=== PATIENT | male | born 1955 | race African-American/Black ===

== ENCOUNTER 2017-10-29 19:06 | Observation (INO) | payer BC ==
[2017-10-29 19:45] LABS: #Eosinphils 0.4 thou/uL (0.0-0.7); #Lymphocytes 2.8 thou/uL (1.20-3.40); #Monocytes 0.9 thou/uL (0.11-0.59); #Neutrophils 5.3 thou/uL (1.40-6.50); %Basophils 0.5 % (0.0-1.0); %Eosinophils 4.3 % (0.0-10.0); %Lymphocytes 29.6 % (21.0-51.0); %Neutrophils 56.5 % (42.0-75.0); Mean Corpuscular HGB CONC 35.4 g/dL (32.0-36.0); Mean Corpuscular Hemoglobin 32.4 pg (27.0-31.0); Mean Corpuscular Volume 91.7 fL (78.0-98.0); Mean Platelet Volume 6.9 fL (7.4-10.4); Platelet Count 261 thou/uL (130-400); RBC Distribution Width 13.1 % (11.5-14.5); Red Blood Cell (RBC) Count 3.09 mill/uL (4.70-6.10); White Blood Cell (WBC) Count 9.4 thou/uL (4.8-10.8)
--- NOTE | 2017-10-29 19:57 | RAD ---
CHEST ONE VIEW: HISTORY: FINDINGS: Chest pain. Dyspnea. COMPARISON: 10/30/2016 FINDINGS: The cardiac silhouette is magnified by projection. Shallow inspiration accentuates pulmonary marking s. Mediastinum is midline. No lobar consolidation or evidence of pneumothorax. IMPRESSION: No active cardiopulmonary abnormalities demonstrated. POS: [facility]
[2017-10-29] MEDS ORDERED: Nitroglycerin 0.4 MG TAB (25 Tab Bottle) ONE (20:00)
[2017-10-29 20:07] LABS: ALT (SGPT) 25 U/L (8-55); AST (SGOT) 23 U/L (5-34); Albumin 3.8 g/dL (3.4-4.8); Alkaline Phosphatase 55 U/L (40-150); Anion Gap 18 mmol/L (10-20); BUN (Urea Nitrogen) 58 mg/dL (8.4-25.7); Bilirubin, Total 0.2 mg/dL (0.2-1.2); CK (CPK) 437 U/L (30-200); Calc. Creatinine Clearance 0 mL/min (70-130); Calcium 9.4 mg/dL (7.8-10.44); Carbon Dioxide 21 mmol/L (23-31); Chloride 102 mmol/L (98-107); Estimated GFR-MDRD 28; Globulin 4.2 g/dL (2.4-3.5); Glucose 246 mg/dL (80-115); Lipase 53 U/L (8-78); Potassium 4.4 mmol/L (3.5-5.1); Sodium 137 mmol/L (136-145)
[2017-10-29 20:11] LABS: CKMB 2.5 ng/mL (0-6.6); Troponin I 0.013 ng/mL (< 0.028)
--- NOTE | 2017-10-29 23:10 | NM ---
RADIONUCLIDE VENTILATION AND PERFUSION LUNG SCAN: HISTORY: Chest pain. Dyspnea. FINDINGS: Ventilation images show good wash-in of radiotracer. Patchy areas of radiotracer remain throughout e ach lung on the wash-out images. Poor perfusion gradient on the perfusion images. No segmental or subsegmental perfusion mismatches. IMPRESSION: 1. Negative ventilation and perfusion lung scan for clinically significant pulmonary embolus. 2. Patchy areas of air trapping on the ventilation images. POS: [facility]
[2017-10-29 23:43] LABS: INR-International Normal Ratio 1.1; PTT 31.5 SEC (22.9-36.1); Prothrombin Time 14.7 SEC (12.0-14.7)
[2017-10-30 01:16] LABS: Troponin I 0.044 ng/mL (< 0.028)
[2017-10-30] MEDS ORDERED: Mag-Al 1200 mg/1200 mg/30 ML UDCUP PO PRN (01:21)
[2017-10-30] MEDS ORDERED: Loperamide HCl 2 MG CAP PO PRN (01:21)
[2017-10-30] MEDS ORDERED: Zolpidem Tartrate 5 MG TAB PO PRN (01:21)
[2017-10-30] MEDS ORDERED: Acetaminophen 325 MG TAB PO PRN (01:21)
[2017-10-30] MEDS ORDERED: Senokot 8.6 MG TAB PO PRN (01:21)
[2017-10-30] MEDS ORDERED: Milk Of Magnesia 30 ML UDCUP PO PRN (01:21)
[2017-10-30] MEDS ORDERED: Metoclopramide HCl 10 MG/2 ML VIAL IVP PRN (01:21)
[2017-10-30] MEDS ORDERED: Dextrose 50% Abboject 50 ML SYRINGE SLOW IVP PRN (01:21)
[2017-10-30] MEDS ORDERED: Dextrose 5% in Water 1,000 ML IV PRN (01:21)
[2017-10-30] MEDS ORDERED: HumaLOG 300 UNITS/3 ML VIAL SC PRN (01:21)
[2017-10-30] MEDS ORDERED: Metolazone 5 MG TAB PO PRN (02:29)
[2017-10-30] MEDS ORDERED: hydrOXYzine 25 MG TAB PO PRN ×2 (02:29→02:45)
[2017-10-30 02:39] VITALS: BMI 47.3
[2017-10-30] MEDS: ALPRAZolam 0.5 MG TAB PO PRN ×2 (02:43→23:03)
--- NOTE | 2017-10-30 02:56 | HP ---
PRIMARY CARE PHYSICIAN: Dr. Schmidt at [facility]. REASON FOR ADMISSION: Chest discomfort and dyspnea. HISTORY OF PRESENT ILLNESS: A 62-year-old -[place] male who has multiple medical issues including paroxysmal atrial fibrillation on chronic anticoagulation therapy, chronic diastolic heart failure, morbid obesity with sleep apnea, hypertension, diabetes, and dyslipidemia, who presented to emergency room with complaint of chest discomfort and shortness of breath. Patient reports that he was feeling weird in his chest. He was feeling heaviness, pressure-like sensation. He was feeling both upper extremities very heavy and weak. He was having only chest discomfort about 2/10 in intensity, associated with shortness of breath. He denies any associated nausea, vomiting , diaphoresis. He denies any dizziness, palpitations or syncope. He was having these type of symptoms and feeling for the last 2-3 days and that is why he decided to come to the emergency room for evaluation. He denies any fever or chills. He denies any cough. He denies any hemoptysis. He denies any pleurisy. He denies any local chest wall pain. He denies any UTI symptoms. He denies any constipation, diarrhea, melena or hematochezia. Patient reports that he does not have any recent cardiac testing done at in any the hospital. REVIEW OF SYSTEMS: The following complete review of systems was negative, unless otherwise mentioned in the HPI or below: Constitutional: Weight loss or gain, ability to conduct usual activities. Skin: Rash, itching. Eyes: Double vision, pain. ENT/Mouth: Nose bleeding, neck stiffness, pain, tenderness. Cardiovascular: Palpitations, dyspnea on exertion, orthopnea. Respiratory: Shortness of breath, wheezing, cough, hemoptysis, fever or night sweats. Gastrointestinal: Poor appetite, abdominal pain, heartburn, nausea, vomiting, constipation, or diarrhea. Genitourinary: Urgency, frequency, dysuria, nocturia. Musculoskeletal: Pain, swelling. Neurologic/Psychiatric: Anxiety, depression. Allergy/Immunologic: Skin rash, bleeding tendency. Please see my HPI for pertinent positive and negative. All other review of systems reviewed and negative except as mentioned in the HPI. PAST MEDICAL HISTORY: Morbid obesity, obstructive sleep apnea on CPAP, chronic respiratory failure with hypoxia, chronic atrial fibrillation, chronic anticoagulation with Eliquis, chronic diastolic heart failure, macrocytic anemia , diabetes type 2, insulin requiring, hypertension, dyslipidemia, chronic kidney disease stage 4, gout, gastroesophageal reflux disease. PAST SURGICAL HISTORY: Right nephrectomy for nephrolithiasis. Gastric sleeve surgery, tonsillectomy. PAST PSYCHIATRIC HISTORY: Anxiety and depression. SOCIAL HISTORY: The patient drinks beer occasionally. He is a former smoker. He quit smoking few years ago. He denies any other illicit drug abuse. He reports that he is eating healthy and he is keeping himself with fluid restriction as well as taking medication regularly. FAMILY HISTORY: Positive for diabetes, hypertension among several family members. ALLERGIES: No known drug allergy. CURRENT HOME MEDICATIONS: Xanax 1 mg p.o. at bedtime, insulin regular 70 units 3 times daily, Eliquis 5 mg p.o. b.i.d., sotalol 80 mg p.o. twice daily, Protonix 40 mg p.o. daily, promethazine 25 mg p.o. q.6 hourly p.r.n., metoprolol tartrate 50 mg twice daily, Atarax 25 mg p.o. daily, allopurinol 300 mg p.o. daily, metolazone 5 mg p.o. daily as directed, Cardizem-CD 60 mg p.o. daily, Lasix 80 mg p.o. 3 times daily, folic acid 0.8 mg p.o. daily, Crestor 20 mg p.o. daily, losartan 50 mg p.o. at bedtime. EMERGENCY ROOM COURSE: Patient is given IV fluid and nitroglycerin 0.4 mg sublingual. PHYSICAL EXAMINATION: VITAL SIGNS: On arrival, blood pressure 170/76, pulse 83, respiratory rate 30, temperature 98.5, saturation 94% on room air, weight 151.5 kilograms. GENERAL: The patient is currently alert, awake, no obvious acute distress. HEENT: Head normocephalic, atraumatic. Eyes: Pupils round, reactive to light. Extraocular muscle intact. ENT: Oropharynx within normal limits. Moist mucous membranes, no oral lesion, no pharyngeal erythema, no exudate. NECK: Supple, no JVD, short neck. Difficult to assess JVD. LUNGS: Clear to auscultation without any rhonchi or rales. CARDIAC: S1, S2 appears regular. No gross murmur noted, no gallop, no rub. ABDOMEN: Morbid obesity present. Bowel sounds present, nontender, nondistended. No organomegaly, no mass, no suprapubic tenderness. Morbid obesity limiting examination. BACK: Unremarkable, no CVA tenderness. EXTREMITIES: Upper extremity passive movement of all joints are normal. Lower extremities: Bilateral lower extremity trace edema noted. No calf tenderness. SKIN: No skin rash. HEMATOLOGICAL: No lymphadenopathy. PSYCHIATRIC: Normal affect. NEUROLOGIC: Nonfocal examination. Speech normal. SIGNIFICANT LABORATORY DATA: EKG showing first degree AV block, nonspecific ST- T changes. Chest x-ray based on my review, no acute cardiopulmonary process, cardiomegaly. Pulmonary perfusion imaging study showed no evidence of pulmonary embolism. CBC: WBC 9.4, hemoglobin 10.0, platelet 261. INR 1.1. BMP: Sodium 137, potassium 4.4, chloride 102, carbon dioxide 21, anion gap 18, BUN 58, creatinine 2.78, glucose 246, calcium 9.4. LFT: AST 23, ALT 25, alkaline phosphatase 55, albumin 3.8. CK 437, CK-MB 2.5, troponin I 0.013. BNP 94.6, troponin 0.044, lipase 53. ASSESSMENT AND PLAN: 1. Chest discomfort. Patient's description of chest discomfort is atypical. He has several risk factors for coronary artery disease. Based on his risk profile, his probability of coronary artery disease is very high. Patient will be observed on telemetry floor. We will do serial cardiac enzymes to rule out acute coronary syndrome. If cardiac enzymes continue to be negative, then we will perform pharmacological stress test tomorrow morning. This patient already had a VQ scan, so probably we will not be able to finish the stress test today, but a partial stress test will be done today and the other part will be done tomorrow. We will check lipid profile for risk stratification. Depending upon stress test result, we will decide whether cardiology needs to be involved in his care or not. We will try to optimize all risk factors with medicine. 2. Chronic kidney disease stage 4. We will monitor renal function and avoid nephrotoxin agent. This patient's renal insufficiency is related with diabetic nephropathy as well as unilateral kidney. His one kidney was removed from nephrolithiasis. I spoke with the patient that if he has to go for cardiac catheterization, then he is at risk for getting renal insufficiency and possible dialysis. 3. Elevated troponin. We will do serial cardiac enzymes x3 to rule out acute coronary syndrome. 4. Anemia, likely renal disease. The patient will continue ferrous sulfate upon discharge as well as Nephro-Ashleigh one tablet daily. 5. Hypertension. We will continue patient's blood pressure medication including metoprolol XL 50 mg p.o. b.i.d. 6. Gout. We will continue allopurinol 300 mg p.o. daily. 7. Anxiety and depression. We will continue Xanax 1 mg p.o. at bedtime p.r.n. 8. Chronic anticoagulation. We will continue Eliquis 5 mg p.o. b.i.d. 9. Paroxysmal atrial fibrillation. Continue Cardizem 60 mg p.o. b.i.d., metoprolol 50 mg p.o. b.i.d., and sotalol 80 mg p.o. b.i.d. 10. Dyslipidemia. Continue Crestor 20 mg p.o. at bedtime. 11. Gastroesophageal reflux disease. Continue Protonix 40 mg p.o. daily. 12. Chronic diastolic heart failure. Continue metolazone 5 mg p.o. daily p.r.n. for edema along with Lasix 80 mg p.o. t.i.d. 13. Diabetes type 2. Continue Humalog insulin as per sliding scale per protocol. Diabetic diet will be given. We will keep him n.p.o. for now for stress test and then we will resume diabetic diet. 14, SHANTE, continue his home cpap machine DISPOSITION: Plan based on clinical course. Patient will stay in hospital until stress test is done. JANUSZD
[2017-10-30 03:57] LABS: Cardiac Risk 4.3 (Less than 4.5)
[2017-10-30 04:01] LABS: Troponin I 0.092 ng/mL (< 0.028)
[2017-10-30] MEDS: Furosemide 80 MG TAB PO SCH ×3 (06:19→17:32)
[2017-10-30] MEDS ORDERED: INSULIN REGULAR HUMAN 70 UNIT SC SCH (07:30)
[2017-10-30 08:00] LABS: Troponin I 0.104 ng/mL (< 0.028)
[2017-10-30] MEDS ORDERED: Aspirin 325 MG TAB PO SCH (09:00)
[2017-10-30] MEDS ORDERED: Rosuvastatin 20 MG TAB PO SCH ×2 (09:00→21:00)
[2017-10-30] MEDS: Allopurinol 100 MG TAB PO SCH (09:56)
[2017-10-30] MEDS: Apixaban 5 MG TAB PO SCH ×2 (09:57→21:26)
[2017-10-30] MEDS: Diltiazem HCl SR 60 mg Capsule PO SCH ×2 (09:58→21:26)
[2017-10-30] MEDS: Sotalol HCl 80 MG TAB PO SCH ×2 (09:58→21:26)
[2017-10-30] MEDS: HYDROcodone/Acetaminophen 5/325 mg Tablet PO PRN ×3 (10:00→21:30)
[2017-10-30 10:54] LABS: Troponin I 0.092 ng/mL (< 0.028)
[2017-10-30] MEDS: HumaLOG 300 UNITS/3 ML VIAL SC PRN ×2 (11:38→17:33)
[2017-10-30] MEDS ORDERED: Benzocaine (Dental) 20% 10 gm Tube TOP PRN (12:00)
--- NOTE | 2017-10-30 16:25 | CON ---
DATE OF CONSULTATION: 10/30/2017 HISTORY: The patient is a 62-year-old gentleman with a history of cor pulmonale, atrial fibrillation , hypertension, and diabetes mellitus who presented with dyspnea and chest discomfort. The patient s tates that he had previously undergone an evaluation at [facility] several years ago. He had a cardiac catheterization which apparently revealed normal coronary arteries. The patient als o has a history of paroxysmal atrial fibrillation. The patient has been diagnosed with diastolic hea rt failure. The patient was in his usual state of health when he started developing left-sided chest discomfort. He reports that when he exerted himself, he would notice having discomfort in his left chest. This lasted for up to an hour. He stated this occurred several times in the past week. He c mary to the hospital for further evaluation. The patient denies having any present chest discomfort. PAST MEDICAL HISTORY: 1. Paroxysmal atrial fibrillation. 2. Congestive heart failure. 3. Diabetes mellitus. 4. Hypertension. 5. Chronic renal injury. 6. GE reflux. PAST SURGICAL HISTORY: He has had a nephrectomy, gastric sleeve and tonsillectomy. SOCIAL HISTORY: He is a nonsmoker. ALLERGIES: No known drug allergies. FAMILY HISTORY: Positive family history of coronary artery disease. MEDICATIONS ON ADMISSION: See nursing list. REVIEW OF SYSTEMS: Ten-point system is otherwise unremarkable. PHYSICAL EXAMINATION: GENERAL: This is an obese gentleman in no acute distress. VITAL SIGNS: Blood pressure 121/61. NECK: Full. LUNGS: Clear to auscultation. HEART: Regular rate and rhythm, normal S1, S2, no murmurs. ABDOMEN: Distended. EXTREMITIES: Showed trace edema. SKIN: Warm and dry. NEUROLOGIC: Nonfocal. VASCULAR: Radial pulses are 2+. LABORATORY DATA AND IMAGING DATA: Sodium 137, potassium 4.4, chloride 102, bicarbonate 21, BUN 58, c reatinine 2.78 and glucose 246. Troponin was 0.044. BNP is 94. White blood cell count 9.4, hemoglo bin 10.0, hematocrit 28.4, his platelets are 261. His EKG revealed him to have normal sinus rhythm w ith a nonspecific T-wave abnormality. Chest x-ray showed no evidence of pulmonary edema and EKG reve aled him to have normal sinus rhythm with a nonspecific T-wave abnormality. IMPRESSION: 1. Chest pain. 2. History of paroxysmal atrial fibrillation. 3. Hypertension. 4. History of diastolic heart failure. 5. Diabetes mellitus. 6. Dyslipidemia. 7. Chronic renal insufficiency. 8. History of sleep apnea. 9. Morbid obesity. This gentleman presents with chest pain with some features suggestive of angina. The patient underwe nt a V/Q scan which revealed no evidence of pulmonary embolus. The patient is scheduled to undergo C ardiolite stress testing. The patient is on appropriate cardiac medications. We will follow this pa tient with you through his hospitalization.
[2017-10-30] MEDS ORDERED: Losartan 25 MG TAB PO SCH (21:00)
[2017-10-31] MEDS: Furosemide 80 MG TAB PO SCH ×2 (05:01→11:56)
[2017-10-31] MEDS: HYDROcodone/Acetaminophen 5/325 mg Tablet PO PRN ×2 (06:20→11:55)
[2017-10-31 08:19] VITALS: TEMP 97.4
[2017-10-31] MEDS ORDERED: Aspirin 81 mg Enteric Coated Tablet PO SCH (09:00)
[2017-10-31] MEDS: Allopurinol 100 MG TAB PO SCH (10:22)
[2017-10-31] MEDS: Apixaban 5 MG TAB PO SCH (10:22)
[2017-10-31] MEDS: Diltiazem HCl SR 60 mg Capsule PO SCH (10:24)
[2017-10-31] MEDS: Sotalol HCl 80 MG TAB PO SCH (10:25)
[2017-10-31] MEDS: HumaLOG 300 UNITS/3 ML VIAL SC PRN (11:56)
--- NOTE | 2017-10-31 12:43 | NM ---
MYOCARDIAL PERFUSION SCAN WITH STRESS IMAGING ONLY: HISTORY: Chest pain. TECHNIQUE: A stress examination is performed using 29 millicuries of technetium 99m sestamibi. FINDINGS: This shows a normal distribution of the radiopharmaceutical. No signs of ischemia or scar. WALL MOTION: There is symmetric contractility to the ventricle. LEFT VENTRICULAR EJECTION FRACTION: The calculated left ventricular ejection fraction is 51%. IMPRESSION: 1. No evidence of ischemia or scar. 2. Left ventricular ejection fraction was calculated at 51%. Correlate with echocardiogram. POS: [facility]
[2017-10-31 13:09] VITALS: BP 157/74
[2017-10-31] MEDS ORDERED: Regadenoson 0.4 MG/5 ML SYRINGE ONE (13:16)
--- NOTE | 2017-10-31 13:46 | EKG ---
Test Reason : Blood Pressure : / mmHG Vent. Rate : 086 BPM Atrial Rate : 086 BPM P-R Int : 220 ms QRS Dur : 070 ms QT Int : 412 ms P-R-T Axes : 077 021 -75 degrees QTc Int : 493 ms Sinus rhythm with 1st degree A-V block Nonspecific T wave abnormality Abnormal ECG Confirmed by LUCINDA PIERRE, FOX ([id number]), editor managing director BERNARD DELUNA ([id number]) on 10/31/2017 1:45:41 PM Referred By: Confirmed By:FOX JANE MD
--- NOTE | 2017-11-01 00:43 | DIS ---
DATE OF ADMISSION: 10/30/2017 DATE OF DISCHARGE: 10/31/2017 DISCHARGE DIAGNOSES: 1. Chest pain. 2. Diabetes. 3. Hypertension. 4. Chronic kidney disease. HOSPITAL COURSE: The patient is a 62-year-old male who initially presented to the hospital for chest pain and some shortness of breath. The patient then underwent a stress test. The patient did have some intermediate elevated troponins. The stress test indicated an EF of 51% and the stress test did not indicate any ischemia or scar. The patient, at this time, was discharged home. He will follow up with PCP and his record filing clerk at [facility]. The patient had a stress test which was normal. He will be discharged home. I did have an extensive talk with him in regard to his medication and his blood sugars. I also went over extensively about his diet and his low salt diet, which he states that he eats out once a week due to not able to cook since his son works every other week. The eveline ent states that he does eat out quite a bit, which I did explain to him that has a lot of salt which henceforth he has to take diuretic 3 times a day. Also, his blood sugars have been very high. The p atient states that his last hemoglobin A1c was 8.1. His baseline hemoglobin A1c is normally 7. I re commended the patient to diet, exercise and also weight loss. Follow up with PCP and Dr. Trotter, Cardio logy, as outpatient. HOME MEDICATIONS: He will continue the insulin 70 before meals, rosuvastatin 20 mg daily, losartan 2 0 mg at bedtime, metolazone 5 mg daily p.r.n., Cardizem 60 b.i.d., Lasix 80 mg t.i.d., allopurinol 30 0 mg daily, Protonix 40 mg daily, Eliquis 5 mg b.i.d., Atarax 25 mg daily p.r.n., sotalol 80 mg b.i.d ., metoprolol 50 mg b.i.d., Xanax 1 mg p.o. at bedtime p.r.n. PHYSICAL EXAMINATION: VITAL SIGNS: Temperature 97.4, pulse 68, respirations are 20, saturation 93% room air, blood pressur e 157/74. GENERAL: He is awake, alert, oriented x3, does not appear in distress. CARDIOVASCULAR: S1, S2 present. No murmurs, rubs or gallops. ABDOMEN: Soft, nontender. Bowel sounds are present x2. LUNGS: Clear to auscultation. No rhonchi or wheezes noted. EXTREMITIES: No edema. Pedal pulses present x2.
== END 2017-10-31 16:52 | disposition home or self-care (01) ==
LOC: ERS 19:06 → 2SW 10-30 01:12
PROVIDERS: ADMIT Internal Medicine; ATTEND Internal Medicine
DX: R07.89 Other chest pain (principal); I48.0 Paroxysmal atrial fibrillation; I13.0 Hypertensive heart and chronic kidney disease with heart failure and stage 1 through stage 4 chronic kidney disease, or unspecified chronic kidney disease; E11.22 Type 2 diabetes mellitus with diabetic chronic kidney disease; N18.4 Chronic kidney disease, stage 4 (severe); I50.32 Chronic diastolic (congestive) heart failure; D63.1 Anemia in chronic kidney disease; G47.30 Sleep apnea, unspecified; E78.5 Hyperlipidemia, unspecified; J96.11 Chronic respiratory failure with hypoxia; K21.9 Gastro-esophageal reflux disease without esophagitis; M10.9 Gout, unspecified; F41.8 Other specified anxiety disorders; E66.01 Morbid (severe) obesity due to excess calories; Z68.42 Body mass index [BMI] 45.0-49.9, adult; Z87.891 Personal history of nicotine dependence; Z79.01 Long term (current) use of anticoagulants; Z79.4 Long term (current) use of insulin; Z79.899 Other long term (current) drug therapy; Z98.84 Bariatric surgery status; Z90.5 Acquired absence of kidney; Z99.89 Dependence on other enabling machines and devices
CPT/HCPCS: 36415; 36416; 71045; 78452; 78582; 80053; 80061; 82550; 82553; 83690; 83880; 84484; 85025; 85610; 85730; 93005; 93017; 94760; 96360; 96361; A9500; A9540; A9558; G0378; J2785

== ENCOUNTER 2018-11-20 22:16 | Inpatient (IN) | payer BC, SELFPAY ==
--- NOTE | 2018-11-20 23:28 | RAD ---
EXAM: Single view of the chest HISTORY: Shortness of breath COMPARISON: 10/29/2017 FINDINGS: Single view of the chest shows a normal sized cardiomediastinal silhouette. There is no abena dence of consolidation, mass, or pleural effusion. The bones are unremarkable. IMPRESSION: No evidence of acute cardiopulmonary disease
[2018-11-20 23:40] LABS: #Basophils 0.2 thou/uL (0.0-0.2); #Eosinphils 0.4 thou/uL (0.0-0.7); #Monocytes 0.9 thou/uL (0.11-0.59); #Neutrophils 7.3 thou/uL (1.40-6.50); %Basophils 1.4 % (0.0-1.0); %Eosinophils 3.7 % (0.0-10.0); %Lymphocytes 18.9 % (21.0-51.0); %Monocytes 8.3 % (0.0-10.0); %Neutrophils 67.8 % (42.0-75.0); Hemoglobin 10.8 g/dL (14.0-18.0); Mean Corpuscular HGB CONC 34.4 g/dL (32.0-36.0); Mean Corpuscular Hemoglobin 32.9 pg (27.0-31.0); Mean Corpuscular Volume 95.7 fL (78.0-98.0); Mean Platelet Volume 7.5 fL (7.4-10.4); Platelet Count 230 thou/uL (130-400); RBC Distribution Width 12.9 % (11.5-14.5); Red Blood Cell (RBC) Count 3.27 mill/uL (4.70-6.10); White Blood Cell (WBC) Count 10.8 thou/uL (4.8-10.8)
[2018-11-21 00:07] LABS: Albumin 3.8 g/dL (3.4-4.8)
[2018-11-21 00:08] LABS: Chloride 100 mmol/L (98-107); Potassium 4.8 mmol/L (3.5-5.1); Sodium 136 mmol/L (136-145)
[2018-11-21 00:09] LABS: Calcium 9.9 mg/dL (7.8-10.44); Glucose 202 mg/dL (80-115)
[2018-11-21 00:10] LABS: Globulin 3.4 g/dL (2.4-3.5); Protein, Total 7.2 g/dL (5.8-8.1)
[2018-11-21 00:11] LABS: Bilirubin, Total 0.2 mg/dL (0.2-1.2); Carbon Dioxide 24 mmol/L (23-31)
[2018-11-21 00:12] LABS: Alkaline Phosphatase 58 U/L (40-150)
[2018-11-21 00:13] LABS: Calc. Creatinine Clearance 0 mL/min (70-130); Estimated GFR-MDRD 27
[2018-11-21 00:14] LABS: BUN (Urea Nitrogen) 63 mg/dL (8.4-25.7)
[2018-11-21 00:15] LABS: ALT (SGPT) 26 U/L (8-55); AST (SGOT) 20 U/L (5-34)
[2018-11-21] MEDS ORDERED: Aspirin Chewable 81 MG TAB ONE (00:23)
[2018-11-21 00:35] LABS: CKMB 4.4 ng/mL (0-6.6)
[2018-11-21 00:45] LABS: Anion Gap 17 mmol/L (10-20)
[2018-11-21] MEDS ORDERED: Ondansetron ODT 4 MG TAB SL PRN (02:10)
[2018-11-21] MEDS ORDERED: Acetaminophen 325 MG TAB PO PRN (02:10)
[2018-11-21] MEDS ORDERED: Ondansetron PF 4 MG/2 ML Vial IVP PRN (02:10)
[2018-11-21 02:57] VITALS: BMI 46.0
[2018-11-21] MEDS ORDERED: Metolazone 5 MG TAB PO PRN (05:59)
[2018-11-21] MEDS ORDERED: hydrOXYzine 25 MG TAB PO PRN (05:59)
[2018-11-21] MEDS ORDERED: Furosemide 40 MG/4 ML VIAL SLOW IVP SCH ×2 (06:00→09:00)
[2018-11-21] MEDS ORDERED: Dextrose 50% Abboject 50 ML SYRINGE SLOW IVP PRN (06:00)
[2018-11-21] MEDS ORDERED: Dextrose 5% in Water 1,000 ML IV PRN (06:00)
[2018-11-21] MEDS ORDERED: ALPRAZolam 1 MG TAB PO PRN (06:01)
--- NOTE | 2018-11-21 07:35 | HP ---
TIME OF EVALUATION: 5 p.m. PRIMARY CARE DOCTOR: The patient goes to [facility]. CODE STATUS: Full code. CHIEF COMPLAINT: Shortness of breath. HISTORY OF PRESENT ILLNESS: This is a 63-year-old male patient with past medical history of diabetes, obesity, and hypertension, who came to the hospital after having shortness of breath for the past few days, started insidiously and has been gradually getting worse, associated with bilateral lower extremity edema, mostly on the right. No clear triggers, no alleviating factors. The patient denies any chest pain. The symptoms got worse on exertion and better with rest. REVIEW OF SYSTEMS: All systems were reviewed and negative except for the findings mentioned in the HPI. PAST MEDICAL HISTORY: Positive for AFib, gout, GERD, sleep apnea, type 2 diabetes, hyperlipidemia, high cholesterol, hypertension, and chronic kidney disease. SURGICAL HISTORY: Nephrectomy, bariatric surgery, tonsillectomy. PSYCHIATRIC HISTORY: Anxiety. FAMILY HISTORY: Reviewed and non contributory for current presentation. SOCIAL HISTORY: The patient drinks on a daily basis, less than 5 drinks per day ; quit smoking more than 10 years ago. KNOWN ALLERGIES: No known drug allergies. REPORTED MEDICATIONS: 1. Allopurinol. 2. Lasix. 3. Tizanidine. 4. Amitriptyline. 5. Terbinafine. 6. Humulin R. 7. Hydroxyzine. 8. Alprazolam. 9. Diltiazem. 10. Sotalol. 11. Eliquis. 12. Ferrous sulfate. 13. Mupirocin. 14. Trulicity. 15. Carvedilol. 16. Folic acid. 17. Crestor. PHYSICAL EXAMINATION: VITAL SIGNS: On presentation, blood pressure 161/91, with heart rate 94, respiratory rate was 30, temperature 97.8, oxygen saturation 92% on room air. GENERAL APPEARANCE: The patient is alert, oriented, in no acute distress. HEENT: Eyes; normal conjunctivae. Moist oral mucosa. Anicteric. No JVD. RESPIRATORY: Bilateral air entry. No rales. No wheezes. Symmetric expansion. CARDIOVASCULAR: Normal rate. Regular rhythm. No murmurs. No gallop. Patient has leg edema, mostly on the right side. ABDOMEN: Soft. Normal bowel sounds. MUSCULOSKELETAL: Baseline range of motion and strength. SKIN: Warm and intact. No pallor. No rash. No redness. Capillary refill seems to intact. NEURO: No evidence of any new focal weakness. Cranial nerves seems to be intact. PSYCH: The patient is alert and oriented, not in acute distress. Good mood. DIAGNOSTIC STUDIES: EKG was reviewed. The patient has normal sinus rhythm with a rate of 94, no specific ST abnormalities. Chest x-ray was done and the patient has no evidence of acute cardiopulmonary disease. Labs were reviewed. The patient has white count 10.8, hemoglobin 10.8, MCV 95.7, platelet count 230. Chemistry; sodium 136, potassium 4.8, chloride 100, carbon dioxide 24, anion gap 17, BUN 63, creatinine 2.86, the previous creatinine was 2.78. The initial troponin was 0.471, next one has been scheduled. Glucose 202. LFTs were negative. ASSESSMENT AND PLAN: The patient will be placed in the hospital with the following medical problems: 1. Acute coronary syndrome, possible [id number] myocardial infarction. The patient has a troponin 0.4, presented with shortness of breath that could be a presentation of chest pain in a diabetic patient, the patient has no specific EKG changes. Treatment; the patient has been started on aspirin, reconcile home medications. The patient to be on statins, ANNALISE inhibitors, beta blockers, and anticoagulation if the troponin keeps rising. Cardiology consulted for recommendations. There is no evidence of congestive heart failure in the echo done 2 years ago. We will repeat the echo to rule out congestive heart failure. 2. Morbid obesity. The patient reportedly has a gastric sleeve and had been losing weight, however, has gained some weight in the past few days, could be due to fluid retention. 3. Normocytic anemia. The patient has a hemoglobin of 10 and this is stable when compared with previous admissions. This can be followed as outpatient. 4. Stage 4 chronic kidney disease. Kidney function seems to be stable. We will monitor. We will treat accordingly. Fluid retention may be related to chronic kidney disease. 5. History of atrial fibrillation, rate is controlled. Reconcile home medications, adjust treatment as needed. 6. History of gout, the right ankle swelling could be related to a gout crisis. We will reconcile home medications. 7. Hyperlipidemia. Low-cholesterol diet is advised. Reconcile home medications. 8. Uncontrolled hypertension. The patient has had a systolic blood pressure of 161. Reconcile home medications. Will need IV p.r.n. medications for optimal control. 9. Deep vein thrombosis prophylaxis. Job ID: [id number] [facility]
--- NOTE | 2018-11-21 07:36 | ULT ---
PRELIMINARY REPORT/[facility]/EMERGENCY AFTER HOURS PROCEDURE PROCEDURE INFORMATION: Exam: US Duplex Right Lower Extremity Veins, Limited Exam date and time: 11/21/2018 12:45 AM Clinical history: 63 years old, male; Edema, localized; Lower extremity, right; Leg, lower; Patient HX: Rle pain/edema x 1 wk TECHNIQUE: Imaging protocol: Real-time Duplex ultrasound of the Right Lower Extremity with 2-D ibarra scale, color Doppler flow and spectral waveform analysis with image documentation. Limited exam was focused on the right lower extremity veins. COMPARISON: No relevant prior studies available. FINDINGS: No visible clot in the included veins. The included veins appear normally compressible. Duplex Doppler evaluation demonstrates flow in the evaluated veins. IMPRESSION: No evidence of acute right lower extremity DVT. Thank you for allowing us to participate in the care of your patient. Dictated and Authenticated by: Conor Dexter MD 11/21/2018 1:19 AM Central Time ([place] & [place]) FINAL REPORT US Venous Doppler Rt Unilat History: Lower extremity edema and pain Comparison: None. Findings: Real-time grayscale, color, and spectral analysis of the right lower extremity venous syste m was performed. The common femoral, femoral, proximal portions of greater saphenous and deep femoral veins as well as the popliteal and posterior tibial veins were interrogated. Normal flow, augmentation, and compression. Impression: No deep venous thrombosis. Findings and impression are concordant with the preliminary report by Donnie. Transcribed Date/Time: 11/21/2018 8:08 AM
[2018-11-21 08:21] LABS: Platelet Count 226 thou/uL (130-400)
[2018-11-21] MEDS ORDERED: Apixaban 5 MG TAB PO SCH (09:00)
[2018-11-21] MEDS ORDERED: Carvedilol 3.125 MG TAB PO SCH (09:00)
[2018-11-21] MEDS ORDERED: Aspirin 81 mg Enteric Coated Tablet PO SCH ×2 (09:00→10:45)
[2018-11-21] MEDS: Ferrous Sulfate 325 MG TAB PO SCH ×2 (09:29→19:42)
[2018-11-21] MEDS: Lisinopril 5 MG TAB PO SCH (09:29)
[2018-11-21] MEDS: Sotalol HCl 80 MG TAB PO SCH ×2 (09:30→19:41)
[2018-11-21] MEDS: tiZANidine HCl 4 MG TAB PO SCH ×2 (09:30→19:42)
[2018-11-21] MEDS: Diltiazem HCl SR 60 mg Capsule PO SCH ×2 (09:30→19:41)
[2018-11-21] MEDS: Allopurinol 300 MG TAB PO SCH (09:30)
[2018-11-21] MEDS: Rosuvastatin 20 MG TAB PO SCH (09:30)
[2018-11-21] MEDS: Heparin 10,000 UNITS/ 10 ML VIAL SLOW IVP SCH ×2 (09:34→16:40)
[2018-11-21] MEDS: Heparin 25,000 units/D5W 500 ML IVPB SCH (09:38)
[2018-11-21 09:58] LABS: Troponin I 1.453 ng/mL (< 0.028)
[2018-11-21] MEDS: HumaLOG 300 UNITS/3 ML VIAL SC PRN ×2 (11:10→16:49)
--- NOTE | 2018-11-21 12:43 | CON ---
DATE OF CONSULTATION: 11/21/2018 REASON FOR CONSULTATION: Shortness of breath. HISTORY OF PRESENT ILLNESS: Mr. Schmidt is a pleasant 63-year-old gentleman, who comes to the hospital for increased shortness of breath. He states that he has been getting more short winded for the last 2 or 3 days, slowly getting worse to the point where he decided to come in for evaluation. He also noticed increased lower extremity edema, worse in the right leg. He denies any chest pain, tightness, or pressure, only the shortness of breath. He follows up with [facility], Dr. Xiao is his primary rolling attendant. He last saw him apparently three months ago and was told everything was fine. PAST MEDICAL HISTORY: 1. Paroxysmal atrial fibrillation. 2. Gout. 3. GERD. 4. Sleep apnea. 5. Type 2 diabetes. 6. Hyperlipidemia. 7. Hypertension. 8. Chronic kidney disease. SURGICAL HISTORY: 1. Nephrectomy for multiple infections and renal stones. 2. History of gastric sleeve. 3. Tonsillectomy. SOCIAL HISTORY: Drinks about five drinks a day. Quit smoking about 5 or 6 years ago. ALLERGIES: NO KNOWN DRUG ALLERGIES. OUTPATIENT MEDICATIONS: Include, 1. Humulin regular. 2. Trulicity. 3. Ferrous sulfate. 4. Amitriptyline. 5. Tizanidine. 6. Carvedilol 3.125 b.i.d. 7. Sotalol 80 mg b.i.d. 8. Rosuvastatin 20 mg a day. 9. Metolazone 5 mg a day p.r.n. 10. Eliquis 5 mg b.i.d. 11. Diltiazem 60 mg b.i.d. 12. Furosemide 80 mg t.i.d. 13. Allopurinol 300 mg a day. 14. Alprazolam. 15. Hydroxyzine. ALLERGIES: NO KNOWN DRUG ALLERGIES. REVIEW OF SYSTEMS: A 12-point review of systems was done and was all negative unless stated in the history of present illness. PHYSICAL EXAMINATION: VITAL SIGNS: Temperature 97.4, pulse 79, respiratory rate 16, saturating 99% on room air, and blood pressure 131/77. GENERAL: Awake, alert, and oriented x3. No distress. HEENT: Normocephalic and atraumatic. NECK: Supple. LUNGS: Clear. CARDIOVASCULAR: S1 and S2. No S3 or S4. There is a grade 3/6 systolic murmur at the right upper sternal border. ABDOMEN: Soft. EXTREMITIES: 1+ edema, worse in the right leg, probably trace in the left leg. SKIN: Warm and dry. LABORATORY DATA: Laboratory work was reviewed. CBC with white count of 10, hemoglobin of 10.8, hematocrit of 31, and platelet count of 230. Coags were reviewed. Chemistries with a sodium of 136, potassium 4.6, chloride of 100, carbon dioxide 24, anion gap of 17, BUN of 63 and creatinine 2.86, GFR of 27. Total bilirubin, AST, and ALT are normal. Alkaline phosphatase is normal. Troponin was 0.47, then 1.3, and now 1.4 with a CK-MB of 4.4. BNP was 46. Albumin of 3.8. EKG was reviewed. Chest x-ray showed no acute cardiopulmonary issues. No CHF. Vascular ultrasound showed no evidence of DVTs. ASSESSMENT: 1. Acute on chronic diastolic heart failure. 2. Uut-EM-[id number] myocardial infarction. Unclear whether this is demand ischemia versus a true intracoronary event. 3. Chronic kidney disease stage IV, this is the highest. PLAN: 1. Certainly, there is a possibility that this is a non-ST elevation NV that he is having at this time. I spoke with Mr. Schmidt about possibly doing a heart catheterization. This is not the best time given his elevated creatinine and he would be at high risk for needing dialysis after the contrast load that he would need for heart catheterization. He is not interested in this. Currently, he is not having any chest pain. He is only short of breath and it is actually already getting better after a dose of IV Lasix yesterday. We will plan on treating him conservatively per his wishes. We will start him on a heparin drip. We will hold the Eliquis for the next few days while he is on a heparin drip and then we will restart it after that and we will send him home on Plavix as well. Continue aspirin. 2. We will give one dose of IV Lasix at 40 mg as he seems a little bit euvolemic at this time. 3. We will repeat an echocardiogram, make sure his LV function is not significantly impaired, it was normal. Last time he was here was in October of last year and his LV function was normal at that time. 4. Thank you for letting us to participate in the care of your patient. We will follow. Job ID: [id number]
[2018-11-21] MEDS ORDERED: HUMULIN U SC SCH (14:00)
[2018-11-21] MEDS ORDERED: Insulin Regular 300 UNITS/3 ML VIAL SC SCH (17:00)
[2018-11-21] MEDS: HUMULIN U SC SCH (17:34)
[2018-11-21] MEDS: Amitriptyline HCl 25 MG TAB PO SCH (19:41)
[2018-11-22 04:35] LABS: #Basophils 0.1 thou/uL (0.0-0.2); #Eosinphils 0.5 thou/uL (0.0-0.7); #Lymphocytes 3.3 thou/uL (1.20-3.40); #Monocytes 0.9 thou/uL (0.11-0.59); #Neutrophils 5.5 thou/uL (1.40-6.50); %Basophils 0.6 % (0.0-1.0); %Eosinophils 4.9 % (0.0-10.0); %Lymphocytes 32.2 % (21.0-51.0); %Monocytes 8.8 % (0.0-10.0); %Neutrophils 53.5 % (42.0-75.0); Hemoglobin 9.8 g/dL (14.0-18.0); Mean Corpuscular HGB CONC 34.3 g/dL (32.0-36.0); Mean Corpuscular Hemoglobin 32.8 pg (27.0-31.0); Mean Corpuscular Volume 95.6 fL (78.0-98.0); Mean Platelet Volume 7.2 fL (7.4-10.4); Platelet Count 213 thou/uL (130-400); Red Blood Cell (RBC) Count 2.99 mill/uL (4.70-6.10); White Blood Cell (WBC) Count 10.2 thou/uL (4.8-10.8)
[2018-11-22 04:47] LABS: Anion Gap 12 mmol/L (10-20); BUN (Urea Nitrogen) 72 mg/dL (8.4-25.7); Calc. Creatinine Clearance 52 mL/min (70-130); Calcium 9.6 mg/dL (7.8-10.44); Carbon Dioxide 29 mmol/L (23-31); Chloride 95 mmol/L (98-107); Estimated GFR-MDRD 24; Glucose 228 mg/dL (80-115); Potassium 4.6 mmol/L (3.5-5.1); Sodium 131 mmol/L (136-145)
[2018-11-22] MEDS: Heparin 25,000 units/D5W 500 ML IVPB SCH (06:45)
[2018-11-22] MEDS: HUMULIN U SC SCH ×3 (07:30→18:56)
[2018-11-22] MEDS: Allopurinol 300 MG TAB PO SCH (09:28)
[2018-11-22] MEDS: tiZANidine HCl 4 MG TAB PO SCH ×2 (09:28→20:47)
[2018-11-22] MEDS: Lisinopril 5 MG TAB PO SCH (09:28)
[2018-11-22] MEDS: Sotalol HCl 80 MG TAB PO SCH ×2 (09:28→20:47)
[2018-11-22] MEDS: Diltiazem HCl SR 60 mg Capsule PO SCH ×2 (09:28→20:47)
[2018-11-22] MEDS: Ferrous Sulfate 325 MG TAB PO SCH ×2 (09:29→20:47)
[2018-11-22] MEDS: Rosuvastatin 20 MG TAB PO SCH (09:30)
--- NOTE | 2018-11-22 10:27 | ULT ---
US Renal Bilateral STANDARD: 11/22/2018 9:21 AM CLINICAL HISTORY: Renal failure. History of prior right nephrectomy in 2007. STUDY: Renal ultrasound COMPARISON: None. FINDINGS: Right kidney: Status post right nephrectomy Left kidney: Echogenicity: Normal. Masses/cysts: None. Hydronephrosis: None. Calcifications: None. Length: 16.1 cm Limited visualization of the urinary bladder is unremarkable. IMPRESSION: Unremarkable left renal ultrasound
--- NOTE | 2018-11-22 12:15 | PDOC.CPN ---
- Subjective Date: 11/22/18 Time: 12:12 Interval history: No change in his breathing but has noted his swelling is gone. - Review of Systems General: denies: fever/chills, weight/appetite/sleep changes, night sweats, fatigue Respiratory: reports: shortness of breath. denies: cough, congestion, exercise intolerance Cardiovascular: denies: chest pain, palpitation, edema, paroxysmal nocturnal dyspnea, orthopnea Gastrointestinal: denies: nausea, vomiting, diarrhea, constipation, abd pain, GI bleeding Musculoskeletal: denies: pain, tenderness, stiffness, swelling, arthritis/ arthralgias Neurological: denies: numbness, syncope, seizure, weakness - Objective Allergies/Adverse Reactions: Allergies Allergy/AdvReac Type Severity Reaction Status Date / Time No Known Drug Allergies Allergy Verified 10/30/17 01:45 Visit Medications: Current Medications Allopurinol (Zyloprim) 300 mg PO DAILY [facility] Last Admin: 11/22/18 09:28 Dose: 300 mg Alprazolam (Xanax) 1 mg PO HS PRN PRN Reason: Anxiety Amitriptyline HCl (Elavil) 50 mg PO HS [facility] Last Admin: 11/21/18 19:41 Dose: 50 mg Dextrose/Water (Dextrose 50%) 25 gm SLOW IVP PRN PRN PRN Reason: Hypoglycemia Diltiazem HCl (Cardizem Sr) 60 mg PO BID [facility] Last Admin: 11/22/18 09:28 Dose: 60 mg Ferrous Sulfate (Feosol) 325 mg PO BID [facility] Last Admin: 11/22/18 09:29 Dose: 325 mg Glucagon (Glucagon) 1 mg IM PRN PRN PRN Reason: Hypoglycemia Heparin Sodium (Porcine) (Heparin 1,000 Units/Ml (10 Ml)) 4,000 units SLOW IVP ASDIR [facility]; Protocol Last Admin: 11/21/18 16:40 Dose: 4 ml Hydroxyzine HCl (Atarax) 25 mg PO DAILY PRN PRN Reason: Itching Dextrose/Water (D5w) 1,000 mls @ 0 mls/hr IV .Q0M PRN PRN Reason: Hypoglycemia Heparin Sodium/Dextrose (Heparin 25,000 Units/D5w 500 Ml) 500 mls @ 0 mls/hr IVPB INF [facility]; Protocol Last Admin: 11/22/18 06:45 Dose: 500 mls Insulin Human Lispro (Humalog) 0 units SC .MILD SLIDING SCALE PRN PRN Reason: Mild Correctional Scale Last Admin: 11/21/18 16:49 Dose: 5 unit Humulin U-500 Patient's Home Medication 80 each SC AC [facility] Last Admin: 11/22/18 07:30 Dose: 80 each Rosuvastatin Calcium (Crestor) 20 mg PO DAILY [facility] Last Admin: 11/22/18 09:30 Dose: 20 mg Sotalol HCl (Betapace) 80 mg PO BID [facility] Last Admin: 11/22/18 09:28 Dose: 80 mg Tizanidine HCl (Zanaflex) 4 mg PO BID [facility] Last Admin: 11/22/18 09:28 Dose: 4 mg Vital Signs & Weight: Vital Signs Temp Pulse Resp BP BP BP Pulse Ox 11/22/18 09:28 81 135/82 11/22/18 08:00 97.7 F 81 16 125/82 98 11/22/18 03:53 97.6 F 73 18 126/71 94 L Weight 326 lb 8.073 oz - Physical Exam General: alert & oriented x3, no apparent distress HEENT: mucus membranes moist, normocephaly Neck: supple neck, midline trachea Cardiac: regular rate and rhythm, no murmur Lungs: clear to auscultation, normal breath sounds Neuro: grossly intact Abdomen: active bowel sounds, soft, non-tender Skin: clear Musculoskeletal: normal range of motion, no pain - Labs Result Diagrams: 11/22/18 04:17 11/22/18 04:17 Troponin/CKMB CK-MB (CK-2) 4.4 ng/mL (0-6.6) 11/20/18 23:25 Troponin I 1.453 ng/mL (< 0.028) H* 11/21/18 08:54 - Telemetry Sinus rhythms and dysrhythmias: sinus rhythm - Assessment/Plan Assessment/Plan: 1. NSTEMI, unclear as to whether this was a true MS or demand ischemia. . 2. Diastolic CHF. 3. CKD stage 5 PLAN: - Hold of any more diuresis. Will give small IV NS bolus 2250 ml. - Cannot do LHC due to elevated creatinine. - Complete 48 hrs of heparin drip and then switch back to Eliquis full dose.
[2018-11-22] MEDS: HumaLOG 300 UNITS/3 ML VIAL SC PRN (12:18)
[2018-11-22] MEDS ORDERED: Sodium Chloride 0.9% 250 ML IV SCH (12:30)
--- NOTE | 2018-11-22 12:52 | CON ---
DATE OF CONSULTATION: 11/22/2018 CONSULTING PHYSICIAN: Warren Pickard MD REASON FOR CONSULTATION: Chronic kidney disease stage 4. REASON FOR ADMISSION: Shortness of breath. HISTORY OF PRESENT ILLNESS: This is a 63-year-old male with history of AFib, gout, GERD, hypertension, type 2 diabetes, solitary kidney, came to the hospital with shortness of breath and has been evaluated with Nephrology consult for chronic kidney disease. He is following with Dr. Perez at [facility]. He is feeling better and sitting up in the chair. PAST MEDICAL HISTORY: Positive for AFib, gout, GERD, sleep apnea, type 2 diabetes, hyperlipidemia, hypertension, chronic kidney disease stage 4, and solitary kidney. PAST SURGICAL HISTORY: Nephrectomy, bariatric surgery, tonsillectomy. HOME MEDICATIONS: 1. Allopurinol. 2. Lasix. 3. Tizanidine. 4. Amitriptyline. 5. Terbinafine. 6. Humulin-R. 7. Hydroxyzine. 8. Alprazolam. 9. Diltiazem. 10. Sotalol. 11. Eliquis. 12. Ferrous sulfate. 13. Omeprazole. 14. Trulicity. 15. Carvedilol. 16. Folic acid. 17. Crestor. ALLERGIES: NO KNOWN DRUG ALLERGIES. SOCIAL HISTORY: Quit smoking 10 years back and drinks on daily basis. FAMILY HISTORY: No history of kidney disease. REVIEW OF SYSTEMS: CONSTITUTIONAL: Negative for weight loss or gain, ability to conduct usual activities. SKIN: Negative for rash, itching. EYES: Negative for double vision, pain. ENT/MOUTH: Negative for nose bleeding, neck stiffness, pain, tenderness. CARDIOVASCULAR: Negative for palpitations, dyspnea on exertion, orthopnea. RESPIRATORY: Negative for shortness of breath, wheezing, cough, hemoptysis, fever or night sweats. GASTROINTESTINAL: Negative for poor appetite, abdominal pain, heartburn, nausea, vomiting, constipation, or diarrhea. GENITOURINARY: Negative for urgency, frequency, dysuria, nocturia. MUSCULOSKELETAL: Negative for pain, swelling. NEUROLOGIC/PSYCHIATRIC: Negative for anxiety, depression. ALLERGY/IMMUNOLOGIC: Negative for skin rash, bleeding tendency. PHYSICAL EXAMINATION: GENERAL: This is an obese male, in no apparent distress. VITAL SIGNS: Temperature 97.7, pulse 81, respiratory rate 16, blood pressure 124/82. HEENT: Atraumatic, normocephalic. Oral mucosa is moist. NECK: Supple. CV: S1 and S2. Rate and rhythm regular. RESPIRATORY: Clear to auscultation. GASTROINTESTINAL: Abdomen is soft. MUSCULOSKELETAL: 1+ edema. DERMATOLOGIC: No skin rash. NEUROLOGIC: Alert and awake and oriented x3. PSYCHIATRIC: Mood and affect normal. LABORATORY DATA: Hemoglobin is 9.8. Potassium is 4.6, BUN is 72, and creatinine is 3.1. ASSESSMENT/PLAN: 1. Acute kidney injury on chronic kidney disease, stage 4, stable. Slight bump in renal function. Given the Lasix dose yesterday. We will monitor today. 2. Edema, controlled. 3. . 4. Hypertension. 5. Anemia. 6. Morbid obesity. 7. Solitary kidney. Renal ultrasound unremarkable. We will monitor renal function. Avoid nephrotoxins. Job ID: [id number]
[2018-11-22] MEDS ORDERED: guaiFENesin ER 600 MG TAB PO SCH (13:30)
--- NOTE | 2018-11-22 13:54 | PRG ---
DATE OF SERVICE: 11/22/2018 SUBJECTIVE: The patient is seen and examined at the bedside. OBJECTIVE: VITAL SIGNS: Blood pressure is 110/79, pulse is 77, respirations 20, O2 saturation is 98% on room air, and temperature is 98 degrees Fahrenheit. GENERAL: He was sitting in the chair during my visit. HEENT: His sclerae are nonicteric. Oral mucosa is moist. NECK: Supple and obese. LUNGS: Breath sounds diminished at both bases with minimal crackles at both bases. No wheezing. HEART: S1 and S2, distant. No S3. No S4. ABDOMEN: Obese and nontender. EXTREMITIES: No clubbing, cyanosis, or edema. NEUROLOGIC: He is alert and oriented x4. There are no any motor or sensory deficits. LABORATORY DATA: Showed white count of 10.2, hemoglobin 9.8, hematocrit 28.6, platelet count is 213. Sodium of 131, potassium 4.6, chloride 95, BUN is 72, creatinine 3.15. Glycemia is ranging from 254 to 305. Calcium 9.6. IMPRESSION: 1. Acute coronary syndrome, [id number] myocardial infarction, which is type 2 myocardial infarction. 2. Stage 4 chronic kidney disease with worsening creatinine, status post diuretic use. 3. History of atrial fibrillation. 4. Acute on chronic diastolic congestive heart failure. 5. History of gout. 6. Hyperlipidemia. 7. Uncontrolled hypertension. PLAN: To continue his heparin drip. He will be switched to oral Eliquis tomorrow. His renal ultrasound came back negative for any obstruction and there is a solitary kidney on the left. I will start him on Mucinex, also we will continue his 80 units of short-acting insulin before each meal. Apparently, he had some issues with the needles and most likely he was not really getting enough of insulin that way and his son is supposed to bring his needles from home and we will see how this helps. Otherwise, his glycemia is ranging on the higher side and he prefers to use his own pen for that. We will continue his Betapace, and we will discuss the case with Dr. Hay whether we need to restart his carvedilol, which is one of his home medications, and he should be able to go home in the next 24 to 48 hours. Job ID: [id number]
[2018-11-22 18:56] LABS: Bacteria/HPF None Seen HPF (None Seen); Bilirubin Negative (Negative); Blood, Urine Negative (Negative); Clarity Clear (Clear); Glucose, Urine (Dipstick) Normal (Negative); Leukocyte Negative Leu/uL (Negative); Nitrite Negative (Negative); Protein, Urine (Dipstick) Negative (Neg-Trace); RBC/HPF 0-3 HPF (0-3); Squamous Epithelial 0-3 HPF (0-3); Urobilinogen Normal mg/dL (Less than 2); WBC/HPF 0-3 HPF (0-3)
[2018-11-22] MEDS: Amitriptyline HCl 25 MG TAB PO SCH (20:48)
[2018-11-22] MEDS: guaiFENesin ER 600 MG TAB PO SCH (20:48)
[2018-11-23] MEDS: Heparin 25,000 units/D5W 500 ML IVPB SCH (02:28)
[2018-11-23] MEDS: Heparin 10,000 UNITS/ 10 ML VIAL SLOW IVP SCH (07:20)
[2018-11-23 07:35] LABS: Platelet Count 245 thou/uL (130-400)
[2018-11-23] MEDS: Sotalol HCl 80 MG TAB PO SCH ×2 (09:54→22:22)
[2018-11-23] MEDS: guaiFENesin ER 600 MG TAB PO SCH ×2 (09:55→22:22)
[2018-11-23] MEDS: tiZANidine HCl 4 MG TAB PO SCH ×2 (09:55→22:23)
[2018-11-23] MEDS: Ferrous Sulfate 325 MG TAB PO SCH ×2 (09:55→22:22)
[2018-11-23] MEDS: Diltiazem HCl SR 60 mg Capsule PO SCH ×2 (09:55→22:22)
[2018-11-23] MEDS: Allopurinol 300 MG TAB PO SCH (09:55)
[2018-11-23] MEDS: Rosuvastatin 20 MG TAB PO SCH (09:55)
[2018-11-23] MEDS: HUMULIN U SC SCH ×3 (09:57→17:16)
--- NOTE | 2018-11-23 12:32 | EKG ---
Test Reason : SOB Blood Pressure : / mmHG Vent. Rate : 094 BPM Atrial Rate : 094 BPM P-R Int : 206 ms QRS Dur : 078 ms QT Int : 378 ms P-R-T Axes : 013 007 -03 degrees QTc Int : 472 ms Normal sinus rhythm Nonspecific ST and T wave abnormality Abnormal ECG Confirmed by KERRY GRIGGS DO ([id number]), magazine editor FERNANDEZ JENKINS ([id number] on 11/23/2018 12:31:59 PM Referred By: Confirmed By:KERRY GRIGGS DO
--- NOTE | 2018-11-23 12:32 | EKG ---
Test Reason : Blood Pressure : / mmHG Vent. Rate : 090 BPM Atrial Rate : 090 BPM P-R Int : 214 ms QRS Dur : 080 ms QT Int : 394 ms P-R-T Axes : 041 007 -43 degrees QTc Int : 481 ms Sinus rhythm with 1st degree A-V block Minimal voltage criteria for LVH, may be normal variant Nonspecific T wave abnormality Prolonged QT Abnormal ECG #2 Confirmed by KERRY GRIGGS DO ([id number]), index editor FERNANDEZ JENKINS ([id number]) on 11/23/2018 12:32:04 PM Referred By: Confirmed By:KERRY GRIGGS DO
[2018-11-23] MEDS ORDERED: Heparin 25,000 units/D5W 500 ML IVPB SCH (12:41)
--- NOTE | 2018-11-23 12:42 | PDOC.CPN ---
- Subjective Date: 11/23/18 Time: 12:42 Interval history: The pt seen and examined. No overnight events. No cardiac complaints. - Objective Allergies/Adverse Reactions: Allergies Allergy/AdvReac Type Severity Reaction Status Date / Time No Known Drug Allergies Allergy Verified 10/30/17 01:45 Visit Medications: Current Medications Allopurinol (Zyloprim) 300 mg PO DAILY [facility] Last Admin: 11/23/18 09:55 Dose: 300 mg Alprazolam (Xanax) 1 mg PO HS PRN PRN Reason: Anxiety Amitriptyline HCl (Elavil) 50 mg PO HS [facility] Last Admin: 11/22/18 20:48 Dose: 50 mg Apixaban (Eliquis) 5 mg PO BID [facility] Dextrose/Water (Dextrose 50%) 25 gm SLOW IVP PRN PRN PRN Reason: Hypoglycemia Diltiazem HCl (Cardizem Sr) 60 mg PO BID [facility] Last Admin: 11/23/18 09:55 Dose: 60 mg Ferrous Sulfate (Feosol) 325 mg PO BID [facility] Last Admin: 11/23/18 09:55 Dose: 325 mg Glucagon (Glucagon) 1 mg IM PRN PRN PRN Reason: Hypoglycemia Guaifenesin (Mucinex) 1,200 mg PO Q12HR [facility] Last Admin: 11/23/18 09:55 Dose: 1,200 mg Heparin Sodium (Porcine) (Heparin 1,000 Units/Ml (10 Ml)) 4,000 units SLOW IVP ASDIR [facility]; Protocol Last Admin: 11/23/18 07:20 Dose: 4 ml Hydroxyzine HCl (Atarax) 25 mg PO DAILY PRN PRN Reason: Itching Dextrose/Water (D5w) 1,000 mls @ 0 mls/hr IV .Q0M PRN PRN Reason: Hypoglycemia Heparin Sodium/Dextrose (Heparin 25,000 Units/D5w 500 Ml) 500 mls @ 0 mls/hr IVPB INF [facility]; Protocol Insulin Human Lispro (Humalog) 0 units SC .MILD SLIDING SCALE PRN PRN Reason: Mild Correctional Scale Last Admin: 11/22/18 12:18 Dose: 4 unit Humulin U-500 Patient's Home Medication 80 each SC AC [facility] Last Admin: 11/23/18 11:37 Dose: 80 each Rosuvastatin Calcium (Crestor) 20 mg PO DAILY [facility] Last Admin: 11/23/18 09:55 Dose: 20 mg Sotalol HCl (Betapace) 80 mg PO BID [facility] Last Admin: 11/23/18 09:54 Dose: 80 mg Tizanidine HCl (Zanaflex) 4 mg PO BID [facility] Last Admin: 11/23/18 09:55 Dose: 4 mg Vital Signs & Weight: Vital Signs Temp Pulse Resp BP Pulse Ox 11/23/18 11:38 98.1 F 72 20 117/68 93 L 11/23/18 09:54 68 11/23/18 07:44 98.4 F 68 18 126/73 98 11/23/18 04:00 98.7 F 65 16 127/68 93 L Weight 332 lb 0.258 oz - Physical Exam General: alert & oriented x3 Neck: supple neck Cardiac: regular rate and rhythm, S1/S2 Lungs: decreased breath sounds Neuro: cranial nerve 2-12 intact Skin: other (discoloration to BLE) Musculoskeletal: decreased range of motion - Labs Result Diagrams: 11/23/18 07:24 11/22/18 04:17 Troponin/CKMB CK-MB (CK-2) 4.4 ng/mL (0-6.6) 11/20/18 23:25 Troponin I 1.453 ng/mL (< 0.028) H* 11/21/18 08:54 - Telemetry Sinus rhythms and dysrhythmias: sinus rhythm - Assessment/Plan Assessment/Plan: 1. NSTEMI with unclear etiology (true IN vs demand ischemia?) - The pt is asymptomatic; unable to undergo LHC due to elevated Cr elevel. Will stop Heparin when he receive 1 st Eliquis tonight. Plavix will be started at discharge 2. Acute on Chronic Diastolic CHF - stable with 2.5LNC; not on ANNALISE/ARB and Diuretic due to worsening of renal function 3. Prox Afib - remains in SR with Sotalol; on Eliquis 4. HTN - stable with current med 5. CKD stage 5 - slightly worsen today. pt. has only 1 kidney. 6. Anemia - 7. ETOH abuse MAR reviewed * Echo on 11/22/2018 with EF 50-55%, mod-severe dilated LA, mod ERA, trace MR and TR Pt. seen and eval. by me. I agree with the A/P by the TECHNICIAN HELPER INSTRUMENT. Pt. is without complaints. Chest clear. RRR. minimal left ankle edema. gjm
--- NOTE | 2018-11-23 15:32 | PRG ---
DATE OF SERVICE: 11/23/2018 SUBJECTIVE: Patient was seen and examined at bedside and overnight events noted. Patient denies any shortness of breath or chest pain or palpitation. No history of nausea or vomiting or diarrhea or fever or chills or cramps. OBJECTIVE: GENERAL: This is an obese, in no apparent distress. VITAL SIGNS: Temperature 98.1. Heart rate 72. Respiratory rate 22. Blood pressure 117/68. HEENT: Atraumatic, normocephalic. Oral mucosa is moist NECK: Supple. CARDIOVASCULAR: S1, S2 heard. Rate and rhythm regular. RESPIRATORY: Clear to auscultation. GASTROINTESTINAL: Abdomen is soft. MUSCULOSKELETAL: No tenderness. No edema. DERMATOLOGIC: No skin rash. NEUROLOGIC: Alert and awake and oriented X3. No focal neurologic deficits. Moving all the extremities. PSYCHIATRIC: Mood and affect normal. LABORATORY DATA: Not done today. ASSESSMENT AND PLAN: 1. Acute kidney injury, stable. 2. Cardiorenal syndrome. Follow with Cardiology. 3. Hypertension. 4. Anemia. 5. Morbid obesity. 6. Solitary kidney. 7. We will follow labs. Follow with Cardiology for further recommendations. Job ID: [id number]
--- NOTE | 2018-11-23 16:28 | PRG ---
DATE OF SERVICE: 11/23/2018 SUBJECTIVE: The patient is seen and examined at the bedside. He is sitting in the recliner. He does not have much complaints to offer. He would like to go home. OBJECTIVE: VITAL SIGNS: Blood pressure is 124/58, pulse is 78, respiratory rate is 18, temperature is 98.0, and O2 saturation is 92% on room air. HEENT: His head is atraumatic and normocephalic. Eyes are PERRLA. Sclerae are nonicteric. Oral mucosa is moist. NECK: Supple, obese. LUNGS: Breath sounds diminished at both bases with some bilateral crackles at both bases. HEART: S1 and S2, normal. No S3. No S4. ABDOMEN: Soft, obese, nontender. EXTREMITIES: 1+ peripheral edema similar bilaterally. NEUROLOGIC: He is alert and oriented x4. There is no any motor or sensory deficits. LABORATORY DATA: Labs showed white count of 10.0, hemoglobin of 30.3. Glycemia is ranging from 79 to 359. Echocardiogram was done and it showed LVEF estimated at 50% to 55% with left atrium, moderately to severely dilated and moderately enlarged right atrium. IMPRESSION: 1. Acute coronary syndrome, non-ST elevation myocardial infarction, which is type 2 myocardial infarction. 2. Stage 4 chronic kidney disease. 3. History of atrial fibrillation. 4. Acute on chronic diastolic congestive heart failure. 5. History of gout. 6. Hyperlipidemia. 7. Uncontrolled hypertension. 8. Uncontrolled diabetes mellitus. DISCUSSION: The patient is going to be switched from Lovenox to Eliquis. His glycemia is improving since he got his new needles. I discussed with him an option to go to boarding house cook and have this under better control because he is getting huge amount of insulin, which is anabolic hormone and regardless what he is doing, he is going to gain more weight. He will continue his Betapace and he should be able to go home tomorrow. Job ID: [id number]
[2018-11-23] MEDS: Amitriptyline HCl 25 MG TAB PO SCH (22:22)
[2018-11-23] MEDS: Apixaban 5 MG TAB PO SCH (22:22)
[2018-11-24] MEDS ORDERED: Acetaminophen/Codeine 30-300mg Tablet PO PRN (00:37)
[2018-11-24] MEDS: Acetaminophen/Codeine 30-300mg Tablet PO PRN ×2 (01:33→06:58)
[2018-11-24 04:12] LABS: Anion Gap 15 mmol/L (10-20); BUN (Urea Nitrogen) 77 mg/dL (8.4-25.7); Calc. Creatinine Clearance 51 mL/min (70-130); Calcium 9.3 mg/dL (7.8-10.44); Carbon Dioxide 25 mmol/L (23-31); Chloride 101 mmol/L (98-107); Estimated GFR-MDRD 25; Glucose 113 mg/dL (80-115); Potassium 4.4 mmol/L (3.5-5.1); Sodium 137 mmol/L (136-145)
[2018-11-24 05:30] LABS: Hemoglobin 9.7 g/dL (14.0-18.0); Platelet Count 223 thou/uL (130-400)
[2018-11-24] MEDS: tiZANidine HCl 4 MG TAB PO SCH (09:09)
[2018-11-24] MEDS: Allopurinol 300 MG TAB PO SCH (09:09)
[2018-11-24] MEDS: Apixaban 5 MG TAB PO SCH (09:09)
[2018-11-24] MEDS: HUMULIN U SC SCH ×3 (09:09→12:20)
[2018-11-24] MEDS: Sotalol HCl 80 MG TAB PO SCH (09:10)
[2018-11-24] MEDS: guaiFENesin ER 600 MG TAB PO SCH (09:10)
[2018-11-24] MEDS: Diltiazem HCl SR 60 mg Capsule PO SCH (09:10)
[2018-11-24] MEDS: Ferrous Sulfate 325 MG TAB PO SCH (09:10)
[2018-11-24] MEDS: Rosuvastatin 20 MG TAB PO SCH (09:10)
--- NOTE | 2018-11-24 11:45 | PDOC.CPN ---
- Subjective Date: 11/24/18 Time: 11:42 Interval history: The pt seen and examined. No overnight events. No cardiac complaints. - Objective Allergies/Adverse Reactions: Allergies Allergy/AdvReac Type Severity Reaction Status Date / Time No Known Drug Allergies Allergy Verified 10/30/17 01:45 Visit Medications: Current Medications Acetaminophen/Codeine Phosphate (Tylenol #3) 1 tab PO Q4H PRN PRN Reason: Mild-Moderate Pain (1-5) Acetaminophen/Codeine Phosphate (Tylenol #3) 2 tab PO Q4H PRN PRN Reason: Moderate to Severe Pain (6-10) Last Admin: 11/24/18 06:58 Dose: 2 tab Allopurinol (Zyloprim) 300 mg PO DAILY [facility] Last Admin: 11/24/18 09:09 Dose: 300 mg Alprazolam (Xanax) 1 mg PO HS PRN PRN Reason: Anxiety Last Admin: 11/23/18 23:21 Dose: 1 mg Amitriptyline HCl (Elavil) 50 mg PO HS [facility] Last Admin: 11/23/18 22:22 Dose: Not Given Apixaban (Eliquis) 5 mg PO BID [facility] Last Admin: 11/24/18 09:09 Dose: 5 mg Dextrose/Water (Dextrose 50%) 25 gm SLOW IVP PRN PRN PRN Reason: Hypoglycemia Diltiazem HCl (Cardizem Sr) 60 mg PO BID [facility] Last Admin: 11/24/18 09:10 Dose: 60 mg Ferrous Sulfate (Feosol) 325 mg PO BID [facility] Last Admin: 11/24/18 09:10 Dose: 325 mg Glucagon (Glucagon) 1 mg IM PRN PRN PRN Reason: Hypoglycemia Guaifenesin (Mucinex) 1,200 mg PO Q12HR [facility] Last Admin: 11/24/18 09:10 Dose: 1,200 mg Heparin Sodium (Porcine) (Heparin 1,000 Units/Ml (10 Ml)) 4,000 units SLOW IVP ASDIR [facility]; Protocol Last Admin: 11/23/18 07:20 Dose: 4 ml Hydroxyzine HCl (Atarax) 25 mg PO DAILY PRN PRN Reason: Itching Dextrose/Water (D5w) 1,000 mls @ 0 mls/hr IV .Q0M PRN PRN Reason: Hypoglycemia Insulin Human Lispro (Humalog) 0 units SC .MILD SLIDING SCALE PRN PRN Reason: Mild Correctional Scale Last Admin: 11/22/18 12:18 Dose: 4 unit Humulin U-500 Patient's Home Medication 80 each SC AC [facility] Last Admin: 11/24/18 09:09 Dose: Not Given Rosuvastatin Calcium (Crestor) 20 mg PO DAILY [facility] Last Admin: 11/24/18 09:10 Dose: 20 mg Sotalol HCl (Betapace) 80 mg PO BID [facility] Last Admin: 11/24/18 09:10 Dose: 80 mg Tizanidine HCl (Zanaflex) 4 mg PO BID [facility] Last Admin: 11/24/18 09:09 Dose: 4 mg Vital Signs & Weight: Vital Signs Temp Pulse Resp BP Pulse Ox 11/24/18 08:53 97.6 F 72 16 128/73 94 L 11/24/18 03:15 97.6 F 73 20 120/62 94 L Weight 324 lb 11.854 oz - Physical Exam General: alert & oriented x3 HEENT: mucus membranes moist Neck: supple neck Cardiac: regular rate and rhythm, S1/S2 Lungs: decreased breath sounds Skin: clear Musculoskeletal: decreased range of motion - Labs Result Diagrams: 11/24/18 05:22 11/24/18 05:22 Troponin/CKMB CK-MB (CK-2) 4.4 ng/mL (0-6.6) 11/20/18 23:25 Troponin I 1.453 ng/mL (< 0.028) H* 11/21/18 08:54 - Telemetry Sinus rhythms and dysrhythmias: sinus rhythm - Assessment/Plan Assessment/Plan: 1. NSTEMI with unclear etiology (true [place] vs demand ischemia?) - The pt is asymptomatic; unable to undergo LHC due to elevated Cr level. On Eliquis since last night and no hematuria or hematochezia. Plavix will be started at discharge 2. Acute on Chronic Diastolic CHF - stable with RA; not on ANNALISE/ARB and Diuretic due to worsening of renal function 3. Prox Afib - remains in SR with Sotalol; on Eliquis 4. HTN - stable with current med 5. CKD stage 5 - no changed; has only 1 kidney. 6. Anemia - unchanged 7. ETOH abuse MAR reviewed * Echo on 11/22/2018 with EF 50-55%, mod-severe dilated LA, mod ERA, trace MR and TR * From Cardiac standpoint, the pt is stable to d/c home. The pt will f/u with Dr Xiao at [facility] within 1-2 wks for further cardiac eval/exam.
[2018-11-24 11:59] VITALS: BP 131/70; TEMP 97.8
--- NOTE | 2018-11-24 14:25 | PRG ---
DATE OF SERVICE: 11/24/2018 SUBJECTIVE: Patient was seen and examined at bedside and overnight events noted. Patient denies any shortness of breath or chest pain or palpitation. No history of nausea or vomiting or diarrhea or fever or chills or cramps. OBJECTIVE: GENERAL: This is a well-built male, in no apparent distress. VITAL SIGNS: Temperature 97.9. Heart rate 74. Respiratory rate 18. Blood pressure 131/70. HEENT: Atraumatic, normocephalic. Oral mucosa is moist NECK: Supple. CARDIOVASCULAR: S1, S2 heard. Rate and rhythm regular. RESPIRATORY: Clear to auscultation. GASTROINTESTINAL: Abdomen is soft. MUSCULOSKELETAL: No tenderness. No edema. DERMATOLOGIC: No skin rash. NEUROLOGIC: Alert and awake and oriented X3. No focal neurologic deficits. Moving all the extremities. PSYCHIATRIC: Mood and affect normal. LABORATORY DATA: Potassium 4.4, BUN is 77, and creatinine is 3.1. ASSESSMENT/PLAN: 1. Acute kidney injury on chronic kidney disease stage 4 stable. 2. Cardiorenal syndrome. 3. Hypertension. 4. Anemia. 5. Solitary kidney. 6. Labs are stable. Advised the patient to follow up with his racquet maker at [facility], Dr. Perez. Job ID: [id number]
[2018-11-25] MEDS ORDERED: Clopidogrel Bisulfate 75 MG TAB PO SCH (09:00)
--- NOTE | 2018-11-25 12:09 | DIS ---
DATE OF ADMISSION: 11/21/2018 DATE OF DISCHARGE: 11/24/2018 DISCHARGE DIAGNOSES: 1. Non-ST elevation myocardial infarction. 2. Acute on chronic diastolic congestive heart failure. 3. Paroxysmal atrial fibrillation. 4. Hypertension. 5. Chronic kidney disease, acute on chronic. 6. Anemia. 7. History of gout. 8. Uncontrolled diabetes mellitus. CONSULTANTS: 1. Dr. Willis Hay, Cardiology Service. 2. Dr. Flori Sánchez, Nephrology Service. 3. Dr. Gayle, Cardiology Service. HOSPITAL COURSE: The patient is a 63-year-old male, who was admitted to hospital because of shortness of breath. He is a [facility] patient with few day history of increased shortness of breath associated with bilateral lower extremity edema. He was evaluated in the emergency room and was found to have white count of 10.8, hemoglobin of 10.8, and platelet count 230. Sodium 136, potassium 4.8, chloride 100, CO2 of 24, BUN of 63, creatinine 2.86 with previous creatinine at 2.78. Initial troponin was 0.471, glucose was 202. LFTs were negative. The patient has EKG done, which showed normal sinus rhythm with rate of 94, nonspecific ST abnormalities. Also, the chest x-ray was done, which showed no evidence of acute cardiopulmonary disease. The patient got admitted to the hospital, was seen by Dr. Hay for Cardiology Services, who recommended heparin drip. He was not able to perform cardiac catheterization because of his worsening kidney function. His creatinine the next day went up above 3. Nephrology Service was consulted. Dr. Sánchez saw the patient and his kidney function was closely monitored. Ultrasound of the kidneys was done, which did not really show any abnormalities of the left kidney. Apparently, the right kidney is status post right nephrectomy. The patient completed treatment with heparin drip and cleaning machine operator recommends to continue him on his Eliquis along with clopidogrel and follow up with the patient's cleaning machine operator at [facility]. The patient tolerated heparin drip without any problems. He is feeling good. DISCHARGE INSTRUCTIONS: 1. He is discharged home on a renal diabetic diet. 2. Activities, he is going to take it easy for the next week or so since he had NSTEMI. 3. Medications at the time of discharge;. a. Clopidogrel 75 mg once a day. b. Allopurinol 100 mg once a day. c. Alprazolam 0.5 mg at bedtime. d. Amitriptyline 50 mg at bedtime. e. Diltiazem 60 mg twice a day. f. Ferrous sulfate 325 mg twice a day. g. Hydroxyzine 25 mg daily p.r.n. as needed. h. Rosuvastatin 20 mg daily. i. Sotalol 80 mg twice a day. j. Tizanidine 4 mg twice a day. k. Eliquis 5 mg twice a day. l. Trulicity 0.75 mg subcutaneously every 7 days. m. Furosemide 80 mg daily. n. 80 units of short-acting insulin Humulin R U-500 before each meal. 4. He will follow up with his primary care physician in 1 week, with u.s. revenue officer in a week, and cleaning machine operator in 2 weeks. TIME SPENT: The discharge time is more than 30 minutes. Job ID: [id number]
--- NOTE | 2018-11-26 14:42 | PQF ---
CORBIN BROOKS ZBIGNIEW A MD [id number] [facility]297 [id number] CLINICAL DOCUMENTATION IMPROVEMENT CLARIFICATION FORM: ICD-10 Updated PLEASE DO AN ADDENDUM TO THE PROGRESS NOTE WITH ANY DOCUMENTATION UPDATES OR ADDITIONS AND CARRY THROUGH TO DC SUMMARY. THANK YOU. DATE: 11/26/18 ATTN:DR. Keron GUERRERO Please exercise your independent, professional judgment in responding to the clarification form. Clinical indicators are provided on the bottom of this form for your review. Please check appropriate box(s): [ x ] Acute On Chronic Respiratory Failure: [ ] with Hypoxia [ ] with Hypercapnia [ ] Chronic Respiratory Failure only [ ] with Hypoxia [ ] with Hypercapnia [ ] Other diagnosis [ ] Unable to determine In addition, please specify: Present on Admission (POA): [ x] Yes [ ] No [ ] Unable to determine For continuity of documentation, please document condition throughout progress notes and discharge summary. Thank You. CLINICAL INDICATORS - SIGNS / SYMPTOMS / LABS 11/21 ED : PT PRESENTS FOR SOB: BECAME SOB AND FELL FROM CHAIR WHILE WORKING ON HOME OXYGEN SYSTEM. 92% RA> 100% 3L/NC, RESPIRATIONS 16-30 11/21 H&P (PILI) THIS IS A 63 YEAR OLD MALE PATIENT WHO CAME TO THE HOSPITAL AFTER SHORTNESS OF BREATH FOR THE PAST FEW DAYS, STARTED INSIDIOUSLY AND HAS BEEN GRADUALLY GETTING WORSE, ASSOCIATED WITH BILATERAL LOWER EXT EDEMA. 11/24 DISCHARGE SUMMARY ( YOLANDA) THE PATIENT WAS ADMITTED TO THE HOSPITAL BECAUSE OF SHORTNESS OF BREATH. RISK: HOME O2 USE, FORMER SMOKER , ACUTE ON CHRONIC DIASTOLIC CONGESTIVE HEART FAILURE (ELKIN/CONSULT) 11/21 TREATMENTS: LASIX X 1 DOSE (CONSULT/ELKIN) 11/21 SUPPLEMENTAL OXYGEN (11/21-11/24/DISCHARGE) THANK YOU! AMIE (This form is maintained as a part of the permanent medical record) 2014 [employer]. All Rights Reserved KENNEDY [email or web address] [phone] MTDD
== END 2018-11-24 17:30 | disposition home or self-care (01) | DRG 280 ==
LOC: ERS 22:16 → 2NO 11-21 00:26
PROVIDERS: ADMIT Hospitalist; ATTEND Hospitalist
DX: I21.A1 Myocardial infarction type 2 (principal); I50.33 Acute on chronic diastolic (congestive) heart failure; J96.20 Acute and chronic respiratory failure, unspecified whether with hypoxia or hypercapnia; I13.0 Hypertensive heart and chronic kidney disease with heart failure and stage 1 through stage 4 chronic kidney disease, or unspecified chronic kidney disease; N17.9 Acute kidney failure, unspecified; N18.4 Chronic kidney disease, stage 4 (severe); Z68.42 Body mass index [BMI] 45.0-49.9, adult; M10.9 Gout, unspecified; K21.9 Gastro-esophageal reflux disease without esophagitis; G47.30 Sleep apnea, unspecified; E11.22 Type 2 diabetes mellitus with diabetic chronic kidney disease; E78.5 Hyperlipidemia, unspecified; E78.00 Pure hypercholesterolemia, unspecified; F41.9 Anxiety disorder, unspecified; E66.01 Morbid (severe) obesity due to excess calories; D63.1 Anemia in chronic kidney disease; I48.0 Paroxysmal atrial fibrillation; E11.65 Type 2 diabetes mellitus with hyperglycemia; Z79.01 Long term (current) use of anticoagulants; Z90.5 Acquired absence of kidney; Z79.899 Other long term (current) drug therapy; Z79.4 Long term (current) use of insulin; Z98.84 Bariatric surgery status; Z87.891 Personal history of nicotine dependence
CPT/HCPCS: 36415; 36416; 71045; 76770; 80048; 80053; 81001; 82553; 83880; 84484; 85014; 85018; 85025; 85049; 85730; 93005; 93306; J1644; J1940

== ENCOUNTER 2019-04-11 02:41 | Inpatient (IN) | payer BC ==
[2019-04-11 02:58] LABS: #Eosinphils 0.1 thou/uL (0.0-0.7); #Lymphocytes 2.1 thou/uL (1.20-3.40); #Monocytes 0.4 thou/uL (0.11-0.59); #Neutrophils 12.2 thou/uL (1.40-6.50); %Eosinophils 0.8 % (0.0-10.0); %Lymphocytes 14.2 % (21.0-51.0); %Monocytes 2.5 % (0.0-10.0); %Neutrophils 82.5 % (42.0-75.0); Hemoglobin 8.7 g/dL (14.0-18.0); Mean Corpuscular HGB CONC 31.9 g/dL (32.0-36.0); Mean Corpuscular Hemoglobin 31.4 pg (27.0-31.0); Mean Corpuscular Volume 98.3 fL (78.0-98.0); Mean Platelet Volume 7.3 fL (7.4-10.4); Platelet Count 230 thou/uL (130-400); RBC Distribution Width 13.9 % (11.5-14.5); Red Blood Cell (RBC) Count 2.76 mill/uL (4.70-6.10); White Blood Cell (WBC) Count 14.8 thou/uL (4.8-10.8)
[2019-04-11] MEDS ORDERED: fentaNYL Citrate/PF 2,000 MCG in Sodium Chloride 0.9% 60 ML IV SCH (03:03)
[2019-04-11 03:19] LABS: ALT (SGPT) 98 U/L (8-55); AST (SGOT) 91 U/L (5-34); Albumin 3.3 g/dL (3.4-4.8); Alkaline Phosphatase 97 U/L (40-110); Anion Gap 18 mmol/L (10-20); BUN (Urea Nitrogen) 68 mg/dL (8.4-25.7); Bilirubin, Total 0.3 mg/dL (0.2-1.2); Calc. Creatinine Clearance 0 mL/min (70-130); Calcium 8.5 mg/dL (7.8-10.44); Carbon Dioxide 22 mmol/L (23-31); Chloride 96 mmol/L (98-107); Estimated GFR-MDRD 18; Globulin 4.3 g/dL (2.4-3.5); Potassium 4.4 mmol/L (3.5-5.1); Protein, Total 7.6 g/dL (5.8-8.1); Sodium 132 mmol/L (136-145)
[2019-04-11 03:20] LABS: Actual Bicarbonate (HCO3a) 21.4 mEq/L (22-28); Analyzer IN Cardio ER; Base Excess (BEa) -6.7 mEq/L (-2.0 to +3.0); CO2 Tension 58.2 mmHg (35.0-45.0); Calcium, Ionized 1.07 mmol/L (1.12-1.30); Carboxyhemoglobin (COHb) 0.3 gm% (0.0-3.0); Hemoglobin (Hb) 8.5 g/dL (14.0-18.0); Potassium - ABG Lab 5.38 mmol/L (3.70-5.30)
[2019-04-11 03:22] LABS: Glucose 564 mg/dL (80-115)
[2019-04-11 03:25] LABS: pH, Arterial 7.18 (7.35-7.45)
[2019-04-11 03:53] LABS: Bilirubin Negative (Negative); Blood, Urine Trace (Negative); Clarity Clear (Clear); Glucose, Urine (Dipstick) >=1000 mg/dL (Negative); Leukocyte 500 Leu/uL (Negative); Nitrite Negative (Negative); Protein, Urine (Dipstick) 50 mg/dL (Neg-Trace); RBC/HPF 0-3 HPF (0-3); Squamous Epithelial None Seen HPF (0-3); Urobilinogen Normal mg/dL (Less than 2); WBC/HPF Greater than 50 HPF (0-3)
[2019-04-11 04:03] LABS: Bacteria/HPF 1+ HPF (None Seen)
[2019-04-11 04:07] LABS: Actual Bicarbonate (HCO3a) 20.9 mEq/L (22-28); Analyzer IN Cardio ER; Base Excess (BEa) -6.4 mEq/L (-2.0 to +3.0); CO2 Tension 51.7 mmHg (35.0-45.0); Calcium, Ionized 1.04 mmol/L (1.12-1.30); Carboxyhemoglobin (COHb) 0.3 gm% (0.0-3.0); Hemoglobin (Hb) 8.1 g/dL (14.0-18.0); O2 Tension (PaO2) 96.5 mmHg (> 80.0); Potassium - ABG Lab 6.45 mmol/L (3.70-5.30)
[2019-04-11 04:10] LABS: ALV-art Gradient 551.875 (0-20); Puncture Site LRA; pH, Arterial 7.23 (7.35-7.45)
[2019-04-11] MEDS ORDERED: Norepinephrine 8 MG/0.9% NS 250 ML ONE (04:29)
[2019-04-11 04:34] LABS: INR-International Normal Ratio 1.2; PTT 34.7 SEC (22.9-36.1)
[2019-04-11 04:38] LABS: Phosphorus 5.3 mg/dL (2.3-4.7)
[2019-04-11] MEDS ORDERED: Dextrose 50% Abboject 50 ML SYRINGE SLOW IVP PRN ×2 (04:58→10:59)
[2019-04-11] MEDS ORDERED: Dextrose 5% in Water 1,000 ML IV PRN ×2 (04:58→10:59)
[2019-04-11] MEDS ORDERED: HUMULIN R 100 UNITS in Sodium Chloride 0.9% 100 ML IVPB SCH (05:00)
[2019-04-11] MEDS ORDERED: Sodium Chloride 0.9% 1,000 ML IV SCH (05:00)
[2019-04-11 05:51] LABS: #Lymphocytes 0.7 thou/uL (1.20-3.40); #Monocytes 0.5 thou/uL (0.11-0.59); #Neutrophils 5.7 thou/uL (1.40-6.50); %Basophils 0.2 % (0.0-1.0); %Eosinophils 0.3 % (0.0-10.0); %Lymphocytes 9.8 % (21.0-51.0); %Monocytes 7.3 % (0.0-10.0); %Neutrophils 82.4 % (42.0-75.0); Hemoglobin 8.1 g/dL (14.0-18.0); Mean Corpuscular HGB CONC 30.8 g/dL (32.0-36.0); Mean Corpuscular Hemoglobin 29.9 pg (27.0-31.0); Mean Corpuscular Volume 97.1 fL (78.0-98.0); Mean Platelet Volume 7.7 fL (7.4-10.4); Platelet Count 214 thou/uL (130-400); RBC Distribution Width 13.9 % (11.5-14.5); Red Blood Cell (RBC) Count 2.71 mill/uL (4.70-6.10); White Blood Cell (WBC) Count 6.9 thou/uL (4.8-10.8)
[2019-04-11 06:09] LABS: Lactic Acid 3.6 mmol/L (0.5-2.2)
--- NOTE | 2019-04-11 06:10 | HP ---
CHIEF COMPLAINT: Cardiac arrest with return of spontaneous circulation. HISTORY OF PRESENT ILLNESS: Mr. Schmidt is a 63-year-old male with multiple medical problems including atrial fibrillation, diabetes, type 2, hyperlipidemia, hypertension, chronic kidney disease, stage 4, anemia, obesity, gout, sleep apnea, GERD, among others including coronary artery disease with coronary artery bypass graft surgery 2 months ago, was brought to the emergency room post cardiac arrest. As per EMS, the son found the patient in the bathroom, reports the patient was in upon arrival by EMS. The patient was intubated en route. EMS reports the patient had return of spontaneous circulation, but lost pulse shortly before arrival to the ED. EMS gave 2 rounds of epinephrine. EMS reports that the patient's blood sugar was around 400. When the patient arrived in the emergency room, the patient is intubated. Blood pressure went down to 85/40. At that time, the patient's central venous catheter is being inserted by the emergency room physician. The patient is being admitted to the intensive care unit for further management. PAST MEDICAL HISTORY: 1. Atrial fibrillation. 2. Diabetes mellitus, type 2. 3. Hypertension. 4. Hyperlipidemia. 5. Obesity. 6. Obstructive sleep apnea. 7. Anemia. 8. Chronic kidney disease, stage 4. PAST SURGICAL HISTORY: 1. Right nephrectomy. 2. Bariatric sleeve. 3. Tonsillectomy. 4. Coronary artery bypass graft surgery 2 months ago. PAST PSYCHIATRIC HISTORY: Includes anxiety. SOCIAL HISTORY: The patient lives at home with family. The patient drinks one drink per day. No history of drug abuse. He is a former tobacco user. Smokes cigars. The patient quit smoking less than 10 years ago. FAMILY HISTORY: Reviewed and noncontributory. ALLERGIES: NO KNOWN ALLERGIES. HOME MEDICATIONS: Please see home medication reconciliation form for updated medications. This is reported that the patient is on anticoagulant, Eliquis. Among other cardiac medications including diltiazem, sotalol, Lasix, carvedilol, medications need to be verified at the time of this dictation. REVIEW OF SYSTEMS: Unable to obtain. The patient is unresponsive, intubated. PHYSICAL EXAMINATION: GENERAL: The patient is intubated, unresponsive. VITAL SIGNS: Blood pressure 92/53, pulse is 52, respiratory rate is 22, and temperature is 95.9. HEAD AND NECK: Normocephalic. NECK: Supple. CHEST: Coarse bilateral breath sounds. HEART: Distant heart sounds. ABDOMEN: Obese. Bowel sounds hypoactive. NEURO: The patient is intubated, unresponsive. PSYCH: Unable to assess. EXTREMITIES: No clubbing. No cyanosis. MUSCULOSKELETAL: No current deformity. LABORATORY DATA: Arterial blood gas; pH is 7.3, pCO2 is 51, pO2 is 96% on 100% FiO2, SIMV mode. Magnesium is 2.0. BNP is 91. Lactic acid is 7.8. Sodium is 132, potassium 4.4, BUN is 68, creatinine is 4.19, glucose is elevated at 564, AST is 91, and ALT is 98. Troponin 0.021. WBC count is 14.8, hemoglobin 8.7, and platelets 230. ASSESSMENT: 1. Cardiac arrest with return of spontaneous circulation. 2. Acute respiratory failure. 3. Cardiac arrhythmia and ventricular fibrillation were reported by EMS. 4. Chronic kidney disease, stage 4. 5. Lactic acidosis. 6. Coronary artery disease with history of coronary artery bypass graft surgery. 7. Diabetes mellitus with hyperglycemia. 8. History of atrial fibrillation. PLAN: 1. Admit to ICU. 2. Continue full ventilator support. 3. Pulmonary/Switching Operator consulted for critical care management. 4. Central venous catheter is being inserted. The patient may require to be started on vasopressors to keep MAP equal or more than 65. 5. Serial troponins. 6. CTA of the chest cannot be done. The patient's creatinine is more than 4. Reassess in a.m. 7. GI prophylaxis. 8. DVT prophylaxis. The patient is on Eliquis, one of his home medications, to be verified. 9. The patient's condition is critical. Case discussed with ED physician, who will call Pulmonary/Switching Operator for further consultation and recommendations. 10. Hypothermia protocol as per ED physician/cushion sewer. Job ID: [id number]
[2019-04-11] MEDS ORDERED: Propofol 1,000 MG/100 ML VIAL IV PRN (06:15)
[2019-04-11] MEDS ORDERED: Propofol BOLUS 1,000 MG/100 ML VIAL IV PRN (06:15)
[2019-04-11] MEDS ORDERED: Morphine 2 MG/ML SYRINGE SLOW IVP PRN (06:15)
[2019-04-11] MEDS ORDERED: DISCONTINUE PREVIOUS NARCOTIC PAIN MEDICATIONS AND BENZODIAZEPINES FS SCH (06:15)
[2019-04-11] MEDS ORDERED: Fentanyl BOLUS 250 ML IVPB PRN (06:15)
[2019-04-11 06:18] LABS: ALT (SGPT) 117 U/L (8-55); AST (SGOT) 119 U/L (5-34); Alkaline Phosphatase 89 U/L (40-110); Anion Gap 15 mmol/L (10-20); BUN (Urea Nitrogen) 66 mg/dL (8.4-25.7); Bilirubin, Total 0.2 mg/dL (0.2-1.2); Calc. Creatinine Clearance 0 mL/min (70-130); Calcium 7.4 mg/dL (7.8-10.44); Carbon Dioxide 21 mmol/L (23-31); Chloride 101 mmol/L (98-107); Estimated GFR-MDRD 19; Globulin 3.3 g/dL (2.4-3.5); Glucose 526 mg/dL (80-115); Potassium 7.1 mmol/L (3.5-5.1); Protein, Total 6.3 g/dL (5.8-8.1); Sodium 130 mmol/L (136-145); Troponin I 0.228 ng/mL (< 0.028)
[2019-04-11] MEDS ORDERED: Insulin Regular 300 UNITS/3 ML VIAL IVP SCH (07:00)
[2019-04-11] MEDS ORDERED: Sodium Bicarb 50 MEQ/50 ML VIAL IVP SCH (07:00)
[2019-04-11] MEDS ORDERED: Calcium Gluc 4.6 MEQ/10 ML (100 MG/ML) SLOW IVP SCH (07:15)
[2019-04-11] MEDS ORDERED: Norepinephrine 8 MG/0.9% NS 250 ML IVPB SCH ×2 (07:40→11:00)
[2019-04-11 07:41] LABS: #Lymphocytes 0.9 thou/uL (1.20-3.40); #Monocytes 0.6 thou/uL (0.11-0.59); #Neutrophils 6.9 thou/uL (1.40-6.50); %Basophils 0.2 % (0.0-1.0); %Eosinophils 0.3 % (0.0-10.0); %Lymphocytes 10.3 % (21.0-51.0); %Monocytes 6.6 % (0.0-10.0); %Neutrophils 82.7 % (42.0-75.0); Hemoglobin 9.3 g/dL (14.0-18.0); Mean Corpuscular HGB CONC 31.1 g/dL (32.0-36.0); Mean Corpuscular Hemoglobin 30.7 pg (27.0-31.0); Mean Corpuscular Volume 98.8 fL (78.0-98.0); Mean Platelet Volume 7.5 fL (7.4-10.4); Platelet Count 228 thou/uL (130-400); Red Blood Cell (RBC) Count 3.01 mill/uL (4.70-6.10); White Blood Cell (WBC) Count 8.3 thou/uL (4.8-10.8)
[2019-04-11 07:52] LABS: INR-International Normal Ratio 1.2; PTT 34.1 SEC (22.9-36.1); Prothrombin Time 15.2 SEC (12.0-14.7)
[2019-04-11 08:07] LABS: Anion Gap 17 mmol/L (10-20); BUN (Urea Nitrogen) 65 mg/dL (8.4-25.7); Calc. Creatinine Clearance 38 mL/min (70-130); Calcium 7.7 mg/dL (7.8-10.44); Carbon Dioxide 21 mmol/L (23-31); Chloride 102 mmol/L (98-107); Estimated GFR-MDRD 19; Glucose 509 mg/dL (80-115); Magnesium 1.6 mg/dL (1.6-2.6); Phosphorus 3.9 mg/dL (2.3-4.7); Potassium 6.7 mmol/L (3.5-5.1); Sodium 133 mmol/L (136-145)
[2019-04-11 08:23] LABS: Actual Bicarbonate (HCO3a) 25.2 mEq/L (22-28); Base Excess (BEa) -2.7 mEq/L (-2.0 to +3.0); Calcium, Ionized 1.07 mmol/L (1.12-1.30); Carboxyhemoglobin (COHb) 0.7 gm% (0.0-3.0); Hemoglobin (Hb) 9.9 g/dL (14.0-18.0); Potassium - ABG Lab 5.81 mmol/L (3.70-5.30)
[2019-04-11 08:23] LABS: CKMB 9.4 ng/mL (0-6.6)
[2019-04-11 08:24] LABS: CO2 Tension 61.1 mmHg (35.0-45.0); pH, Arterial 7.23 (7.35-7.45)
[2019-04-11 08:25] LABS: ALV-art Gradient 434.825 (0-20); O2 Tension (PaO2) 59.2 mmHg (> 80.0); Puncture Site RRA
[2019-04-11] MEDS ORDERED: Furosemide 40 MG/4 ML VIAL SLOW IVP SCH (08:30)
--- NOTE | 2019-04-11 09:15 | RAD ---
KUB: DATE: 04/11/2019. PROVIDED CLINICAL HISTORY: Chest pain. FINDINGS: The abdominal bowel gas pattern is nonspecific. The caudal aspects of the abdomen were not included. An enteric catheter is demonstrated, the tip of which overlies the left upper quadrant. The supine nature of the examination is not sensitive for detection of pneumoperitoneum. IMPRESSION: As above. POS: OFF
[2019-04-11] MEDS: cefTRIAXone\\ROCEPHIN 1 GM in Sodium Chloride 0.9% 100 ML IVPB SCH (09:18)
[2019-04-11] MEDS: Famotidine/PF 20 mg/2ml Vial SLOW IVP SCH (09:19)
[2019-04-11] MEDS: methylPREDNISolone Sod Succ 40 MG VIAL IVP SCH ×2 (09:19→21:56)
[2019-04-11 09:23] LABS: Troponin I 0.372 ng/mL (< 0.028)
--- NOTE | 2019-04-11 09:44 | RAD ---
KUB: Date: 04/11/2019 PROVIDED CLINICAL HISTORY: Chest pain. FINDINGS: Comparison examination from earlier same date. Significant interval change with respect to the prior examination is not apparent. IMPRESSION: As above. POS: OFF
--- NOTE | 2019-04-11 09:46 | CON ---
DATE OF CONSULTATION: HISTORY OF PRESENT ILLNESS: He is a 63-year-old morbidly obese gentleman, who normally seeks care at [facility]. In fact he was there no more than about a month ago. At home, he collapsed in the bathroom. His son was there. He was found to be in VFib. EMS arrived. They shocked. He is intubated en route. Initial x-ray showed no acute infiltrates. Subsequent x-ray shows evidence of pulmonary edema. His blood sugar was 400. He is known diabetic. According to the son, he was doing well until the last 24-48 hours. He had a recent bypass surgery done in [place], which was complicated by renal failure requiring dialysis for a period of time. He was in the rehab for a period of time, then at home. Additional information from the son, reviewing some medical records, multiple medical problems including 1. COPD. 2. Sleep apnea. 3. Carotid disease. 4. Atrial fibrillation. 5. Diabetes. 6. Hyperlipidemia. 7. High cholesterol. 8. Hypertension. 9. Previous renal failure. 10. Chronic anemia. Scheduled to go endoscopy soon. PAST SURGICAL HISTORY: Right nephrectomy, weight loss surgery, tonsillectomy, CABG two months ago. SOCIAL HISTORY: Smoker quit apparently 10 years ago. Alcohol, still drinks. HOME MEDICATIONS: 1. Allopurinol 300 mg. 2. Lasix 80, 3 times a day. 3. Tizanidine 4 mg two a day. 4. Amitriptyline 50. 5. Insulin, Humulin R 80 units three times a day. 6. Hydroxyzine. 7. Xanax. 8. Cardizem 60. 9. Sotalol 80. 10. Eliquis 5. 11. Ferrous sulfate. 12. Coreg 3.125. 13. Folic acid. 14. Crestor. ALLERGIES: APPARENTLY, UNKNOWN. REVIEW OF SYSTEMS: Otherwise unobtainable. He is on a cooling blanket, but he has very appropriate speech and moves all 4 extremities. Therefore, his hypothermia protocol was discontinued. He is neurologically intact. PHYSICAL EXAMINATION: VITAL SIGNS: Pulse is 100, blood pressure 120/80, on Levophed, respiratory set at 22. His temperature was 97.5. CHEST: Diffuse wheezing. CARDIAC: Sinus tach. ABDOMEN: Soft, distended. EXTREMITIES: Trace edema. NEUROLOGIC: Opens eyes. LABORATORY DATA: Lab shows white count 8000, H and H 9 and 29, platelet count is normal. PO2 is 59, pCO2 61, pH 7.23, PEEP of 10, 5 of tidal volume. Creatinine is 3, BUN 65, potassium 6.7, glucose markedly elevated at 509. CK-MB is elevated. X-ray shows bilateral infiltrates. IMPRESSION: 1. Status post ventricular fibrillation, ventricular tachycardia, status post resuscitation. 2. Neurologically intact but he may still have some anoxic injury. 3. Renal failure. 4. Diabetes. 5. Morbid obesity. 6. Sleep apnea. Nephrology and Cardiology have been consulted. Pulmonary washburn not weanable at this stage. We will restart his insulin. Neb treatments and steroids. Wean when stable. This is a 45-minute critical time. Job ID: [id number]
--- NOTE | 2019-04-11 09:48 | RAD ---
PORTABLE CHEST: DATE: 04/11/2019. PROVIDED CLINICAL HISTORY: Chest pain. FINDINGS: Comparison 11/20/2018. The cardiac silhouette appears enlarged, which may be at least partially on th e basis of portable technique. Median sternotomy changes are seen. Endotracheal tube is noted, the tip of which is difficult to ascertain with certainty, but likely is above the natalie. An enteric ca theter is noted, the tip of which terminates overlying the mid chest. Subsegmental atelectatic baker es of the right lung base are seen. No evidence for pleural fluid or pneumothorax with limitations d ue to the supine nature of the study. IMPRESSION: Enteric catheter positioning as described. POS: OFF
[2019-04-11] MEDS: Insulin Glargine 20 UNITS in Pre-Filled Syringe 1 EACH SC SCH ×2 (09:59→21:49)
--- NOTE | 2019-04-11 10:07 | RAD ---
PORTABLE CHEST: DATE: 04/11/2019. PROVIDED CLINICAL HISTORY: Hypoxia. FINDINGS: Comparison is made with the examination performed earlier same date. Interval advancement of the ent katy catheter. External defibrillator pad overlies the right chest, limiting evaluation. No definit e focal consolidation, pleural fluid, or pneumothorax apparent. Lungs are hypoinflated, limiting ass essment. IMPRESSION: Interval advancement of enteric catheter. POS: OFF
--- NOTE | 2019-04-11 10:15 | RAD ---
CHEST 1 VIEW: Date: 04/11/2019 HISTORY: Central line placement. COMPARISON: 04/11/2019 exam at 0401 hours. FINDINGS: Left central line has been placed. NG tube and endotracheal tubes are stable. Bilateral primarily per ihilar interstitial and alveolar opacities noted, which appear much more dense and more confluent dede n on the most recent prior study. IMPRESSION: Worsening bilateral mostly alveolar perihilar opacities. Left central line placement without pneumoth orax. POS: TPC
[2019-04-11] MEDS ORDERED: Magnesium 2 GM/50 ML 2 GM in Premix Bag 1 BAG IVPB SCH (10:45)
[2019-04-11] MEDS ORDERED: Sodium Bicarbonate 75 MEQ in Sodium Chloride 0.45% 1,000 ML IV SCH (10:45)
[2019-04-11] MEDS ORDERED: Heparin 25,000 units/D5W 500 ML IVPB SCH (11:15)
[2019-04-11 11:16] LABS: Hemoglobin 9.5 g/dL (14.0-18.0); Platelet Count 261 thou/uL (130-400)
[2019-04-11 11:37] LABS: Anion Gap 16 mmol/L (10-20); BUN (Urea Nitrogen) 67 mg/dL (8.4-25.7); Calc. Creatinine Clearance 39 mL/min (70-130); Carbon Dioxide 22 mmol/L (23-31); Chloride 103 mmol/L (98-107); Estimated GFR-MDRD 19; Glucose 440 mg/dL (80-115); Sodium 135 mmol/L (136-145)
[2019-04-11] MEDS ORDERED: methylPREDNISolone Sod Succ 40 MG VIAL IVP SCH (12:00)
[2019-04-11] MEDS: Heparin 10,000 UNITS/ 10 ML VIAL SLOW IVP SCH (12:50)
[2019-04-11 13:15] LABS: HBSAg Index 0.26 S/CO (0-0.99); Hep B Surf Ag Non-Reactive S/CO (NonReactive)
[2019-04-11] MEDS ORDERED: Albumin 25% 25 GM/100 ML BOT IVPB PRN (15:08)
[2019-04-11] MEDS ORDERED: Albumin 25% 25 GM/100 ML BOT IVPB SCH (15:15)
--- NOTE | 2019-04-11 15:19 | CON ---
DATE OF CONSULTATION: 04/11/2019 SERVICE: Nephrology. HISTORY OF PRESENT ILLNESS: A 63-year-old male with known history of CKD stage 4; hypertension; morbid obesity; coronary artery disease, status post CABG; admitted after out of hospital cardiac arrest. Nephrology consult was requested for hyperkalemia and metabolic acidosis. The patient with coronary artery disease, recently had CABG. Following which, he developed acute on chronic renal failure , requiring hemodialysis. The patient's renal function improved and hemodialysis was subsequently discontinued since last year of January. The patient fairly has been doing well, but son reported that he has developed worsening shortness of breath as well as edema and generalized weakness. Yesterday, he was noted to be unresponsive while in the restroom and EMS was called. The patient was pulseless and was found to have ventricular fibrillation with arrest and was subsequently shocked and resuscitated with return of spontaneous circulation. Initial labs showed potassium of 4.4, but subsequent one showed potassium of 7.1. Nephrology consult was requested for management. The patient was intubated en route to the hospital and he is still sedated and intubated. He also was found to be hypotensive, currently requiring pressor support. OBJECTIVE: VITAL SIGNS: Temperature 98.8, pulse 80, respiratory rate 24, SpO2 of 92% on ventilator. GENERAL: Morbidly obese male, who is intubated. HEENT: Normocephalic, atraumatic. ET tube is in place. NECK: Short, thick neck with excess subcutaneous tissue noted. No JVD could be discerned due to body habitus. CARDIOVASCULAR: Regular rhythm and rate. Normal heart sounds one and two. Soft systolic murmur noted. RESPIRATORY: Fair air entry with ventilator transmitted breath sounds. Some crackles and coarse transmitted breath sounds are also noted. The patient is intubated and mechanically ventilated. GI: Morbidly obese, soft with normal bowel sounds. EXTREMITIES: [id number] bilateral leg edema noted. INTERSTATE BUS DISPATCHER: The patient is sedated and unresponsive. DIAGNOSTIC DATA: CBC showed WBC count of 14.8, hemoglobin of 8.7, and platelets of 230 on presentation. Most recent CBC showed hemoglobin of 9.3, WBC of 8.3, and platelets of 228. On presentation to the hospital, initial CMP showed sodium 132, potassium 4.4, chloride 96, CO2 of 22, BUN 68, creatinine 4.19, glucose 564. Lactic acid 7.8. Calcium 8.5, total bilirubin 0.3, AST 91, ALT 98, alkaline phosphatase 97, total protein 7.6, albumin 3.3, and globulin 4.3. Initial cardiac markers showed troponin of 0.021 and BNP of 91.7. CMP 3 hours later showed sodium 132, potassium 7.1, CO2 of 21, chloride 101, BUN 66, and creatinine 3.92. Total bilirubin 0.2, AST 119, ALT 117. Chest x-ray done on presentation showed a large cardiac silhouette as well as subsegmental atelectatic changes of the right lung, but no pleural effusion or pneumothorax was noted. ASSESSMENT: 1. Hyperkalemia: Due to metabolic acidosis with potassium shift. Potassium on presentation was 4.4 and is currently 7.1. 2. Metabolic acidosis: Due to lactic acidosis from cardiac arrest as well as chronic kidney disease. 3. Ventricular fibrillation, cardiac arrest: Most likely due to fluid overload with cardiac decompensation. 4. Chronic kidney disease stage 4 with anasarca. 5. Anasarca/fluid overload. 6. Acute on chronic heart failure. 7. Morbid obesity. 8. Acute respiratory failure, status post intubation. 9. Uncontrolled diabetes with hyperglycemia. 10. Anemia in CKD PLAN: 1. Given hyperkalemia and marked fluid overload, we will plan on dialyzing the patient emergently. General Surgery consult has been requested, and once temporary dialysis catheter is placed, we will go ahead and dialyze the patient for 3 hours. 2. While waiting for dialysis, we will start the patient on sodium bicarbonate, which would be discontinued once dialysis is commenced due to hyperkalemia. 3. Pressure support as needed to get adequate blood pressure. 4. Further treatment to follow depending on hospital course. 5. Care plan was discussed with the patient's son at the bedside and he verbalized understanding. Job ID: [id number] [facility]atti
[2019-04-11] MEDS: HumaLOG 300 UNITS/3 ML VIAL SC PRN ×2 (15:49→21:52)
--- NOTE | 2019-04-11 15:51 | CON ---
DATE OF CONSULTATION: 04/11/2019 REASON FOR CONSULTATION: Elevated troponin and mem-iz-pynndlxq arrest. HISTORY OF PRESENT ILLNESS: Mr. Schmidt is a 63-year-old gentleman with history of chronic kidney disease stage 5 in addition to recent CAD, status post bypass surgery at [facility] in [place], who was found down. CPR ensued. History is limited. He was found to have potassium of 7.1. He underwent emergent dialysis. His son did give me most of his history. No chest pain or pressure. He did collapse while at home. He did undergo 1 vessel bypass likely to the LAD. PAST MEDICAL HISTORY: 1. Obstructive sleep apnea. 2. CAD, status post bypass surgery. 3. Carotid artery disease. 4. Atrial fibrillation. 5. Hyperlipidemia. 6. Diabetes mellitus. 7. Hypertension. 8. Renal failure, undergoing dialysis. 9. Chronic anemia. PAST SURGICAL HISTORY: 1. Recent bypass surgery. 2. Nephrectomy. 3. Tonsillectomy. HOME MEDICATIONS: Include; 1. Lasix. 2. Tizanidine. 3. Amitriptyline. 4. Insulin. 5. Xanax. 6. Cardizem. 7. Sotalol. 8. Eliquis. 9. Iron sulfate. 10. Coreg. 11. Folic acid. 12. Crestor. ALLERGIES: NONE. REVIEW OF SYSTEMS: Unobtainable. PHYSICAL EXAMINATION: VITAL SIGNS: Blood pressure 90/61, pulse 108, respirations 20. The patient is currently on norepinephrine for blood pressure support. GENERAL: Patient is a pleasant male, who is in no acute distress. The patient appears their stated age. NEUROLOGIC: The patient is alert and oriented x3 with no focal neurologic deficits. HEENT: Sclerae without icterus. Mouth has moist mucous membranes with normal pallor. NECK: No JVD. Carotid upstroke brisk. No bruits bilaterally. LUNGS: Clear to auscultation with unlabored respirations. BACK: No scoliosis or kyphosis. CARDIAC: Regular rate and rhythm with normal S1 and S2. No S3 or S4 noted. No significant rubs, murmurs, thrills, or gallops noted throughout the precordium. PMI is not displaced. There is no parasternal heave. ABDOMEN: Soft, nontender, nondistended. No peritoneal signs present. No hepatosplenomegaly. No abnormal striae. EXTREMITIES: 2+ femoral and 2+ dorsalis pedis pulses. No cyanosis, clubbing, or edema. SKIN: No gross abnormalities. DIAGNOSTIC STUDIES: EKG, normal sinus rhythm with nonspecific ST-T wave changes. PERTINENT LABS: Current potassium 6.0, sodium 135, CO2 of 22, creatinine 3.83, CK-MB of 9.4, troponin 0.3. IMPRESSION: 1. Jcz-fl-kgpoozpi arrest. 2. Coronary artery disease. 3. Status post bypass surgery. 4. Likely atrial fibrillation. RECOMMENDATIONS: Mr. Schmidt's recent episode of VT, which likely precipitated the event, was multifactorial. He had a potassium of 7.0. The patient is also on sotalol. Tracing is not available for review. I am unsure if this is true monomorphic ventricular tachycardia or polymorphic VT consistent with torsades. At this point, we will continue current support. Troponin likely elevated from recent CPR and demand ischemia. We will continue to monitor closely. Recommend echo with Doppler. Job ID: [id number]
[2019-04-11] MEDS ORDERED: Sotalol HCl 80 MG TAB PO SCH (21:00)
--- NOTE | 2019-04-11 23:26 | OP ---
DATE OF PROCEDURE: 04/11/2019 PREOPERATIVE DIAGNOSES: 1. Acute hyperkalemia. 2. Acute respiratory failure. POSTOPERATIVE DIAGNOSES: 1. Acute hyperkalemia. 2. Acute respiratory failure. PROCEDURE PERFORMED: Placement of right femoral vein Trialysis catheter for hemodialysis. INDICATIONS FOR PROCEDURE: This is a 63-year-old man admitted with multiple organ failure syndrome including acute respiratory and cardiac failure. The patient was also found with acute hyperkalemia with potassium of 7.1. I have been asked to place a temporary dialysis access to facilitate hemodialysis. DESCRIPTION OF PROCEDURE: Informed consent was obtained from the patient's son at bedside. The patient was placed in supine position. Right groin sterilely prepped and draped in usual fashion. Right femoral artery was palpated at the groin and medial to this the overlying skin was anesthetized with 1% lidocaine. The right femoral vein was then cannulated with an 18-gauge introducer needle returning dark venous blood. Guidewire was passed through the needle and advanced into the right femoral vein without resistance. Needle was withdrawn over the guidewire. Stab incision was made adjacent to the guidewire using 11 scalpel. A dilator was passed over the guidewire dilating the subcutaneous tissues. Dilator was removed and a triple-lumen Trialysis catheter was advanced over the guidewire and placed in the right femoral vein without resistance and advanced to the hub. Guidewire was removed. Dark venous blood was aspirated from all 3 ports, which were individually flushed with saline followed by heparin. Catheter was secured to right groin using 3-0 nylon suture at 2 points. Sterile dressings were applied. The patient tolerated the procedure without any apparent complication and remains in critical, but stable condition following completion of procedure. Job ID: [id number]
[2019-04-12] MEDS: Heparin 10,000 UNITS/ 10 ML VIAL SLOW IVP SCH (02:00)
[2019-04-12] MEDS: HumaLOG 300 UNITS/3 ML VIAL SC PRN ×4 (04:36→21:18)
[2019-04-12 04:40] LABS: #Lymphocytes 0.8 thou/uL (1.20-3.40); #Monocytes 0.9 thou/uL (0.11-0.59); #Neutrophils 8.8 thou/uL (1.40-6.50); %Eosinophils 0.1 % (0.0-10.0); %Lymphocytes 7.2 % (21.0-51.0); %Monocytes 8.2 % (0.0-10.0); %Neutrophils 84.6 % (42.0-75.0); Mean Corpuscular HGB CONC 34.9 g/dL (32.0-36.0); Mean Corpuscular Hemoglobin 33.1 pg (27.0-31.0); Mean Corpuscular Volume 94.7 fL (78.0-98.0); Mean Platelet Volume 6.8 fL (7.4-10.4); Platelet Count 149 thou/uL (130-400); RBC Distribution Width 14.1 % (11.5-14.5); Red Blood Cell (RBC) Count 2.12 mill/uL (4.70-6.10); White Blood Cell (WBC) Count 10.5 thou/uL (4.8-10.8)
[2019-04-12 05:00] LABS: Anion Gap 15 mmol/L (10-20); BUN (Urea Nitrogen) 46 mg/dL (8.4-25.7); Calc. Creatinine Clearance 47 mL/min (70-130); Calcium 7.9 mg/dL (7.8-10.44); Carbon Dioxide 26 mmol/L (23-31); Chloride 100 mmol/L (98-107); Estimated GFR-MDRD 23; Glucose 311 mg/dL (80-115); Sodium 136 mmol/L (136-145)
[2019-04-12 07:47] LABS: Actual Bicarbonate (HCO3a) 24.8 mEq/L (22-28); Base Excess (BEa) 0.8 mEq/L (-2.0 to +3.0); CO2 Tension 36.3 mmHg (35.0-45.0); Calcium, Ionized 1.03 mmol/L (1.12-1.30); Carboxyhemoglobin (COHb) 0.8 gm% (0.0-3.0); Hemoglobin (Hb) 7.4 g/dL (14.0-18.0); O2 Tension (PaO2) 78.9 mmHg (> 80.0); Potassium - ABG Lab 4.88 mmol/L (3.70-5.30); pH, Arterial 7.45 (7.35-7.45)
[2019-04-12 07:48] LABS: ALV-art Gradient 303.525 (0-20); Puncture Site RBA
[2019-04-12] MEDS: cefTRIAXone\\ROCEPHIN 1 GM in Sodium Chloride 0.9% 100 ML IVPB SCH (08:24)
[2019-04-12] MEDS: Lorazepam 2 MG/ML VIAL SLOW IVP PRN (08:24)
[2019-04-12] MEDS: Allopurinol 100 MG TAB PO SCH (08:26)
[2019-04-12] MEDS: methylPREDNISolone Sod Succ 40 MG VIAL IVP SCH (08:26)
[2019-04-12] MEDS: Famotidine/PF 20 mg/2ml Vial SLOW IVP SCH (08:26)
[2019-04-12] MEDS: Insulin Glargine 20 UNITS in Pre-Filled Syringe 1 EACH SC SCH ×2 (09:13→21:16)
--- NOTE | 2019-04-12 09:59 | PRG ---
DATE OF SERVICE: 04/12/2019 SUBJECTIVE: This morning, to my surprise, awake, alert, responsive, and very appropriate. OBJECTIVE: VITAL SIGNS: His pulse is 99, saturations are 100%, respirations 14, and blood pressure 120/65. GENERAL: He was dialyzed yesterday. CHEST: Bilateral rhonchi. CARDIAC: Normal S1 and S2. No gallops. ABDOMEN: Soft without masses. LABORATORY DATA: A pO2 is 78, pCO2 is 36.45 at the rate of 24, 60%. Creatinine 3.2 and BUN 46. His white count 10,000. X-ray still shows bilateral infiltrates. IMPRESSION: 1. Congestive heart failure, fluid overload. 2. Pneumonia. 3. Status post exx-uc-yxfvttcb cardiac arrest. 4. Coronary artery disease. 5. Atrial fibrillation. PLAN: We will try and wean and extubate today, since he is much more responsive. Continue antibiotics, neb treatments, and steroids. This is a one-half hour of critical care time. Job ID: [id number]
[2019-04-12] MEDS ORDERED: FLU VACC QS2019-20(6MOS UP)/PF 60 MCG/0.5 ML SYRINGE IM ONE (10:30)
--- NOTE | 2019-04-12 10:40 | PDOC.HOSPP ---
- Subjective Encounter Date: 04/12/19 Encounter Time: 10:38 Subjective: Mr. Schmidt was seen today in follow-up of Cardiac arrest, with VFIB. He is post extubation, and is awake and alert and appropriate, with no complaints. - Objective Vital Signs & Weight: Vital Signs (12 hours) Temp Pulse Resp BP Pulse Ox 04/12/19 08:00 24 H 04/12/19 07:35 96 04/12/19 07:20 100 04/12/19 07:00 98.1 F 04/12/19 06:00 24 H 04/12/19 04:00 99.7 F H 33 H 04/12/19 03:59 98 108/60 04/12/19 02:00 24 H 04/12/19 01:12 97 100 04/12/19 00:00 99.6 F 24 H 04/11/19 22:53 105 H 100/68 Weight Admit Weight 308 lb 10.354 oz Weight 308 lb 10.354 oz Most Recent Monitor Data Heart Rate from ECG 104 NIBP 102/66 NIBP BP-Mean 78 Respiration from ECG 21 SpO2 92 I&O: 04/11/19 04/12/19 04/13/19 06:59 06:59 06:59 Intake Total 1602.2 0 Output Total 550 1392 220 Balance -550 210.2 -220 Result Diagrams: 04/12/19 04:30 04/12/19 04:30 Additional Labs: Accuchecks 04/12/19 04/12/19 04/11/19 09:46 04:37 21:50 POC Glucose 269 H 331 H 327 H 04/11/19 15:49 POC Glucose 279 H Hospitalist ROS - Medication Medications: Active Medications Generic Name Dose Route Start Last Admin Trade Name Freq PRN Reason Stop Dose Admin Albuterol/Ipratropium 3 ml 04/11/19 13:00 04/12/19 07:35 Duoneb NEB 3 ml [id number] YOEL Administration Allopurinol 100 mg 04/12/19 09:00 04/12/19 08:26 Zyloprim PO 100 mg DAILY YOEL Administration Famotidine 20 mg 04/11/19 09:00 04/12/19 08:26 Pepcid SLOW IVP 20 mg DAILY YOEL Administration Heparin Sodium (Porcine) 0 units 04/11/19 11:15 04/12/19 02:00 Heparin 1,000 Units/Ml (10 Ml) SLOW IVP 4,000 unit ASDIR YOEL Administration Protocol Fentanyl Citrate 2,000 mcg/ 100 mls @ 0 mls/hr 04/11/19 03:03 04/11/19 17:47 Sodium Chloride IV 05/11/19 03:03 100 mls INF YOEL Administration Protocol Per Protocol Insulin Glargine 20 units/ 0.2 mls @ 0 mls/hr 04/11/19 09:00 04/12/19 09:13 Miscellaneous Medication SC 0.2 mls BID YOEL Administration Ceftriaxone Sodium 1 gm/ 100 mls @ 200 mls/hr 04/11/19 08:45 04/12/19 08:24 Sodium Chloride IVPB 100 mls Q24HR YOEL Administration Heparin Sodium/Dextrose 500 mls @ 0 mls/hr 04/11/19 11:15 04/11/19 12:51 Heparin 25,000 Units/D5w 500 Ml IVPB 500 mls INF YOEL Administration Protocol Per Protocol Insulin Human Lispro 0 units 04/11/19 10:59 04/12/19 09:46 Humalog SC 9 unit .AGGRESSIVE SLIDING PRN Administration Aggressive Correctional Scale Lorazepam 2 mg 04/11/19 06:15 04/12/19 08:24 Ativan SLOW IVP 05/11/19 06:15 2 mg Q1H PRN Administration Breakthrough agitation Methylprednisolone Sodium Succinate 40 mg 04/11/19 09:00 04/12/19 08:26 Solu-Medrol IVP 40 mg BID YOEL Administration Propofol 1,000 mg 04/11/19 06:15 04/11/19 23:40 Diprivan IV 05/11/19 06:15 1,000 mg INF PRN Administration TO ACHIEVE GOAL RASS Protocol - Exam Eye: PERRL Heart: no murmur, no rubs, normal peripheral pulses, irregular (PMI is enlarged , and laterally displaced), murmur present Respiratory: rales (+ rales in both lungs, and mild scattered wheeze) Gastrointestinal: soft, non-tender, non-distended, normal bowel sounds, no palpable masses, no hepatomegaly Extremities: no cyanosis, no clubbing, 1+ LE edema (lower extremity edema) Hosp A/P (1) Cardiac arrest Code(s): I46.9 - CARDIAC ARREST, CAUSE UNSPECIFIED Status: Acute (2) CAD (coronary artery disease) Code(s): I25.10 - ATHSCL HEART DISEASE OF [place] CORONARY ARTERY W/O ANG PCTRS Status: Acute (3) Chronic kidney disease, stage 4, severely decreased GFR Code(s): N18.4 - CHRONIC KIDNEY DISEASE, STAGE 4 (SEVERE) Status: Chronic (4) DM2 (diabetes mellitus, type 2) Status: Chronic Qualifiers: (5) Paroxysmal atrial fibrillation Code(s): I48.0 - PAROXYSMAL ATRIAL FIBRILLATION Status: Chronic (6) Sleep apnea Code(s): G47.30 - SLEEP APNEA, UNSPECIFIED Status: Chronic - Plan * Cardiac Arrest- patient is s/p VFib cardiac arrest. He is awake and alert, and appropriate. His blood pressure is stable, and he has been extubated * He tells me he had recent CABG in [place], but was told he still needs 2 cardiac STENT's * Will await further recommendations from Cardiology * DM-re-start long acting insulin, and continue SSI * Chronic kidney disease stage 4- discussed with Dr. Moore- there is no need for dialysis at this time
--- NOTE | 2019-04-12 10:53 | RAD ---
PORTABLE CHEST: HISTORY: Respiratory distress. COMPARISON: Prior day's study. FINDINGS: Heart size is upper limits with postop sternotomy changes. Parenchymal lung changes appear fairly si milar to the previous study. Endotracheal and NG tubes appear in satisfactory position. Left centra l line is unchanged. IMPRESSION: Essentially stable exam. POS: [facility]
--- NOTE | 2019-04-12 11:02 | PDOC.CPN ---
- Subjective Date: 04/12/19 Time: 11:00 Interval history: Pt extubated. Doing muchg better. Slightly confused - Objective Allergies/Adverse Reactions: Allergies Allergy/AdvReac Type Severity Reaction Status Date / Time No Known Drug Allergies Allergy Verified 04/11/19 10:19 Visit Medications: Current Medications Albumin Human (Albumin 25%) 25 gm IVPB Q6H PRN PRN Reason: Hypotension Stop: 04/12/19 15:16 Albuterol/Ipratropium (Duoneb) 3 ml NEB [id number] YOEL Last Admin: 04/12/19 07:35 Dose: 3 ml Allopurinol (Zyloprim) 100 mg PO DAILY YOEL Last Admin: 04/12/19 08:26 Dose: 100 mg Dextrose/Water (Dextrose 50%) 25 gm SLOW IVP PRN PRN PRN Reason: Hypoglycemia Famotidine (Pepcid) 20 mg SLOW IVP DAILY YOEL Last Admin: 04/12/19 08:26 Dose: 20 mg Glucagon (Glucagon) 1 mg IM PRN PRN PRN Reason: Hypoglycemia Heparin Sodium (Porcine) (Heparin 1,000 Units/Ml (10 Ml)) 0 units SLOW IVP ASDIR YOEL; Protocol Last Admin: 04/12/19 02:00 Dose: 4,000 unit Fentanyl Citrate 2,000 mcg/ (Sodium Chloride) 100 mls @ 0 mls/hr IV INF YOEL; Protocol Stop: 05/11/19 03:03 Last Admin: 04/11/19 17:47 Dose: 100 mls Fentanyl Citrate (Fentanyl Bolus) 250 mls @ 0 mls/hr IVPB PRN PRN PRN Reason: Breakthrough pain/agitation Stop: 05/11/19 06:15 Insulin Glargine 20 units/ (Miscellaneous Medication) 0.2 mls @ 0 mls/hr SC BID YOEL Last Admin: 04/12/19 09:13 Dose: 0.2 mls Ceftriaxone Sodium 1 gm/ (Sodium Chloride) 100 mls @ 200 mls/hr IVPB Q24HR YOEL Last Admin: 04/12/19 08:24 Dose: 100 mls Dextrose/Water (D5w) 1,000 mls @ 0 mls/hr IV .Q0M PRN PRN Reason: Hypoglycemia Norepinephrine Bitartrate (Levophed) 250 mls @ 0 mls/hr IVPB INF YOEL; Protocol Heparin Sodium/Dextrose (Heparin 25,000 Units/D5w 500 Ml) 500 mls @ 0 mls/hr IVPB INF YOEL; Protocol Last Admin: 04/11/19 12:51 Dose: 500 mls Insulin Human Lispro (Humalog) 0 units SC .AGGRESSIVE SLIDING PRN PRN Reason: Aggressive Correctional Scale Last Admin: 04/12/19 09:46 Dose: 9 unit Insulin Human Lispro (Humalog) 0 units SC .BEDTIME SLIDING SC PRN PRN Reason: Bedtime Correctional Scale Lorazepam (Ativan) 2 mg SLOW IVP Q1H PRN PRN Reason: Breakthrough agitation Stop: 05/11/19 06:15 Last Admin: 04/12/19 08:24 Dose: 2 mg Methylprednisolone Sodium Succinate (Solu-Medrol) 40 mg IVP BID YOEL Last Admin: 04/12/19 08:26 Dose: 40 mg Morphine Sulfate (Morphine) 2 mg SLOW IVP Q1H PRN PRN Reason: BREAKTHROUGH PAIN/Agitation Stop: 05/11/19 06:15 Propofol (Diprivan) 1,000 mg IV INF PRN; Protocol PRN Reason: TO ACHIEVE GOAL RASS Stop: 05/11/19 06:15 Last Admin: 04/11/19 23:40 Dose: 1,000 mg Propofol (Diprivan Bolus) 20 mg IV Q5MIN PRN PRN Reason: BREAKTHROUGH AGITATION Stop: 05/11/19 06:15 Vital Signs & Weight: Vital Signs Temp Pulse Resp BP Pulse Ox 04/12/19 08:00 24 H 04/12/19 07:35 96 04/12/19 07:20 100 04/12/19 07:00 98.1 F 04/12/19 06:00 24 H 04/12/19 04:00 99.7 F H 33 H 04/12/19 03:59 98 108/60 04/12/19 02:00 24 H 04/12/19 01:12 97 100 04/12/19 00:00 99.6 F 24 H Admit Weight 308 lb 10.354 oz Weight 308 lb 10.354 oz - Physical Exam General: no apparent distress Neck: no masses, no bruit Cardiac: no murmur, regular rate, regular rhythm Lungs: normal exam Abdomen: soft, non-tender - Labs Result Diagrams: 04/12/19 04:30 04/12/19 04:30 Troponin/CKMB CK-MB (CK-2) 9.4 ng/mL (0-6.6) H* 04/11/19 07:16 Troponin I 0.372 ng/mL (< 0.028) H* 04/11/19 07:16 - Assessment/Plan Assessment/Plan: OUt of hospital arrest CAD S/p CABG RF Hyperkalemia Recent arrest likley multifactorial Pt with elevated K level in addition to sotalol us which can cause torsdaes Recommend stopping sotalol (accumulation in RF) Keep K level <5 DC heparin Respiratory support
[2019-04-12] MEDS ORDERED: DC Sedation Protocol FS ONE (11:17)
[2019-04-12] MEDS ORDERED: Furosemide 100 MG/10 ML VIAL SLOW IVP SCH (11:30)
[2019-04-12] MEDS ORDERED: EPOETIN ALFA-EPBX (ESRD) 10,000 UNIT/ML VIAL SC SCH (12:00)
--- NOTE | 2019-04-12 12:05 | PRG ---
DATE OF SERVICE: 04/12/2019 SERVICE: Nephrology. SUBJECTIVE: A 63-year-old male with known history of morbid obesity, CKD stage 4-5, diabetes, and hypertension, who was admitted after out of hospital cardiac arrest. The patient had emergent dialysis yesterday for fluid overload and hyperkalemia , was extubated earlier today. Conversational and feels good. OBJECTIVE: VITAL SIGNS: Temperature 98.1, pulse 95, respiratory rate 21, SpO2 93% on oxygen supplementation, blood pressure is 145/78. GENERAL: Morbidly obese male, in no obvious distress. Afebrile. Anicteric. Acyanotic. HEENT: Normocephalic, atraumatic. Oral mucosa is moist. CARDIOVASCULAR: Regular rhythm and rate with soft systolic murmur. RESPIRATORY: Fair air entry bilaterally with some transmitted breath sounds as well as bibasilar crackles. GI: Morbidly obese, soft, nontender, nondistended with normal bowel sounds. UROGENITAL: Govea catheter is in place draining some urine. EXTREMITIES: Moderate bilateral leg edema noted. No erythema appreciated. 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 The patient is conversational. The patient moves all extremities. DIAGNOSTIC DATA: CBC showed WBC count of 10.5, hemoglobin of 7.0, platelet of 149. Of note, hemoglobin was 9.3 yesterday. BMP today showed sodium 136, potassium 5.0, chloride 100, CO2 of 26, BUN 46, creatinine 3.23, glucose 311, calcium 7.9. ASSESSMENT: 1. Hyperkalemia: Most likely due to fluid shift from metabolic acidosis and lactic acidosis. Resolved with hemodialysis. 2. Out of hospital cardiac arrest due to ventricular fibrillation. 3. Presume acute on chronic cardiac failure. 4. Acute respiratory failure related to cardiac arrest. 5. Diabetes mellitus with nephropathy. 6. Morbid obesity with obstructive sleep apnea. 7. Generalized edema/anasarca: Due to congestive heart failure and chronic kidney disease. 8. Coronary artery disease, status post coronary artery bypass graft. 9. Anemia in CKD. PLAN: 1. In view of the fact that hyperkalemia has resolved and volume status is improving, the patient was successfully extubated and looks comfortable, there is no emergent need for hemodialysis at this time. We will start the patient on IV Lasix for volume management. 2. We will monitor renal function closely. 3. We will also start the patient on Procrit due to anemia in chronic kidney disease. 4. Transfusion as needed as per primary attending. We will monitor hemodynamics closely as well as electrolytes and correct as indicated. Further treatment to follow depending on hospital course. Job ID: [id number] MTDD
[2019-04-12] MEDS ORDERED: Acetaminophen/Codeine 30-300mg Tablet PO SCH (22:45)
[2019-04-13] MEDS ORDERED: Amiodarone 150 MG, Admixture Fee 1 EACH in Dextrose 5% in Water 100 ML IVPB SCH (01:30)
[2019-04-13] MEDS: Amiodarone 450 MG, Admixture Fee 1 EACH in Dextrose 5% in Water 250 ML IVPB SCH ×2 (01:42→11:34)
--- NOTE | 2019-04-13 03:41 | PDOC.BPN ---
- Brief Progress Note Code sarkis called approximately 0325 Upon provider's arrival patient's pulse in 120s, O2 sat 83 Patient AxOx3 and speaking in complete sentences, pulses intact Per nursing report the patient started to become more confused and his sats were dropping, unsure if good waveform and this was reason for code sarkis Patient denies CP or shortness of breath at the moment, he had taken his home Bipap off repositioned patient in bed, started on non-rebreather, o2 sat to [address] Per review of [address] Myers rec'd K <5, will check ABG, BMP, EKG Spoke with Dr. Harper, will keep patient on bipap for the rest of the night, suspected he may have gotten hypercapneic when he took off his bipap
[2019-04-13 03:44] LABS: Actual Bicarbonate (HCO3a) 24.3 mEq/L (22-28); Base Excess (BEa) -0.7 mEq/L (-2.0 to +3.0); CO2 Tension 42.1 mmHg (35.0-45.0); Calcium, Ionized 1.06 mmol/L (1.12-1.30); Carboxyhemoglobin (COHb) 1.1 gm% (0.0-3.0); Hemoglobin (Hb) 7.6 g/dL (14.0-18.0); O2 Tension (PaO2) 70.3 mmHg (> 80.0); Potassium - ABG Lab 5.08 mmol/L (3.70-5.30); pH, Arterial 7.38 (7.35-7.45)
[2019-04-13] MEDS: Acetaminophen/Codeine 30-300mg Tablet PO PRN (03:50)
[2019-04-13 03:56] LABS: #Lymphocytes 1.4 thou/uL (1.20-3.40); #Monocytes 1.6 thou/uL (0.11-0.59); #Neutrophils 8.9 thou/uL (1.40-6.50); %Basophils 0.2 % (0.0-1.0); %Eosinophils 0.1 % (0.0-10.0); %Monocytes 13.4 % (0.0-10.0); %Neutrophils 74.2 % (42.0-75.0); Mean Corpuscular HGB CONC 33.1 g/dL (32.0-36.0); Mean Corpuscular Volume 96.6 fL (78.0-98.0); Mean Platelet Volume 8.1 fL (7.4-10.4); Platelet Count 161 thou/uL (130-400); RBC Distribution Width 14.3 % (11.5-14.5); Red Blood Cell (RBC) Count 2.19 mill/uL (4.70-6.10)
[2019-04-13 04:22] LABS: Albumin 3.6 g/dL (3.4-4.8); Anion Gap 18 mmol/L (10-20); BUN (Urea Nitrogen) 60 mg/dL (8.4-25.7); BUN/Creatinine Ratio 16.09; Calc. Creatinine Clearance 41 mL/min (70-130); Calcium 8.5 mg/dL (7.8-10.44); Carbon Dioxide 23 mmol/L (23-31); Chloride 98 mmol/L (98-107); Estimated GFR-MDRD 20; Glucose 355 mg/dL (80-115); Potassium 5.1 mmol/L (3.5-5.1); Sodium 134 mmol/L (136-145)
[2019-04-13 05:02] LABS: Puncture Site R BRACHIAL
[2019-04-13 05:03] LABS: ALV-art Gradient 233.575 (0-20)
[2019-04-13] MEDS: HumaLOG 300 UNITS/3 ML VIAL SC PRN ×4 (06:14→21:45)
--- NOTE | 2019-04-13 07:05 | PDOC.CPN ---
- Subjective Date: 04/13/19 Time: 13:58 Interval history: Pt with confusion last night and code blue called Pt also with epsiode of VT [address] and pts status improved IV amiodarone per protocol started - Objective Allergies/Adverse Reactions: Allergies Allergy/AdvReac Type Severity Reaction Status Date / Time No Known Drug Allergies Allergy Verified 04/11/19 10:19 Visit Medications: Current Medications Acetaminophen/Codeine Phosphate (Tylenol #3) 1 tab PO Q6H PRN PRN Reason: Pain Last Admin: 04/13/19 03:50 Dose: 1 tab Albuterol/Ipratropium (Duoneb) 3 ml NEB [id number] YOEL Last Admin: 04/12/19 23:43 Dose: 3 ml Allopurinol (Zyloprim) 100 mg PO DAILY [facility] Last Admin: 04/12/19 08:26 Dose: 100 mg Dextrose/Water (Dextrose 50%) 25 gm SLOW IVP PRN PRN PRN Reason: Hypoglycemia Enoxaparin Sodium (Lovenox) 40 mg SC 0900 YOEL Epoetin Tan-epbx (Retacrit) 10,000 unit SC Q7D YOEL Last Admin: 04/12/19 12:27 Dose: 10,000 unit Famotidine (Pepcid) 20 mg SLOW IVP DAILY [facility] Last Admin: 04/12/19 08:26 Dose: 20 mg Glucagon (Glucagon) 1 mg IM PRN PRN PRN Reason: Hypoglycemia Insulin Glargine 20 units/ (Miscellaneous Medication) 0.2 mls @ 0 mls/hr SC BID [facility] Last Admin: 04/12/19 21:16 Dose: 0.2 mls Ceftriaxone Sodium 1 gm/ (Sodium Chloride) 100 mls @ 200 mls/hr IVPB Q24HR YOEL Last Admin: 04/12/19 08:24 Dose: 100 mls Dextrose/Water (D5w) 1,000 mls @ 0 mls/hr IV .Q0M PRN PRN Reason: Hypoglycemia Norepinephrine Bitartrate (Levophed) 250 mls @ 0 mls/hr IVPB INF YOEL; Protocol Amiodarone HCl 450 mg/Miscellaneous Medication 1 each/ Dextrose/Water 259 mls @ 0 mls/hr IVPB INF YOEL; Protocol Last Admin: 04/13/19 01:42 Dose: 259 mls Insulin Human Lispro (Humalog) 0 units SC .AGGRESSIVE SLIDING PRN PRN Reason: Aggressive Correctional Scale Last Admin: 04/13/19 06:14 Dose: 13 unit Insulin Human Lispro (Humalog) 0 units SC .BEDTIME SLIDING SC PRN PRN Reason: Bedtime Correctional Scale Last Admin: 04/12/19 21:18 Dose: 4 unit Lorazepam (Ativan) 2 mg SLOW IVP Q1H PRN PRN Reason: Breakthrough agitation Stop: 05/11/19 06:15 Last Admin: 04/12/19 08:24 Dose: 2 mg Methylprednisolone Sodium Succinate (Solu-Medrol) 40 mg IVP DAILY YOEL Propofol (Diprivan) 1,000 mg IV INF PRN; Protocol PRN Reason: TO ACHIEVE GOAL RASS Stop: 05/11/19 06:15 Last Admin: 04/11/19 23:40 Dose: 1,000 mg Vital Signs & Weight: Vital Signs Temp Pulse Ox 04/13/19 04:00 98.4 F 04/13/19 00:00 98.6 F 04/12/19 23:43 100 04/12/19 20:00 98.8 F 98 04/12/19 19:38 100 04/12/19 19:35 100 Admit Weight 308 lb 10.354 oz Weight 308 lb 10.354 oz - Physical Exam Neck: no JVD/HJR, no masses Cardiac: regular rate, regular rhythm Lungs: normal exam, no wheezes Neuro: grossly intact Extremities: no edema - Labs Result Diagrams: 04/13/19 11:06 04/13/19 03:44 Troponin/CKMB CK-MB (CK-2) 9.4 ng/mL (0-6.6) H* 04/11/19 07:16 Troponin I 0.372 ng/mL (< 0.028) H* 04/11/19 07:16 - Assessment/Plan Assessment/Plan: Respiratory distress VT Out of hospital arrest RF Hyperkalemia Added amiodarone IV Pt with corrected K level. VT May be secondary to sotalol? 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
[2019-04-13] MEDS ORDERED: Furosemide 100 MG/10 ML VIAL SLOW IVP SCH (08:00)
[2019-04-13] MEDS ORDERED: Enoxaparin Sodium 40 MG/0.4 ML SYRINGE SC SCH (09:00)
[2019-04-13] MEDS: Famotidine/PF 20 mg/2ml Vial SLOW IVP SCH (09:00)
[2019-04-13] MEDS: Allopurinol 100 MG TAB PO SCH (09:00)
[2019-04-13] MEDS: methylPREDNISolone Sod Succ 40 MG VIAL IVP SCH (09:01)
[2019-04-13] MEDS: Insulin Glargine 20 UNITS in Pre-Filled Syringe 1 EACH SC SCH (09:10)
[2019-04-13] MEDS: cefTRIAXone\\ROCEPHIN 1 GM in Sodium Chloride 0.9% 100 ML IVPB SCH (09:10)
--- NOTE | 2019-04-13 09:22 | RAD ---
PORTABLE CHEST: HISTORY: Respiratory distress. COMPARISON: Prior day's exam. FINDINGS: Endotracheal and NG tubes have been removed. Left sided central line unchanged in position. There are improving interstitial alveolar lung changes as compared to the prior exam. IMPRESSION: Resolving interstitial alveolar lung change. Interval removal of endotracheal and nasogastric tubes. POS: [facility]
--- NOTE | 2019-04-13 09:59 | PDOC.HOSPP ---
- Subjective Encounter Date: 04/13/19 Encounter Time: 09:58 Subjective: Mr. Schmidt was seen today in follow-up of cardiac arrest. He had an episode of VT last night/early this morning. He then developed AFIB and remains in AFIB. He is also more confused today than yesterday. - Objective Vital Signs & Weight: Vital Signs (12 hours) Temp Pulse Resp Pulse Ox 04/13/19 08:14 119 H 04/13/19 08:13 116 H 24 H 90 L 04/13/19 07:13 97 04/13/19 04:00 98.4 F 04/13/19 00:00 98.6 F 04/12/19 23:43 100 Weight Admit Weight 308 lb 10.354 oz Weight 308 lb 10.354 oz Most Recent Monitor Data Heart Rate from ECG 115 NIBP 161/105 NIBP BP-Mean 123 Respiration from ECG 26 SpO2 94 I&O: 04/12/19 04/13/19 04/14/19 06:59 06:59 06:59 Intake Total 1602.2 971 50 Output Total 1392 1895 350 Balance 210.2 -924 -300 Result Diagrams: 04/13/19 03:44 04/13/19 03:44 Additional Labs: Accuchecks 04/12/19 04/12/19 21:19 15:50 POC Glucose 330 H 301 H Hospitalist ROS - Medication Medications: Active Medications Generic Name Dose Route Start Last Admin Trade Name Freq PRN Reason Stop Dose Admin Acetaminophen/Codeine Phosphate 1 tab 04/13/19 03:17 04/13/19 03:50 Tylenol #3 PO 1 tab Q6H PRN Administration Pain Albuterol/Ipratropium 3 ml 04/11/19 13:00 04/13/19 08:13 Duoneb NEB 3 ml [id number] YOEL Administration Allopurinol 100 mg 04/12/19 09:00 04/13/19 09:00 Zyloprim PO 100 mg DAILY YOEL Administration Enoxaparin Sodium 40 mg 04/13/19 09:00 04/13/19 09:00 Lovenox SC 40 mg 0900 YOEL Administration Epoetin Tan-epbx 10,000 unit 04/12/19 12:00 04/12/19 12:27 Retacrit SC 10,000 unit Q7D YOEL Administration Famotidine 20 mg 04/11/19 09:00 04/13/19 09:00 Pepcid SLOW IVP 20 mg DAILY YOEL Administration Furosemide 80 mg 04/13/19 08:00 04/13/19 09:03 Lasix SLOW IVP 04/13/19 10:00 80 mg NOW YOEL Administration Insulin Glargine 20 units/ 0.2 mls @ 0 mls/hr 04/11/19 09:00 04/13/19 09:10 Miscellaneous Medication SC 0.2 mls BID YOEL Administration Ceftriaxone Sodium 1 gm/ 100 mls @ 200 mls/hr 04/11/19 08:45 04/13/19 09:10 Sodium Chloride IVPB 100 mls Q24HR YOEL Administration Amiodarone HCl 450 mg/ 259 mls @ 0 mls/hr 04/13/19 01:30 04/13/19 01:42 Miscellaneous Medication 1 IVPB 259 mls each/ Dextrose/Water INF YOEL Administration Protocol As Directed Insulin Human Lispro 0 units 04/11/19 10:59 04/13/19 06:14 Humalog SC 13 unit .AGGRESSIVE SLIDING PRN Administration Aggressive Correctional Scale Insulin Human Lispro 0 units 04/11/19 10:59 04/12/19 21:18 Humalog SC 4 unit .BEDTIME SLIDING SC PRN Administration Bedtime Correctional Scale Lorazepam 2 mg 04/11/19 06:15 04/12/19 08:24 Ativan SLOW IVP 05/11/19 06:15 2 mg Q1H PRN Administration Breakthrough agitation Methylprednisolone Sodium Succinate 40 mg 04/13/19 09:00 04/13/19 09:01 Solu-Medrol IVP 40 mg DAILY YOEL Administration Propofol 1,000 mg 04/11/19 06:15 04/11/19 23:40 Diprivan IV 05/11/19 06:15 1,000 mg INF PRN Administration TO ACHIEVE GOAL RASS Protocol - Exam Eye: PERRL, anicteric sclera Heart: irregular Respiratory: CTAB, no wheezes, no rales, no ronchi, normal chest expansion Gastrointestinal: soft, non-tender, non-distended, normal bowel sounds, no palpable masses, no hepatomegaly Extremities: no cyanosis Hosp A/P (1) Cardiac arrest Code(s): I46.9 - CARDIAC ARREST, CAUSE UNSPECIFIED Status: Acute (2) CAD (coronary artery disease) Code(s): I25.10 - ATHSCL HEART DISEASE OF [place] CORONARY ARTERY W/O ANG PCTRS Status: Acute (3) Chronic kidney disease, stage 4, severely decreased GFR Code(s): N18.4 - CHRONIC KIDNEY DISEASE, STAGE 4 (SEVERE) Status: Chronic (4) DM2 (diabetes mellitus, type 2) Status: Chronic Qualifiers: (5) Paroxysmal atrial fibrillation Code(s): I48.0 - PAROXYSMAL ATRIAL FIBRILLATION Status: Chronic (6) Sleep apnea Code(s): G47.30 - SLEEP APNEA, UNSPECIFIED Status: Chronic (7) Hypertension Code(s): I10 - ESSENTIAL (PRIMARY) HYPERTENSION Status: Acute - Plan * Cardiac Arrest- patient had another episode of VFIB- and now in AFIB- he has been taken off Sotalol, due to concerns of pro-arrhythmia * Continue to monitor and correct electrolytes as needed. * Await further recommendations from Cardiology * DM-blood glucose remains elevated- will increase Lantus and expect his blood glucose to improve as the steroids are tappered. * Chronic kidney disease stage 4- stable * HTN- blood pressure is elevated- will defer management to Cardiology- given his proarrhythmic state and add Labetolol as needed
--- NOTE | 2019-04-13 10:20 | PRG ---
DATE OF SERVICE: 04/13/2019 SUBJECTIVE: Jeancarlos Schmidt is a 63-year-old morbidly obese gentleman, who last night became confused and agitated. Apparently, his BiPAP came off. He also had a bout of ventricular tachycardia. A pO2 was 70, pCO2 40, pH 7.38 when he was agitated. Apparently, his home BiPAP was not working, so hospital put him on a BiPAP 15/09. His urine is growing Enterococcus. OBJECTIVE: GENERAL: This morning, he is awake, alert, responsive, and nods appropriately. VITAL SIGNS: Pulse 125, saturations 100%, respirations 23, and afebrile. CHEST: Revealed decreased breath sounds. No wheezing. CARDIAC: Normal S1 and S2. No gallops. ABDOMEN: Massive. EXTREMITIES: He has trace edema. LABORATORY DATA: White count 12,000, H and H are 7 and 21, and platelet count 161. Creatinine is 3.7 and BUN 60. IMPRESSION: 1. Respiratory failure, morbid obesity, and sleep apnea. 2. Renal failure. 3. Recurrent supraventricular tachycardia. PLAN: We will continue present hospital BiPAP, nocturnal and as needed. Otherwise, he has IV amiodarone and supportive care. Dialysis per Nephrology. Pulmonary wash[place], otherwise, will continue antibiotics and steroids. One-half hour of critical care time. Job ID: [id number]
[2019-04-13 11:27] LABS: Platelet Count 164 thou/uL (130-400)
--- NOTE | 2019-04-13 12:48 | PRG ---
DATE OF SERVICE: 04/13/2019 SERVICE: Nephrology. SUBJECTIVE: A 63-year-old male patient with known history of CKD 4-5, hypertension, diabetes, and morbid obesity, admitted after out of hospital VFib cardiac arrest, who is seen in followup for management of chronic kidney disease and hyperkalemia. The patient had hemodialysis two days ago for hyperkalemia management, was subsequently extubated and was doing well. However, early this morning he had some chest discomfort and mental status change and was found to be in ventricular tachycardia, which spontaneously converted to atrial fibrillation. The patient is now on amiodarone. He still is grossly fluid overloaded, requiring BiPAP. OBJECTIVE: VITAL SIGNS: Temperature 98.4, pulse 116, respiratory rate 27, SpO2 100% on BiPAP, blood pressure is 151/95. GENERAL: Morbidly obese male, in some respiratory distress. Afebrile. Anicteric. Acyanotic. HEENT: Normocephalic, atraumatic. Oral mucosa is moist. BiPAP is in place. CARDIOVASCULAR: Irregular rhythm and rate with normal heart sounds. Tachycardic. RESPIRATORY: Fair air entry bilaterally with scattered crackles and some transmitted breath sounds. Work of breathing is increased. GI: Morbidly obese, soft, nontender, nondistended with normal bowel sounds. UROGENITAL: Govea catheter is in place draining urine. EXTREMITIES: Moderate bilateral leg edema noted. TUG BOAT ENGINEER: Conscious and alert. Oriented to person at least. Some confusion and memory lapses noted. DIAGNOSTIC DATA: CBC showed WBC count of 12.0, hemoglobin of 7.0, platelet of 161. Chemistry showed sodium 134, potassium 5.1, chloride 94, CO2 of 23, BUN 60, creatinine 3.73, glucose 355, calcium 8.5, phosphorus 4.0, magnesium 2.0, albumin 3.6. Chest x-ray showed resolving interstitial alveolar lung changes. ASSESSMENT: 1. Acute respiratory failure: Due to acute on chronic congestive heart failure with fluid overload. 2. Chronic kidney disease stage 4-5 with possible reversible component. 3. Anasarca: Due to congestive heart failure and chronic kidney disease. 4. Out of hospital ventricular fibrillation cardiac arrest. 5. Ventricular tachycardia with mental status change and cardiopulmonary decompensation. This happened inhouse. 6. Morbid obesity with obstructive sleep apnea, on BiPAP at home. 7. Type 2 diabetes mellitus. 8. Hypertension. 9. Hyperkalemia, resolved. PLAN: 1. We will escalate diuresis to help fluid overload. We will increase Lasix to 80 mg b.i.d. This will also take care of hyperkalemia. 2. We will monitor intake and output. 3. We will also monitor renal function. 4. There is no indication for hemodialysis at this time. 5. Evaluation and treatment of ventricular tachyarrhythmia as per Cardiology. 6. Further treatment to follow depending on hospital course. Job ID: [id number]
[2019-04-13] MEDS: Lorazepam 2 MG/ML VIAL SLOW IVP PRN (12:49)
[2019-04-13 13:35] LABS: Actual Bicarbonate (HCO3a) 24.5 mEq/L (22-28); Base Excess (BEa) -0.6 mEq/L (-2.0 to +3.0); CO2 Tension 42.2 mmHg (35.0-45.0); Calcium, Ionized 1.08 mmol/L (1.12-1.30); Carboxyhemoglobin (COHb) 1.5 gm% (0.0-3.0); Hemoglobin (Hb) 7.4 g/dL (14.0-18.0); O2 Tension (PaO2) 112.1 mmHg (> 80.0); Potassium - ABG Lab 5.15 mmol/L (3.70-5.30); pH, Arterial 7.38 (7.35-7.45)
[2019-04-13 13:38] LABS: Puncture Site RRA
[2019-04-13 14:31] LABS: CKMB 16.5 ng/mL (0-6.6); Troponin I 15.949 ng/mL (< 0.028)
[2019-04-13] MEDS: Furosemide 100 MG/10 ML VIAL SLOW IVP SCH (16:30)
[2019-04-13] MEDS ORDERED: Nitroglycerin 50 MG/250 ML BOT 250 ML IVPB SCH (16:30)
[2019-04-13] MEDS: Insulin Glargine 25 UNITS in Pre-Filled Syringe 1 EACH SC SCH (21:41)
[2019-04-13] MEDS: Heparin 10,000 UNITS/ 10 ML VIAL SLOW IVP SCH (22:13)
[2019-04-14] MEDS: Amiodarone 450 MG, Admixture Fee 1 EACH in Dextrose 5% in Water 250 ML IVPB SCH ×2 (02:21→18:17)
[2019-04-14 03:46] LABS: #Lymphocytes 1.8 thou/uL (1.20-3.40); #Monocytes 1.4 thou/uL (0.11-0.59); #Neutrophils 10.8 thou/uL (1.40-6.50); %Basophils 0.1 % (0.0-1.0); %Eosinophils 0.1 % (0.0-10.0); %Lymphocytes 12.9 % (21.0-51.0); %Monocytes 9.9 % (0.0-10.0); %Neutrophils 77.1 % (42.0-75.0); Mean Corpuscular HGB CONC 33.5 g/dL (32.0-36.0); Mean Corpuscular Hemoglobin 31.6 pg (27.0-31.0); Mean Corpuscular Volume 94.4 fL (78.0-98.0); Mean Platelet Volume 7.9 fL (7.4-10.4); Platelet Count 152 thou/uL (130-400); RBC Distribution Width 14.3 % (11.5-14.5); Red Blood Cell (RBC) Count 2.22 mill/uL (4.70-6.10)
[2019-04-14 04:09] LABS: Albumin 3.5 g/dL (3.4-4.8); Anion Gap 15 mmol/L (10-20); BUN (Urea Nitrogen) 72 mg/dL (8.4-25.7); BUN/Creatinine Ratio 18.75; Calc. Creatinine Clearance 39 mL/min (70-130); Calcium 8.5 mg/dL (7.8-10.44); Carbon Dioxide 28 mmol/L (23-31); Chloride 98 mmol/L (98-107); Estimated GFR-MDRD 19; Glucose 251 mg/dL (80-115); Phosphorus 3.8 mg/dL (2.3-4.7); Potassium 4.7 mmol/L (3.5-5.1); Sodium 136 mmol/L (136-145)
[2019-04-14] MEDS: HumaLOG 300 UNITS/3 ML VIAL SC PRN ×4 (05:08→21:33)
[2019-04-14] MEDS: Furosemide 100 MG/10 ML VIAL SLOW IVP SCH ×2 (05:08→17:01)
[2019-04-14] MEDS: Acetaminophen/Codeine 30-300mg Tablet PO PRN ×2 (06:30→17:45)
--- NOTE | 2019-04-14 07:35 | RAD ---
EXAM: Single view of the chest HISTORY: Respiratory distress COMPARISON: 04/13/2019 FINDINGS: Single view of the chest shows an enlarged but stable cardiomediastinal silhouette. The pa tient is status post sternotomy. The central venous catheter is unchanged in position. There is no evidence of consolidation, mass, or pleural effusion. The bones are unremarkable. IMPRESSION: Stable exam
--- NOTE | 2019-04-14 08:04 | PRG ---
DATE OF SERVICE: 04/13/2019 ADDENDUM: Mr. Schmidt continues to do poorly. He continues to be confused. He does have mild shortness of breath. He requires BiPAP. Currently, he has no symptoms of chest pain or pressure. The patient did have an episode of 30 beats of nonsustained VT last evening. He was placed on IV amiodarone. This morning, CK troponin was drawn and elevated. Troponin was 15. Creatinine continues to increase from 3.26 to 3.73. I discussed the case in detail with Mr. Schmidt and Mr. Schmidt's son. At this point, he has no acute ST-T wave changes. He does have ischemic changes that are new, but no ST elevation. His LVEF did suggest normal LVEF with [id number] LVH. At this point, I would recommend continued conservative therapy. If angiogram were to be performed, he would likely require long-term dialysis. According to the son, they are unsure whether he will need long-term dialysis, although with presentation of hyperkalemia, would think that would be in his best interest. We will also discontinue sotalol and add IV heparin in addition to Coreg. Job ID: [id number]
[2019-04-14] MEDS: Allopurinol 100 MG TAB PO SCH (08:45)
[2019-04-14] MEDS: Famotidine/PF 20 mg/2ml Vial SLOW IVP SCH (08:45)
[2019-04-14] MEDS: Carvedilol 6.25 MG TAB PO SCH ×2 (08:45→17:01)
[2019-04-14] MEDS: methylPREDNISolone Sod Succ 40 MG VIAL IVP SCH (08:46)
[2019-04-14] MEDS: Insulin Glargine 25 UNITS in Pre-Filled Syringe 1 EACH SC SCH (08:46)
[2019-04-14] MEDS: cefTRIAXone\\ROCEPHIN 1 GM in Sodium Chloride 0.9% 100 ML IVPB SCH (09:27)
[2019-04-14] MEDS: Famotidine 20 MG TAB PO SCH (10:28)
--- NOTE | 2019-04-14 10:34 | PDOC.HOSPP ---
- Subjective Encounter Date: 04/14/19 Encounter Time: 10:32 Subjective: Mr. Schmidt was seen today in follow-up of VFIB. He is doing better today. He does not have any complaints.He is more alert and oriented today. - Objective Vital Signs & Weight: Vital Signs (12 hours) Temp Pulse Resp BP Pulse Ox 04/14/19 08:45 156/80 H 04/14/19 08:04 93 29 H 100 04/14/19 08:00 97.8 F 100 04/14/19 04:00 98.4 F 04/14/19 01:44 94 L 04/14/19 01:43 92 04/14/19 01:42 94 L 04/13/19 23:00 98.8 F Weight Admit Weight 308 lb 10.354 oz Weight 308 lb 10.354 oz Most Recent Monitor Data Heart Rate from ECG 98 NIBP 139/80 NIBP BP-Mean 99 Respiration from ECG 24 SpO2 98 I&O: 04/13/19 04/14/19 04/15/19 06:59 06:59 06:59 Intake Total 971 980 240 Output Total 8945 3140 750 Balance -924 -2160 -510 Result Diagrams: 04/14/19 03:30 04/14/19 03:30 Additional Labs: Accuchecks 04/13/19 04/13/19 21:47 14:57 POC Glucose 289 H 366 H Hospitalist ROS - Medication Medications: Active Medications Generic Name Dose Route Start Last Admin Trade Name Freq PRN Reason Stop Dose Admin Acetaminophen/Codeine Phosphate 1 tab 04/13/19 03:17 04/14/19 06:30 Tylenol #3 PO 1 tab Q6H PRN Administration Pain Albuterol/Ipratropium 3 ml 04/11/19 13:00 04/14/19 08:04 Duoneb NEB 3 ml [id number] YOEL Administration Allopurinol 100 mg 04/12/19 09:00 04/14/19 08:45 Zyloprim PO 100 mg DAILY YOEL Administration Carvedilol 6.25 mg 04/14/19 08:00 04/14/19 08:45 Coreg PO 6.25 mg BID-WM YOEL Administration Epoetin Tan-epbx 10,000 unit 04/12/19 12:00 04/12/19 12:27 Retacrit SC 10,000 unit Q7D YOEL Administration Famotidine 20 mg 04/14/19 09:00 04/14/19 10:28 Pepcid PO Not Given DAILY [facility] Furosemide 80 mg 04/13/19 17:00 04/14/19 05:08 Lasix SLOW IVP 80 mg 0600,1700 YOEL Administration Heparin Sodium (Porcine) 0 units 04/13/19 15:00 04/13/19 22:13 Heparin 1,000 Units/Ml (10 Ml) SLOW IVP 4,000 unit WILLCALL YOEL Administration Ceftriaxone Sodium 1 gm/ 100 mls @ 200 mls/hr 04/11/19 08:45 04/14/19 09:27 Sodium Chloride IVPB 100 mls Q24HR YOEL Administration Amiodarone HCl 450 mg/ 259 mls @ 0 mls/hr 04/13/19 01:30 04/14/19 02:21 Miscellaneous Medication 1 IVPB 259 mls each/ Dextrose/Water INF YOEL Administration Protocol As Directed Insulin Glargine 25 units/ 0.25 mls @ 0 mls/hr 04/13/19 21:00 04/14/19 08:46 Miscellaneous Medication SC 0.25 mls BID YOEL Administration Nitroglycerin/Dextrose 250 mls @ 0 mls/hr 04/13/19 16:30 04/13/19 16:25 Nitroglycerin 50 Mg/250 Ml Bot IVPB 250 mls INF YOEL Administration Protocol As Directed Insulin Human Lispro 0 units 04/11/19 10:59 04/14/19 05:08 Humalog SC 9 unit .AGGRESSIVE SLIDING PRN Administration Aggressive Correctional Scale Insulin Human Lispro 0 units 04/11/19 10:59 04/13/19 21:45 Humalog SC 3 unit .BEDTIME SLIDING SC PRN Administration Bedtime Correctional Scale Lorazepam 2 mg 04/11/19 06:15 04/13/19 12:49 Ativan SLOW IVP 05/11/19 06:15 2 mg Q1H PRN Administration Breakthrough agitation Methylprednisolone Sodium Succinate 40 mg 04/13/19 09:00 04/14/19 08:46 Solu-Medrol IVP 40 mg DAILY YOEL Administration Propofol 1,000 mg 04/11/19 06:15 04/11/19 23:40 Diprivan IV 05/11/19 06:15 1,000 mg INF PRN Administration TO ACHIEVE GOAL RASS Protocol - Exam Eye: PERRL, anicteric sclera Heart: RRR, murmur present, II/IV (+ S3 and laterally displaced PMI) Respiratory: CTAB (+ rales and scattered rhonchi) Gastrointestinal: soft, non-tender, non-distended, normal bowel sounds, no palpable masses, no hepatomegaly Extremities: no cyanosis, no clubbing, 1+ LE edema Musculoskeletal: no muscle wasting, generalized weakness Hosp A/P (1) Cardiac arrest Code(s): I46.9 - CARDIAC ARREST, CAUSE UNSPECIFIED Status: Acute (2) CAD (coronary artery disease) Code(s): I25.10 - ATHSCL HEART DISEASE OF [place] CORONARY ARTERY W/O ANG PCTRS Status: Acute (3) Chronic kidney disease, stage 4, severely decreased GFR Code(s): N18.4 - CHRONIC KIDNEY DISEASE, STAGE 4 (SEVERE) Status: Chronic (4) DM2 (diabetes mellitus, type 2) Status: Chronic Qualifiers: (5) Paroxysmal atrial fibrillation Code(s): I48.0 - PAROXYSMAL ATRIAL FIBRILLATION Status: Chronic (6) Sleep apnea Code(s): G47.30 - SLEEP APNEA, UNSPECIFIED Status: Chronic (7) Hypertension Code(s): I10 - ESSENTIAL (PRIMARY) HYPERTENSION Status: Acute - Plan * Cardiac Arrest- VFIB- discussed with Dr. Lee- plan is to monitor off Sotalol, and maintain normal electrolyte levels. Cardiac Cath could be attempted to assess his coronary anatomy, but this would likely result in his renal function worsening towards the need for dialysis * DM-blood glucose remains elevated- will increase Lantus and expect his blood glucose to improve as the steroids are tappered. * Chronic kidney disease stage 4- stable * HTN- blood pressure is elevated- will defer management to Cardiology- given his proarrhythmic state and add Labetolol as needed
[2019-04-14] MEDS: Heparin 25,000 units/D5W 500 ML IV SCH (12:34)
--- NOTE | 2019-04-14 14:05 | PQF ---
DATE: 04-14-19 ATTN: DR. MARISOL HAILE Please exercise your independent, professional judgment in responding to the clarification form. Clinical indicators are provided on the bottom of this form for your review Please check appropriate box(s): [ XX ] Acute [ ] Subacute [ ] Chronic Etiology: [ X ] Metabolic [ ]X Toxic [ ] Hypoxic [ ] Septic [ ] Other (please specify) [ ] Transient Alteration of Awareness [ ] Other diagnosis [ ] Unable to determine In addition, please specify: Present on Admission (POA): [ X] Yes [ ] No [ ] Unable to determine For continuity of documentation, please document condition throughout progress notes and discharge summary. Thank You. CLINICAL INDICATORS - SIGNS / SYMPTOMS / LABS / RESULTS AND LOCATION IN EMR: H&P: 04-11-19: PATIENT IS INTUBATED, UNRESPONSIVE CONSULT NOTE DR. PICKENS 04-11-19: NEUROLOGICALLY INTACT BUT HE MAY STILL HAVE SOME ANOXIC INJURY. CONSULT NOTE DR. ROMAN 04-11-19: PT WITH CONFUSION LAST NIGHT AND CODE BLUE CALLED PN DR. HAILE 04-13-19: MORE CONFUSED TODAY THAN YESTERDAY H&P 04-11-19: CARDIAC ARREST WITH RETURN OF SPONTANEOUS CIRCULATION RISK FACTORS / RESULTS AND LOCATION IN EMR: H&P 04-11-19: CARDIAC ARREST WITH RETURN OF SPONTANEOUS CIRCULATION, ACUTE RESPIRATORY FAILURE, CARDIAC ARRHYTHMIA AND VENTRICULAR FIB, CKD 4, LACTIC ACIDOSIS, DM WITH HYPERGLYCEMIA CONSULT NOTE DR. PICKENS 04-13-19: RESPIRATORY FAILURE, MORBID OBESITY, AND SLEEP APNEA TREATMENTS / RESULTS AND LOCATION IN EMR: CONSULT NOTE DR. REYNA 04-11-19: GIVEN HYPERKALEMIA AND MARKED FLUID OVERLOAD, WE WILL PLAN ON DIALYZING THE PATIENT EMERGENTLY, PRESSURE SUPPORT PN DR. HAILE 04-13-19: CONTINUE TO MONITOR AND CORRECT ELECTROLYTES NEEDED. 04-11-19: ROCEPHIN IV (This form is maintained as a part of the permanent medical record) 2014 [employer]. All Rights Reserved KENNEDY [email or web address] Office: [phone] LYNN
--- NOTE | 2019-04-14 14:21 | PQF ---
DATE: 04-17-19 ATTN: DR. MARISOL HAILE Please exercise your independent, professional judgment in responding to the clarification form. Clinical indicators are provided on the bottom of this form for your review Please check appropriate box(s): ]X Hyponatremia [ ] Insignificant Lab Values [ X] Associated Diagnosis: Clinically insignificant [ ] Other diagnosis [ ] Unable to determine In addition, please specify: Present on Admission (POA): [ X ] Yes [ ] No [ ] Unable to determine For continuity of documentation, please document condition throughout progress notes and discharge summary. Thank You. CLINICAL INDICATORS - SIGNS / SYMPTOMS/ LABS are present in the medical record: SODIUM: 04-11-19: 132 04-11-19: 130 04-11-19: 133 04-11-19: 135 04-13-19: 134 RISK FACTORS: ER NOTES 04-11-19: LASIX PO, ALLOPURINOL, COREG PN DR. HAILE 04-11-19: CONTINUE TO MONITOR AND CORRECT ELECTROLYTES NEEDED TREATMENT: SERIES OF LABS SODIUM 04-11-19 TO 04-14-19 ER NOTES 04-11-19: NS IVF X 4 L (This form is maintained as a part of the permanent medical record) 2014 [employer]. All Rights Reserved KENNEDY [email or web address] Office: [phone] [email or web address]
--- NOTE | 2019-04-14 14:24 | PQF ---
DATE: 04-14-19 ATTN: DR. MARISOL HAILE Please exercise your independent, professional judgment in responding to the clarification form. Clinical indicators are provided on the bottom of this form for your review Please check appropriate box(s): [ X] Hyponatremia [ ] Insignificant Lab Values [ ] Associated Diagnosis: [ ] Other diagnosis [ ] Unable to determine In addition, please specify: Present on Admission (POA): [ ]X Yes [ ] No [ ] Unable to determine For continuity of documentation, please document condition throughout progress notes and discharge summary. Thank You. CLINICAL INDICATORS - SIGNS / SYMPTOMS/ LABS are present in the medical record: SODIUM: 04-11-19: 132 04-11-19: 130 04-11-19: 133 04-11-19: 135 04-13-19: 134 RISK FACTORS: ER NOTES 04-11-19: LASIX PO, ALLOPURINOL, COREG PN DR. HAILE 04-11-19: CONTINUE TO MONITOR AND CORRECT ELECTROLYTES NEEDED TREATMENT: SERIES OF LABS SODIUM 04-11-19 TO 04-14-19 ER NOTES 04-11-19: NS IVF X 4 L (This form is maintained as a part of the permanent medical record) 2014 [employer]. All Rights Reserved KENNEDY [email or web address] Office: [phone] LYNN
--- NOTE | 2019-04-14 14:39 | PRG ---
DATE OF SERVICE: 04/14/2019 SERVICE: Nephrology. SUBJECTIVE: A 63-year-old male with known history of CKD, stage 4; coronary artery disease, status post CABG; and chronic CHF; admitted after out of hospital cardiac arrest. Seen in followup for renal insufficiency, hyperkalemia, and anasarca. The patient reports feeling better. Mental status seems to be at baseline. Shortness of breath has improved and the patient is currently on nasal cannula. Denied nausea, vomiting, fever, or difficulty urinating. OBJECTIVE: VITAL SIGNS: Temperature 97.8, pulse 94, respiratory rate 23, SpO2 of 97 on nasal cannula oxygen, blood pressure is 168/93. GENERAL: Morbidly obese male, in mild respiratory distress. Afebrile, anicteric, acyanotic. HEENT: Normocephalic and atraumatic. Oral mucosa is moist. CARDIOVASCULAR: Regular rhythm and rate with normal heart sounds 1 and 2. RESPIRATORY: Fair air entry bilaterally with scattered transmitted breath sounds and few bibasilar crackles posteriorly. Work of breathing is increased and the patient is tachypneic. GI: Morbidly obese, soft, nontender, nondistended with normal bowel sounds. UROGENITAL: Govea catheter is in place, draining urine. EXTREMITIES: Mild bilateral leg edema noted. PROTECTION ENGINEER: Conscious, alert, and oriented x3 with appropriate mental status. Cranial nerves 2 through 12 are grossly intact. The patient moves all extremities. DIAGNOSTIC DATA: CBC showed WBC count of 14.0, hemoglobin of 7.0, platelets of 152. Renal function panel showed sodium 136, potassium 4.7, chloride 98, CO2 of 28, BUN 72, creatinine 3.84, glucose 251, calcium 8.5, phosphorus 3.8, albumin 3.5. Chest x-ray performed today, showed stable cardiomediastinal silhouette with enlarged heart. Central venous catheter is noted as well as some congestion. No evidence of consolidation, mass, or pleural effusion was noted. ASSESSMENT: 1. Chronic kidney disease, stage 4, with presumed reversible component due to VFib cardiac arrest. 2. Generalized edema: Improved with diuresis and hemodialysis. 3. Hyperkalemia: Resolved with hemodialysis. 4. VFib cardiac arrest: Out of hospital. 5. In-hospital ventricular tachycardia with hemodynamic instability. 6. Paroxysmal atrial fibrillation. 7. Hypertension. 8. Elevated troponin. 9. Coronary artery disease, status post coronary artery bypass grafting. 10. The patient was noted to have an occlusive disease during recent coronary artery bypass grafting, but was supposed to follow up for further intervention with possible stenting. 11. Morbid obesity with obstructive sleep apnea. PLAN: 1. We will continue diuretic therapy with Lasix 80 mg b.i.d. for now. There is no indication for hemodialysis at this point. 2. We will await cardiac care plan. The patient with CKD 4, is at increased risk of contrast-induced nephropathy. Given elevated troponin and history of ventricular fibrillation and ventricular tachycardia, the patient will likely need cardiac angio. We will adjust medications once decision is made as to when he will have those evaluations. 3. We will defer antihypertensive therapy to Cardiology as the patient is currently on nitroglycerin infusion. We will recheck renal function test in the morning. 4. We will continue to monitor intake and output as well as electrolytes and correct as indicated. Job ID: [id number]
--- NOTE | 2019-04-14 14:40 | PQF ---
DATE: 04-14-19 ATTN: DR. MARISOL HAILE Please exercise your independent, professional judgment in responding to the clarification form. Clinical indicators are provided on the bottom of this form for your review Please check appropriate box(s): HEART FAILURE: A. ACUITY [ ] Acute [X ] Acute on Chronic [ ] Chronic B. TYPE [ X ] Systolic / HFrEF [ ] Diastolic / HFpEF [ ] Combined Systolic / Diastolic [ ] Hypertensive Heart and Kidney disease [ ] Hypertensive Heart Disease [ ] Hypertensive Kidney Disease [ ] Other diagnosis [ ] Unable to determine In addition, please specify: Present on Admission (POA): [ X ] Yes [ ] No [ ] Unable to determine For continuity of documentation, please document condition throughout progress notes and discharge summary. Thank You. CLINICAL INDICATORS - SIGNS / SYMPTOMS / LABS / RESULTS AND LOCATION IN EMR: CONSULT NOTE DR. REYNA 04-11-19: ACUTE ON CHRONIC HEART FAILURE ECHO 04-11-19: LVEF ESTIMATED AT 50-55% MAR: 04-14-19: COREG PO, LASIX 80MG IVP ER DX 04-11-19: VTACH ARREST, HYPOTENSION RISKS FACTORS / RESULTS AND LOCATION IN EMR: ER NOTES 04-11-19: HX A FIB, HYPERLIPIDEMIA, HTN, ALESSANDRA STAGE 4 KIDNEY DISEASE, ANEMIA, FORMER SMOKER TREATMENTS / RESULTS AND LOCATION IN EMR: MAR: 04-14-19: COREG PO, 04-13-19: LASIX 80 IVP CARDIOLOGY CONSULT 04-11-19 DR. ROMAN (This form is maintained as a part of the permanent medical record) 2014 [employer]. All Rights Reserved KENNEDY [email or web address] Office: [phone] [facility]
--- NOTE | 2019-04-14 16:39 | PDOC.CPN ---
- Subjective Date: 04/14/19 Time: 16:35 Interval history: He is doing better today. No chest pain, tightness, pressure, SOB. - Review of Systems General: denies: fever/chills, weight/appetite/sleep changes, night sweats, fatigue Respiratory: reports: cough. denies: congestion, shortness of breath, exercise intolerance Cardiovascular: denies: chest pain, palpitation, edema, paroxysmal nocturnal dyspnea, orthopnea Gastrointestinal: denies: nausea, vomiting, diarrhea, constipation, abd pain, GI bleeding Musculoskeletal: denies: pain, tenderness, stiffness, swelling, arthritis/ arthralgias Neurological: denies: numbness, syncope, seizure, weakness - Objective Allergies/Adverse Reactions: Allergies Allergy/AdvReac Type Severity Reaction Status Date / Time No Known Drug Allergies Allergy Verified 04/11/19 10:19 Visit Medications: Current Medications Acetaminophen/Codeine Phosphate (Tylenol #3) 1 tab PO Q6H PRN PRN Reason: Pain Last Admin: 04/14/19 06:30 Dose: 1 tab Albuterol/Ipratropium (Duoneb) 3 ml NEB [id number] [facility] Last Admin: 04/14/19 14:11 Dose: 3 ml Allopurinol (Zyloprim) 100 mg PO DAILY [facility] Last Admin: 04/14/19 08:45 Dose: 100 mg Carvedilol (Coreg) 6.25 mg PO BID-WM [facility] Last Admin: 04/14/19 08:45 Dose: 6.25 mg Dextrose/Water (Dextrose 50%) 25 gm SLOW IVP PRN PRN PRN Reason: Hypoglycemia Epoetin Tan-epbx (Retacrit) 10,000 unit SC Q7D [facility] Last Admin: 04/12/19 12:27 Dose: 10,000 unit Famotidine (Pepcid) 20 mg PO DAILY [facility] Last Admin: 04/14/19 10:28 Dose: Not Given Furosemide (Lasix) 80 mg SLOW IVP 0600,1700 [facility] Last Admin: 04/14/19 05:08 Dose: 80 mg Glucagon (Glucagon) 1 mg IM PRN PRN PRN Reason: Hypoglycemia Guaifenesin/Dextromethorphan (Robitussin Dm) 15 ml PO Q4H PRN PRN Reason: Cough Heparin Sodium (Porcine) (Heparin 1,000 Units/Ml (10 Ml)) 0 units SLOW IVP WILLCALL YOEL Last Admin: 04/13/19 22:13 Dose: 4,000 unit Ceftriaxone Sodium 1 gm/ (Sodium Chloride) 100 mls @ 200 mls/hr IVPB Q24HR YOEL Last Admin: 04/14/19 09:27 Dose: 100 mls Dextrose/Water (D5w) 1,000 mls @ 0 mls/hr IV .Q0M PRN PRN Reason: Hypoglycemia Norepinephrine Bitartrate (Levophed) 250 mls @ 0 mls/hr IVPB INF YOEL; Protocol Amiodarone HCl 450 mg/Miscellaneous Medication 1 each/ Dextrose/Water 259 mls @ 0 mls/hr IVPB INF YOEL; Protocol Last Admin: 04/14/19 02:21 Dose: 259 mls Heparin Sodium/Dextrose (Heparin 25,000 Units/D5w 500 Ml) 500 mls @ 0 mls/hr IV INF YOEL; Protocol Last Admin: 04/14/19 12:34 Dose: 500 mls Nitroglycerin/Dextrose (Nitroglycerin 50 Mg/250 Ml Bot) 250 mls @ 0 mls/hr IVPB INF YOEL; Protocol Last Admin: 04/13/19 16:25 Dose: 250 mls Insulin Glargine 30 units/ (Miscellaneous Medication) 0.3 mls @ 0 mls/hr SC BID YOEL Insulin Human Lispro (Humalog) 0 units SC .AGGRESSIVE SLIDING PRN PRN Reason: Aggressive Correctional Scale Last Admin: 04/14/19 11:12 Dose: 9 unit Insulin Human Lispro (Humalog) 0 units SC .BEDTIME SLIDING SC PRN PRN Reason: Bedtime Correctional Scale Last Admin: 04/13/19 21:45 Dose: 3 unit Labetalol HCl (Normodyne) 10 mg SLOW IVP Q4H PRN PRN Reason: SBP Greater Than 170 Lorazepam (Ativan) 2 mg SLOW IVP Q1H PRN PRN Reason: Breakthrough agitation Stop: 05/11/19 06:15 Last Admin: 04/13/19 12:49 Dose: 2 mg Methylprednisolone Sodium Succinate (Solu-Medrol) 40 mg IVP DAILY [facility] Last Admin: 04/14/19 08:46 Dose: 40 mg Propofol (Diprivan) 1,000 mg IV INF PRN; Protocol PRN Reason: TO ACHIEVE GOAL RASS Stop: 03/08/20 06:15 Last Admin: 04/11/19 23:40 Dose: 1,000 mg Vital Signs & Weight: Vital Signs Temp Pulse Pulse Pulse Resp BP BP 04/14/19 16:01 91 04/14/19 16:00 98.2 F 04/14/19 14:11 85 20 04/14/19 12:13 95 94 156/108 H 04/14/19 12:00 97.8 F 04/14/19 08:45 156/80 H 04/14/19 08:04 93 29 H 04/14/19 08:00 97.8 F BP Pulse Ox Pulse Ox Pulse Ox 04/14/19 16:01 04/14/19 16:00 04/14/19 14:11 98 04/14/19 12:13 168/93 H 100 95 04/14/19 12:00 04/14/19 08:45 04/14/19 08:04 100 04/14/19 08:00 100 Admit Weight 308 lb 10.354 oz Weight 308 lb 10.354 oz - Physical Exam General: alert & oriented x3 HEENT: mucus membranes moist Neck: supple neck Cardiac: regular rate and rhythm Lungs: clear to auscultation Neuro: grossly intact Abdomen: active bowel sounds Extremities: 1+ LE edema Skin: clear Musculoskeletal: no pain - Labs Result Diagrams: 04/14/19 03:30 04/14/19 03:30 Troponin/CKMB CK-MB (CK-2) 16.5 ng/mL (0-6.6) H* 04/13/19 13:52 Troponin I 15.949 ng/mL (< 0.028) H* 04/13/19 13:52 - Telemetry Sinus rhythms and dysrhythmias: sinus rhythm - Assessment/Plan Assessment/Plan: 1. Respiratory distress 2. VT 3. Out of hospital arrest 4. Acute on chronic renal failure. 5. Hyperkalemia 6. NSTEMI 7. CAD s/p single vessel CABG and residual 2 vessel disease. PLAN: - We spoke about possible [facility] and currently he is not interested in damaging his kidneys any further. Will plan on doing echo and if his EF has changed from 3 days ago he may consider. - Continue amiodarone drip. - Will consult EP for recommendations. - K better and non sustained VT with normal K, high possibility of ischemic driven VT. - Critical Care Time Critical care time (mins): 45
[2019-04-14] MEDS: Guaifenesin DM 100-10/5 ML UDCUP PO PRN ×3 (17:02→23:19)
--- NOTE | 2019-04-14 20:34 | PRG ---
DATE OF SERVICE: 04/14/2019 SUBJECTIVE: Mr. Schmidt is a very pleasant gentleman with whom I had a fair amount of interaction with several years ago when he was in the hospital. He presented with sudden cardiac . He has been resuscitated. He actually is surprisingly alert, cooperative and appropriate. OBJECTIVE: VITAL SIGNS: Afebrile, heart rate is 83, respiratory rate in the 20s, oximetry is 99% on a cannula, blood pressure 162/89. He has his BiPAP device at the bedside. LUNGS: Clear. HEART: Regular rhythm. ABDOMEN: Soft, nontender. EXTREMITIES: Without edema. LABORATORY DATA: White count 14, hemoglobin 7, and platelets 152. Electrolytes are normal. BUN 72, creatinine 3.84. Creatinine was 4.19 on admission. IMPRESSION: 1. Status post sudden cardiac , clinically stable. 2. Sleep apnea, compliant with therapy. 3. Acute on chronic kidney disease. We will follow along with the other physicians caring for him. He appears stable at this time. Job ID: [id number]
[2019-04-14] MEDS: Insulin Glargine 30 UNITS in Pre-Filled Syringe 1 EACH SC SCH (21:32)
[2019-04-14] MEDS: Lorazepam 2 MG/ML VIAL SLOW IVP PRN (23:19)
[2019-04-15 06:07] LABS: Albumin 3.5 g/dL (3.4-4.8); Anion Gap 16 mmol/L (10-20); BUN (Urea Nitrogen) 78 mg/dL (8.4-25.7); BUN/Creatinine Ratio 21.97; Calc. Creatinine Clearance 43 mL/min (70-130); Calcium 8.8 mg/dL (7.8-10.44); Carbon Dioxide 26 mmol/L (23-31); Chloride 97 mmol/L (98-107); Estimated GFR-MDRD 21; Glucose 195 mg/dL (80-115); INR-International Normal Ratio 1.3; PTT 68.4 SEC (22.9-36.1); Phosphorus 4.3 mg/dL (2.3-4.7); Potassium 4.4 mmol/L (3.5-5.1); Prothrombin Time 15.9 SEC (12.0-14.7); Sodium 135 mmol/L (136-145)
[2019-04-15 06:40] LABS: Hemoglobin 6.8 g/dL (14.0-18.0); Mean Corpuscular HGB CONC 31.4 g/dL (32.0-36.0); Mean Corpuscular Hemoglobin 30.6 pg (27.0-31.0); Mean Corpuscular Volume 97.4 fL (78.0-98.0); Platelet Count 200 thou/uL (130-400); RBC Distribution Width 14.4 % (11.5-14.5); Red Blood Cell (RBC) Count 2.23 mill/uL (4.70-6.10); White Blood Cell (WBC) Count 18.3 thou/uL (4.8-10.8)
[2019-04-15 06:47] LABS: Hemoglobin 7.1 g/dL (14.0-18.0); Mean Corpuscular HGB CONC 32.9 g/dL (32.0-36.0); Mean Corpuscular Hemoglobin 31.8 pg (27.0-31.0); Mean Corpuscular Volume 96.6 fL (78.0-98.0); Mean Platelet Volume 8.3 fL (7.4-10.4); Platelet Count 218 thou/uL (130-400); RBC Distribution Width 14.4 % (11.5-14.5); Red Blood Cell (RBC) Count 2.22 mill/uL (4.70-6.10); White Blood Cell (WBC) Count 19.2 thou/uL (4.8-10.8)
[2019-04-15 06:57] LABS: Band 8 % (5-11); Lymphocytes 13 % (21-51); MDiff Complete? YES; Monocytes 6 % (0-10); Neutrophil 73 % (42-75); Platelet Morphology Comment Appears Adequate
[2019-04-15 06:58] LABS: Iron 57 ug/dL (65-175); Iron Binding Capacity, Total 186 mcg/dL (261-462)
[2019-04-15] MEDS: Furosemide 100 MG/10 ML VIAL SLOW IVP SCH ×2 (07:17→16:29)
[2019-04-15] MEDS: HumaLOG 300 UNITS/3 ML VIAL SC PRN ×4 (07:18→21:16)
--- NOTE | 2019-04-15 08:33 | RAD ---
CHEST 1 VIEW PORTABLE: Date: 04/15/2019 HISTORY: Respiratory insufficiency. COMPARISON: 04/14/2019. FINDINGS/IMPRESSION: Postop midline sternotomy. Left central line in place. Mild vascular congestion, but overall appearan ce has improved from prior exams. No new process. POS: TPC
[2019-04-15] MEDS: Carvedilol 6.25 MG TAB PO SCH ×2 (08:51→16:29)
[2019-04-15] MEDS: Allopurinol 100 MG TAB PO SCH (08:51)
[2019-04-15] MEDS: Famotidine 20 MG TAB PO SCH (08:52)
[2019-04-15] MEDS: Amiodarone 450 MG, Admixture Fee 1 EACH in Dextrose 5% in Water 250 ML IVPB SCH (08:53)
[2019-04-15] MEDS: methylPREDNISolone Sod Succ 40 MG VIAL IVP SCH (08:53)
[2019-04-15] MEDS: cefTRIAXone\\ROCEPHIN 1 GM in Sodium Chloride 0.9% 100 ML IVPB SCH (08:53)
[2019-04-15] MEDS: Insulin Glargine 30 UNITS in Pre-Filled Syringe 1 EACH SC SCH ×2 (08:54→21:13)
--- NOTE | 2019-04-15 08:55 | PRG ---
DATE OF SERVICE: 04/15/2019 SERVICE: Nephrology. SUBJECTIVE: A 63-year-old male with known history of coronary artery disease status post CABG, CKD stage 4/5, admitted after [id number] ventricular fibrillation cardiac arrest. The patient developed acute delirium and some confusion last night. He is still confused at this time. He is still requiring oxygen and breathing heavily. Overall, the patient is clinically improved. Not requiring BiPAP anymore. There is no history of nausea, vomiting, or chest pain. OBJECTIVE: VITAL SIGNS: Temperature 98.8, pulse 91, respiratory rate 19, SpO2 of 97 on 3 L nasal cannula, and blood pressure is 147/82. GENERAL: Obese male, in no obvious distress. Afebrile. Anicteric. Acyanotic. HEENT: Normocephalic and atraumatic. Oral mucosa is mildly dry. CARDIOVASCULAR: Regular rhythm and rate with normal heart sounds 1 and 2. RESPIRATORY: Fair air entry bilaterally with scattered crackles and a few rhonchi. Work of breathing is increased. GI: Obese, soft, nontender, and nondistended with normal bowel sounds. EXTREMITIES: Trace to mild bilateral leg edema noted. CHANCELLOR: Conscious and alert. Oriented to person only. The patient is confused, thinks he is at home. DIAGNOSTIC DATA: CBC showed WBC count of 19.2, hemoglobin of 7.1, MCV of 96.6, and platelets of 218. Coagulation panel showed INR 1.3, PT 15.9, and PTT 68.4. Renal function panel showed sodium 135, potassium 4.4, chloride 97, CO2 of 26, BUN 78, creatinine 3.55, glucose 195, calcium 8.8, phosphorus 4.3, and albumin 3.5. Iron chemistry showed serum iron of 57, TIBC of 186 with saturation of 31%. Ferritin is pending at this time. Chest x-ray reviewed by me showed improved pulmonary congestion. ASSESSMENT: 1. Ventricular fibrillation cardiac arrest. 2. Ventricular tachycardia: Paroxysmal. 3. Volume overload with pulmonary congestion: Improving with diuresis. 4. Hyperkalemia: Resolved with hemodialysis. 5. Chronic kidney disease, stage 4. 6. Metabolic acidosis: Resolved. 7. Anemia on chronic kidney disease. 8. Hypertension: Control is better. 9. Acute respiratory failure with hypoxia, requiring intubation. The patient is currently extubated. 10. Coronary artery disease status post recent coronary artery bypass graft. The patient, however, was told to have a coronary artery stenosis that is amenable to angioplasty and was told after the coronary artery bypass graft that he will need interval angioplasty, but that has not been done. 11. Morbid obesity with obstructive sleep apnea. PLAN: 1. We will continue diuretic therapy at this time. 2. We will monitor blood pressure and adjust medications to get adequate BP control. 3. We will continue to avoid nephrotoxic agents at this point. 4. Anticipate cardiac catheterization and/or defibrillator placement in this patient. I have discussed with the patient and son about increased risk of contrast-induced nephropathy. However, there is no alternative to go beyond this. The patient definitely needs coronary angiogram and possible intervention as well as a defibrillator given ventricular arrhythmias with decompensation. If these are deemed necessary by Cardiology, we will optimize the patient to reduce the risk of contrast-induced nephropathy. However, the patient was advised that this may entail transitioning to hemodialysis if renal function does not return to baseline, but this, however, happened to be the only viable option for this patient. Job ID: [id number]
[2019-04-15] MEDS ORDERED: EPOETIN ALFA-EPBX (ESRD) 10,000 UNIT/ML VIAL SC SCH (09:00)
[2019-04-15] MEDS ORDERED: Famotidine 20 MG TAB PO SCH (09:00)
--- NOTE | 2019-04-15 10:18 | PDOC.HOSPP ---
- Subjective Encounter Date: 04/15/19 Encounter Time: 10:15 Subjective: Mr. Schmidt was seen today in follow-up of VFIB. He is currently confused and trying to get out of bed. - Objective Vital Signs & Weight: Vital Signs (12 hours) Temp Pulse Resp BP Pulse Ox 04/15/19 08:51 172/103 H 04/15/19 07:20 91 19 97 04/15/19 04:00 98.8 F 04/15/19 00:45 98 04/15/19 00:10 83 04/15/19 00:00 98.4 F Weight Admit Weight 308 lb 10.354 oz Weight 308 lb 10.354 oz Most Recent Monitor Data Heart Rate from ECG 79 NIBP 147/84 NIBP BP-Mean 105 Respiration from ECG 27 SpO2 100 I&O: 04/14/19 04/15/19 04/16/19 06:59 06:59 06:59 Intake Total 980 2808 Output Total 3140 4750 Balance -2160 -1942 Result Diagrams: 04/15/19 06:21 04/15/19 03:30 Additional Labs: Accuchecks 04/15/19 04/14/19 04/14/19 06:23 21:26 15:23 POC Glucose 239 H 316 H 297 H 04/14/19 11:09 POC Glucose 286 H Hospitalist ROS - Medication Medications: Active Medications Generic Name Dose Route Start Last Admin Trade Name Freq PRN Reason Stop Dose Admin Acetaminophen/Codeine Phosphate 1 tab 04/13/19 03:17 04/14/19 17:45 Tylenol #3 PO 1 tab Q6H PRN Administration Pain Albuterol/Ipratropium 3 ml 04/11/19 13:00 04/15/19 07:20 Duoneb NEB 3 ml [id number] YOEL Administration Allopurinol 100 mg 04/12/19 09:00 04/15/19 08:51 Zyloprim PO 100 mg DAILY YOEL Administration Carvedilol 6.25 mg 04/14/19 08:00 04/15/19 08:51 Coreg PO 6.25 mg BID-WM YOEL Administration Famotidine 20 mg 04/14/19 09:00 04/15/19 08:52 Pepcid PO 20 mg DAILY YOEL Administration Furosemide 80 mg 04/13/19 17:00 04/15/19 07:17 Lasix SLOW IVP 80 mg 0600,1700 YOEL Administration Guaifenesin/Dextromethorphan 15 ml 04/14/19 15:29 04/14/19 23:19 Robitussin Dm PO 10 ml Q4H PRN Administration Cough Heparin Sodium (Porcine) 0 units 04/13/19 15:00 04/13/19 22:13 Heparin 1,000 Units/Ml (10 Ml) SLOW IVP 4,000 unit WILLCALL YOEL Administration Ceftriaxone Sodium 1 gm/ 100 mls @ 200 mls/hr 04/11/19 08:45 04/15/19 08:53 Sodium Chloride IVPB 100 mls Q24HR YOEL Administration Amiodarone HCl 450 mg/ 259 mls @ 0 mls/hr 04/13/19 01:30 04/15/19 08:53 Miscellaneous Medication 1 IVPB 259 mls each/ Dextrose/Water INF YOEL Administration Protocol As Directed Heparin Sodium/Dextrose 500 mls @ 0 mls/hr 04/13/19 15:00 04/14/19 12:34 Heparin 25,000 Units/D5w 500 Ml IV 500 mls INF YOEL Administration Protocol As Directed Nitroglycerin/Dextrose 250 mls @ 0 mls/hr 04/13/19 16:30 04/13/19 16:25 Nitroglycerin 50 Mg/250 Ml Bot IVPB 250 mls INF YOEL Administration Protocol As Directed Insulin Glargine 30 units/ 0.3 mls @ 0 mls/hr 04/14/19 21:00 04/15/19 08:54 Miscellaneous Medication SC 0.3 mls BID YOEL Administration Insulin Human Lispro 0 units 04/11/19 10:59 04/15/19 07:18 Humalog SC 6 unit .AGGRESSIVE SLIDING PRN Administration Aggressive Correctional Scale Insulin Human Lispro 0 units 04/11/19 10:59 04/14/19 21:33 Humalog SC 4 unit .BEDTIME SLIDING SC PRN Administration Bedtime Correctional Scale Lorazepam 2 mg 04/11/19 06:15 04/14/19 23:19 Ativan SLOW IVP 05/11/19 06:15 2 mg Q1H PRN Administration Breakthrough agitation Methylprednisolone Sodium Succinate 40 mg 04/13/19 09:00 04/15/19 08:53 Solu-Medrol IVP 40 mg DAILY YOEL Administration Propofol 1,000 mg 04/11/19 06:15 04/11/19 23:40 Diprivan IV 05/11/19 06:15 1,000 mg INF PRN Administration TO ACHIEVE GOAL RASS Protocol - Exam Eye: PERRL Heart: RRR, no murmur, no gallops, no rubs, normal peripheral pulses Respiratory: CTAB, no wheezes, no rales, no ronchi, normal chest expansion Gastrointestinal: soft, non-tender, non-distended, normal bowel sounds, no palpable masses, no hepatomegaly Extremities: no cyanosis, no edema Hosp A/P (1) Cardiac arrest Code(s): I46.9 - CARDIAC ARREST, CAUSE UNSPECIFIED Status: Acute (2) CAD (coronary artery disease) Code(s): I25.10 - ATHSCL HEART DISEASE OF [place] CORONARY ARTERY W/O ANG PCTRS Status: Acute (3) Chronic kidney disease, stage 4, severely decreased GFR Code(s): N18.4 - CHRONIC KIDNEY DISEASE, STAGE 4 (SEVERE) Status: Chronic (4) DM2 (diabetes mellitus, type 2) Status: Chronic Qualifiers: (5) Paroxysmal atrial fibrillation Code(s): I48.0 - PAROXYSMAL ATRIAL FIBRILLATION Status: Chronic (6) Sleep apnea Code(s): G47.30 - SLEEP APNEA, UNSPECIFIED Status: Chronic (7) Hypertension Code(s): I10 - ESSENTIAL (PRIMARY) HYPERTENSION Status: Acute - Plan * Cardiac Arrest- VFIB- Nephrology input appreciated. He may proceed with Left heart cath- and will deal with the renal consequences as they arise. Every effort will be made to preserve his remaining renal function * Delirium- this may be due to ICU Psychosis- will use anti-psychotic medications sparingly. Will re-orient as much as possible * DM-blood glucose remains elevated- will increase Lantus and expect his blood glucose to improve as the steroids are tappered. * Chronic kidney disease stage 4- stable * HTN- blood pressure is elevated-this is still labile but trending down * Anemia- due to chronic kidney disease- continue Epogen as per Nephrology, and transfuse as necessary- will add a littile iron supplementation
[2019-04-15] MEDS ORDERED: Lorazepam 2 MG/ML VIAL SLOW IVP PRN (10:22)
[2019-04-15] MEDS ORDERED: Sterile Water 10 ML VIAL FS PRN (10:33)
[2019-04-15 11:21] LABS: Hemoglobin 7.7 g/dL (14.0-18.0); Platelet Count 232 thou/uL (130-400)
[2019-04-15] MEDS: Ziprasidone 20 MG VIAL IM PRN ×3 (12:55→22:39)
[2019-04-15] MEDS: ALPRAZolam 0.25 MG TAB PO PRN ×2 (13:26→22:39)
--- NOTE | 2019-04-15 15:31 | PRG ---
DATE OF SERVICE: 04/15/2019 SUBJECTIVE: Jeancarlos Schmidt got confused last night. He received Ativan, which made him more confused. He takes Xanax at bedtime, so it is reasonable to start him back on alprazolam. OBJECTIVE: VITAL SIGNS: Heart rate is in 80s, respiratory rates in the 20s, blood pressure 162/74. LUNGS: Clear. HEART: Regular rhythm. ABDOMEN: Soft. EXTREMITIES: Without edema. IMAGING: Chest x-ray actually looks better than his last chest x-ray. LABORATORY DATA: White count 19.2, hemoglobin 7.1, platelets 218,000. Sodium 135, potassium 4.4, chloride 97, bicarb 26, BUN 78, creatinine 3.55. Intake and outputs negative 19 and 42. IMPRESSION: 1. Status post sudden cardiac . 2. Chronic kidney disease. 3. Sleep apnea. He refused CPAP last night. 4. Anemia, it is likely a mixture of blood loss and chronic disease. He probably needs to be gently transfused. We will continue to follow. Job ID: [id number]
[2019-04-15] MEDS: Labetalol HCl 100 MG/20 ML VIAL SLOW IVP PRN (16:28)
[2019-04-15] MEDS: Heparin 25,000 units/D5W 500 ML IV SCH (16:30)
[2019-04-16] MEDS: Amiodarone 450 MG, Admixture Fee 1 EACH in Dextrose 5% in Water 250 ML IVPB SCH ×2 (03:20→16:59)
[2019-04-16 04:25] LABS: Band 2 % (5-11); Hemoglobin 8.3 g/dL (14.0-18.0); Hypochromia SLIGHT = 6-15 cells (100X) (0-5/hpf); Lymphocytes 9 % (21-51); MDiff Complete? YES; Mean Corpuscular Hemoglobin 31.5 pg (27.0-31.0); Mean Corpuscular Volume 95.5 fL (78.0-98.0); Monocytes 11 % (0-10); Neutrophil 78 % (42-75); Platelet Count 276 thou/uL (130-400); Platelet Morphology Comment Appears Adequate; RBC Distribution Width 14.6 % (11.5-14.5); Red Blood Cell (RBC) Count 2.62 mill/uL (4.70-6.10); White Blood Cell (WBC) Count 24.6 thou/uL (4.8-10.8)
[2019-04-16 04:28] LABS: Albumin 3.5 g/dL (3.4-4.8); Anion Gap 20 mmol/L (10-20); BUN (Urea Nitrogen) 85 mg/dL (8.4-25.7); BUN/Creatinine Ratio 25.07; Calc. Creatinine Clearance 45 mL/min (70-130); Carbon Dioxide 25 mmol/L (23-31); Chloride 96 mmol/L (98-107); Estimated GFR-MDRD 22; Glucose 223 mg/dL (80-115); Phosphorus 5.3 mg/dL (2.3-4.7); Potassium 3.9 mmol/L (3.5-5.1); Sodium 137 mmol/L (136-145)
[2019-04-16] MEDS: Furosemide 100 MG/10 ML VIAL SLOW IVP SCH (06:26)
[2019-04-16] MEDS: HumaLOG 300 UNITS/3 ML VIAL SC PRN ×3 (06:31→17:00)
--- NOTE | 2019-04-16 07:41 | RAD ---
Exam: Chest one view HISTORY:Respiratory distress. Comparison: 04/15/2019 FINDINGS: Cardiac silhouette:Upper normal cardiac silhouette. There are sternotomy wires. Aorta: Atherosclerosis of the aortic knob Lines and tubes: Stable left-sided internal jugular central venous catheter. Overlying cardiac monito r leads are noted. Pulmonary vessels: Normal Costophrenic angles: Clear LUNGS: Patchy interstitial opacities in the left lung base. Pneumothorax: None Osseous abnormalities: None IMPRESSION: Patchy interstitial opacities left lung base. Atherosclerosis.
--- NOTE | 2019-04-16 08:01 | PRG ---
DATE OF SERVICE: 04/16/2019 SERVICE: Nephrology. SUBJECTIVE: A 63-year-old male admitted after [id number] VFib cardiac arrest. Nephrology is seeing the patient for CKD 4/5, hyperkalemia, and generalized swelling. General condition has improved, but the patient is still delirious and agitated, requiring four-point restraints. No new problem. Oral intake has decreased in the last 24 hours. OBJECTIVE: VITAL SIGNS: Temperature 98.6, pulse 67, respiratory rate 12, SpO2 99% on BiPAP with FiO2 30%, blood pressure is 155/81. GENERAL: Obese male, in no obvious distress. Afebrile. Anicteric. Acyanotic. HEENT: Normocephalic, atraumatic. Oral mucosa is moist. BiPAP mask is in place. CARDIOVASCULAR: Regular rhythm and rate with normal heart sounds one and two. RESPIRATORY: Fair air entry bilaterally with few bibasilar crackles. GI: Obese, soft, nontender, nondistended with normal bowel sounds. UROGENITAL: Govea catheter is in place draining clear urine. EXTREMITIES: Grossly normal-looking atraumatic with no edema or erythema. 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 Tries to get up with little stimulation, however. DIAGNOSTIC DATA: In the last 24 hours, the patient put out 5490 mL of urine with intake of 1799 giving negative balance of 3691. Current weight is 284, which is down from 308 on admission. CBC showed WBC count of 24.6, hemoglobin of 8.3, MCV of 95.5, platelet of 276. Renal function panel showed sodium 137, potassium 3.9, chloride 96, CO2 of 25, BUN 85, creatinine 3.39, glucose 223, calcium 9.0, phosphorus 5.3, albumin 3.5. Echocardiogram performed yesterday showed mildly decreased EF of 45% to 50% with grade 2/3 diastolic dysfunction, as well as anterolateral hypokinesis and elevated right ventricular systolic pressure estimated at 41 mmHg. Chest x-ray performed earlier today reviewed by me showed improve aeration of the lungs, though persistent of left lower lobe infiltrate is noted. ASSESSMENT: 1. Acute kidney injury: Due to hemodynamic factors related to cardiac arrest and cardiac decompensation. Creatinine is down to 3.3 from admission level of 4.1. 2. Chronic kidney disease, stage 4: Due to diabetic nephropathy and hypertensive nephrosclerosis. 3. Hyperkalemia: Resolved. 4. Anasarca: Due to cardiac decompensation. Improved markedly with diuresis mainly, though the patient had hemodialysis with UF initially. Weight is down to 284 from admission level of 308. Given increase in BUN, consistent with worsening azotemia, diuresis will be deescalated to avoid excessive diuresis. 5. Hypertension: Control is acceptable. 6. Cardiac arrest: Due to ventricular fibrillation. 7. Ventricular arrhythmia. The patient had VFib prior to hospitalization and subsequently, had ventricular tachycardia here in the hospital. 8. Acute metabolic encephalopathy. Etiology is unclear. Anoxic brain injury is unlikely given the patient was mentating well in the immediate postextubation before becoming delirious and agitated. 9. Coronary artery disease, status post coronary artery bypass grafting with elevated troponin. Of note, the patient during CABG was told that he had an obstructive disease that needs stent placement and this has not been done. 10. Morbid obesity. 11. Obstructive sleep apnea. 12. Acute on chronic diastolic heart failure. PLAN: We will decrease Lasix IV 80 mg to 40 mg b.i.d. given increasing azotemia. The patient's oral intake also has decreased due to mental status change. Moreover, patient clinically seems more euvolemic, if not dry. There is no indication for hemodialysis at this time. We will continue to follow renal function. 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 Job ID: [id number]
[2019-04-16] MEDS: cefTRIAXone\\ROCEPHIN 1 GM in Sodium Chloride 0.9% 100 ML IVPB SCH (09:09)
[2019-04-16] MEDS: Ferrous Sulfate 325 MG TAB PO SCH ×2 (09:10→10:56)
[2019-04-16] MEDS: Famotidine 20 MG TAB PO SCH ×2 (09:10→10:56)
[2019-04-16] MEDS: Carvedilol 6.25 MG TAB PO SCH ×3 (09:10→16:53)
[2019-04-16] MEDS: Allopurinol 100 MG TAB PO SCH (09:10)
[2019-04-16] MEDS: Insulin Glargine 30 UNITS in Pre-Filled Syringe 1 EACH SC SCH (09:16)
[2019-04-16] MEDS: Heparin 25,000 units/D5W 500 ML IV SCH (09:17)
[2019-04-16] MEDS: methylPREDNISolone Sod Succ 40 MG VIAL IVP SCH (09:17)
--- NOTE | 2019-04-16 11:44 | PDOC.HOSPP ---
- Subjective Encounter Date: 04/16/19 Encounter Time: 11:43 Subjective: Mr. Schmidt was seen today in follow-up of VFIB. He is still confused, and is currently on BiPAP. - Objective Vital Signs & Weight: Vital Signs (12 hours) Temp Pulse Resp BP Pulse Ox 04/16/19 10:55 172/103 H 04/16/19 10:20 63 13 96 04/16/19 08:00 98.5 F 100 04/16/19 07:13 67 04/16/19 07:10 68 12 99 04/16/19 04:00 98.6 F 04/16/19 02:51 119 H 36 H 95 04/16/19 00:00 98.7 F Weight Admit Weight 308 lb 10.354 oz Weight 284 lb 6.341 oz Most Recent Monitor Data Heart Rate from ECG 63 NIBP 149/91 NIBP BP-Mean 110 Respiration from ECG 10 SpO2 100 I&O: 04/15/19 04/16/19 04/17/19 06:59 06:59 06:59 Intake Total 2808 1799 100 Output Total 0190 5490 935 [facility] -3691 -835 Result Diagrams: 04/16/19 03:52 04/16/19 03:52 Additional Labs: Accuchecks 04/16/19 04/16/19 04/15/19 11:21 06:34 21:19 POC Glucose 269 H 260 H 219 H 04/15/19 16:06 POC Glucose 245 H Hospitalist ROS - Medication Medications: Active Medications Generic Name Dose Route Start Last Admin Trade Name Freq PRN Reason Stop Dose Admin Acetaminophen/Codeine Phosphate 1 tab 04/13/19 03:17 04/14/19 17:45 Tylenol #3 PO 1 tab Q6H PRN Administration Pain Albuterol/Ipratropium 3 ml 04/15/19 14:30 04/16/19 10:20 Duoneb NEB 3 ml [id number] YOEL Administration Allopurinol 100 mg 04/12/19 09:00 04/16/19 09:10 Zyloprim PO 100 mg DAILY YOEL Administration Alprazolam 0.25 mg 04/15/19 12:44 04/15/19 13:26 Xanax PO 0.25 mg TIDPRN PRN Administration Anxiety Carvedilol 6.25 mg 04/14/19 08:00 04/16/19 10:55 Coreg PO Not Given BID-[facility] Famotidine 20 mg 04/14/19 09:00 04/16/19 10:56 Pepcid PO Not Given DAILY [facility] Ferrous Sulfate 325 mg 04/16/19 08:00 04/16/19 10:56 Feosol PO Not Given QAM-WM [facility] Guaifenesin/Dextromethorphan 15 ml 04/14/19 15:29 04/14/19 23:19 Robitussin Dm PO 10 ml Q4H PRN Administration Cough Heparin Sodium (Porcine) 0 units 04/13/19 15:00 04/13/19 22:13 Heparin 1,000 Units/Ml (10 Ml) SLOW IVP 4,000 unit WILLCALL YOEL Administration Ceftriaxone Sodium 1 gm/ 100 mls @ 200 mls/hr 04/11/19 08:45 04/16/19 09:09 Sodium Chloride IVPB 100 mls Q24HR YOEL Administration Amiodarone HCl 450 mg/ 259 mls @ 0 mls/hr 04/13/19 01:30 04/16/19 03:20 Miscellaneous Medication 1 IVPB 259 mls each/ Dextrose/Water INF YOEL Administration Protocol As Directed Heparin Sodium/Dextrose 500 mls @ 0 mls/hr 04/13/19 15:00 04/16/19 09:17 Heparin 25,000 Units/D5w 500 Ml IV 500 mls INF YOEL Administration Protocol As Directed Nitroglycerin/Dextrose 250 mls @ 0 mls/hr 04/13/19 16:30 04/13/19 16:25 Nitroglycerin 50 Mg/250 Ml Bot IVPB 250 mls INF YOEL Administration Protocol As Directed Insulin Glargine 30 units/ 0.3 mls @ 0 mls/hr 04/14/19 21:00 04/16/19 09:16 Miscellaneous Medication SC 0.3 mls BID YOEL Administration Dexmedetomidine HCl 400 mcg/ 100 mls @ 0 mls/hr 04/16/19 05:15 04/16/19 09:09 Sodium Chloride IVPB 100 mls INF YOEL Administration Protocol Titrate Insulin Human Lispro 0 units 04/11/19 10:59 04/16/19 11:24 Humalog SC 9 unit .AGGRESSIVE SLIDING PRN Administration Aggressive Correctional Scale Insulin Human Lispro 0 units 04/11/19 10:59 04/15/19 21:16 Humalog SC 2 unit .BEDTIME SLIDING SC PRN Administration Bedtime Correctional Scale Labetalol HCl 10 mg 04/13/19 10:08 04/15/19 16:28 Normodyne SLOW IVP 10 mg Q4H PRN Administration SBP Greater Than 170 Lorazepam 1 mg 04/15/19 10:22 04/15/19 23:05 Ativan SLOW IVP 1 mg Q6H PRN Administration Anxiety/Agitation Methylprednisolone Sodium Succinate 20 mg 04/16/19 09:00 04/16/19 09:17 Solu-Medrol IVP 20 mg DAILY YOEL Administration Propofol 1,000 mg 04/11/19 06:15 04/11/19 23:40 Diprivan IV 05/11/19 06:15 1,000 mg INF PRN Administration TO ACHIEVE GOAL RASS Protocol Ziprasidone 10 mg 04/15/19 10:22 04/15/19 22:39 Geodon IM 10 mg Q4H PRN Administration Agitation - Exam Eye: PERRL Heart: RRR, no murmur, no gallops, no rubs, normal peripheral pulses Respiratory: wheezes (+ bilateral expiratory wheeze, no rhonchi) Gastrointestinal: soft, non-tender, non-distended, normal bowel sounds, no palpable masses, no hepatomegaly Extremities: no cyanosis, no clubbing, 1+ LE edema Hosp A/P (1) Cardiac arrest Code(s): I46.9 - CARDIAC ARREST, CAUSE UNSPECIFIED Status: Acute (2) CAD (coronary artery disease) Code(s): I25.10 - ATHSCL HEART DISEASE OF [place] CORONARY ARTERY W/O ANG PCTRS Status: Acute (3) Chronic kidney disease, stage 4, severely decreased GFR Code(s): N18.4 - CHRONIC KIDNEY DISEASE, STAGE 4 (SEVERE) Status: Chronic (4) DM2 (diabetes mellitus, type 2) Status: Chronic Qualifiers: (5) Paroxysmal atrial fibrillation Code(s): I48.0 - PAROXYSMAL ATRIAL FIBRILLATION Status: Chronic (6) Sleep apnea Code(s): G47.30 - SLEEP APNEA, UNSPECIFIED Status: Chronic (7) Hypertension Code(s): I10 - ESSENTIAL (PRIMARY) HYPERTENSION Status: Acute - Plan * Cardiac Arrest- VFIB-awaiting Cardiology recommendations * Delirium- this may be due to ICU Psychosis- he has been placed on Precedex due to combative behavior last night- will continue to monitor * DM-blood glucose remains elevated- will continue to titrate Lantus * Chronic kidney disease stage 4- stable * HTN- blood pressure is elevated-this is still labile but trending down * Anemia- due to chronic kidney disease- continue Epogen as per Nephrology, and transfuse as necessary- will add a little iron supplementation
--- NOTE | 2019-04-16 15:09 | PRG ---
DATE OF SERVICE: 04/16/2019 SUBJECTIVE: Elvin Schmidt is still confused. He is in no distress. OBJECTIVE: VITAL SIGNS: Stable. LUNGS: Clear. HEART: Regular rhythm. ABDOMEN: Soft. LABORATORY DATA: White count 24.6, hemoglobin 8.3, platelets 276,000. Sodium 137, potassium 3.9, chloride 96, bicarb 25, BUN 85, creatinine 3.39. HIs creatinine was 4.1 on admission. He did sleep more with BiPAP last night. He was placed on Precedex last night, which helped him sleep. I have encouraged the nurse to remove this during the day. It can be started at night, on his BiPAP. Other issues that are pressing are cardiomyopathy, chronic kidney disease, status post ventricular tachycardia arrest, patchy interstitial opacities on chest x-ray at his lung base, which either could be atelectasis or early pneumonia. He is on Rocephin. We will continue to watch this closely. Job ID: [id number]
--- NOTE | 2019-04-16 19:21 | PDOC.CPN ---
- Subjective Date: 04/16/19 Time: 19:15 Interval history: He has been more confused and agitated. Had to be placed on precedex at night to help sleep. - Review of Systems ROS unobtainable: due to mental status - Objective Allergies/Adverse Reactions: Allergies Allergy/AdvReac Type Severity Reaction Status Date / Time No Known Drug Allergies Allergy Verified 04/11/19 10:19 Visit Medications: Current Medications Acetaminophen/Codeine Phosphate (Tylenol #3) 1 tab PO Q6H PRN PRN Reason: Pain Last Admin: 04/14/19 17:45 Dose: 1 tab Albuterol/Ipratropium (Duoneb) 3 ml NEB [id number] [facility] Last Admin: 04/16/19 18:36 Dose: 3 ml Allopurinol (Zyloprim) 100 mg PO DAILY [facility] Last Admin: 04/16/19 09:10 Dose: 100 mg Alprazolam (Xanax) 0.25 mg PO TIDPRN PRN PRN Reason: Anxiety Last Admin: 04/15/19 13:26 Dose: 0.25 mg Carvedilol (Coreg) 6.25 mg PO BID-[facility] Last Admin: 04/16/19 16:53 Dose: Not Given Dextrose/Water (Dextrose 50%) 25 gm SLOW IVP PRN PRN PRN Reason: Hypoglycemia Epoetin Tan-epbx (Retacrit) 10,000 unit SC TTHSA [facility] Famotidine (Pepcid) 20 mg PO DAILY [facility] Last Admin: 04/16/19 10:56 Dose: Not Given Ferrous Sulfate (Feosol) 325 mg PO QAM-[facility] Last Admin: 04/16/19 10:56 Dose: Not Given Furosemide (Lasix) 40 mg SLOW IVP BID [facility] Glucagon (Glucagon) 1 mg IM PRN PRN PRN Reason: Hypoglycemia Guaifenesin/Dextromethorphan (Robitussin Dm) 15 ml PO Q4H PRN PRN Reason: Cough Last Admin: 04/14/19 23:19 Dose: 10 ml Heparin Sodium (Porcine) (Heparin 1,000 Units/Ml (10 Ml)) 0 units SLOW IVP WILLCALL [facility] Last Admin: 04/13/19 22:13 Dose: 4,000 unit Ceftriaxone Sodium 1 gm/ (Sodium Chloride) 100 mls @ 200 mls/hr IVPB Q24HR YOEL Last Admin: 04/16/19 09:09 Dose: 100 mls Dextrose/Water (D5w) 1,000 mls @ 0 mls/hr IV .Q0M PRN PRN Reason: Hypoglycemia Norepinephrine Bitartrate (Levophed) 250 mls @ 0 mls/hr IVPB INF YOEL; Protocol Amiodarone HCl 450 mg/Miscellaneous Medication 1 each/ Dextrose/Water 259 mls @ 0 mls/hr IVPB INF YOEL; Protocol Last Admin: 04/16/19 16:59 Dose: 259 mls Heparin Sodium/Dextrose (Heparin 25,000 Units/D5w 500 Ml) 500 mls @ 0 mls/hr IV INF YOEL; Protocol Last Admin: 04/16/19 09:17 Dose: 500 mls Nitroglycerin/Dextrose (Nitroglycerin 50 Mg/250 Ml Bot) 250 mls @ 0 mls/hr IVPB INF YOEL; Protocol Last Admin: 04/13/19 16:25 Dose: 250 mls Dexmedetomidine HCl 400 mcg/ (Sodium Chloride) 100 mls @ 0 mls/hr IVPB INF YOEL ; Protocol Last Admin: 04/16/19 17:00 Dose: 100 mls Insulin Glargine 35 units/ (Miscellaneous Medication) 0.35 mls @ 0 mls/hr SC BID YOEL Insulin Human Lispro (Humalog) 0 units SC .AGGRESSIVE SLIDING PRN PRN Reason: Aggressive Correctional Scale Last Admin: 04/16/19 17:00 Dose: 9 unit Insulin Human Lispro (Humalog) 0 units SC .BEDTIME SLIDING SC PRN PRN Reason: Bedtime Correctional Scale Last Admin: 04/15/19 21:16 Dose: 2 unit Labetalol HCl (Normodyne) 10 mg SLOW IVP Q4H PRN PRN Reason: SBP Greater Than 170 Last Admin: 04/15/19 16:28 Dose: 10 mg Lorazepam (Ativan) 1 mg SLOW IVP Q6H PRN PRN Reason: Anxiety/Agitation Last Admin: 04/15/19 23:05 Dose: 1 mg Methylprednisolone Sodium Succinate (Solu-Medrol) 20 mg IVP DAILY YOEL Last Admin: 04/16/19 09:17 Dose: 20 mg Propofol (Diprivan) 1,000 mg IV INF PRN; Protocol PRN Reason: TO ACHIEVE GOAL RASS Stop: 05/11/19 06:15 Last Admin: 04/11/19 23:40 Dose: 1,000 mg Sterile Water (Water For Injection) 1.2 ml FS PRN PRN PRN Reason: RECONSTITUTION Ziprasidone (Geodon) 10 mg IM Q4H PRN PRN Reason: Agitation Last Admin: 04/15/19 22:39 Dose: 10 mg Vital Signs & Weight: Vital Signs Temp Pulse Pulse Pulse Resp BP BP 04/16/19 18:37 58 L 04/16/19 18:36 58 L 10 L 04/16/19 16:53 172/103 H 04/16/19 16:00 98.0 F 04/16/19 15:13 55 L 04/16/19 15:12 55 L 11 L 04/16/19 12:00 97.5 F L 04/16/19 10:55 172/103 H 04/16/19 10:39 63 60 159/88 H 04/16/19 10:20 63 13 04/16/19 08:00 98.5 F BP Pulse Ox Pulse Ox Pulse Ox 04/16/19 18:37 04/16/19 18:36 100 04/16/19 16:53 04/16/19 16:00 04/16/19 15:13 04/16/19 15:12 99 04/16/19 12:00 04/16/19 10:55 04/16/19 10:39 138/93 H 100 100 04/16/19 10:20 96 04/16/19 08:00 100 Admit Weight 308 lb 10.354 oz Weight 284 lb 6.341 oz - Physical Exam General: appears well HEENT: mucus membranes moist Neck: midline trachea Cardiac: regular rate and rhythm, systolic murmur Lungs: clear to auscultation Neuro: no lateralizing findings Abdomen: active bowel sounds Extremities: no edema Skin: clear Musculoskeletal: no pain - Labs Result Diagrams: 04/16/19 03:52 04/16/19 03:52 Troponin/CKMB CK-MB (CK-2) 16.5 ng/mL (0-6.6) H* 04/13/19 13:52 Troponin I 15.949 ng/mL (< 0.028) H* 04/13/19 13:52 - Telemetry Sinus rhythms and dysrhythmias: sinus rhythm - Assessment/Plan Assessment/Plan: 1. Respiratory distress 2. VT 3. Out of hospital arrest 4. Acute on chronic renal failure. 5. Hyperkalemia 6. NSTEMI 7. CAD s/p single vessel CABG and residual 2 vessel disease. PLAN: - LV function is mildly reduced from original echo. Now at 45-50% from 50-55%. - Agree with reduced dose of lasix. - After a long conversation with his son we have decided to continue conservative therapy. - Continue heparin drip. - Continue amiodarone drip - Will stop heparin tomorrow. - Will switch amio to PO once PO tolerated and less confused. - Critical Care Time Critical care time (mins): 45
[2019-04-16] MEDS ORDERED: Furosemide 40 MG/4 ML VIAL SLOW IVP SCH (21:00)
[2019-04-16] MEDS: Insulin Glargine 35 UNITS in Pre-Filled Syringe 1 EACH SC SCH ×2 (21:30→21:35)
[2019-04-17] MEDS: Heparin 25,000 units/D5W 500 ML IV SCH ×2 (00:12→15:03)
[2019-04-17 03:52] LABS: INR-International Normal Ratio 1.2
[2019-04-17 03:53] LABS: PTT 84.8 SEC (22.9-36.1)
[2019-04-17 04:04] LABS: Albumin 3.3 g/dL (3.4-4.8); Anion Gap 14 mmol/L (10-20); BUN (Urea Nitrogen) 91 mg/dL (8.4-25.7); BUN/Creatinine Ratio 28.35; Calc. Creatinine Clearance 44 mL/min (70-130); Calcium 8.8 mg/dL (7.8-10.44); Carbon Dioxide 29 mmol/L (23-31); Chloride 99 mmol/L (98-107); Estimated GFR-MDRD 24; Glucose 198 mg/dL (80-115); Phosphorus 6.2 mg/dL (2.3-4.7); Potassium 4.4 mmol/L (3.5-5.1); Sodium 138 mmol/L (136-145)
[2019-04-17 04:08] LABS: Band 1 % (5-11); Hemoglobin 7.7 g/dL (14.0-18.0); Lymphocytes 12 % (21-51); MDiff Complete? YES; Mean Corpuscular HGB CONC 32.6 g/dL (32.0-36.0); Mean Corpuscular Hemoglobin 31.5 pg (27.0-31.0); Mean Corpuscular Volume 96.7 fL (78.0-98.0); Mean Platelet Volume 7.4 fL (7.4-10.4); Monocytes 8 % (0-10); Neutrophil 79 % (42-75); Platelet Count 243 thou/uL (130-400); Platelet Morphology Comment Appears Adequate; RBC Distribution Width 14.6 % (11.5-14.5); Red Blood Cell (RBC) Count 2.45 mill/uL (4.70-6.10); White Blood Cell (WBC) Count 19.7 thou/uL (4.8-10.8)
--- NOTE | 2019-04-17 07:50 | RAD ---
Portable frontal chest radiograph: 04/17/2019 COMPARISON: 04/16/2019 HISTORY: Respiratory distress FINDINGS: Stable pulmonary vascular congestion. Stable midline sternotomy wires. Stable left vascular catheter. The right hemidiaphragm is elevated. No focal consolidation or alveolar edema. IMPRESSION: No focal consolidation or alveolar edema.
[2019-04-17] MEDS: Carvedilol 6.25 MG TAB PO SCH ×2 (08:08→16:41)
[2019-04-17] MEDS: methylPREDNISolone Sod Succ 40 MG VIAL IVP SCH (08:09)
[2019-04-17] MEDS: Insulin Glargine 35 UNITS in Pre-Filled Syringe 1 EACH SC SCH ×2 (08:09→21:34)
[2019-04-17] MEDS: Ferrous Sulfate 325 MG TAB PO SCH (08:09)
[2019-04-17] MEDS: Famotidine 20 MG TAB PO SCH (08:09)
[2019-04-17] MEDS: Allopurinol 100 MG TAB PO SCH (08:09)
[2019-04-17] MEDS: cefTRIAXone\\ROCEPHIN 1 GM in Sodium Chloride 0.9% 100 ML IVPB SCH (08:19)
--- NOTE | 2019-04-17 09:41 | PDOC.HOSPP ---
- Subjective Encounter Date: 04/17/19 Encounter Time: 09:38 Subjective: Mr. Schmidt was seen today in follow-up of VFIB. He is much more oriented this morning. He denies chest pain or shortness of breath. He is oriented to person place and time. - Objective Vital Signs & Weight: Vital Signs (12 hours) Temp Pulse Resp BP Pulse Ox 04/17/19 08:08 125/64 04/17/19 08:05 99 04/17/19 08:03 78 23 H 99 04/17/19 06:00 98.5 F 04/17/19 02:54 59 L 11 L 99 04/17/19 01:00 98.6 F 04/17/19 00:45 57 L 04/16/19 22:05 53 L 14 98 Weight Admit Weight 308 lb 10.354 oz Weight 288 lb 12.889 oz Most Recent Monitor Data Heart Rate from ECG 70 NIBP 139/75 NIBP BP-Mean 96 Respiration from ECG 20 SpO2 100 I&O: 04/16/19 04/17/19 04/18/19 06:59 06:59 06:59 Intake Total 1799 1588 Output Total 5490 3030 Balance -7798 -7799 Result Diagrams: 04/17/19 03:30 04/17/19 03:30 Additional Labs: Accuchecks 04/16/19 04/16/19 04/16/19 23:57 17:02 11:21 POC Glucose 235 H 263 H 269 H Hospitalist ROS - Medication Medications: Active Medications Generic Name Dose Route Start Last Admin Trade Name Freq PRN Reason Stop Dose Admin Acetaminophen/Codeine Phosphate 1 tab 04/13/19 03:17 04/14/19 17:45 Tylenol #3 PO 1 tab Q6H PRN Administration Pain Albuterol/Ipratropium 3 ml 04/15/19 14:30 04/17/19 08:03 Duoneb NEB 3 ml [id number] YOEL Administration Allopurinol 100 mg 04/12/19 09:00 04/17/19 08:09 Zyloprim PO 100 mg DAILY YOEL Administration Alprazolam 0.25 mg 04/15/19 12:44 04/15/19 13:26 Xanax PO 0.25 mg TIDPRN PRN Administration Anxiety Carvedilol 6.25 mg 04/14/19 08:00 02/13/20 08:08 Coreg PO 6.25 mg BID-WM YOEL Administration Famotidine 20 mg 04/14/19 09:00 04/17/19 08:09 Pepcid PO 20 mg DAILY YOEL Administration Ferrous Sulfate 325 mg 04/16/19 08:00 04/17/19 08:09 Feosol PO 325 mg QAM-WM YOEL Administration Guaifenesin/Dextromethorphan 15 ml 04/14/19 15:29 04/14/19 23:19 Robitussin Dm PO 10 ml Q4H PRN Administration Cough Heparin Sodium (Porcine) 0 units 04/13/19 15:00 04/13/19 22:13 Heparin 1,000 Units/Ml (10 Ml) SLOW IVP 4,000 unit WILLCALL YOEL Administration Ceftriaxone Sodium 1 gm/ 100 mls @ 200 mls/hr 04/11/19 08:45 04/17/19 08:19 Sodium Chloride IVPB 100 mls Q24HR YOEL Administration Amiodarone HCl 450 mg/ 259 mls @ 0 mls/hr 04/13/19 01:30 04/16/19 16:59 Miscellaneous Medication 1 IVPB 259 mls each/ Dextrose/Water INF YOEL Administration Protocol As Directed Heparin Sodium/Dextrose 500 mls @ 0 mls/hr 04/13/19 15:00 04/17/19 00:12 Heparin 25,000 Units/D5w 500 Ml IV 500 mls INF YOEL Administration Protocol As Directed Nitroglycerin/Dextrose 250 mls @ 0 mls/hr 04/13/19 16:30 04/13/19 16:25 Nitroglycerin 50 Mg/250 Ml Bot IVPB 250 mls INF YOEL Administration Protocol As Directed Dexmedetomidine HCl 400 mcg/ 100 mls @ 0 mls/hr 04/16/19 05:15 04/16/19 22:52 Sodium Chloride IVPB 100 mls INF YOEL Administration Protocol Titrate Insulin Glargine 35 units/ 0.35 mls @ 0 mls/hr 04/16/19 21:00 04/17/19 08:09 Miscellaneous Medication SC 0.35 mls BID YOEL Administration Insulin Human Lispro 0 units 04/11/19 10:59 04/16/19 17:00 Humalog SC 9 unit .AGGRESSIVE SLIDING PRN Administration Aggressive Correctional Scale Insulin Human Lispro 0 units 04/11/19 10:59 04/15/19 21:16 Humalog SC 2 unit .BEDTIME SLIDING SC PRN Administration Bedtime Correctional Scale Labetalol HCl 10 mg 04/13/19 10:08 04/15/19 16:28 Normodyne SLOW IVP 10 mg Q4H PRN Administration SBP Greater Than 170 Lorazepam 1 mg 04/15/19 10:22 04/15/19 23:05 Ativan SLOW IVP 1 mg Q6H PRN Administration Anxiety/Agitation Methylprednisolone Sodium Succinate 20 mg 04/16/19 09:00 04/17/19 08:09 Solu-Medrol IVP 20 mg DAILY YOEL Administration Propofol 1,000 mg 04/11/19 06:15 04/11/19 23:40 Diprivan IV 05/11/19 06:15 1,000 mg INF PRN Administration TO ACHIEVE GOAL RASS Protocol Ziprasidone 10 mg 04/15/19 10:22 04/15/19 22:39 Geodon IM 10 mg Q4H PRN Administration Agitation - Exam Eye: PERRL Heart: RRR, no murmur, no rubs, murmur present, II/IV Respiratory: CTAB (+ with the exception of rales and rhonchi at the bases) Gastrointestinal: soft, non-tender, non-distended, normal bowel sounds, no palpable masses, no hepatomegaly Extremities: no cyanosis, no clubbing, no edema Hosp A/P (1) Cardiac arrest Code(s): I46.9 - CARDIAC ARREST, CAUSE UNSPECIFIED Status: Acute (2) CAD (coronary artery disease) Code(s): I25.10 - ATHSCL HEART DISEASE OF [place] CORONARY ARTERY W/O ANG PCTRS Status: Acute (3) Chronic kidney disease, stage 4, severely decreased GFR Code(s): N18.4 - CHRONIC KIDNEY DISEASE, STAGE 4 (SEVERE) Status: Chronic (4) DM2 (diabetes mellitus, type 2) Status: Chronic Qualifiers: (5) Paroxysmal atrial fibrillation Code(s): I48.0 - PAROXYSMAL ATRIAL FIBRILLATION Status: Chronic (6) Sleep apnea Code(s): G47.30 - SLEEP APNEA, UNSPECIFIED Status: Chronic (7) Hypertension Code(s): I10 - ESSENTIAL (PRIMARY) HYPERTENSION Status: Acute - Plan * Cardiac Arrest- continue to monitor in the ICU * Delirium- resolved. He is now oriented to person place and time, and knows why he is in the hospital. * DM-blood glucose remains elevated- will see what the trend is today- and continue to titrate as needed * Chronic kidney disease stage 4- stable * HTN- blood pressure is better * Anemia- due to chronic kidney disease- continue Epogen as per Nephrology, and transfuse as necessary- will add a little iron supplementation
--- NOTE | 2019-04-17 10:16 | PRG ---
DATE OF SERVICE: 04/17/2019 SERVICE: Nephrology. SUBJECTIVE: A 63-year-old male with coronary artery disease, diabetes, and CKD stage 4, admitted due to respiratory failure and mental status change related to VFib, cardiac arrest. Nephrology is following the patient for acute on chronic renal failure and generalized swelling. The patient with mental status change and delirium. He is clinically improved. He is oriented and conversational at this morning. Still has tachypnea. Denied chest pain or fever. OBJECTIVE: VITAL SIGNS: Temperature 98.5, pulse 62, respiratory rate 23, SpO2 of 99% on 3 L nasal cannula, and blood pressure is 125/64. GENERAL: Obese male, the patient in no obvious distress. Afebrile. Anicteric. Acyanotic. HEENT: Normocephalic and atraumatic. Oral mucosa is moist. CARDIOVASCULAR: Regular rhythm and rate with normal heart sounds 1 and 2. RESPIRATORY: Fair air entry bilaterally with few transmitted breath sounds and few bibasilar crackles posteriorly. The patient is tachypneic. GI: Obese, soft, nontender, and nondistended with normal bowel sounds. EXTREMITIES: Grossly normal looking, atraumatic with no obvious edema or erythema. LOGISTICS SPECIALIST: Conscious, alert, and oriented x3 with appropriate mental status. Cranial nerves 2 through 12 are grossly intact. DIAGNOSTIC DATA: CBC showed WBC count of 19.7, hemoglobin of 7.7, and platelet of 243. Renal function panel showed sodium 138, potassium 4.4, chloride 99, CO2 of 29, BUN 91, creatinine 3.21, glucose 198, calcium 8.8, phosphorus 6.2, and albumin 3.3. ASSESSMENT: 1. Acute on chronic renal failure: Due to cardiac decompensation. Creatinine is trending down worse. 2. Worsening azotemia with BUN of 91: This is due to aggressive diuresis. 3. Cardiac arrest: Out of hospital with . 4. Ventricular arrhythmia (ventricular fibrillation and ventricular tachycardia). 5. Acute respiratory failure due to congestive heart failure exacerbation and cardiac decompensation. 6. Volume overload and anasarca: Due to congestive heart failure and chronic kidney disease. Improved with aggressive diuresis and hemodialysis. 7. Hyperkalemia: Resolved with hemodialysis. 8. Hypertension: Control is acceptable. 9. Coronary artery disease, status post coronary artery bypass grafting and acute [id number] myocardial infarction. PLAN: 1. We will hold diuretics at this time due to worsening azotemia. Respiratory status has improved. The patient is still tachypneic. We will reassess later today or in the morning to determine if the patient will resume diuretics. 2. We will recheck renal function tests in the morning. 3. Further treatment as per evaluation engineer and bench grinder. Job ID: [id number]
[2019-04-17] MEDS: HumaLOG 300 UNITS/3 ML VIAL SC PRN ×3 (11:18→21:34)
[2019-04-17] MEDS: Amiodarone 450 MG, Admixture Fee 1 EACH in Dextrose 5% in Water 250 ML IVPB SCH (11:19)
[2019-04-17 11:29] LABS: Hemoglobin 8.2 g/dL (14.0-18.0); Platelet Count 294 thou/uL (130-400)
--- NOTE | 2019-04-17 19:06 | PDOC.CPN ---
- Subjective Date: 04/17/19 Time: 19:04 Interval history: He is doing much better today. Back to baseline. - Review of Systems General: denies: fever/chills, weight/appetite/sleep changes, night sweats, fatigue Respiratory: denies: cough, congestion, shortness of breath, exercise intolerance Cardiovascular: denies: chest pain, palpitation, edema, paroxysmal nocturnal dyspnea, orthopnea Gastrointestinal: denies: nausea, vomiting, diarrhea, constipation, abd pain, GI bleeding Musculoskeletal: denies: pain, tenderness, stiffness, swelling, arthritis/ arthralgias Neurological: denies: numbness, syncope, seizure, weakness - Objective Allergies/Adverse Reactions: Allergies Allergy/AdvReac Type Severity Reaction Status Date / Time No Known Drug Allergies Allergy Verified 04/11/19 10:19 Visit Medications: Current Medications Acetaminophen/Codeine Phosphate (Tylenol #3) 1 tab PO Q6H PRN PRN Reason: Pain Last Admin: 04/14/19 17:45 Dose: 1 tab Albuterol/Ipratropium (Duoneb) 3 ml NEB [id number] [facility] Last Admin: 04/17/19 15:04 Dose: 3 ml Allopurinol (Zyloprim) 100 mg PO DAILY [facility] Last Admin: 04/17/19 08:09 Dose: 100 mg Alprazolam (Xanax) 0.25 mg PO TIDPRN PRN PRN Reason: Anxiety Last Admin: 04/15/19 13:26 Dose: 0.25 mg Carvedilol (Coreg) 6.25 mg PO BID-[facility] Last Admin: 04/17/19 16:41 Dose: 6.25 mg Dextrose/Water (Dextrose 50%) 25 gm SLOW IVP PRN PRN PRN Reason: Hypoglycemia Epoetin Tan-epbx (Retacrit) 10,000 unit SC TTA [facility] Famotidine (Pepcid) 20 mg PO DAILY [facility] Last Admin: 04/17/19 08:09 Dose: 20 mg Ferrous Sulfate (Feosol) 325 mg PO QAM-[facility] Last Admin: 04/17/19 08:09 Dose: 325 mg Glucagon (Glucagon) 1 mg IM PRN PRN PRN Reason: Hypoglycemia Guaifenesin/Dextromethorphan (Robitussin Dm) 15 ml PO Q4H PRN PRN Reason: Cough Last Admin: 04/14/19 23:19 Dose: 10 ml Heparin Sodium (Porcine) (Heparin 1,000 Units/Ml (10 Ml)) 0 units SLOW IVP [facility] Last Admin: 04/13/19 22:13 Dose: 4,000 unit Ceftriaxone Sodium 1 gm/ (Sodium Chloride) 100 mls @ 200 mls/hr IVPB Q24HR [facility] Last Admin: 04/17/19 08:19 Dose: 100 mls Dextrose/Water (D5w) 1,000 mls @ 0 mls/hr IV .Q0M PRN PRN Reason: Hypoglycemia Norepinephrine Bitartrate (Levophed) 250 mls @ 0 mls/hr IVPB INF [facility]; Protocol Amiodarone HCl 450 mg/Miscellaneous Medication 1 each/ Dextrose/Water 259 mls @ 0 mls/hr IVPB INF [facility]; Protocol Last Admin: 04/17/19 11:19 Dose: 259 mls Heparin Sodium/Dextrose (Heparin 25,000 Units/D5w 500 Ml) 500 mls @ 0 mls/hr IV INF [facility]; Protocol Last Admin: 04/17/19 15:03 Dose: 500 mls Nitroglycerin/Dextrose (Nitroglycerin 50 Mg/250 Ml Bot) 250 mls @ 0 mls/hr IVPB INF [facility]; Protocol Last Admin: 04/13/19 16:25 Dose: 250 mls Dexmedetomidine HCl 400 mcg/ (Sodium Chloride) 100 mls @ 0 mls/hr IVPB INF [facility] ; Protocol Last Admin: 04/16/19 22:52 Dose: 100 mls Insulin Glargine 35 units/ (Miscellaneous Medication) 0.35 mls @ 0 mls/hr SC BID [facility] Last Admin: 04/17/19 08:09 Dose: 0.35 mls Insulin Human Lispro (Humalog) 0 units SC .AGGRESSIVE SLIDING PRN PRN Reason: Aggressive Correctional Scale Last Admin: 04/17/19 16:42 Dose: 9 unit Insulin Human Lispro (Humalog) 0 units SC .BEDTIME SLIDING SC PRN PRN Reason: Bedtime Correctional Scale Last Admin: 04/15/19 21:16 Dose: 2 unit Labetalol HCl (Normodyne) 10 mg SLOW IVP Q4H PRN PRN Reason: SBP Greater Than 170 Last Admin: 04/15/19 16:28 Dose: 10 mg Lorazepam (Ativan) 1 mg SLOW IVP Q6H PRN PRN Reason: Anxiety/Agitation Last Admin: 04/15/19 23:05 Dose: 1 mg Methylprednisolone Sodium Succinate (Solu-Medrol) 20 mg IVP DAILY [facility] Last Admin: 04/17/19 08:09 Dose: 20 mg Propofol (Diprivan) 1,000 mg IV INF PRN; Protocol PRN Reason: TO ACHIEVE GOAL RASS Stop: 05/11/19 06:15 Last Admin: 04/11/19 23:40 Dose: 1,000 mg Sterile Water (Water For Injection) 1.2 ml FS PRN PRN PRN Reason: RECONSTITUTION Ziprasidone (Geodon) 10 mg IM Q4H PRN PRN Reason: Agitation Last Admin: 04/15/19 22:39 Dose: 10 mg Vital Signs & Weight: Vital Signs Temp Pulse Pulse Pulse Pulse Resp BP 04/17/19 16:41 143/73 H 04/17/19 15:04 85 20 04/17/19 15:00 97.9 F 04/17/19 14:31 87 107 H 95 04/17/19 10:44 79 24 H 04/17/19 08:08 125/64 04/17/19 08:05 04/17/19 08:03 78 23 H 04/17/19 08:00 98.5 F BP BP BP Pulse Ox Pulse Ox Pulse Ox 04/17/19 16:41 04/17/19 15:04 96 04/17/19 15:00 04/17/19 14:31 117/75 144/82 H 147/70 H 97 96 04/17/19 10:44 99 04/17/19 08:08 04/17/19 08:05 99 04/17/19 08:03 99 04/17/19 08:00 96 Admit Weight 308 lb 10.354 oz Weight 288 lb 12.889 oz - Physical Exam General: alert & oriented x3, appears well HEENT: mucus membranes moist Neck: supple neck Cardiac: regular rate and rhythm Lungs: clear to auscultation Neuro: grossly intact Abdomen: active bowel sounds Extremities: no edema Skin: clear Musculoskeletal: no pain - Labs Result Diagrams: 04/17/19 11:10 04/17/19 03:30 Troponin/CKMB CK-MB (CK-2) 16.5 ng/mL (0-6.6) H* 04/13/19 13:52 Troponin I 15.949 ng/mL (< 0.028) H* 04/13/19 13:52 - Telemetry Sinus rhythms and dysrhythmias: sinus rhythm - Assessment/Plan Assessment/Plan: 1. Respiratory distress 2. VT 3. Out of hospital arrest 4. Acute on chronic renal failure. 5. Hyperkalemia 6. NSTEMI 7. CAD s/p single vessel CABG and residual 2 vessel disease. PLAN: - LV function is mildly reduced from original echo. Now at 45-50% from 50-55%. - He tells me at this point he does not want to risk his kidneys with a LHC. He would like to continue medical therapy. - Will stop Heparin and switch amiodarone to PO. - Most likely cause of Arrest was high potassium and sotalol. - Will follow.
[2019-04-18] MEDS: Amiodarone 450 MG, Admixture Fee 1 EACH in Dextrose 5% in Water 250 ML IVPB SCH ×2 (02:28→19:43)
[2019-04-18 05:27] LABS: Albumin 3.3 g/dL (3.4-4.8); Anion Gap 16 mmol/L (10-20); BUN (Urea Nitrogen) 95 mg/dL (8.4-25.7); BUN/Creatinine Ratio 28.44; Calc. Creatinine Clearance 42 mL/min (70-130); Calcium 8.6 mg/dL (7.8-10.44); Carbon Dioxide 28 mmol/L (23-31); Chloride 98 mmol/L (98-107); Estimated GFR-MDRD 23; Glucose 104 mg/dL (80-115); Phosphorus 4.6 mg/dL (2.3-4.7); Potassium 3.6 mmol/L (3.5-5.1); Sodium 138 mmol/L (136-145)
[2019-04-18] MEDS: Acetaminophen/Codeine 30-300mg Tablet PO PRN (05:52)
[2019-04-18 06:12] LABS: Anisocytosis SLIGHT = 6-15 cells (100X) (0-5/hpf); Band 9 % (5-11); Eosinophils 1 % (0-10); Hemoglobin 7.1 g/dL (14.0-18.0); Lymphocytes 29 % (21-51); MDiff Complete? YES; Mean Corpuscular HGB CONC 32.5 g/dL (32.0-36.0); Mean Corpuscular Hemoglobin 31.4 pg (27.0-31.0); Mean Corpuscular Volume 96.5 fL (78.0-98.0); Mean Platelet Volume 7.6 fL (7.4-10.4); Metamyelocyte 1 % (0-0); Monocytes 4 % (0-10); Myelocyte 2 % (0-0); Neutrophil 51 % (42-75); Platelet Count 319 thou/uL (130-400); RBC Distribution Width 14.8 % (11.5-14.5); Reactive Lymphocytes 3 % (0-10); Red Blood Cell (RBC) Count 2.27 mill/uL (4.70-6.10); White Blood Cell (WBC) Count 32.5 thou/uL (4.8-10.8)
[2019-04-18] MEDS: Heparin 25,000 units/D5W 500 ML IV SCH ×2 (07:55→21:28)
[2019-04-18] MEDS: Carvedilol 6.25 MG TAB PO SCH ×2 (08:00→17:13)
[2019-04-18] MEDS: Famotidine 20 MG TAB PO SCH (08:36)
[2019-04-18] MEDS: Allopurinol 100 MG TAB PO SCH (08:36)
[2019-04-18] MEDS: methylPREDNISolone Sod Succ 40 MG VIAL IVP SCH (08:37)
[2019-04-18] MEDS: Ferrous Sulfate 325 MG TAB PO SCH (08:37)
[2019-04-18] MEDS: Insulin Glargine 35 UNITS in Pre-Filled Syringe 1 EACH SC SCH (08:40)
[2019-04-18] MEDS: cefTRIAXone\\ROCEPHIN 1 GM in Sodium Chloride 0.9% 100 ML IVPB SCH (08:43)
--- NOTE | 2019-04-18 08:55 | PRG ---
DATE OF SERVICE: 04/17/2019 SUBJECTIVE: Jeancarlos Schmidt slept with BiPAP all day yesterday and last night and awake and oriented and back to his baseline or close to it. No longer confused. OBJECTIVE: VITAL SIGNS: Heart rate in the 70s, blood pressure 130/67, respiratory rates in the low 20s, oximetry 97% to 100% this morning. LUNGS: Clear. HEART: Regular rhythm. ABDOMEN: Soft. LABORATORY DATA: White count 19.7, hemoglobin 7.7, platelets 243,000. Sodium 138, potassium 4.4, chloride 99, bicarb 29, BUN 91, creatinine 3.21. IMPRESSION: 1. Status post [id number] arrest. 2. Cardiomyopathy, likely ischemic. 3. Chronic kidney disease. I would agree with Dr. Hay that cardiac catheterization would likely lead to progression to renal failure. 4. discuss with Cardiology. Overall, I am pleased that he improved. 5. Sleep apnea. He is refusing BiPAP, but complied with BiPAP yesterday and last night and we will this. Job ID: [id number]
--- NOTE | 2019-04-18 09:40 | RAD ---
SINGLE VIEW OF THE CHEST: COMPARISON: 04/17/2019. HISTORY: Ventilated patient with respiratory failure. FINDINGS: A single view of the chest shows a cardiomediastinal silhouette which is upper limits of normal in si ze. The patient is status post sternotomy. The central venous catheter is unchanged in position. T here is elevation of the right hemidiaphragm. There is no evidence of consolidation, mass, or pleura l effusion. IMPRESSION: Stable exam. POS: C
--- NOTE | 2019-04-18 11:28 | PDOC.HOSPP ---
- Subjective Encounter Date: 04/18/19 Encounter Time: 11:27 Subjective: Mr. Schmidt was seen today in follow-up of cardiac arrest due to VFIB. He is awake and alert. He notes some chest discomfort and dyspnea. He says it has been off and on. He is oriented today. - Objective Vital Signs & Weight: Vital Signs (12 hours) Temp Pulse Resp BP Pulse Ox 04/18/19 10:24 112 H 25 H 99 04/18/19 08:00 130/64 04/18/19 07:48 92 L 04/18/19 07:47 118 H 24 H 98 04/18/19 07:15 97 04/18/19 07:00 97.4 F L 04/18/19 04:00 98.1 F 04/18/19 02:42 79 20 96 04/18/19 00:00 97.8 F Weight Admit Weight 308 lb 10.354 oz Weight 292 lb 15.909 oz Most Recent Monitor Data Heart Rate from ECG 118 NIBP 118/87 NIBP BP-Mean 97 Respiration from ECG 25 SpO2 97 I&O: 04/17/19 04/18/19 04/19/19 06:59 06:59 06:59 Intake Total 1588 3500 180 Output Total 3030 2040 380 Balance -1442 1460 -200 Result Diagrams: 04/18/19 04:18 04/18/19 04:18 Additional Labs: Accuchecks 04/17/19 04/17/19 21:21 16:40 POC Glucose 247 H 289 H Hospitalist ROS - Medication Medications: Active Medications Generic Name Dose Route Start Last Admin Trade Name Freq PRN Reason Stop Dose Admin Acetaminophen/Codeine Phosphate 1 tab 04/13/19 03:17 04/14/19 17:45 Tylenol #3 PO 1 tab Q6H PRN Administration Pain Albuterol/Ipratropium 3 ml 04/15/19 14:30 04/18/19 10:24 Duoneb NEB 3 ml [id number] [facility] Administration Allopurinol 100 mg 04/12/19 09:00 04/18/19 08:36 Zyloprim PO 100 mg DAILY [facility] Administration Alprazolam 0.25 mg 04/15/19 12:44 04/15/19 13:26 Xanax PO 0.25 mg TIDPRN PRN Administration Anxiety Carvedilol 6.25 mg 04/14/19 08:00 04/18/19 08:00 Coreg PO 6.25 mg BID-WM [facility] Administration Famotidine 20 mg 04/14/19 09:00 04/18/19 08:36 Pepcid PO 20 mg DAILY [facility] Administration Ferrous Sulfate 325 mg 04/16/19 08:00 04/18/19 08:37 Feosol PO 325 mg QAM-WM [facility] Administration Guaifenesin/Dextromethorphan 15 ml 04/14/19 15:29 04/14/19 23:19 Robitussin Dm PO 10 ml Q4H PRN Administration Cough Heparin Sodium (Porcine) 0 units 04/13/19 15:00 04/13/19 22:13 Heparin 1,000 Units/Ml (10 Ml) SLOW IVP 4,000 unit [facility] Administration Ceftriaxone Sodium 1 gm/ 100 mls @ 200 mls/hr 04/11/19 08:45 04/18/19 08:43 Sodium Chloride IVPB 100 mls Q24HR [facility] Administration Amiodarone HCl 450 mg/ 259 mls @ 0 mls/hr 04/13/19 01:30 04/18/19 02:28 Miscellaneous Medication 1 IVPB 259 mls each/ Dextrose/Water INF [facility] Administration Protocol As Directed Heparin Sodium/Dextrose 500 mls @ 0 mls/hr 04/13/19 15:00 04/18/19 07:55 Heparin 25,000 Units/D5w 500 Ml IV 500 mls INF [facility] Administration Protocol As Directed Nitroglycerin/Dextrose 250 mls @ 0 mls/hr 04/13/19 16:30 04/13/19 16:25 Nitroglycerin 50 Mg/250 Ml Bot IVPB 250 mls INF [facility] Administration Protocol As Directed Dexmedetomidine HCl 400 mcg/ 100 mls @ 0 mls/hr 04/16/19 05:15 04/16/19 22:52 Sodium Chloride IVPB 100 mls INF [facility] Administration Protocol Titrate Insulin Glargine 35 units/ 0.35 mls @ 0 mls/hr 04/16/19 21:00 04/18/19 08:40 Miscellaneous Medication SC 0.35 mls BID [facility] Administration Insulin Human Lispro 0 units 04/11/19 10:59 04/17/19 16:42 Humalog SC 9 unit .AGGRESSIVE SLIDING PRN Administration Aggressive Correctional Scale Insulin Human Lispro 0 units 04/11/19 10:59 04/17/19 21:34 Humalog SC 2 unit .BEDTIME SLIDING SC PRN Administration Bedtime Correctional Scale Labetalol HCl 10 mg 04/13/19 10:08 04/15/19 16:28 Normodyne SLOW IVP 10 mg Q4H PRN Administration SBP Greater Than 170 Lorazepam 1 mg 04/15/19 10:22 04/15/19 23:05 Ativan SLOW IVP 1 mg Q6H PRN Administration Anxiety/Agitation Methylprednisolone Sodium Succinate 20 mg 04/16/19 09:00 04/18/19 08:37 Solu-Medrol IVP 20 mg DAILY [facility] Administration Propofol 1,000 mg 04/11/19 06:15 04/11/19 23:40 Diprivan IV 05/11/19 06:15 1,000 mg INF PRN Administration TO ACHIEVE GOAL RASS Protocol Ziprasidone 10 mg 04/15/19 10:22 04/15/19 22:39 Geodon IM 10 mg Q4H PRN Administration Agitation - Exam Eye: PERRL, anicteric sclera Heart: RRR, no rubs, normal peripheral pulses, murmur present, II/IV (+ occasional S3,) Respiratory: CTAB, no wheezes, no rales, no ronchi, normal chest expansion Gastrointestinal: soft, non-tender, non-distended, normal bowel sounds, no palpable masses, no hepatomegaly Extremities: no cyanosis, no clubbing, 1+ LE edema Hosp A/P (1) Cardiac arrest Code(s): I46.9 - CARDIAC ARREST, CAUSE UNSPECIFIED Status: Acute (2) CAD (coronary artery disease) Code(s): I25.10 - ATHSCL HEART DISEASE OF [place] CORONARY ARTERY W/O ANG PCTRS Status: Acute (3) Chronic kidney disease, stage 4, severely decreased GFR Code(s): N18.4 - CHRONIC KIDNEY DISEASE, STAGE 4 (SEVERE) Status: Chronic (4) DM2 (diabetes mellitus, type 2) Status: Chronic Qualifiers: (5) Paroxysmal atrial fibrillation Code(s): I48.0 - PAROXYSMAL ATRIAL FIBRILLATION Status: Chronic (6) Sleep apnea Code(s): G47.30 - SLEEP APNEA, UNSPECIFIED Status: Chronic (7) Hypertension Code(s): I10 - ESSENTIAL (PRIMARY) HYPERTENSION Status: Acute (8) Leukocytosis Code(s): D72.829 - ELEVATED WHITE BLOOD CELL COUNT, UNSPECIFIED Status: Acute - Plan * Cardiac Arrest- continue to monitor in the ICU * Discussed with Dr. Hay- he plans to discuss options again with the patient. I spoke with Mr. Schmidt about potential cardiac cath again. He is still concerned about worsening renal function which could leave him dialysis dependent. I explained to him that if he has another episode of VFIB it could result in . He states understanding, and will think about it some more * Leukocytosis- ? etiology- will check cultures and consider ID evaluation * Delirium- resolved. * DM-blood glucose remains elevated- will titrate Lantus * Chronic kidney disease stage 4- stable * HTN- blood pressure is better * Anemia- due to chronic kidney disease- continue Epogen as per Nephrology, and transfuse as necessary-continue iron supplementation
[2019-04-18] MEDS: Cefepime 1 GM in Sodium Chloride 0.9% 100 ML IVPB SCH (12:24)
[2019-04-18] MEDS: HumaLOG 300 UNITS/3 ML VIAL SC PRN ×2 (17:13→20:13)
[2019-04-18] MEDS: Heparin 10,000 UNITS/ 10 ML VIAL SLOW IVP SCH (18:04)
--- NOTE | 2019-04-18 19:28 | PRG ---
DATE OF SERVICE: 04/18/2019 SUBJECTIVE: The patient was seen and examined, with no new complaints. Noted to be hemodynamically stable. Noted with the following vital signs. OBJECTIVE: VITAL SIGNS: Afebrile, blood pressure 164/82, heart rate of 82, and O2 saturation 100% on BiPAP. HEENT: Unremarkable. CARDIOVASCULAR SYSTEM: First and second heart sounds were heard. RESPIRATORY SYSTEM: Clear to auscultation. DIGESTIVE SYSTEM: Revealed a benign abdomen with positive bowel sounds. EXTREMITIES: No peripheral edema. LABORATORY INVESTIGATION: Showed a creatinine of 3.34, BUN of 95. CBC showed a hemoglobin of 7.1 and white count of 32,000. IMPRESSION: 1. Acute on chronic kidney disease. 2. Anemia. 3. Significant leukocytosis. 4. Cardiac arrest in the context of ventricular fibrillation. 5. Paroxysmal atrial fibrillation. PLAN: 1. The patient likely to benefit from cardiac catheterization to potential nephrotoxic effect of contrast. However, if the patient's heart does not improve, renal function will not improve either due to cardiorenal syndrome. 2. Renally dose all medications. 3. We will continue to follow this patient closely. Job ID: [id number]
[2019-04-18] MEDS: Insulin Glargine 40 UNITS in Pre-Filled Syringe 1 EACH SC SCH (20:11)
[2019-04-18] MEDS: Guaifenesin DM 100-10/5 ML UDCUP PO PRN (20:11)
--- NOTE | 2019-04-18 20:34 | PDOC.CPN ---
- Subjective Date: 04/18/19 Time: 20:29 Interval history: He is doing well. No chest pain. - Review of Systems General: denies: fever/chills, weight/appetite/sleep changes, night sweats, fatigue Respiratory: denies: cough, congestion, shortness of breath, exercise intolerance Cardiovascular: denies: chest pain, palpitation, edema, paroxysmal nocturnal dyspnea, orthopnea Gastrointestinal: denies: nausea, vomiting, diarrhea, constipation, abd pain, GI bleeding Musculoskeletal: denies: pain, tenderness, stiffness, swelling, arthritis/ arthralgias Neurological: denies: numbness, syncope, seizure, weakness - Objective Allergies/Adverse Reactions: Allergies Allergy/AdvReac Type Severity Reaction Status Date / Time No Known Drug Allergies Allergy Verified 04/11/19 10:19 Visit Medications: Current Medications Acetaminophen/Codeine Phosphate (Tylenol #3) 1 tab PO Q6H PRN PRN Reason: Pain Last Admin: 04/14/19 17:45 Dose: 1 tab Albuterol/Ipratropium (Duoneb) 3 ml NEB [id number] [facility] Last Admin: 04/18/19 19:16 Dose: 3 ml Allopurinol (Zyloprim) 100 mg PO DAILY [facility] Last Admin: 04/18/19 08:36 Dose: 100 mg Alprazolam (Xanax) 0.25 mg PO TIDPRN PRN PRN Reason: Anxiety Last Admin: 04/15/19 13:26 Dose: 0.25 mg Carvedilol (Coreg) 6.25 mg PO BID[facility] Last Admin: 04/18/19 17:13 Dose: 6.25 mg Dextrose/Water (Dextrose 50%) 25 gm SLOW IVP PRN PRN PRN Reason: Hypoglycemia Epoetin Tan-epbx (Retacrit) 10,000 unit SC TTA [facility] Famotidine (Pepcid) 20 mg PO DAILY [facility] Last Admin: 04/18/19 08:36 Dose: 20 mg Ferrous Sulfate (Feosol) 325 mg PO QAM[facility] Last Admin: 04/18/19 08:37 Dose: 325 mg Glucagon (Glucagon) 1 mg IM PRN PRN PRN Reason: Hypoglycemia Guaifenesin/Dextromethorphan (Robitussin Dm) 15 ml PO Q4H PRN PRN Reason: Cough Last Admin: 04/18/19 20:11 Dose: 15 ml Heparin Sodium (Porcine) (Heparin 1,000 Units/Ml (10 Ml)) 0 units SLOW IVP [facility] Last Admin: 04/18/19 18:04 Dose: 4,000 unit Dextrose/Water (D5w) 1,000 mls @ 0 mls/hr IV .Q0M PRN PRN Reason: Hypoglycemia Norepinephrine Bitartrate (Levophed) 250 mls @ 0 mls/hr IVPB INF [facility]; Protocol Amiodarone HCl 450 mg/Miscellaneous Medication 1 each/ Dextrose/Water 259 mls @ 0 mls/hr IVPB INF [facility]; Protocol Last Admin: 04/18/19 19:43 Dose: 259 mls Heparin Sodium/Dextrose (Heparin 25,000 Units/D5w 500 Ml) 500 mls @ 0 mls/hr IV INF [facility]; Protocol Last Admin: 04/18/19 07:55 Dose: 500 mls Nitroglycerin/Dextrose (Nitroglycerin 50 Mg/250 Ml Bot) 250 mls @ 0 mls/hr IVPB INF [facility]; Protocol Last Admin: 04/13/19 16:25 Dose: 250 mls Dexmedetomidine HCl 400 mcg/ (Sodium Chloride) 100 mls @ 0 mls/hr IVPB INF [facility] ; Protocol Last Admin: 04/16/19 22:52 Dose: 100 mls Insulin Glargine 40 units/ (Miscellaneous Medication) 0.4 mls @ 0 mls/hr SC BID [facility] Last Admin: 04/18/19 20:11 Dose: 0.4 mls Cefepime HCl 1 gm/ Sodium (Chloride) 100 mls @ 200 mls/hr IVPB 0100,1300 [facility] Last Admin: 04/18/19 12:24 Dose: 100 mls Insulin Human Lispro (Humalog) 0 units SC .AGGRESSIVE SLIDING PRN PRN Reason: Aggressive Correctional Scale Last Admin: 04/18/19 17:13 Dose: 6 unit Insulin Human Lispro (Humalog) 0 units SC .BEDTIME SLIDING SC PRN PRN Reason: Bedtime Correctional Scale Last Admin: 04/18/19 20:13 Dose: 2 unit Labetalol HCl (Normodyne) 10 mg SLOW IVP Q4H PRN PRN Reason: SBP Greater Than 170 Last Admin: 04/15/19 16:28 Dose: 10 mg Lorazepam (Ativan) 1 mg SLOW IVP Q6H PRN PRN Reason: Anxiety/Agitation Last Admin: 04/15/19 23:05 Dose: 1 mg Methylprednisolone Sodium Succinate (Solu-Medrol) 20 mg IVP DAILY [facility] Last Admin: 04/18/19 08:37 Dose: 20 mg Propofol (Diprivan) 1,000 mg IV INF PRN; Protocol PRN Reason: TO ACHIEVE GOAL RASS Stop: 05/11/19 06:15 Last Admin: 04/11/19 23:40 Dose: 1,000 mg Saccharomyces Boulardii (Florastor) 250 mg PO DAILY [facility] Sterile Water (Water For Injection) 1.2 ml FS PRN PRN PRN Reason: RECONSTITUTION Ziprasidone (Geodon) 10 mg IM Q4H PRN PRN Reason: Agitation Last Admin: 04/15/19 22:39 Dose: 10 mg Vital Signs & Weight: Vital Signs Temp Pulse Resp BP Pulse Ox 04/18/19 20:00 98.9 F 04/18/19 19:18 95 04/18/19 19:16 24 H 95 04/18/19 17:13 130/64 04/18/19 15:53 83 25 H 99 04/18/19 12:00 98.4 F 04/18/19 11:35 118 H 04/18/19 10:24 112 H 25 H 99 Admit Weight 308 lb 10.354 oz Weight 292 lb 15.909 oz - Physical Exam General: alert & oriented x3 HEENT: mucus membranes moist Neck: supple neck Cardiac: regular rate and rhythm Lungs: clear to auscultation Neuro: grossly intact Abdomen: active bowel sounds Extremities: no edema Skin: clear Musculoskeletal: no pain - Labs Result Diagrams: 04/18/19 04:18 04/18/19 04:18 Troponin/CKMB CK-MB (CK-2) 16.5 ng/mL (0-6.6) H* 04/13/19 13:52 Troponin I 15.949 ng/mL (< 0.028) H* 04/13/19 13:52 - Telemetry Sinus rhythms and dysrhythmias: sinus rhythm - Assessment/Plan Assessment/Plan: 1. Respiratory distress 2. VT 3. Out of hospital arrest 4. Acute on chronic renal failure. 5. Hyperkalemia 6. NSTEMI 7. CAD s/p single vessel CABG and residual 2 vessel disease. PLAN: - LV function is mildly reduced from original echo. Now at 45-50% from 50-55%. - I discussed case with Dr. Moore. He does not think his cardiac arrest was repeated to hyperkalemia as his K was normal on arrival and only increased after resucitation. He had a second episode of VT and his K was already normal at that time. This would mean most likely his VT and his arrest were ischemic in nature. - I spoke with Mr. Schmidt and his son about the situation and he tells me he wants to proceed with LHC. Reviewing records from [place] [id number] [place] he had ostial RCA and ostial LCx and had an off pump LOVE to LAD with plan to do ostial stents with protected LAD. - He understands risk of permanent hemodialysis after a contrast load needed for 2 vessel intervention would carry a 40% risk and he agrees to proceed. - Will plan on Blood transfusion and prepare for LHC and PCI to ostial LCx and Ostial RCA on Sunday. - Critical Care Time Critical care time (mins): 45
[2019-04-18] MEDS: ALPRAZolam 0.5 MG TAB PO SCH (21:28)
--- NOTE | 2019-04-18 21:39 | PRG ---
DATE OF SERVICE: 04/18/2019 SUBJECTIVE: Elvin Schmidt is a little more encephalopathic today, but he can be fairly focused in his conversations and fairly appropriate. He has a long history of multiple admissions, where he has become encephalopathic while he is in the ICU. His son thinks that alprazolam helps him, so we will start him tonight on some 0.5 mg of Xanax at bedtime. He usually takes 1 mg at home, but we will move into this gently. OBJECTIVE: LUNGS: Clear. HEART: Regular rhythm. ABDOMEN: Soft. EXTREMITIES: Unchanged. LABORATORY DATA: White count 32.5, hemoglobin 7.1, platelets 319. Electrolytes normal. Creatinine is 3.34. A pansensitive enterococcus grew out of his urine and Klebsiella and Macie grew out of his sputum. I do not think the sputum aspirates are necessarily pathogens. He has no infiltrates on his chest x-ray. IMPRESSION: 1. Status post cardiac arrest. 2. History of coronary artery disease. 3. History of cardiomyopathy. 4. Chronic kidney disease. 5. Leukocytosis with change in his antibiotics today. Infectious Disease was consulted. His blood cultures from admission remain negative. We will see how he does with his Xanax tonight and what his lab looks like tomorrow worrisome for a new infection anywhere at least at this point. Job ID: [id number] MTDD
--- NOTE | 2019-04-18 22:56 | CON ---
DATE OF CONSULTATION: 04/18/2019 REASON FOR CONSULTATION: Neutrophilia. HISTORY OF PRESENT ILLNESS: A 63-year-old with history of obesity hypoventilation syndrome, type 2 diabetes, and CKD stage 3 to 4, as well as prior history of bariatric sleeve and recent coronary bypass graft procedure done two months before in [place], who sustained [id number] cardiac arrest in his home. His son witnessed the event and proceeded to provide CPR until EMS arrived and they detected ventricular fibrillation. He was resuscitated, brought to the emergency room, lost pulse shortly before arrival and then he regained pulse after epinephrine. In the emergency room, he was afebrile. He was intubated on a ventilator with O2 sats in the 100s. BP is ranging from 80/50 to 120/64. Initial exam with bilateral inspiratory crackles. His abdomen was soft without rigidity. The patient was not responsive. The patient had an echocardiogram performed which showed EF 45% to 50%, some diastolic dysfunction, anterolateral hypokinesis. The patient had developed renal insufficiency and a dialysis catheter was placed in the groin. He also had triple-lumen catheter in the IJ position, left side. Cardiology evaluation judged that the ventricular fibrillation was probably precipitated by multiple factors including electrolyte abnormalities, sotalol with possible torsade. After discussion with patient, it was decided to continue medical therapy alone. He was given amiodarone p.o. He was extubated and he is now awake and alert. He recognizes his son, has a sense of humor. No headaches. No visual symptoms, sore throat, odynophagia, or dysphagia. He has chest pain in the anterior area probably related to CPR. No abdominal pain. Still has an indwelling Govea catheter with quite significant output. PAST MEDICAL HISTORY: Includes obesity, coronary artery disease with recent single-vessel bypass in [place], hypoventilation syndrome with hypercapnic respiratory insufficiency in the past which has led to admissions, type 2 diabetes, atrial fibrillation, hypertension, CKD stage 3 to 4. PAST SURGICAL HISTORY: Right nephrectomy, bariatric sleeve. tonsillectomy, coronary bypass surgery two months before. SOCIAL HISTORY: Retired. He used to live with family in the area. One drink per day. Former smoker. FAMILY HISTORY: Noncontributory. ALLERGIES: NONE. CURRENT MEDICATIONS: Includin. Acetaminophen. 2. DuoNeb. 3. Zyloprim. 4. Xanax. 5. Amiodarone. 6. Coreg. 7. Cefepime. 8. Precedex. 9. Retacrit. 10. Pepcid. 11. Feosol. 12. Robitussin. 13. Insulin. 14. Normodyne. 15. Ativan. 16. Medrol. 17. Levophed. PHYSICAL EXAMINATION: VITAL SIGNS: He has remained afebrile throughout the hospital stay. BP 160/82, pulse 82, respirations 32, O2 saturation 100. GENERAL: Appears chronically ill, but no acute distress. He has a right groin catheter, subclavian, internal jugular, IJ, left side, and has a Govea catheter. No areas of skin breakdown otherwise. No lymphadenopathy. HEENT: Ocular movements conjugate. Sclerae white. Conjunctivae normal. Oral cavity with still quite a few teeth in place with no oral lesions. No jugular vein distention. LUNGS: Symmetric air entry. No crackles or wheezing. S1 and S2. Diminished heart sounds. Systolic aortic murmur 2/6. No S3. ABDOMEN: Soft, not distended or tender. No ascites. No bladder distention. No joint inflammatory activity. Trace edema in lower extremities. Pulses 1+ in dorsalis pedis. Moves all extremities equally. Plantar responses are flexor. No clonus. Awake, alert, oriented. Speech appears to be normal. Recollection normal. LABORATORY STUDIES: White cell count is 19,000, went down to 19 and now is up to 32; hemoglobin 7.1; platelets 319, with decrease in neutrophil percentage to 51; bands are 9. Creatinine is at 3.34. Albumin 3.3. Urinalysis with greater than 50 wbc's. Microbiology with Klebsiella and Macie albicans. Urine culture with E faecalis from April 11. This was a Govea catheter sample and more than 100, 000 CFUs noted. The latest chest x-ray from this morning with upper limits of normal size in the cardiomediastinal silhouette. CV catheter unchanged position, elevation of right hemidiaphragmatic but no consolidation. ASSESSMENT: 1. Obesity hypoventilation syndrome, type 2 diabetes, recent bypass graft surgery, electrolyte abnormality, renal insufficiency, and possible electrolyte/sotalol induced ventricular tachycardia with in the field cardiac arrest with successful resuscitation. 2. Worsening neutrophilia. 3. Renal insufficiency requiring placement of hemodialysis catheter with polyuric acute renal failure superimposed on chronic renal failure. DISCUSSION: The differential diagnosis includes neutrophilia associated with demargination effects of corticosteroid, Medrol, which has been started about 2 days ago as the more likely scenario. Other possibilities would be central line colonization with bacteremia fungemia. This appears to be less likely. He is still at risk for those complications as long as those catheters remain in place, particularly the femoral catheter. Hopefully, his renal function will stabilize and improve in the lateral removal of the femoral catheter soon. Other possibilities include pneumonia appear to be less likely. Intraabdominal inflammatory process is not apparent at this time. I would advise at this point in time, discontinuation of antimicrobial therapy and monitoring his status. Discontinuation of the femoral catheter, as well as corticosteroids would be advisable to decrease the risk of nosocomial complications. Job ID: [id number] LYNN
[2019-04-18] MEDS: Labetalol HCl 100 MG/20 ML VIAL SLOW IVP PRN (23:46)
[2019-04-19 00:58] LABS: PTT Greater than 250.0 SEC (22.9-36.1)
[2019-04-19] MEDS: Cefepime 1 GM in Sodium Chloride 0.9% 100 ML IVPB SCH ×2 (01:56→12:40)
[2019-04-19 04:12] LABS: Albumin 3.1 g/dL (3.4-4.8); Anion Gap 14 mmol/L (10-20); BUN (Urea Nitrogen) 86 mg/dL (8.4-25.7); BUN/Creatinine Ratio 26.46; Calc. Creatinine Clearance 44 mL/min (70-130); Calcium 8.7 mg/dL (7.8-10.44); Carbon Dioxide 28 mmol/L (23-31); Chloride 100 mmol/L (98-107); Estimated GFR-MDRD 24; Glucose 68 mg/dL (80-115); Phosphorus 4.8 mg/dL (2.3-4.7); Potassium 3.6 mmol/L (3.5-5.1); Sodium 138 mmol/L (136-145)
[2019-04-19 05:33] LABS: Band 16 % (5-11); Eosinophils 2 % (0-10); Hemoglobin 8.4 g/dL (14.0-18.0); Lymphocytes 24 % (21-51); MDiff Complete? YES; Mean Corpuscular HGB CONC 32.1 g/dL (32.0-36.0); Mean Corpuscular Hemoglobin 31.2 pg (27.0-31.0); Mean Platelet Volume 7.4 fL (7.4-10.4); Monocytes 8 % (0-10); Myelocyte 1 % (0-0); Neutrophil 49 % (42-75); Platelet Count 299 thou/uL (130-400); Platelet Morphology Comment Appears Adequate; Polychromasia SLIGHT = 2-3 cells (100X) (0-2/hpf); White Blood Cell (WBC) Count 27.7 thou/uL (4.8-10.8)
--- NOTE | 2019-04-19 10:14 | RAD ---
PORTABLE UPRIGHT FRONTAL CHEST RADIOGRAPH: 04/19/2019 HISTORY: Respiratory distress. COMPARISON: 04/18/2019 FINDINGS: Stable left sided vascular catheter. Stable midline sternotomy wires. Stable elevation of the right h emidiaphragm limits assessment of the right lung base. Mild stable streaky opacity in the left base n oted. IMPRESSION: No significant interval change. POS: [facility]
[2019-04-19] MEDS: Insulin Glargine 40 UNITS in Pre-Filled Syringe 1 EACH SC SCH ×2 (10:29→21:14)
[2019-04-19] MEDS: Saccharomyces boulardii 250 MG CAP PO SCH (10:30)
[2019-04-19] MEDS: Allopurinol 100 MG TAB PO SCH (10:31)
[2019-04-19] MEDS: Carvedilol 6.25 MG TAB PO SCH ×2 (10:31→18:31)
[2019-04-19] MEDS: Ferrous Sulfate 325 MG TAB PO SCH (10:31)
[2019-04-19] MEDS: Famotidine 20 MG TAB PO SCH (10:31)
[2019-04-19] MEDS: methylPREDNISolone Sod Succ 40 MG VIAL IVP SCH (10:32)
[2019-04-19] MEDS: Amiodarone 450 MG, Admixture Fee 1 EACH in Dextrose 5% in Water 250 ML IVPB SCH (10:34)
[2019-04-19 11:41] LABS: Hemoglobin 8.8 g/dL (14.0-18.0); Platelet Count 296 thou/uL (130-400)
[2019-04-19 13:37] LABS: PTT 132.1 SEC (22.9-36.1)
--- NOTE | 2019-04-19 16:20 | PDOC.HOSPP ---
- Subjective Encounter Date: 04/19/19 Encounter Time: 10:45 Subjective: Pt seen in f/u of chest pain The patient continues to have chest pain on the left side of his chest that is intermittent. He says he has still not decided about whether he wants a cardiac cath or not and is thinking about it. The patient mentions he has a cough with some ibarra phlegm. - Objective Vital Signs & Weight: Vital Signs (12 hours) Temp Pulse Resp BP Pulse Ox 04/19/19 14:48 87 24 H 04/19/19 12:00 98.4 F 04/19/19 10:31 129/83 04/19/19 10:27 93 24 H 92 L 04/19/19 08:02 87 14 04/19/19 07:00 98.8 F 04/19/19 06:00 98.8 F Weight Admit Weight 308 lb 10.354 oz Weight 291 lb 10.745 oz Most Recent Monitor Data Heart Rate from ECG 85 NIBP 157/98 NIBP BP-Mean 117 Respiration from ECG 25 SpO2 100 I&O: 04/18/19 04/19/19 04/20/19 06:59 06:59 06:59 Intake Total 3500 2980 340 Output Total 2040 2270 770 Balance 1460 710 -430 Result Diagrams: 04/19/19 11:23 04/19/19 03:30 Additional Labs: Accuchecks 04/19/19 04/19/19 04/18/19 10:29 06:11 19:51 POC Glucose 200 H 87 229 H 04/18/19 04/18/19 04/18/19 16:19 09:57 06:36 POC Glucose 169 H 130 H 121 H Hospitalist ROS - Review of Systems Constitutional: denies: fever, chills - Medication Medications: Active Medications Generic Name Dose Route Start Last Admin Trade Name Freq PRN Reason Stop Dose Admin Acetaminophen/Codeine Phosphate 1 tab 04/13/19 03:17 04/14/19 17:45 Tylenol #3 PO 1 tab Q6H PRN Administration Pain Albuterol/Ipratropium 3 ml 04/15/19 14:30 04/19/19 14:48 Duoneb NEB 3 ml [id number] YOEL Administration Allopurinol 100 mg 04/12/19 09:00 04/19/19 10:31 Zyloprim PO 100 mg DAILY YOEL Administration Alprazolam 0.25 mg 04/15/19 12:44 04/15/19 13:26 Xanax PO 0.25 mg TIDPRN PRN Administration Anxiety Alprazolam 0.5 mg 04/18/19 21:00 04/18/19 21:28 Xanax PO 0.5 mg HS YOEL Administration Carvedilol 6.25 mg 04/14/19 08:00 04/19/19 10:31 Coreg PO 6.25 mg BID-WM YOEL Administration Famotidine 20 mg 04/14/19 09:00 04/19/19 10:31 Pepcid PO 20 mg DAILY YOEL Administration Ferrous Sulfate 325 mg 04/16/19 08:00 04/19/19 10:31 Feosol PO 325 mg QAM-WM YOEL Administration Guaifenesin/Dextromethorphan 15 ml 04/14/19 15:29 04/18/19 20:11 Robitussin Dm PO 15 ml Q4H PRN Administration Cough Heparin Sodium (Porcine) 0 units 04/13/19 15:00 04/18/19 18:04 Heparin 1,000 Units/Ml (10 Ml) SLOW IVP 4,000 unit WILLCALL YOEL Administration Amiodarone HCl 450 mg/ 259 mls @ 0 mls/hr 04/13/19 01:30 04/19/19 10:34 Miscellaneous Medication 1 IVPB 259 mls each/ Dextrose/Water INF YOEL Administration Protocol As Directed Heparin Sodium/Dextrose 500 mls @ 0 mls/hr 04/13/19 15:00 04/18/19 21:28 Heparin 25,000 Units/D5w 500 Ml IV 500 mls INF YOEL Administration Protocol As Directed Nitroglycerin/Dextrose 250 mls @ 0 mls/hr 04/13/19 16:30 04/13/19 16:25 Nitroglycerin 50 Mg/250 Ml Bot IVPB 250 mls INF YOEL Administration Protocol As Directed Dexmedetomidine HCl 400 mcg/ 100 mls @ 0 mls/hr 04/16/19 05:15 04/16/19 22:52 Sodium Chloride IVPB 100 mls INF YOEL Administration Protocol Titrate Insulin Glargine 40 units/ 0.4 mls @ 0 mls/hr 04/18/19 21:00 04/19/19 10:29 Miscellaneous Medication SC 0.4 mls BID YOEL Administration Cefepime HCl 1 gm/ Sodium 100 mls @ 200 mls/hr 04/18/19 13:00 04/19/19 12:40 Chloride IVPB 100 mls 0100,1300 YOEL Administration Insulin Human Lispro 0 units 04/11/19 10:59 04/18/19 17:13 Humalog SC 6 unit .AGGRESSIVE SLIDING PRN Administration Aggressive Correctional Scale Insulin Human Lispro 0 units 04/11/19 10:59 04/18/19 20:13 Humalog SC 2 unit .BEDTIME SLIDING SC PRN Administration Bedtime Correctional Scale Labetalol HCl 10 mg 04/13/19 10:08 04/18/19 23:46 Normodyne SLOW IVP 10 mg Q4H PRN Administration SBP Greater Than 170 Lorazepam 1 mg 04/15/19 10:22 04/15/19 23:05 Ativan SLOW IVP 1 mg Q6H PRN Administration Anxiety/Agitation Methylprednisolone Sodium Succinate 20 mg 04/16/19 09:00 04/19/19 10:32 Solu-Medrol IVP 20 mg DAILY YOEL Administration Propofol 1,000 mg 04/11/19 06:15 04/11/19 23:40 Diprivan IV 05/11/19 06:15 1,000 mg INF PRN Administration TO ACHIEVE GOAL RASS Protocol Saccharomyces Boulardii 250 mg 04/19/19 09:00 04/19/19 10:30 Florastor PO 250 mg DAILY YOEL Administration Ziprasidone 10 mg 04/15/19 10:22 04/15/19 22:39 Geodon IM 10 mg Q4H PRN Administration Agitation - Exam General Appearance: NAD, awake alert Eye: PERRL, anicteric sclera ENT: normocephalic atraumatic, no oropharyngeal lesions Neck: no JVD Neck - other findings: left IJ Heart: RRR, no murmur, no gallops, no rubs Respiratory - other findings: bilateral rales at the bases Gastrointestinal: soft, non-tender, non-distended Extremities: no cyanosis, no clubbing, no edema Extremities - other findings: right femoral catheter Skin: normal turgor, no lesions, no rashes Neurological: cranial nerve grossly intact, normal sensation to touch, no focal deficits, no new deficit Hosp A/P - Plan Chest X ray 04/19: streaky opacity in the left base ECHO: EF 45-50, anterolateral hypokinesis, mild MR, mild TR, elevated RVSP This is a 63 year old male with past medical history of type II diabetes, atrial fibrillation, hypertension, SHANTE who presented with s/p cardiac arrest with ROSC Cardiac arrest secondary to vfib/hyperkalemia possible ischemic event Acute hypoxic respiratory failure from cardiac arrest vs pneumonia - cardiology plans for possible left heart cath on Sunday with PCI on Sunday. Continue heparin drip, amiodarone drip, beta-fidelia - continue IV cefepime day 2. Patient is on BIPAP at night at home, but not on oxygen during day. Continue to wean oxygen to maintain sat > 92% Leukocytosis - improving -- patient's WBC has improved to 27, was started on cefepime 04/18. Chest X ray showing possible opacity in left base. Will continue for now. - ID consulted, will discontinue steroids Acute Kidney Injury on CKD stage III-IV - improving - creatinine 3.25, continue to trend BMP - likely from cardiac arrest - nephrology following Vfib - on amiodarone Anemia- Hb 8.4/26. Stable currently Code status: full code
[2019-04-19] MEDS: Heparin 25,000 units/D5W 500 ML IV SCH (16:48)
--- NOTE | 2019-04-19 17:33 | EKG ---
Test Reason : Blood Pressure : / mmHG Vent. Rate : 070 BPM Atrial Rate : 066 BPM P-R Int : 000 ms QRS Dur : 098 ms QT Int : 412 ms P-R-T Axes : 000 031 211 degrees QTc Int : 444 ms Atrial fibrillation Abnormal ECG Confirmed by GEORGETTE KENNY M.D. ([id number]), desk editor FERNANDEZ JENKINS ([id number]) on 04/19/2019 5:33:08 PM Referred By: Confirmed By:GEORGETTE KENNY M.D.
--- NOTE | 2019-04-19 17:35 | EKG ---
Test Reason : Blood Pressure : / mmHG Vent. Rate : 061 BPM Atrial Rate : 039 BPM P-R Int : 000 ms QRS Dur : 104 ms QT Int : 448 ms P-R-T Axes : 000 033 229 degrees QTc Int : 450 ms Undetermined rhythm Abnormal ECG Confirmed by GEORGETTE KENNY M.D. ([id number]), food expeditor FERNANDEZ JENKINS ([id number]) on 04/19/2019 5:34:42 PM Referred By: Confirmed By:GEORGETTE KENNY M.D.
--- NOTE | 2019-04-19 17:51 | PRG ---
DATE OF SERVICE: 04/19/2019 SUBJECTIVE: Elvin Schmidt did better today. He is more lucid. He says he slept better last night. OBJECTIVE: VITAL SIGNS: Heart rate is in 80s, respiratory rate in 20s, blood pressure 157/98. LUNGS: Clear. HEART: Regular rhythm. ABDOMEN: Soft. EXTREMITIES: Without asymmetry. LABORATORY DATA: White count 27, hemoglobin 8.4, platelets 299. Hemoglobin was 8.4 this morning, 8.8 at noon. Electrolytes are unremarkable. BUN 86, creatinine 3.25. IMPRESSION: 1. Status post cardiac arrest. 2. Cardiomyopathy. 3. Chronic kidney disease. 4. History of coronary artery disease. 5. 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 6. His leukocytosis is improved. Blood cultures from yesterday are negative. Urine culture from yesterday is negative. He has no new localizing exam findings. Job ID: [id number]
--- NOTE | 2019-04-19 18:29 | PDOC.CPN ---
- Subjective Date: 04/19/19 Time: 18:26 Interval history: no angina. no syncope. Having more phlegm production. - Review of Systems General: denies: fever/chills, weight/appetite/sleep changes, night sweats, fatigue Respiratory: reports: cough, congestion. denies: shortness of breath, exercise intolerance Cardiovascular: denies: chest pain, palpitation, edema, paroxysmal nocturnal dyspnea, orthopnea Gastrointestinal: denies: nausea, vomiting, diarrhea, constipation, abd pain, GI bleeding Musculoskeletal: denies: pain, tenderness, stiffness, swelling, arthritis/ arthralgias Neurological: denies: numbness, syncope, seizure, weakness - Objective Allergies/Adverse Reactions: Allergies Allergy/AdvReac Type Severity Reaction Status Date / Time No Known Drug Allergies Allergy Verified 04/11/19 10:19 Visit Medications: Current Medications Acetaminophen/Codeine Phosphate (Tylenol #3) 1 tab PO Q6H PRN PRN Reason: Pain Last Admin: 04/14/19 17:45 Dose: 1 tab Albuterol/Ipratropium (Duoneb) 3 ml NEB [id number] [facility] Last Admin: 04/19/19 14:48 Dose: 3 ml Allopurinol (Zyloprim) 100 mg PO DAILY [facility] Last Admin: 04/19/19 10:31 Dose: 100 mg Alprazolam (Xanax) 0.25 mg PO TIDPRN PRN PRN Reason: Anxiety Last Admin: 04/15/19 13:26 Dose: 0.25 mg Alprazolam (Xanax) 0.5 mg PO HS [facility] Last Admin: 04/18/19 21:28 Dose: 0.5 mg Carvedilol (Coreg) 6.25 mg PO BID-[facility] Last Admin: 04/19/19 10:31 Dose: 6.25 mg Dextrose/Water (Dextrose 50%) 25 gm SLOW IVP PRN PRN PRN Reason: Hypoglycemia Epoetin Tan-epbx ([facility]acrit) 10,[facility] Famotidine (Pepcid) 20 mg PO DAILY [facility] Last Admin: 04/19/19 10:31 Dose: 20 mg Ferrous Sulfate (Feosol) 325 mg PO QAM-[facility] Last Admin: 04/19/19 10:31 Dose: 325 mg Glucagon (Glucagon) 1 mg IM PRN PRN PRN Reason: Hypoglycemia Guaifenesin/Dextromethorphan (Robitussin Dm) 15 ml PO Q4H PRN PRN Reason: Cough Last Admin: 04/18/19 20:11 Dose: 15 ml Heparin Sodium (Porcine) (Heparin 1,000 Units/Ml (10 Ml)) 0 units SLOW IVP WILLCALL YOEL Last Admin: 04/18/19 18:04 Dose: 4,000 unit Dextrose/Water (D5w) 1,000 mls @ 0 mls/hr IV .Q0M PRN PRN Reason: Hypoglycemia Amiodarone HCl 450 mg/Miscellaneous Medication 1 each/ Dextrose/Water 259 mls @ 0 mls/hr IVPB INF YOEL; Protocol Last Admin: 04/19/19 10:34 Dose: 259 mls Heparin Sodium/Dextrose (Heparin 25,000 Units/D5w 500 Ml) 500 mls @ 0 mls/hr IV INF YOEL; Protocol Last Admin: 04/19/19 16:48 Dose: 500 mls Insulin Glargine 40 units/ (Miscellaneous Medication) 0.4 mls @ 0 mls/hr SC BID YOEL Last Admin: 04/19/19 10:29 Dose: 0.4 mls Cefepime HCl 1 gm/ Sodium (Chloride) 100 mls @ 200 mls/hr IVPB 0100,1300 YOEL Last Admin: 04/19/19 12:40 Dose: 100 mls Insulin Human Lispro (Humalog) 0 units SC .AGGRESSIVE SLIDING PRN PRN Reason: Aggressive Correctional Scale Last Admin: 04/18/19 17:13 Dose: 6 unit Insulin Human Lispro (Humalog) 0 units SC .BEDTIME SLIDING SC PRN PRN Reason: Bedtime Correctional Scale Last Admin: 04/18/19 20:13 Dose: 2 unit Labetalol HCl (Normodyne) 10 mg SLOW IVP Q4H PRN PRN Reason: SBP Greater Than 170 Last Admin: 04/18/19 23:46 Dose: 10 mg Lorazepam (Ativan) 1 mg SLOW IVP Q6H PRN PRN Reason: Anxiety/Agitation Last Admin: 04/15/19 23:05 Dose: 1 mg Propofol (Diprivan) 1,000 mg IV INF PRN; Protocol PRN Reason: TO ACHIEVE GOAL RASS Stop: 05/11/19 06:15 Last Admin: 04/11/19 23:40 Dose: 1,000 mg Saccharomyces Bojackdii (Florastor) 250 mg PO DAILY YOEL Last Admin: 04/19/19 10:30 Dose: 250 mg Senna (Senokot) 1 tab PO BID [facility] Sterile Water (Water For Injection) 1.2 ml FS PRN PRN PRN Reason: RECONSTITUTION Ziprasidone (Geodon) 10 mg IM Q4H PRN PRN Reason: Agitation Last Admin: 04/15/19 22:39 Dose: 10 mg Vital Signs & Weight: Vital Signs Temp Pulse Resp BP Pulse Ox 04/19/19 14:48 87 24 H 04/19/19 12:00 98.4 F 04/19/19 10:31 129/83 04/19/19 10:27 93 24 H 92 L 04/19/19 08:02 87 14 04/19/19 07:00 98.8 F Admit Weight 308 lb 10.354 oz Weight 291 lb 10.745 oz - Physical Exam General: alert & oriented x3 HEENT: mucus membranes moist Neck: supple neck Cardiac: regular rate and rhythm Lungs: normal breath sounds Neuro: grossly intact Abdomen: active bowel sounds Extremities: 1+ LE edema Skin: clear Musculoskeletal: no pain - Labs Result Diagrams: 04/19/19 11:23 04/19/19 03:30 Troponin/CKMB CK-MB (CK-2) 16.5 ng/mL (0-6.6) H* 04/13/19 13:52 Troponin I 15.949 ng/mL (< 0.028) H* 04/13/19 13:52 - Telemetry Sinus rhythms and dysrhythmias: sinus rhythm - Assessment/Plan Assessment/Plan: 1. Respiratory distress 2. VT 3. Out of hospital arrest 4. Acute on chronic renal failure. 5. Hyperkalemia 6. NSTEMI 7. CAD s/p single vessel CABG and residual 2 vessel disease. PLAN: - He has ostial LCx and ostial RCA disease. he also had ostial LAD but had an of pump LOVE to LAD. - Will attempt PCI to LCx and/or RCA Sunday - I had planned to give blood transfusion but Hgb closer to 9 now. - Continue other meds. - Critical Care Time Critical care time (mins): 30
[2019-04-19] MEDS: HumaLOG 300 UNITS/3 ML VIAL SC PRN ×2 (18:32→21:15)
[2019-04-19] MEDS: Senokot 8.6 MG TAB PO SCH (21:18)
[2019-04-19] MEDS: ALPRAZolam 0.5 MG TAB PO SCH (21:26)
[2019-04-20] MEDS: Cefepime 1 GM in Sodium Chloride 0.9% 100 ML IVPB SCH ×2 (02:00→12:45)
[2019-04-20] MEDS: Amiodarone 450 MG, Admixture Fee 1 EACH in Dextrose 5% in Water 250 ML IVPB SCH ×2 (02:19→12:45)
[2019-04-20 05:21] LABS: Mean Corpuscular Volume 97.7 fL (78.0-98.0)
[2019-04-20 05:24] LABS: Anion Gap 13 mmol/L (10-20); BUN (Urea Nitrogen) 79 mg/dL (8.4-25.7); BUN/Creatinine Ratio 23.51; Calc. Creatinine Clearance 43 mL/min (70-130); Calcium 8.6 mg/dL (7.8-10.44); Carbon Dioxide 27 mmol/L (23-31); Chloride 99 mmol/L (98-107); Estimated GFR-MDRD 23; Glucose 212 mg/dL (80-115); Phosphorus 5.2 mg/dL (2.3-4.7); Potassium 4.6 mmol/L (3.5-5.1); Sodium 134 mmol/L (136-145)
[2019-04-20 06:08] LABS: Hemoglobin 7.6 g/dL (14.0-18.0); Mean Corpuscular HGB CONC 32.6 g/dL (32.0-36.0); Mean Corpuscular Hemoglobin 31.9 pg (27.0-31.0); Mean Platelet Volume 7.2 fL (7.4-10.4); Platelet Count 285 thou/uL (130-400); RBC Distribution Width 14.9 % (11.5-14.5); Red Blood Cell (RBC) Count 2.37 mill/uL (4.70-6.10); White Blood Cell (WBC) Count 25.9 thou/uL (4.8-10.8)
[2019-04-20 06:17] LABS: PTT 146.5 SEC (22.9-36.1)
[2019-04-20] MEDS: HumaLOG 300 UNITS/3 ML VIAL SC PRN ×3 (06:24→20:42)
[2019-04-20 07:18] LABS: Band 4 % (5-11); Lymphocytes 15 % (21-51); MDiff Complete? YES; Monocytes 8 % (0-10); Neutrophil 73 % (42-75)
[2019-04-20] MEDS: Carvedilol 6.25 MG TAB PO SCH ×2 (09:09→17:21)
[2019-04-20] MEDS: Ferrous Sulfate 325 MG TAB PO SCH (09:09)
[2019-04-20] MEDS: Famotidine 20 MG TAB PO SCH (09:11)
[2019-04-20] MEDS: Saccharomyces boulardii 250 MG CAP PO SCH (09:11)
[2019-04-20] MEDS: Senokot 8.6 MG TAB PO SCH ×3 (09:11→20:51)
[2019-04-20] MEDS: Allopurinol 100 MG TAB PO SCH (09:11)
[2019-04-20] MEDS: Insulin Glargine 40 UNITS in Pre-Filled Syringe 1 EACH SC SCH ×2 (10:42→20:41)
[2019-04-20] MEDS: Heparin 25,000 units/D5W 500 ML IV SCH (12:44)
--- NOTE | 2019-04-20 15:00 | PRG ---
DATE OF SERVICE: 04/20/2019 SUBJECTIVE: The patient is sitting by the bedside with the son. He appears in no distress. No chest pain, except for the ones associated with the CPR that was given for the [id number] cardiac arrest. Little bit of cough. No abdominal pain. Still has a Govea catheter in place. Has not been dialyzed again since last one a few days ago. OBJECTIVE: VITAL SIGNS: T-max 98.6, blood pressure 140/90, pulse 76, respirations 17, O2 saturation 100. GENERAL: The patient has a triple-lumen IJ catheter in the left side Govea catheter. LUNGS: Symmetric air entry. HEART: S1, S2. Regular rate. Sternotomy site appears okay. ABDOMEN: Soft. May be moderately distended. EXTREMITIES: Moves extremities equally. 1+ edema in lower extremities. LABORATORY DATA: White cell count is at 25.9, hemoglobin 7.6, platelets 285 with 73% neutrophils and creatinine 3.36, is kind of stable compared to the past values. Sodium 134, albumin 3.0. Microbiology with negative blood cultures. He is still on cefepime. His repeat chest x-ray from yesterday with vascular catheter, midline sternotomy wires, elevation of right hemidiaphragm, streaky opacity in the left base. ASSESSMENT AND DISCUSSION: Obesity hypoventilation syndrome, type 2 diabetes, recent single-vessel bypass graft surgery in [place] with [id number] ventricular tachycardia/cardiac arrest with successful resuscitation, renal insufficiency requiring hemodialysis catheter. Does not require dialysis, except for one episode of neutrophilia, which is probably associated with the acute event, and methylprednisolone has been discontinued. Possibility of early pneumonitis is also another concern. I think, he is scheduled for a catheterization with possible intervention in the near future. Job ID: [id number] [facility]
--- NOTE | 2019-04-20 15:32 | PDOC.HOSPP ---
- Subjective Encounter Date: 04/20/19 Encounter Time: 13:00 Subjective: F/u: cardiac arrest THe patient is doing well, no chest pain or shortness of breath. Urine output is adequate. The patient states he has decided to proceed with cardiac cath. Son is concerned and wants patient to go to rehab afterwards because he had multiple falls at home in the past. He was getting cardiac rehab prior to admission - Objective Vital Signs & Weight: Vital Signs (12 hours) Temp Pulse Resp BP Pulse Ox 04/20/19 14:57 77 17 04/20/19 10:47 75 23 H 04/20/19 09:09 148/77 H 04/20/19 08:00 100 04/20/19 07:32 82 19 04/20/19 07:00 97.9 F 04/20/19 05:00 98.5 F 04/20/19 03:57 100 Weight Admit Weight 308 lb 10.354 oz Weight 292 lb 1.8 oz Most Recent Monitor Data Heart Rate from ECG 76 NIBP 148/95 NIBP BP-Mean 112 Respiration from ECG 17 SpO2 100 I&O: 04/19/19 04/20/19 04/21/19 06:59 06:59 06:59 Intake Total 2980 1552 640 Output Total 2270 1970 575 Balance 710 -418 65 Result Diagrams: 04/20/19 04:40 04/20/19 04:40 Additional Labs: Accuchecks 04/19/19 04/19/19 21:15 16:07 POC Glucose 390 H 366 H Hospitalist ROS - Review of Systems Constitutional: denies: fever, chills - Medication Medications: Active Medications Generic Name Dose Route Start Last Admin Trade Name Freq PRN Reason Stop Dose Admin Acetaminophen/Codeine Phosphate 1 tab 04/13/19 03:17 04/14/19 17:45 Tylenol #3 PO 1 tab Q6H PRN Administration Pain Albuterol/Ipratropium 3 ml 04/15/19 14:30 04/20/19 14:57 Duoneb NEB 3 ml [id number] YOEL Administration Allopurinol 100 mg 04/12/19 09:00 04/20/19 09:11 Zyloprim PO 100 mg DAILY YOEL Administration Alprazolam 0.25 mg 04/15/19 12:44 04/15/19 13:26 Xanax PO 0.25 mg TIDPRN PRN Administration Anxiety Alprazolam 0.5 mg 04/18/19 21:00 04/19/19 21:26 Xanax PO 0.5 mg HS YOEL Administration Carvedilol 6.25 mg 04/14/19 08:00 04/20/19 09:09 Coreg PO 6.25 mg BID-WM YOEL Administration Famotidine 20 mg 04/14/19 09:00 04/20/19 09:11 Pepcid PO 20 mg DAILY YOEL Administration Ferrous Sulfate 325 mg 04/16/19 08:00 04/20/19 09:09 Feosol PO 325 mg QAM-WM YOEL Administration Guaifenesin/Dextromethorphan 15 ml 04/14/19 15:29 04/18/19 20:11 Robitussin Dm PO 15 ml Q4H PRN Administration Cough Heparin Sodium (Porcine) 0 units 04/13/19 15:00 04/18/19 18:04 Heparin 1,000 Units/Ml (10 Ml) SLOW IVP 4,000 unit WILLCALL YOEL Administration Amiodarone HCl 450 mg/ 259 mls @ 0 mls/hr 04/13/19 01:30 04/20/19 12:45 Miscellaneous Medication 1 IVPB 259 mls each/ Dextrose/Water INF YOEL Administration Protocol As Directed Heparin Sodium/Dextrose 500 mls @ 0 mls/hr 04/13/19 15:00 04/20/19 12:44 Heparin 25,000 Units/D5w 500 Ml IV 500 mls INF YOEL Administration Protocol As Directed Insulin Glargine 40 units/ 0.4 mls @ 0 mls/hr 04/18/19 21:00 04/20/19 10:42 Miscellaneous Medication SC 0.4 mls BID YOEL Administration Cefepime HCl 1 gm/ Sodium 100 mls @ 200 mls/hr 04/18/19 13:00 04/20/19 12:45 Chloride IVPB 100 mls 0100,1300 YOEL Administration Insulin Human Lispro 0 units 04/11/19 10:59 04/20/19 06:24 Humalog SC 3 unit .AGGRESSIVE SLIDING PRN Administration Aggressive Correctional Scale Insulin Human Lispro 0 units 04/11/19 10:59 04/19/19 21:15 Humalog SC 5 unit .BEDTIME SLIDING SC PRN Administration Bedtime Correctional Scale Labetalol HCl 10 mg 04/13/19 10:08 04/18/19 23:46 Normodyne SLOW IVP 10 mg Q4H PRN Administration SBP Greater Than 170 Lorazepam 1 mg 04/15/19 10:22 04/15/19 23:05 Ativan SLOW IVP 1 mg Q6H PRN Administration Anxiety/Agitation Propofol 1,000 mg 04/11/19 06:15 04/11/19 23:40 Diprivan IV 05/11/19 06:15 1,000 mg INF PRN Administration TO ACHIEVE GOAL RASS Protocol Saccharomyces Boulardii 250 mg 04/19/19 09:00 04/20/19 09:11 Florastor PO 250 mg DAILY YOEL Administration Senna 1 tab 04/19/19 21:00 04/20/19 09:11 Senokot PO Not Given BID YOEL Ziprasidone 10 mg 04/15/19 10:22 04/15/19 22:39 Geodon IM 10 mg Q4H PRN Administration Agitation - Exam General Appearance: NAD, awake alert Eye: PERRL, anicteric sclera ENT: normocephalic atraumatic, no oropharyngeal lesions Neck: no JVD Heart: RRR, no murmur, no gallops, no rubs Respiratory: CTAB, no wheezes, no rales, no ronchi Gastrointestinal: soft, non-tender, non-distended, normal bowel sounds Extremities: no cyanosis, no clubbing, no edema Skin: normal turgor, no lesions, no rashes Neurological: cranial nerve grossly intact, normal sensation to touch, no focal deficits, no new deficit Hosp A/P - Plan Chest X ray 04/19: streaky opacity in the left base ECHO: EF 45-50, anterolateral hypokinesis, mild MR, mild TR, elevated RVSP This is a 63 year old male with past medical history of type II diabetes, atrial fibrillation, hypertension, SHANTE who presented with s/p cardiac arrest with ROSC Cardiac arrest secondary to vfib/hyperkalemia possible ischemic event Acute hypoxic respiratory failure from cardiac arrest vs pneumonia - cardiology plans for possible left heart cath on Sunday with PCI on Sunday. Continue heparin drip, amiodarone drip, beta-fidelia - continue IV cefepime day 3. - wean oxygen sat to maintain > 92% Leukocytosis - improving -- patient's WBC has improved to 25, was started on cefepime 04/18. Chest X ray showing possible opacity in left base. Continue day 2 of antibiotics - stopped steroids Acute Kidney Injury on CKD stage III-IV - slight worsening - creatinine up to 3.3 - will monitor, likely hydrate prior to cath tomorrow Vfib - on amiodarone Anemia- Hb 7.6. Stable currently Disposition: cardiac cath tomorrow Code status: full code
[2019-04-20] MEDS ORDERED: Sodium Chloride 0.9% 1,000 ML IV SCH (15:52)
[2019-04-20] MEDS ORDERED: Acetylcysteine 20% 200 MG/ML 30 ML VIAL PO SCH (16:00)
--- NOTE | 2019-04-20 16:17 | PRG ---
DATE OF SERVICE: 04/20/2019 SERVICE: Nephrology. SUBJECTIVE: A 63-year-old male, admitted after out of hospital cardiac arrest. The patient was found to have shortness of breath, requiring intubation. Clinically improved and was extubated. Cardiac catheterization is planned for tomorrow morning. The patient is currently off oxygen. No new problem. OBJECTIVE: VITAL SIGNS: Temperature 97.9, pulse 77, respiratory rate 17, SpO2 of 100 on room air, blood pressure is 148/95. GENERAL: Obese male patient, in no obvious distress. Afebrile, anicteric, and acyanotic. HEENT: Normocephalic and atraumatic. Oral mucosa is moist. CARDIOVASCULAR: Regular rhythm and rate with normal heart sounds 1 and 2. RESPIRATORY: Fair air entry bilaterally with few bibasilar crackles posteriorly. No obvious rhonchi or use of accessory muscles appreciated. GI: Obese, soft, nontender, nondistended with normal bowel sounds. EXTREMITIES: Grossly normal looking, atraumatic with no edema or erythema. OFFICE PROFESSIONALS: Conscious, alert, oriented x3 with appropriate mental status. DIAGNOSTIC DATA: CBC showed WBC count of 25.9, hemoglobin of 7.6, platelets of 285. Renal function panel showed sodium of 134, potassium 4.6, chloride 99, CO2 of 27, BUN 79, creatinine 3.36, glucose 212, calcium 8.6, phosphorus 5.2, albumin 3.0. ASSESSMENT: 1. Acute kidney injury: Due to hemodynamic factors related to cardiac decompensation and cardiac arrest. Improved with diuresis and optimization of hemodynamics. 2. Chronic kidney disease, stage 4. 3. Anasarca: Improved. 4. Hyperkalemia: Corrected. 5. Acute cardiac decompensation with pulmonary congestion. 6. Acute respiratory failure with hypoxia: Resolved. 7. Out of hospital cardiac arrest. 8. Ventricular arrhythmia with ventricular fibrillation cardiac arrest and ventricular tachycardia. 9. Coronary artery disease, status post coronary artery bypass grafting. PLAN: 1. In view of the planned cardiac catheterization, we will start the patient on gentle IV fluid with normal saline at 50 mL/h. 2. We will also start the patient on acetylcysteine. 3. We will recheck renal function in the morning. 4. We will monitor for contrast-induced nephropathy. The patient is at increased risk of contrast-induced nephropathy and eventual dialysis dependent status, given advanced chronic kidney disease. Risk of contrast-induced nephropathy was discussed with the patient and son and they verbalized understanding. Further treatment to follow depending on hospital course. We will avoid nephrotoxic agents at this time. Job ID: [id number]
--- NOTE | 2019-04-20 16:40 | PDOC.CPN ---
- Subjective Date: 04/20/19 Time: 16:39 Interval history: He is doing well. He denies any cheat pain or SOB. - Review of Systems General: denies: fever/chills, weight/appetite/sleep changes, night sweats, fatigue Respiratory: denies: cough, congestion, shortness of breath, exercise intolerance Cardiovascular: denies: chest pain, palpitation, edema, paroxysmal nocturnal dyspnea, orthopnea Gastrointestinal: denies: nausea, vomiting, diarrhea, constipation, abd pain, GI bleeding Musculoskeletal: denies: pain, tenderness, stiffness, swelling, arthritis/ arthralgias Neurological: denies: numbness, syncope, seizure, weakness - Objective Allergies/Adverse Reactions: Allergies Allergy/AdvReac Type Severity Reaction Status Date / Time No Known Drug Allergies Allergy Verified 04/11/19 10:19 Visit Medications: Current Medications Acetaminophen/Codeine Phosphate (Tylenol #3) 1 tab PO Q6H PRN PRN Reason: Pain Last Admin: 04/14/19 17:45 Dose: 1 tab Acetylcysteine (Mucomyst 20%) 600 mg PO NOW [facility] Stop: 04/20/19 18:00 Acetylcysteine (Mucomyst 20%) 600 mg PO BID [facility] Stop: 04/21/19 21:01 Albuterol/Ipratropium (Duoneb) 3 ml NEB [id number] [facility] Last Admin: 04/20/19 14:57 Dose: 3 ml Allopurinol (Zyloprim) 100 mg PO DAILY [facility] Last Admin: 04/20/19 09:11 Dose: 100 mg Alprazolam (Xanax) 0.25 mg PO TIDPRN PRN PRN Reason: Anxiety Last Admin: 04/15/19 13:26 Dose: 0.25 mg Alprazolam (Xanax) 0.5 mg PO HS [facility] Last Admin: 04/19/19 21:26 Dose: 0.5 mg Carvedilol (Coreg) 6.25 mg PO BID-WM [facility] Last Admin: 04/20/19 09:09 Dose: 6.25 mg Dextrose/Water (Dextrose 50%) 25 gm SLOW IVP PRN PRN PRN Reason: Hypoglycemia Epoetin Tan-epbx (Retacrit) 10,000 unit SC TTHSA [facility] Famotidine (Pepcid) 20 mg PO DAILY [facility] Last Admin: 04/20/19 09:11 Dose: 20 mg Ferrous Sulfate (Feosol) 325 mg PO QAM-WM [facility] Last Admin: 04/20/19 09:09 Dose: 325 mg Glucagon (Glucagon) 1 mg IM PRN PRN PRN Reason: Hypoglycemia Guaifenesin/Dextromethorphan (Robitussin Dm) 15 ml PO Q4H PRN PRN Reason: Cough Last Admin: 04/18/19 20:11 Dose: 15 ml Heparin Sodium (Porcine) (Heparin 1,000 Units/Ml (10 Ml)) 0 units SLOW IVP WILLCALL YOEL Last Admin: 04/18/19 18:04 Dose: 4,000 unit Dextrose/Water (D5w) 1,000 mls @ 0 mls/hr IV .Q0M PRN PRN Reason: Hypoglycemia Amiodarone HCl 450 mg/Miscellaneous Medication 1 each/ Dextrose/Water 259 mls @ 0 mls/hr IVPB INF [facility]; Protocol Last Admin: 04/20/19 12:45 Dose: 259 mls Heparin Sodium/Dextrose (Heparin 25,000 Units/D5w 500 Ml) 500 mls @ 0 mls/hr IV INF YOEL; Protocol Last Admin: 04/20/19 12:44 Dose: 500 mls Insulin Glargine 40 units/ (Miscellaneous Medication) 0.4 mls @ 0 mls/hr SC BID YOEL Last Admin: 04/20/19 10:42 Dose: 0.4 mls Cefepime HCl 1 gm/ Sodium (Chloride) 100 mls @ 200 mls/hr IVPB 0100,1300 [facility] Last Admin: 04/20/19 12:45 Dose: 100 mls Sodium Chloride (Normal Saline 0.9%) 1,000 mls @ 50 mls/hr IV .Q20H [facility] Insulin Human Lispro (Humalog) 0 units SC .AGGRESSIVE SLIDING PRN PRN Reason: Aggressive Correctional Scale Last Admin: 04/20/19 06:24 Dose: 3 unit Insulin Human Lispro (Humalog) 0 units SC .BEDTIME SLIDING SC PRN PRN Reason: Bedtime Correctional Scale Last Admin: 04/19/19 21:15 Dose: 5 unit Labetalol HCl (Normodyne) 10 mg SLOW IVP Q4H PRN PRN Reason: SBP Greater Than 170 Last Admin: 04/18/19 23:46 Dose: 10 mg Lorazepam (Ativan) 1 mg SLOW IVP Q6H PRN PRN Reason: Anxiety/Agitation Last Admin: 04/15/19 23:05 Dose: 1 mg Miscellaneous Information (Communication Order-Pharmacy) 0 each FS ONE [facility] Propofol (Diprivan) 1,000 mg IV INF PRN; Protocol PRN Reason: TO ACHIEVE GOAL RASS Stop: 05/11/19 06:15 Last Admin: 04/11/19 23:40 Dose: 1,000 mg Saccharomyces Boulardii (Florastor) 250 mg PO DAILY [facility] Last Admin: 04/20/19 09:11 Dose: 250 mg Senna (Senokot) 1 tab PO BID [facility] Last Admin: 04/20/19 09:11 Dose: Not Given Sterile Water (Water For Injection) 1.2 ml FS PRN PRN PRN Reason: RECONSTITUTION Ziprasidone (Geodon) 10 mg IM Q4H PRN PRN Reason: Agitation Last Admin: 04/15/19 22:39 Dose: 10 mg Vital Signs & Weight: Vital Signs Temp Pulse Resp BP Pulse Ox 04/20/19 14:57 77 17 04/20/19 10:47 75 23 H 04/20/19 09:09 148/77 H 04/20/19 08:00 100 04/20/19 07:32 82 19 04/20/19 07:00 97.9 F 04/20/19 05:00 98.5 F Admit Weight 308 lb 10.354 oz Weight 292 lb 1.8 oz - Physical Exam General: alert & oriented x3 HEENT: mucus membranes moist Neck: supple neck Cardiac: regular rate and rhythm Lungs: clear to auscultation Neuro: grossly intact Abdomen: active bowel sounds Extremities: no edema Skin: clear Musculoskeletal: no pain - Labs Result Diagrams: 04/20/19 04:40 04/20/19 04:40 Troponin/CKMB CK-MB (CK-2) 16.5 ng/mL (0-6.6) H* 04/13/19 13:52 Troponin I 15.949 ng/mL (< 0.028) H* 04/13/19 13:52 - Telemetry Sinus rhythms and dysrhythmias: sinus rhythm - Assessment/Plan Assessment/Plan: 1. Respiratory distress 2. VT 3. Out of hospital arrest 4. Acute on chronic renal failure. 5. Hyperkalemia 6. NSTEMI 7. CAD s/p single vessel CABG and residual 2 vessel disease. PLAN: - He has ostial LCx and ostial RCA disease. he also had ostial LAD but had an of pump LOVE to LAD. - Will attempt PCI to LCx and/or RCA tomorrow. - Will transfuse 2 unit of blood first. - Femoral access. NATALY if needed. - Will get LOVE shot first, then an EBU 3.75 to get LM and see if LCx still patent and if so then will attempt intervention. There is an ostial LAD lesion but it is protected so we may have to chcf LAD to open up LCx. Will then take image of the RCA. Will use minimal contrast but Mr. Schmidt understands that the possibility of permanent dialysis with any contrast load is around 40% which is high, and he verbalizes understanding of this and agrees to proceed. - 45 min spent with pt and family explaining plan and answering questions. - Critical Care Time Critical care time (mins): 45
--- NOTE | 2019-04-20 17:00 | PRG ---
DATE OF SERVICE: 04/20/2019 SUBJECTIVE: Good sleep with the alprazolam last night, but then woke up confused. OBJECTIVE: VITAL SIGNS: Heart rate is in the 70s, respiratory rates in the teens, and blood pressure 140/95. LUNGS: Clear. HEART: Regular rhythm. ABDOMEN: Soft. LABORATORY DATA: White count 25.9, hemoglobin 7.6, platelets 285, and 4% bands on his peripheral smear. Sodium 134, potassium 4.6, chloride 99, bicarb 27, BUN 79, and creatinine 3.36. IMPRESSION: 1. Status post [id number] arrest. 2. ICU encephalopathy, which he has had multiple times in the past. We have added p.r.n. Haldol for nighttime use intramuscularly. 3. Acute on chronic kidney disease. 4. Diabetes. 5. Deconditioning. 6. Obesity. 7. Sleep apnea. PLAN: Continue supportive care. I met with the son and answered all of his questions. Job ID: [id number]
[2019-04-20] MEDS: Heparin 10,000 UNITS/ 10 ML VIAL SLOW IVP SCH (17:30)
[2019-04-20] MEDS ORDERED: Haloperidol Lactate 5 MG/ML VIAL IM PRN (18:04)
[2019-04-20] MEDS: Acetylcysteine 20% 200 MG/ML 30 ML VIAL PO SCH (20:40)
[2019-04-21] MEDS: ALPRAZolam 0.5 MG TAB PO SCH (00:19)
[2019-04-21] MEDS: Cefepime 1 GM in Sodium Chloride 0.9% 100 ML IVPB SCH ×2 (00:19→13:06)
[2019-04-21] MEDS: Amiodarone 450 MG, Admixture Fee 1 EACH in Dextrose 5% in Water 250 ML IVPB SCH (03:41)
[2019-04-21] MEDS ORDERED: Sodium Chloride 0.9% 1,000 ML IV SCH ×2 (04:00→07:26)
[2019-04-21] MEDS: Saccharomyces boulardii 250 MG CAP PO SCH (05:53)
[2019-04-21] MEDS: Famotidine 20 MG TAB PO SCH (05:53)
[2019-04-21] MEDS: Ferrous Sulfate 325 MG TAB PO SCH (05:53)
[2019-04-21] MEDS: Carvedilol 6.25 MG TAB PO SCH ×2 (05:53→16:39)
[2019-04-21] MEDS: Allopurinol 100 MG TAB PO SCH (05:54)
[2019-04-21] MEDS: Senokot 8.6 MG TAB PO SCH ×3 (05:54→20:02)
[2019-04-21 06:02] LABS: Albumin 2.9 g/dL (3.4-4.8); Anion Gap 13 mmol/L (10-20); BUN (Urea Nitrogen) 67 mg/dL (8.4-25.7); BUN/Creatinine Ratio 23.43; Calc. Creatinine Clearance 50 mL/min (70-130); Calcium 8.6 mg/dL (7.8-10.44); Carbon Dioxide 26 mmol/L (23-31); Chloride 104 mmol/L (98-107); Estimated GFR-MDRD 27; Glucose 90 mg/dL (80-115); Magnesium 1.7 mg/dL (1.6-2.6); Phosphorus 4.3 mg/dL (2.3-4.7); Potassium 3.8 mmol/L (3.5-5.1); Sodium 139 mmol/L (136-145)
[2019-04-21 06:07] LABS: #Eosinphils 0.1 thou/uL (0.0-0.7); #Lymphocytes 2.7 thou/uL (1.20-3.40); #Neutrophils 13.1 thou/uL (1.40-6.50); %Basophils 0.3 % (0.0-1.0); %Eosinophils 0.7 % (0.0-10.0); %Monocytes 5.6 % (0.0-10.0); %Neutrophils 77.5 % (42.0-75.0); Hemoglobin 9.5 g/dL (14.0-18.0); Mean Corpuscular HGB CONC 32.9 g/dL (32.0-36.0); Mean Corpuscular Hemoglobin 32.2 pg (27.0-31.0); Mean Platelet Volume 7.7 fL (7.4-10.4); Platelet Count 240 thou/uL (130-400); RBC Distribution Width 14.9 % (11.5-14.5); Red Blood Cell (RBC) Count 2.95 mill/uL (4.70-6.10)
[2019-04-21] MEDS ORDERED: Magnesium 2 GM/50 ML 2 GM in Premix Bag 1 BAG IVPB SCH (07:23)
[2019-04-21] MEDS ORDERED: Albumin 25% 25 GM/100 ML BOT IVPB SCH (07:30)
[2019-04-21] MEDS ORDERED: Lidocaine 1% (PF) 30 ML VIAL ONE (08:20)
[2019-04-21] MEDS ORDERED: Heparin (Artline) 1,000 ML ONE (08:20)
[2019-04-21] MEDS ORDERED: Iopamidol 370 76% 50 ML VIAL FS ONE (09:04)
[2019-04-21] MEDS ORDERED: Iopamidol 370 76% 100 ML VIAL ONE (09:04)
--- NOTE | 2019-04-21 09:16 | RAD ---
AP CHEST: HISTORY: On ventilator. CCU followup. COMPARISON: 04/19/2019. FINDINGS: Elevated right hemidiaphragm is stable. Mild cardiomegaly again noted. Vasculature is upper normal but stable. Central line is unchanged. IMPRESSION: No acute change. POS: [facility]
[2019-04-21] MEDS ORDERED: Midazolam HCl 2 mg/2 ml Vial ONE (09:40)
[2019-04-21] MEDS ORDERED: Fentanyl 100 MCG/2 ML VIAL ONE (09:41)
[2019-04-21] MEDS ORDERED: Heparin 10,000 UNITS/1 ML VIAL ONE ×2 (10:18→10:53)
[2019-04-21] MEDS ORDERED: TICAGRELOR 90 MG TABLET ONE (10:38)
[2019-04-21] MEDS ORDERED: Nitroglycerin 0.4 MG TAB (25 Tab Bottle) SL PRN (11:02)
[2019-04-21] MEDS: Acetylcysteine 20% 200 MG/ML 30 ML VIAL PO SCH ×2 (11:44→20:02)
[2019-04-21] MEDS: Insulin Glargine 40 UNITS in Pre-Filled Syringe 1 EACH SC SCH ×2 (11:47→21:33)
--- NOTE | 2019-04-21 11:59 | PRG ---
DATE OF SERVICE: 04/21/2019 SERVICE: Nephrology. SUBJECTIVE: A 63-year-old male admitted after out of hospital cardiac arrest. Nephrology is following the patient for acute on chronic renal failure as well as anasarca. The patient had cardiac catheterization earlier today in evaluation of coronary artery disease. No new problem. Denied shortness of breath or cough. OBJECTIVE: VITAL SIGNS: Temperature is 98.4, pulse is 73, respiratory rate is 20, SpO2 of 98% on room air, blood pressure is 126/65. GENERAL: Obese male, in no obvious distress. Afebrile. Anicteric. Acyanotic. HEENT: Normocephalic, atraumatic. Oral mucosa is moist. CARDIOVASCULAR: Regular rhythm and rate with normal heart sounds 1 and 2. RESPIRATORY: Fair air entry bilaterally with bibasilar crackles posteriorly and anteriorly. No obvious rhonchi are appreciated. Work of breathing is not increased. GI: Obese, soft, nontender, nondistended with normal bowel sounds. EXTREMITIES: Grossly normal looking atraumatic with no edema or erythema. UROGENITAL: Govea catheter is in place draining urine. POURED WALL FOREMAN: Conscious, alert, and oriented x3 with appropriate mental status. DIAGNOSTIC DATA: CBC showed WBC count of 17.0, hemoglobin of 9.5, platelets of 240. Renal function panel showed sodium 139, potassium 3.8, chloride 104, CO2 of 26, BUN 67, creatinine 2.86, glucose 90, calcium 8.6, phosphorus 4.3, magnesium 1.7, albumin 2.9. ASSESSMENT: 1. Acute on chronic renal failure: Due to cardiorenal factors related to cardiac decompensation cardiac arrest. Renal function has improved with optimization of hemodynamics and diuretics. The patient is at increased risk of contrast-induced nephropathy. However, he needed cardiac evaluation for coronary artery disease and ventricular arrhythmia with cardiac arrest. The patient was started on IV fluid and acetylcysteine for contrast-induced nephropathy prophylaxis. 2. Chronic kidney disease, stage 4. 3. Coronary artery disease status post recent coronary artery bypass graft. 4. Cardiac arrest: Out of hospital. 5. Ventricular arrhythmia. Initially ventricular fibrillation and lateral ventricular tachycardia. 6. Hypertension: Control is acceptable. 7. Morbid obesity with obstructive sleep apnea on continuous positive airway pressure. 8. Hypomagnesemia. 9. Hypoalbuminemia. 10. Bibasilar crackles. PLAN: 1. We will discontinue IV fluid therapy given crackles heard on chest examination. We will, however, continue Mucinex to complete ordered dose. 2. We will try to avoid nephrotoxic agent including diuretics. 3. We will replete serum magnesium with 2 g of magnesium sulfate, given history of ventricular arrhythmia. 4. We will recheck renal function test in the morning. 5. Continue erythrocyte stimulating agent. 6. Further treatment to follow depending on hospital course. Care plan was discussed with the patient. I also had a discussion with Cardiology. Job ID: [id number]
--- NOTE | 2019-04-21 12:56 | PRG ---
DATE OF SERVICE: 04/21/2019 cardiac catheterization today. Overall, he has been stable overnight. His hemoglobin is 9.5, white count 17.0. Electrolytes were normal. Creatinine was 2.86. Chest x-ray just shows an elevated right hemidiaphragm. No infiltrates. We will continue supportive care. Awaiting cath results. Job ID: [id number]
[2019-04-21] MEDS: Acetaminophen/Codeine 30-300mg Tablet PO PRN (13:03)
[2019-04-21] MEDS: Fentanyl 100 MCG/2 ML VIAL SLOW IVP PRN ×2 (14:44→23:48)
--- NOTE | 2019-04-21 16:00 | PDOC.HOSPP ---
- Subjective Encounter Date: 04/21/19 Encounter Time: 15:58 Subjective: The patient is s/p cardiac cath. Had a stent placed, but not able to see cath report yet. He complains of chest pressure where they did the procedure. He also has a productive cough. IV fluids discontinued - Objective Vital Signs & Weight: Vital Signs (12 hours) Temp Pulse Resp Pulse Ox 04/21/19 14:54 83 21 H 98 04/21/19 11:17 80 30 H 98 04/21/19 11:15 98.0 F 04/21/19 08:43 99 04/21/19 08:38 74 25 H 99 04/21/19 08:00 98.4 F 97 04/21/19 04:00 98.4 F Weight Admit Weight 308 lb 10.354 oz Weight 288 lb 12.889 oz Most Recent Monitor Data Heart Rate from ECG 83 NIBP 163/73 NIBP BP-Mean 103 Respiration from ECG 20 SpO2 99 I&O: 04/20/19 04/21/19 04/22/19 06:59 06:59 06:59 Intake Total 1552 2801 1623 Output Total 1970 3155 1045 Balance -418 -652 578 Result Diagrams: 04/21/19 03:53 04/21/19 03:53 Additional Labs: Accuchecks 04/21/19 04/20/19 04/20/19 12:28 20:26 17:20 POC Glucose 83 249 H 280 H Hospitalist ROS - Review of Systems Constitutional: denies: fever, chills Cardiovascular: reports: chest pain, palpitations - Medication Medications: Active Medications Generic Name Dose Route Start Last Admin Trade Name Freq PRN Reason Stop Dose Admin Acetaminophen/Codeine Phosphate 1 tab 04/13/19 03:17 04/21/19 13:03 Tylenol #3 PO 1 tab Q6H PRN Administration Pain Acetylcysteine 600 mg 04/20/19 21:00 04/21/19 11:44 Mucomyst 20% PO 04/21/19 21:01 600 mg BID YOEL Administration Albumin Human 50 gm 04/21/19 07:30 04/21/19 08:46 Albumin 25% IVPB 04/21/19 21:00 50 gm NOW YOEL Administration Albuterol/Ipratropium 3 ml 04/15/19 14:30 04/21/19 14:54 Duoneb NEB 3 ml [id number] YOEL Administration Allopurinol 100 mg 04/12/19 09:00 04/21/19 05:54 Zyloprim PO 100 mg DAILY YOEL Administration Alprazolam 0.25 mg 04/15/19 12:44 04/15/19 13:26 Xanax PO 0.25 mg TIDPRN PRN Administration Anxiety Alprazolam 0.5 mg 04/20/19 23:59 04/21/19 00:19 Xanax PO 0.5 mg 2359 YOEL Administration Carvedilol 6.25 mg 04/14/19 08:00 04/21/19 05:53 Coreg PO 6.25 mg BID-WM YOEL Administration Famotidine 20 mg 04/14/19 09:00 04/21/19 05:53 Pepcid PO 20 mg DAILY YOEL Administration Fentanyl 25 mcg 04/21/19 14:22 04/21/19 14:44 Sublimaze SLOW IVP 25 mcg Q4H PRN Administration Pain Ferrous Sulfate 325 mg 04/16/19 08:00 04/21/19 05:53 Feosol PO 325 mg QAM-WM YOEL Administration Guaifenesin/Dextromethorphan 15 ml 04/14/19 15:29 04/18/19 20:11 Robitussin Dm PO 15 ml Q4H PRN Administration Cough Heparin Sodium (Porcine) 0 units 04/13/19 15:00 04/20/19 17:30 Heparin 1,000 Units/Ml (10 Ml) SLOW IVP 4,000 unit WILLCALL YOEL Administration Amiodarone HCl 450 mg/ 259 mls @ 0 mls/hr 04/13/19 01:30 04/21/19 03:41 Miscellaneous Medication 1 IVPB 259 mls each/ Dextrose/Water INF YOEL Administration Protocol As Directed Heparin Sodium/Dextrose 500 mls @ 0 mls/hr 04/13/19 15:00 04/20/19 12:44 Heparin 25,000 Units/D5w 500 Ml IV 500 mls INF YOEL Administration Protocol As Directed Insulin Glargine 40 units/ 0.4 mls @ 0 mls/hr 04/18/19 21:00 04/21/19 11:47 Miscellaneous Medication SC Not Given BID YOEL Cefepime HCl 1 gm/ Sodium 100 mls @ 200 mls/hr 04/18/19 13:00 04/21/19 13:06 Chloride IVPB 100 mls 0100,1300 YOEL Administration Insulin Human Lispro 0 units 04/11/19 10:59 04/20/19 17:21 Humalog SC 9 unit .AGGRESSIVE SLIDING PRN Administration Aggressive Correctional Scale Insulin Human Lispro 0 units 04/11/19 10:59 04/20/19 20:42 Humalog SC 2 unit .BEDTIME SLIDING SC PRN Administration Bedtime Correctional Scale Labetalol HCl 10 mg 04/13/19 10:08 04/18/19 23:46 Normodyne SLOW IVP 10 mg Q4H PRN Administration SBP Greater Than 170 Lorazepam 1 mg 04/15/19 10:22 04/15/19 23:05 Ativan SLOW IVP 1 mg Q6H PRN Administration Anxiety/Agitation Propofol 1,000 mg 04/11/19 06:15 04/11/19 23:40 Diprivan IV 05/11/19 06:15 1,000 mg INF PRN Administration TO ACHIEVE GOAL RASS Protocol Saccharomyces Boulardii 250 mg 04/19/19 09:00 04/21/19 05:53 Florastor PO 250 mg DAILY YOEL Administration Senna 1 tab 04/19/19 21:00 04/21/19 11:49 Senokot PO 1 tab BID YOEL Administration Sodium Chloride 10 ml 04/21/19 09:00 04/21/19 08:53 Flush - Normal Saline IVF 10 ml Q12HR YOEL Administration Ziprasidone 10 mg 04/15/19 10:22 04/15/19 22:39 Geodon IM 10 mg Q4H PRN Administration Agitation - Exam General Appearance: NAD, awake alert Eye: PERRL, anicteric sclera ENT: normocephalic atraumatic, no oropharyngeal lesions Neck: no JVD Heart: RRR, no murmur, no gallops, no rubs Respiratory: CTAB, no wheezes, no ronchi, rales (bilateral) Respiratory - other findings: bilateral rales Gastrointestinal: soft, non-tender, non-distended, normal bowel sounds Extremities: no cyanosis, no clubbing, no edema Skin: normal turgor, no lesions Neurological: cranial nerve grossly intact, normal sensation to touch, no focal deficits, no new deficit Musculoskeletal: normal tone, normal strength, no muscle wasting Psychiatric: normal affect, normal behavior, A&O x 3, oriented to person Hosp A/P - Plan Chest X ray 04/19: streaky opacity in the left base ECHO: EF 45-50, anterolateral hypokinesis, mild MR, mild TR, elevated RVSP This is a 63 year old male with past medical history of type II diabetes, atrial fibrillation, hypertension, SHANTE who presented with s/p cardiac arrest with ROSC Cardiac arrest secondary to vfib/hyperkalemia and NSTEMI Acute hypoxic respiratory failure from cardiac arrest vs pneumonia -s/p heart cath, with stent placed today, unclear what vessel, pending report - continue heparin drip, amiodarone drip, beta-blocke - continue IV cefepime day 4 - nitro prn for chest pain. Also ordered lidocaine patch and fentanyl prn Leukocytosis - improving -- patient's WBC has improved to 17 was started on cefepime 04/18. Chest X ray showing possible opacity in left base. 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 Stable currently Disposition: cardiac cath tomorrow Code status: full code
--- NOTE | 2019-04-21 17:01 | EKG ---
Test Reason : S/P CATH Blood Pressure : / mmHG Vent. Rate : 081 BPM Atrial Rate : 081 BPM P-R Int : 188 ms QRS Dur : 088 ms QT Int : 436 ms P-R-T Axes : 045 020 212 degrees QTc Int : 506 ms Normal sinus rhythm Prolonged QT Abnormal ECG Confirmed by ARELI AMATO ([id number]) on 04/21/2019 5:01:09 PM Referred By: ELKIN Confirmed By:ARELI AMATO
[2019-04-21] MEDS: Lidocaine 5% Patch TD SCH (17:40)
[2019-04-21] MEDS: TICAGRELOR 90 MG TABLET PO SCH (20:02)
[2019-04-22] MEDS: Cefepime 1 GM in Sodium Chloride 0.9% 100 ML IVPB SCH ×2 (01:59→12:33)
[2019-04-22] MEDS: ALPRAZolam 0.5 MG TAB PO SCH (02:00)
[2019-04-22] MEDS: Amiodarone 450 MG, Admixture Fee 1 EACH in Dextrose 5% in Water 250 ML IVPB SCH (02:36)
[2019-04-22 05:10] LABS: ALT (SGPT) 42 U/L (8-55); AST (SGOT) 14 U/L (5-34); Alkaline Phosphatase 50 U/L (40-110); Anion Gap 14 mmol/L (10-20); BUN (Urea Nitrogen) 55 mg/dL (8.4-25.7); Bilirubin, Total 0.5 mg/dL (0.2-1.2); Calc. Creatinine Clearance 48 mL/min (70-130); Calcium 8.6 mg/dL (7.8-10.44); Carbon Dioxide 24 mmol/L (23-31); Chloride 105 mmol/L (98-107); Estimated GFR-MDRD 26; Globulin 3.9 g/dL (2.4-3.5); Glucose 84 mg/dL (80-115); Potassium 4.3 mmol/L (3.5-5.1); Protein, Total 6.9 g/dL (5.8-8.1); Sodium 139 mmol/L (136-145)
[2019-04-22 05:30] LABS: #Basophils 0.1 thou/uL (0.0-0.2); #Eosinphils 0.2 thou/uL (0.0-0.7); #Lymphocytes 2.9 thou/uL (1.20-3.40); #Monocytes 1.4 thou/uL (0.11-0.59); #Neutrophils 15.1 thou/uL (1.40-6.50); %Basophils 0.4 % (0.0-1.0); %Eosinophils 1.2 % (0.0-10.0); %Lymphocytes 14.5 % (21.0-51.0); %Monocytes 7.3 % (0.0-10.0); %Neutrophils 76.7 % (42.0-75.0); Hemoglobin 6.3 g/dL (14.0-18.0); Mean Corpuscular HGB CONC 32.1 g/dL (32.0-36.0); Mean Corpuscular Hemoglobin 31.2 pg (27.0-31.0); Mean Corpuscular Volume 97.2 fL (78.0-98.0); Mean Platelet Volume 6.9 fL (7.4-10.4); Platelet Count 231 thou/uL (130-400); RBC Distribution Width 14.7 % (11.5-14.5); Red Blood Cell (RBC) Count 2.03 mill/uL (4.70-6.10); White Blood Cell (WBC) Count 19.7 thou/uL (4.8-10.8)
[2019-04-22] MEDS: Lidocaine Patch Removal 1 EACH TOP SCH (05:53)
[2019-04-22] MEDS: Fentanyl 100 MCG/2 ML VIAL SLOW IVP PRN ×2 (06:53→14:55)
[2019-04-22 08:03] LABS: Hemoglobin 6.4 g/dL (14.0-18.0)
[2019-04-22] MEDS: Senokot 8.6 MG TAB PO SCH ×2 (08:18→20:53)
[2019-04-22] MEDS: Ferrous Sulfate 325 MG TAB PO SCH (08:18)
[2019-04-22] MEDS: Saccharomyces boulardii 250 MG CAP PO SCH (08:18)
[2019-04-22] MEDS: Carvedilol 6.25 MG TAB PO SCH ×2 (08:18→17:30)
[2019-04-22] MEDS: Allopurinol 100 MG TAB PO SCH (08:18)
[2019-04-22] MEDS: Famotidine 20 MG TAB PO SCH (08:18)
--- NOTE | 2019-04-22 09:21 | PRG ---
DATE OF SERVICE: 04/22/2019 SERVICE: Nephrology. SUBJECTIVE: A 63-year-old male seen in followup for acute on chronic renal failure. The patient was admitted initially due to VFib cardiac arrest. Required hemodialysis for one cessation due to hyperkalemia. Clinically improved and had cardiac catheterization yesterday. No new problems. Denied fever, shortness of breath, or leg swelling. Complains of generalized weakness. OBJECTIVE: VITAL SIGNS: Temperature 98.5, pulse 82, respiratory rate 22, SpO2 of 100% on room air, and blood pressure is 139/80. GENERAL: Obese male patient, in no distress. Afebrile. Anicteric. Acyanotic. HEENT: Normocephalic and atraumatic. Oral mucosa is moist. CARDIOVASCULAR: Regular rhythm and rate with normal heart sounds 1 and 2. RESPIRATORY: Fair air entry bilateral, decreased at both bases with some bibasilar crackles. No rhonchi or use of accessory muscles was appreciated. GI: Obese, soft, nontender, and nondistended with normal bowel sounds. EXTREMITIES: Grossly normal looking, atraumatic with no obvious edema or erythema. [employer]: Conscious, alert, and oriented x3 with appropriate mental status. Cranial nerves 2 through 12 are grossly intact. DIAGNOSTIC DATA: CBC showed WBC count of 19.7, hemoglobin of 6.3, MCV of 97.2, platelet of 231. Repeat hemoglobin was 6.4 with hematocrit of 19.8. However, this two samples were obtained from central line, which has IV fluid running. Review of previous records show hemoglobin ranging from 7.6 to 9.5. CMP showed sodium 139, potassium 4.3, chloride 105, CO2 of 24, BUN 55, creatinine 2.96, glucose 84, calcium 8.6. Total bilirubin 0.5, AST 14, ALT 44, alkaline phosphatase 50, total protein 6.9, albumin 3.0, globulin 3.9. Creatinine has improved from 4.19 on admission to 2.96 today. It was, however, 2.86 yesterday. ASSESSMENT: 1. Acute on chronic renal failure: Due to hemodynamic factors related to cardiac decompensation and cardiogenic shock related to ventricular fibrillation cardiac arrest. Creatinine has improved from 4.19 on admission to another of 2.86 before going up to 2.96 this morning. The patient is at increased risk of increased contrast-induced nephropathy. Had contrast study (cardiac catheterization) yesterday. Received IV fluid prior. IV fluid, however, was short-lived due to basal crackles and risk for cardiac decompensation. 2. Ventricular fibrillation cardiac arrest. 3. Ventricular tachyarrhythmia with ventricular fibrillation and ventricular tachycardia. 4. Acute respiratory failure. 5. Morbid obesity. 6. Anasarca: Improved with diuretics. Currently of diuretics. 7. Coronary artery disease, status post coronary artery bypass grafting. Had cardiac catheterization with stent placement yesterday. 8. Physical deconditioning. 9. Acute on chronic anemia with hemoglobin dropping to 6.4 overnight. If lab error is ruled out, we will have to transfuse the patient. 10. Anemia in chronic kidney disease. PLAN: 1. Continue to avoid nephrotoxic agents. 2. Repeat hemoglobin and hematocrit from a peripheral stick to prevent lab error. If hemoglobin is still low, the patient will benefit from blood transfusion. 3. Monitor intake and output. 4. PT/OT to continue. Anticipate discharge to inpatient rehabilitation. Further treatment to follow depending on hospital course. Job ID: [id number]
[2019-04-22] MEDS: TICAGRELOR 90 MG TABLET PO SCH ×2 (09:30→20:53)
[2019-04-22 09:41] LABS: Hemoglobin 6.8 g/dL (14.0-18.0)
[2019-04-22] MEDS: Insulin Glargine 40 UNITS in Pre-Filled Syringe 1 EACH SC SCH (10:05)
--- NOTE | 2019-04-22 14:19 | PDOC.HOSPP ---
- Subjective Encounter Date: 04/22/19 Encounter Time: 13:00 Subjective: F/u: chest pain The patient says his chest pain has improved significantly compared to yesterday. He still has a mild cough. Other than that no complaints - Objective Vital Signs & Weight: Vital Signs (12 hours) Temp Pulse Pulse Pulse Pulse Resp BP 04/22/19 13:21 98.6 F 75 20 04/22/19 12:00 98.4 F 82 25 H 04/22/19 11:43 98.4 F 84 24 H 04/22/19 10:38 83 19 04/22/19 10:37 79 93 04/22/19 08:18 139/80 04/22/19 07:35 04/22/19 07:20 98.5 F 04/22/19 07:07 04/22/19 06:52 82 25 H 04/22/19 04:00 98.9 F 04/22/19 03:29 04/22/19 03:28 BP BP BP Pulse Ox Pulse Ox 04/22/19 13:21 134/64 100 04/22/19 12:00 139/55 L 98 04/22/19 11:43 119/62 100 04/22/19 10:38 97 04/22/19 10:37 115/61 141/70 H 100 04/22/19 08:18 04/22/19 07:35 100 04/22/19 07:20 04/22/19 07:07 98 04/22/19 06:52 98 04/22/19 04:00 04/22/19 03:29 97 04/22/19 03:28 97 Weight Admit Weight 308 lb 10.354 oz Weight 288 lb 12.889 oz Most Recent Monitor Data Heart Rate from ECG 78 NIBP 136/75 NIBP BP-Mean 95 Respiration from ECG 24 SpO2 98 I&O: 04/21/19 04/22/19 04/23/19 06:59 06:59 06:59 Intake Total 2801 3248 860 Output Total 3155 2875 550 Balance -354 373 310 Result Diagrams: 04/22/19 09:02 04/22/19 04:31 Additional Labs: Accuchecks 04/22/19 04/22/19 04/21/19 12:00 10:30 21:35 POC Glucose 162 H 179 H 168 H 04/21/19 04/21/19 04/21/19 20:04 17:26 11:46 POC Glucose 129 H 70 52 L* 04/21/19 11:44 POC Glucose 52 L* Hospitalist ROS - Review of Systems Constitutional: denies: fever, chills - Medication Medications: Active Medications Generic Name Dose Route Start Last Admin Trade Name Freq PRN Reason Stop Dose Admin Acetaminophen/Codeine Phosphate 1 tab 04/13/19 03:17 04/21/19 13:03 Tylenol #3 PO 1 tab Q6H PRN Administration Pain Albuterol/Ipratropium 3 ml 04/15/19 14:30 04/22/19 10:38 Duoneb NEB 3 ml [id number] YOEL Administration Allopurinol 100 mg 04/12/19 09:00 04/22/19 08:18 Zyloprim PO 100 mg DAILY YOEL Administration Alprazolam 0.25 mg 04/15/19 12:44 04/15/19 13:26 Xanax PO 0.25 mg TIDPRN PRN Administration Anxiety Alprazolam 0.5 mg 04/20/19 23:59 04/22/19 02:00 Xanax PO 0.5 mg 2359 YOEL Administration Carvedilol 6.25 mg 04/14/19 08:00 04/22/19 08:18 Coreg PO 6.25 mg BID-WM YOEL Administration Famotidine 20 mg 04/14/19 09:00 04/22/19 08:18 Pepcid PO 20 mg DAILY YOEL Administration Fentanyl 25 mcg 04/21/19 14:22 04/22/19 06:53 Sublimaze SLOW IVP 25 mcg Q4H PRN Administration Pain Ferrous Sulfate 325 mg 04/16/19 08:00 04/22/19 08:18 Feosol PO 325 mg QAM-WM YOEL Administration Guaifenesin/Dextromethorphan 15 ml 04/14/19 15:29 04/18/19 20:11 Robitussin Dm PO 15 ml Q4H PRN Administration Cough Heparin Sodium (Porcine) 0 units 04/13/19 15:00 04/20/19 17:30 Heparin 1,000 Units/Ml (10 Ml) SLOW IVP 4,000 unit WILLCALL YOEL Administration Amiodarone HCl 450 mg/ 259 mls @ 0 mls/hr 04/13/19 01:30 04/22/19 02:36 Miscellaneous Medication 1 IVPB 259 mls each/ Dextrose/Water INF YOEL Administration Protocol As Directed Insulin Glargine 40 units/ 0.4 mls @ 0 mls/hr 04/18/19 21:00 04/22/19 10:05 Miscellaneous Medication SC Not Given BID YOEL Cefepime HCl 1 gm/ Sodium 100 mls @ 200 mls/hr 04/18/19 13:00 04/22/19 12:33 Chloride IVPB 100 mls 0100,1300 YOEL Administration Insulin Human Lispro 0 units 04/11/19 10:59 04/20/19 17:21 Humalog SC 9 unit .AGGRESSIVE SLIDING PRN Administration Aggressive Correctional Scale Insulin Human Lispro 0 units 04/11/19 10:59 04/20/19 20:42 Humalog SC 2 unit .BEDTIME SLIDING SC PRN Administration Bedtime Correctional Scale Labetalol HCl 10 mg 04/13/19 10:08 04/18/19 23:46 Normodyne SLOW IVP 10 mg Q4H PRN Administration SBP Greater Than 170 Lidocaine 1 patch 04/21/19 17:00 04/21/19 17:40 Lidoderm 5% Patch TD 1 patch 1700 YOEL Administration Lorazepam 1 mg 04/15/19 10:22 04/15/19 23:05 Ativan SLOW IVP 1 mg Q6H PRN Administration Anxiety/Agitation Miscellaneous Medication 1 each 04/22/19 05:00 04/22/19 05:53 Lidocaine Patch Removal TOP 1 each 0500 YOEL Administration Propofol 1,000 mg 04/11/19 06:15 04/11/19 23:40 Diprivan IV 05/11/19 06:15 1,000 mg INF PRN Administration TO ACHIEVE GOAL RASS Protocol Saccharomyces Boulardii 250 mg 04/19/19 09:00 04/22/19 08:18 Florastor PO 250 mg DAILY YOEL Administration Senna 1 tab 04/19/19 21:00 04/22/19 08:18 Senokot PO 1 tab BID YOEL Administration Sodium Chloride 10 ml 04/21/19 09:00 04/22/19 10:05 Flush - Normal Saline IVF 10 ml Q12HR YOEL Administration Ticagrelor 90 mg 04/21/19 21:00 04/22/19 09:30 Brilinta PO 90 mg BID YOEL Administration Ziprasidone 10 mg 04/15/19 10:22 04/15/19 22:39 Geodon IM 10 mg Q4H PRN Administration Agitation - Exam General Appearance: NAD, awake alert Eye: PERRL, anicteric sclera ENT: normocephalic atraumatic, no oropharyngeal lesions Neck: no JVD Heart: RRR, no murmur, no gallops, no rubs Respiratory: CTAB, no wheezes, no ronchi, rales Respiratory - other findings: mild bilateral rales Gastrointestinal: soft, non-tender, non-distended Extremities: no cyanosis, no clubbing, no edema Skin: normal turgor, no lesions, no rashes Neurological: cranial nerve grossly intact, normal sensation to touch, no focal deficits, no new deficit Musculoskeletal: normal tone, normal strength, no muscle wasting Hosp A/P - Plan Chest X ray 04/19: streaky opacity in the left base ECHO: EF 45-50, anterolateral hypokinesis, mild MR, mild TR, elevated RVSP Cardiac cath: 99% occlusion LAD but CABG patent, 90% occlusion circumflex s/p NATALY, 90% occlusion RCA This is a 63 year old male with past medical history of type II diabetes, atrial fibrillation, hypertension, SHANTE who presented with s/p cardiac arrest with ROSC Cardiac arrest secondary to vfib/hyperkalemia and NSTEMI Acute hypoxic respiratory failure from cardiac arrest vs pneumonia -s/p heart cath, with NATALY placed to left circumflex 04/21. Bypass patent in LAD , 90% occlusion in RCA also present - switch amiodarone to 400 mg bid, continue beta-fidelia - on IV cefepime day 5 - nitro prn for chest pain - continue aspirin 81 mg daily, brilinta - switch to oral amiodarone 400 mg bid Leukocytosis - improving -- patient's WBC has increased to 19.7, was started on cefepime 04/18. Chest X ray showing possible opacity in left base. Continue day 4 of antibiotics - stopped steroids - clinically improving with no fevers Anemia - hemoglobin down to 6. Ordering blood transfusion, per Dr. 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 Fluids discontinued due to congestion Anemia- Hb 9.5. Stable currently Disposition: pending improvement of anemia and kidney function Code status: full code
[2019-04-22] MEDS ORDERED: Aspirin 81 mg Enteric Coated Tablet PO SCH (14:30)
[2019-04-22] MEDS ORDERED: Amiodarone 200 MG TAB PO SCH (14:30)
--- NOTE | 2019-04-22 16:14 | PDOC.CPN ---
- Subjective Date: 04/22/19 Time: 16:13 Interval history: His Hgb dropped since yesterday. He already received one unit of bleed and only increased to 6.8. He feels much better today than he did yesterday. - Review of Systems General: denies: fever/chills, weight/appetite/sleep changes, night sweats, fatigue Respiratory: denies: cough, congestion, shortness of breath, exercise intolerance Cardiovascular: denies: chest pain, palpitation, edema, paroxysmal nocturnal dyspnea, orthopnea Gastrointestinal: denies: nausea, vomiting, diarrhea, constipation, abd pain, GI bleeding Musculoskeletal: denies: pain, tenderness, stiffness, swelling, arthritis/ arthralgias Neurological: denies: numbness, syncope, seizure, weakness - Objective Allergies/Adverse Reactions: Allergies Allergy/AdvReac Type Severity Reaction Status Date / Time No Known Drug Allergies Allergy Verified 04/11/19 10:19 Visit Medications: Current Medications Acetaminophen/Codeine Phosphate (Tylenol #3) 1 tab PO Q6H PRN PRN Reason: Pain Last Admin: 04/21/19 13:03 Dose: 1 tab Albuterol/Ipratropium (Duoneb) 3 ml NEB [id number] [facility] Last Admin: 04/22/19 14:24 Dose: 3 ml Allopurinol (Zyloprim) 100 mg PO DAILY [facility] Last Admin: 04/22/19 08:18 Dose: 100 mg Alprazolam (Xanax) 0.25 mg PO TIDPRN PRN PRN Reason: Anxiety Last Admin: 04/15/19 13:26 Dose: 0.25 mg Alprazolam (Xanax) 0.5 mg PO 2359 [facility] Last Admin: 04/22/19 02:00 Dose: 0.5 mg Amiodarone HCl (Cordarone) 400 mg PO BID [facility] Aspirin (Ecotrin) 81 mg PO DAILY [facility] Carvedilol (Coreg) 6.25 mg PO BID-[facility] Last Admin: 04/22/19 08:18 Dose: 6.25 mg Dextrose/Water (Dextrose 50%) 25 gm SLOW IVP PRN PRN PRN Reason: Hypoglycemia Epoetin Tan-epbx (Retacrit) 10,000 unit SC TTHSA [facility] Famotidine (Pepcid) 20 mg PO DAILY [facility] Last Admin: 04/22/19 08:18 Dose: 20 mg Fentanyl (Sublimaze) 25 mcg SLOW IVP Q4H PRN PRN Reason: Pain Last Admin: 04/22/19 14:55 Dose: 25 mcg Ferrous Sulfate (Feosol) 325 mg PO QAM-WM [facility] Last Admin: 04/22/19 08:18 Dose: 325 mg Glucagon (Glucagon) 1 mg IM PRN PRN PRN Reason: Hypoglycemia Guaifenesin/Dextromethorphan (Robitussin Dm) 15 ml PO Q4H PRN PRN Reason: Cough Last Admin: 04/18/19 20:11 Dose: 15 ml Haloperidol Lactate (Haldol) 10 mg IM Q6H PRN PRN Reason: .AGITATION Heparin Sodium (Porcine) (Heparin 1,000 Units/Ml (10 Ml)) 0 units SLOW IVP WILLCALL [facility] Last Admin: 04/20/19 17:30 Dose: 4,000 unit Dextrose/Water (D5w) 1,000 mls @ 0 mls/hr IV .Q0M PRN PRN Reason: Hypoglycemia Cefepime HCl 1 gm/ Sodium (Chloride) 100 mls @ 200 mls/hr IVPB 0100,1300 [facility] Last Admin: 04/22/19 12:33 Dose: 100 mls Insulin Human Lispro (Humalog) 0 units SC .AGGRESSIVE SLIDING PRN PRN Reason: Aggressive Correctional Scale Last Admin: 04/20/19 17:21 Dose: 9 unit Insulin Human Lispro (Humalog) 0 units SC .BEDTIME SLIDING SC PRN PRN Reason: Bedtime Correctional Scale Last Admin: 04/20/19 20:42 Dose: 2 unit Labetalol HCl (Normodyne) 10 mg SLOW IVP Q4H PRN PRN Reason: SBP Greater Than 170 Last Admin: 04/18/19 23:46 Dose: 10 mg Lidocaine (Lidoderm 5% Patch) 1 patch TD 1700 [facility] Last Admin: 04/21/19 17:40 Dose: 1 patch Lorazepam (Ativan) 1 mg SLOW IVP Q6H PRN PRN Reason: Anxiety/Agitation Last Admin: 04/15/19 23:05 Dose: 1 mg Miscellaneous Medication (Lidocaine Patch Removal) 1 each TOP 0500 [facility] Last Admin: 04/22/19 05:53 Dose: 1 each Nitroglycerin (Nitrostat) 0.4 mg SL Q5MIN PRN PRN Reason: Chest Pain Propofol (Diprivan) 1,000 mg IV INF PRN; Protocol PRN Reason: TO ACHIEVE GOAL RASS Stop: 05/11/19 06:15 Last Admin: 04/11/19 23:40 Dose: 1,000 mg Saccharomyces Boulardii (Florastor) 250 mg PO DAILY [facility] Last Admin: 04/22/19 08:18 Dose: 250 mg Senna (Senokot) 1 tab PO BID [facility] Last Admin: 04/22/19 08:18 Dose: 1 tab Sodium Chloride (Flush - Normal Saline) 10 ml IVF Q12HR [facility] Last Admin: 04/22/19 10:05 Dose: 10 ml Sodium Chloride (Flush - Normal Saline) 10 ml IVF PRN PRN PRN Reason: Saline Flush Sterile Water (Water For Injection) 1.2 ml FS PRN PRN PRN Reason: RECONSTITUTION Ticagrelor (Brilinta) 90 mg PO BID [facility] Last Admin: 04/22/19 09:30 Dose: 90 mg Ziprasidone (Geodon) 10 mg IM Q4H PRN PRN Reason: Agitation Last Admin: 04/15/19 22:39 Dose: 10 mg Vital Signs & Weight: Vital Signs Temp Pulse Pulse Pulse Pulse Resp BP 04/22/19 14:24 73 24 H 04/22/19 13:21 98.6 F 75 20 04/22/19 12:00 98.4 F 82 25 H 04/22/19 11:43 98.4 F 84 24 H 04/22/19 10:38 83 19 04/22/19 10:37 79 93 04/22/19 08:18 139/80 04/22/19 07:35 04/22/19 07:20 98.5 F 04/22/19 07:07 04/22/19 06:52 82 25 H BP BP BP Pulse Ox Pulse Ox 04/22/19 14:24 100 04/22/19 13:21 134/64 100 04/22/19 12:00 139/55 L 98 04/22/19 11:43 119/62 100 04/22/19 10:38 97 04/22/19 10:37 115/61 141/70 H 100 04/22/19 08:18 04/22/19 07:35 100 04/22/19 07:20 04/22/19 07:07 98 04/22/19 06:52 98 Admit Weight 308 lb 10.354 oz Weight 288 lb 12.889 oz - Physical Exam General: alert & oriented x3 HEENT: mucus membranes moist Neck: supple neck Cardiac: regular rate and rhythm Lungs: normal breath sounds Neuro: grossly intact Abdomen: active bowel sounds Extremities: no edema Skin: clear Musculoskeletal: no pain - Labs Result Diagrams: 04/22/19 09:02 04/22/19 04:31 Troponin/CKMB CK-MB (CK-2) 16.5 ng/mL (0-6.6) H* 04/13/19 13:52 Troponin I 15.949 ng/mL (< 0.028) H* 04/13/19 13:52 - Telemetry Sinus rhythms and dysrhythmias: sinus rhythm - Assessment/Plan Assessment/Plan: 1. Respiratory distress 2. VT 3. Out of hospital arrest 4. Acute on chronic renal failure. 5. Hyperkalemia 6. NSTEMI 7. CAD s/p single vessel CABG and residual 2 vessel disease. 8. S/P PCI to LM into LCx. Jailed LAD but protected with good quality LOVE. PLAN: - Will transfuse 2 more units. - If he starts getting volume overload will have to diurese. Currently his LV function is well enough that he should be able to tolerate the volume load and diurese on his own. - Several questions about procedure and future procedures with him and his son were answered. - Creatinine has not changed significantly since yesterday. - Critical Care Time Critical care time (mins): 30
[2019-04-22] MEDS: Lidocaine 5% Patch TD SCH (17:30)
[2019-04-22 18:11] LABS: Hemoglobin 8.2 g/dL (14.0-18.0)
--- NOTE | 2019-04-22 20:43 | PRG ---
DATE OF SERVICE: 04/22/2019 SUBJECTIVE: Jeancarlos Schmidt has no new complaints. OBJECTIVE: VITAL SIGNS: He is afebrile. Heart rate is 72, respiratory rate is 18, oximetry is 95% on room air, blood pressure 160/83. LUNGS: Clear. HEART: Regular rhythm. ABDOMEN: Soft. EXTREMITIES: Without edema. LABORATORY DATA: Hemoglobin was surprisingly 6.3 this morning. He was transfused, it is 8.2 this evening. There has been no external bleeding and nothing to suggest he has had a retroperitoneal bleed. IMPRESSION: 1. Status post coronary stenting, clinically stable. 2. Status post sudden cardiac with mild encephalopathy. He is clinically stable. He refused to use BiPAP last night. I have tried to convince him that it is necessary. He can take his Xanax prior to putting on his BiPAP. I offered to increase the dose to 1 mg, which he takes at home, but he feels that 0.5 mg would be reasonable. We will continue the same. Job ID: [id number]
[2019-04-22] MEDS: Amiodarone 200 MG TAB PO SCH (20:53)
[2019-04-22] MEDS: Guaifenesin DM 100-10/5 ML UDCUP PO PRN (21:02)
[2019-04-23] MEDS: ALPRAZolam 0.5 MG TAB PO SCH (00:10)
[2019-04-23] MEDS: Cefepime 1 GM in Sodium Chloride 0.9% 100 ML IVPB SCH ×2 (01:12→12:18)
[2019-04-23 04:35] LABS: Band 3 % (5-11); Hemoglobin 9.3 g/dL (14.0-18.0); Lymphocytes 5 % (21-51); MDiff Complete? YES; Mean Corpuscular HGB CONC 33.4 g/dL (32.0-36.0); Mean Corpuscular Hemoglobin 31.4 pg (27.0-31.0); Mean Corpuscular Volume 94.1 fL (78.0-98.0); Mean Platelet Volume 7.2 fL (7.4-10.4); Monocytes 4 % (0-10); Neutrophil 88 % (42-75); Platelet Count 227 thou/uL (130-400); Red Blood Cell (RBC) Count 2.97 mill/uL (4.70-6.10)
[2019-04-23] MEDS: Lidocaine Patch Removal 1 EACH TOP SCH (04:45)
[2019-04-23] MEDS: HumaLOG 300 UNITS/3 ML VIAL SC PRN ×3 (06:27→16:24)
[2019-04-23] MEDS: Famotidine 20 MG TAB PO SCH (08:38)
[2019-04-23] MEDS: Amiodarone 200 MG TAB PO SCH ×2 (08:38→20:27)
[2019-04-23] MEDS: TICAGRELOR 90 MG TABLET PO SCH ×2 (08:39→20:27)
[2019-04-23] MEDS: Ferrous Sulfate 325 MG TAB PO SCH (08:39)
[2019-04-23] MEDS: Saccharomyces boulardii 250 MG CAP PO SCH (08:39)
[2019-04-23] MEDS: Allopurinol 100 MG TAB PO SCH (08:39)
[2019-04-23] MEDS: Aspirin 81 mg Enteric Coated Tablet PO SCH (08:39)
[2019-04-23] MEDS: Carvedilol 6.25 MG TAB PO SCH ×2 (08:40→16:24)
[2019-04-23] MEDS: Senokot 8.6 MG TAB PO SCH ×2 (08:40→20:38)
[2019-04-23 09:34] LABS: Anion Gap 13 mmol/L (10-20); BUN (Urea Nitrogen) 45 mg/dL (8.4-25.7); Calc. Creatinine Clearance 44 mL/min (70-130); Calcium 8.8 mg/dL (7.8-10.44); Carbon Dioxide 24 mmol/L (23-31); Chloride 104 mmol/L (98-107); Estimated GFR-MDRD 25; Glucose 223 mg/dL (80-115); Potassium 4.5 mmol/L (3.5-5.1); Sodium 136 mmol/L (136-145)
[2019-04-23] MEDS: Lidocaine 5% Patch TD SCH (16:24)
--- NOTE | 2019-04-23 17:17 | PRG ---
DATE OF SERVICE: 04/23/2019 SUBJECTIVE: The patient is seen and examined, noted to be doing much better, noted with the following vital signs. OBJECTIVE: VITAL SIGNS: Afebrile, temperature 98.3, blood pressure 151/80, and pulse of 78. HEENT: Unremarkable. CARDIOVASCULAR SYSTEM: First and second heart sounds were heard. RESPIRATORY SYSTEM: Some rales. DIGESTIVE SYSTEM: Benign abdomen. EXTREMITIES: No peripheral edema. LABORATORY DATA: White count 31,000 and hemoglobin 9.3. Chemistry showed a creatinine of 3.13 and BUN of 45. IMPRESSION: 1. Acute on chronic kidney disease, which seems to be stabilizing. 2. Status post respiratory failure. 3. Status post cardiac arrest. PLAN: 1. We will monitor this patient's kidney function closely and make a decision on whether to remove the dialysis catheter within the next 24 to 48 hours if the patient is not in need of this. 2. If the patient's hemoglobin continues to drop, may benefit from erythropoiesis stimulating agents in the context of anemia of chronic kidney disease. 3. Further management to be dependent on the clinical course. Job ID: [id number]
--- NOTE | 2019-04-23 17:34 | PDOC.HOSPP ---
- Subjective Encounter Date: 04/23/19 Encounter Time: 14:00 Subjective: CC: f/u anemia, f/u cardiac arrest The patient feels more congested today and is coughing up more phlegm. Other than he is doing better. Chest pressure after the cath is much less. No palpitations - Objective Vital Signs & Weight: Vital Signs (12 hours) Temp Pulse Pulse Pulse Pulse Resp BP 04/23/19 16:24 151/80 H 04/23/19 15:15 98.3 F 04/23/19 15:05 80 28 H 04/23/19 13:05 83 04/23/19 11:17 97.6 F 04/23/19 11:13 74 24 H 04/23/19 10:41 76 75 04/23/19 08:40 172/87 H 04/23/19 08:00 04/23/19 07:19 98.2 F 04/23/19 06:41 78 20 BP BP BP Pulse Ox Pulse Ox Pulse Ox Pulse Ox 04/23/19 16:24 04/23/19 15:15 04/23/19 15:05 100 04/23/19 13:05 118/75 99 04/23/19 11:17 04/23/19 11:13 100 04/23/19 10:41 144/77 H 140/72 100 100 04/23/19 08:40 04/23/19 08:00 95 04/23/19 07:19 04/23/19 06:41 100 Weight Admit Weight 308 lb 10.354 oz Weight 281 lb 6.4 oz Most Recent Monitor Data Heart Rate from ECG 78 NIBP 151/80 NIBP BP-Mean 103 Respiration from ECG 30 SpO2 100 I&O: 04/22/19 04/23/19 04/24/19 06:59 06:59 06:59 Intake Total 3248 2110 Output Total 2875 1950 Balance 373 160 Result Diagrams: 04/23/19 03:31 04/23/19 08:51 Additional Labs: Accuchecks 04/23/19 04/23/19 04/23/19 16:27 10:41 05:48 POC Glucose 208 H 196 H 174 H 04/22/19 19:50 POC Glucose 133 H Hospitalist ROS - Medication Medications: Active Medications Generic Name Dose Route Start Last Admin Trade Name Freq PRN Reason Stop Dose Admin Albuterol/Ipratropium 3 ml 04/15/19 14:30 04/23/19 15:05 Duoneb NEB 3 ml [id number] YOEL Administration Allopurinol 100 mg 04/12/19 09:00 04/23/19 08:39 Zyloprim PO 100 mg DAILY YOEL Administration Alprazolam 0.25 mg 04/15/19 12:44 04/15/19 13:26 Xanax PO 0.25 mg TIDPRN PRN Administration Anxiety Alprazolam 0.5 mg 04/20/19 23:59 04/23/19 00:10 Xanax PO 0.5 mg 2359 YOEL Administration Amiodarone HCl 400 mg 04/22/19 21:00 04/23/19 08:38 Cordarone PO 400 mg BID YOEL Administration Aspirin 81 mg 04/23/19 09:00 04/23/19 08:39 Ecotrin PO 81 mg DAILY YOEL Administration Carvedilol 6.25 mg 04/14/19 08:00 04/23/19 16:24 Coreg PO 6.25 mg BID-WM YOEL Administration Famotidine 20 mg 04/14/19 09:00 04/23/19 08:38 Pepcid PO 20 mg DAILY [facility] Administration Fentanyl 25 mcg 04/21/19 14:22 04/22/19 14:55 Sublimaze SLOW IVP 25 mcg Q4H PRN Administration Pain Ferrous Sulfate 325 mg 04/16/19 08:00 04/23/19 08:39 Feosol PO 325 mg QAM-WM [facility] Administration Guaifenesin/Dextromethorphan 15 ml 04/14/19 15:29 04/22/19 21:02 Robitussin Dm PO 15 ml Q4H PRN Administration Cough Cefepime HCl 1 gm/ Sodium 100 mls @ 200 mls/hr 04/18/19 13:00 04/23/19 12:18 Chloride IVPB 100 mls 0100,1300 YOEL Administration Insulin Human Lispro 0 units 04/11/19 10:59 04/23/19 16:24 Humalog SC 6 unit .AGGRESSIVE SLIDING PRN Administration Aggressive Correctional Scale Insulin Human Lispro 0 units 04/11/19 10:59 04/20/19 20:42 Humalog SC 2 unit .BEDTIME SLIDING SC PRN Administration Bedtime Correctional Scale Labetalol HCl 10 mg 04/13/19 10:08 04/18/19 23:46 Normodyne SLOW IVP 10 mg Q4H PRN Administration SBP Greater Than 170 Lidocaine 1 patch 04/21/19 17:00 04/23/19 16:24 Lidoderm 5% Patch TD 1 patch 1700 YOEL Administration Lorazepam 1 mg 04/15/19 10:22 04/15/19 23:05 Ativan SLOW IVP 1 mg Q6H PRN Administration Anxiety/Agitation Miscellaneous Medication 1 each 04/22/19 05:00 04/23/19 04:45 Lidocaine Patch Removal TOP 1 each 0500 YOEL Administration Propofol 1,000 mg 04/11/19 06:15 04/11/19 23:40 Diprivan IV 05/11/19 06:15 1,000 mg INF PRN Administration TO ACHIEVE GOAL RASS Protocol Saccharomyces Boulardii 250 mg 04/19/19 09:00 04/23/19 08:39 Florastor PO 250 mg DAILY YOEL Administration Senna 1 tab 04/19/19 21:00 04/23/19 08:40 Senokot PO 1 tab BID YOEL Administration Sodium Chloride 10 ml 04/21/19 09:00 04/23/19 08:40 Flush - Normal Saline IVF 10 ml Q12HR YOEL Administration Sodium Chloride 10 ml 04/21/19 07:39 04/23/19 01:13 Flush - Normal Saline IVF 10 ml PRN PRN Administration Saline Flush Ticagrelor 90 mg 04/21/19 21:00 04/23/19 08:39 Brilinta PO 90 mg BID YOEL Administration Ziprasidone 10 mg 04/15/19 10:22 04/15/19 22:39 Geodon IM 10 mg Q4H PRN Administration Agitation - Exam General Appearance: NAD, awake alert Eye: PERRL, anicteric sclera ENT: normocephalic atraumatic, no oropharyngeal lesions Neck: supple, symmetric, no JVD Heart: RRR, no murmur, no gallops, no rubs Respiratory: CTAB, no wheezes, no ronchi Respiratory - other findings: diffuse rales bilaterally Gastrointestinal: soft, non-tender, non-distended, normal bowel sounds Extremities: no cyanosis, no clubbing, no edema Skin: normal turgor, no lesions, no rashes Neurological: cranial nerve grossly intact, normal sensation to touch, no focal deficits, no new deficit Hosp A/P - Plan Chest X ray 04/19: streaky opacity in the left base ECHO: EF 45-50, anterolateral hypokinesis, mild MR, mild TR, elevated RVSP Cardiac cath: 99% occlusion LAD but CABG patent, 90% occlusion circumflex s/p NATALY, 90% occlusion RCA This is a 63 year old male with past medical history of type II diabetes, atrial fibrillation, hypertension, SHANTE who presented with s/p cardiac arrest with ROSC Cardiac arrest secondary to vfib/hyperkalemia and NSTEMI Acute hypoxic respiratory failure from cardiac arrest vs pneumonia vs pulmonary edema -s/p heart cath, with NATALY placed to left circumflex 04/21. Bypass patent in LAD , 90% occlusion in RCA also present. Continue aspirin 81 mg daily, brilinta - continue amiodarone to 400 mg bid, continue beta-fidelia - on IV cefepime day 6 - will add furosemide 40 mg x 1 given recent transfusion - will add mucinex Leukocytosis - improving -- patient's WBC has increased to 21. was started on cefepime 04/18. Chest X ray showing possible opacity in left base. Continue day 5 of antibiotics - will add azithromycin - stopped steroids - clinically improving with no fevers Anemia - hemoglobin was 6 on 04/22. 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
[2019-04-23] MEDS ORDERED: Furosemide 40 MG/4 ML VIAL SLOW IVP SCH (17:45)
--- NOTE | 2019-04-23 17:58 | PDOC.CPN ---
- Subjective Date: 04/23/19 Time: 17:46 Interval history: He is doing much better. No chest pain. SOB at baseline. A lot more secretions today. - Review of Systems General: denies: fever/chills, weight/appetite/sleep changes, night sweats, fatigue Respiratory: denies: cough, congestion, shortness of breath, exercise intolerance Cardiovascular: denies: chest pain, palpitation, edema, paroxysmal nocturnal dyspnea, orthopnea Gastrointestinal: denies: nausea, vomiting, diarrhea, constipation, abd pain, GI bleeding Musculoskeletal: denies: pain, tenderness, stiffness, swelling, arthritis/ arthralgias Neurological: denies: numbness, syncope, seizure, weakness - Objective Allergies/Adverse Reactions: Allergies Allergy/AdvReac Type Severity Reaction Status Date / Time No Known Drug Allergies Allergy Verified 04/11/19 10:19 Visit Medications: Current Medications Albuterol/Ipratropium (Duoneb) 3 ml NEB [id number] [facility] Last Admin: 04/23/19 15:05 Dose: 3 ml Allopurinol (Zyloprim) 100 mg PO DAILY [facility] Last Admin: 04/23/19 08:39 Dose: 100 mg Alprazolam (Xanax) 0.25 mg PO TIDPRN PRN PRN Reason: Anxiety Last Admin: 04/15/19 13:26 Dose: 0.25 mg Alprazolam (Xanax) 0.5 mg PO 235 [facility] Last Admin: 04/23/19 00:10 Dose: 0.5 mg Amiodarone HCl (Cordarone) 400 mg PO BID [facility] Last Admin: 04/23/19 08:38 Dose: 400 mg Aspirin (Ecotrin) 81 mg PO DAILY [facility] Last Admin: 04/23/19 08:39 Dose: 81 mg Carvedilol (Coreg) 6.25 mg PO BID-[facility] Last Admin: 04/23/19 16:24 Dose: 6.25 mg Dextrose/Water (Dextrose 50%) 25 gm SLOW IVP PRN PRN PRN Reason: Hypoglycemia Epoetin Tan-epbx (Retacrit) 10,000 unit SC TTHSA [facility] Famotidine (Pepcid) 20 mg PO DAILY [facility] Last Admin: 04/23/19 08:38 Dose: 20 mg Fentanyl (Sublimaze) 25 mcg SLOW IVP Q4H PRN PRN Reason: Pain Last Admin: 04/22/19 14:55 Dose: 25 mcg Ferrous Sulfate (Feosol) 325 mg PO QAM-[facility] Last Admin: 04/23/19 08:39 Dose: 325 mg Furosemide (Lasix) 40 mg SLOW IVP NOW [facility] Stop: 04/23/19 19:45 Glucagon (Glucagon) 1 mg IM PRN PRN PRN Reason: Hypoglycemia Guaifenesin (Mucinex) 600 mg PO Q12HR [facility] Guaifenesin/Dextromethorphan (Robitussin Dm) 15 ml PO Q4H PRN PRN Reason: Cough Last Admin: 04/22/19 21:02 Dose: 15 ml Haloperidol Lactate (Haldol) 10 mg IM Q6H PRN PRN Reason: .AGITATION Heparin Sodium (Porcine) (Heparin) 5,000 units SC TID [facility] Dextrose/Water (D5w) 1,000 mls @ 0 mls/hr IV .Q0M PRN PRN Reason: Hypoglycemia Cefepime HCl 1 gm/ Sodium (Chloride) 100 mls @ 200 mls/hr IVPB 0100,1300 [facility] Last Admin: 04/23/19 12:18 Dose: 100 mls Insulin Human Lispro (Humalog) 0 units SC .AGGRESSIVE SLIDING PRN PRN Reason: Aggressive Correctional Scale Last Admin: 04/23/19 16:24 Dose: 6 unit Insulin Human Lispro (Humalog) 0 units SC .BEDTIME SLIDING SC PRN PRN Reason: Bedtime Correctional Scale Last Admin: 04/20/19 20:42 Dose: 2 unit Labetalol HCl (Normodyne) 10 mg SLOW IVP Q4H PRN PRN Reason: SBP Greater Than 170 Last Admin: 04/18/19 23:46 Dose: 10 mg Lidocaine (Lidoderm 5% Patch) 1 patch TD 1700 [facility] Last Admin: 04/23/19 16:24 Dose: 1 patch Lorazepam (Ativan) 1 mg SLOW IVP Q6H PRN PRN Reason: Anxiety/Agitation Last Admin: 04/15/19 23:05 Dose: 1 mg Miscellaneous Medication (Lidocaine Patch Removal) 1 each TOP 0500 [facility] Last Admin: 04/23/19 04:45 Dose: 1 each Nitroglycerin (Nitrostat) 0.4 mg SL Q5MIN PRN PRN Reason: Chest Pain Propofol (Diprivan) 1,000 mg IV INF PRN; Protocol PRN Reason: TO ACHIEVE GOAL RASS Stop: 05/11/19 06:15 Last Admin: 04/11/19 23:40 Dose: 1,000 mg Saccharomyces Boulardii (Florastor) 250 mg PO DAILY [facility] Last Admin: 04/23/19 08:39 Dose: 250 mg Senna (Senokot) 1 tab PO BID [facility] Last Admin: 04/23/19 08:40 Dose: 1 tab Sodium Chloride (Flush - Normal Saline) 10 ml IVF Q12HR [facility] Last Admin: 04/23/19 08:40 Dose: 10 ml Sodium Chloride (Flush - Normal Saline) 10 ml IVF PRN PRN PRN Reason: Saline Flush Last Admin: 04/23/19 01:13 Dose: 10 ml Sterile Water (Water For Injection) 1.2 ml FS PRN PRN PRN Reason: RECONSTITUTION Ticagrelor (Brilinta) 90 mg PO BID [facility] Last Admin: 04/23/19 08:39 Dose: 90 mg Ziprasidone (Geodon) 10 mg IM Q4H PRN PRN Reason: Agitation Last Admin: 04/15/19 22:39 Dose: 10 mg Vital Signs & Weight: Vital Signs Temp Pulse Pulse Pulse Pulse Resp BP 04/23/19 16:24 151/80 H 04/23/19 15:15 98.3 F 04/23/19 15:05 80 28 H 04/23/19 13:05 83 04/23/19 11:17 97.6 F 04/23/19 11:13 74 24 H 04/23/19 10:41 76 75 04/23/19 08:40 172/87 H 04/23/19 08:00 04/23/19 07:19 98.2 F 04/23/19 06:41 78 20 BP BP BP Pulse Ox Pulse Ox Pulse Ox Pulse Ox 04/23/19 16:24 04/23/19 15:15 04/23/19 15:05 100 04/23/19 13:05 118/75 99 04/23/19 11:17 04/23/19 11:13 100 04/23/19 10:41 144/77 H 140/72 100 100 04/23/19 08:40 04/23/19 08:00 95 04/23/19 07:19 04/23/19 06:41 100 Admit Weight 308 lb 10.354 oz Weight 281 lb 6.4 oz - Physical Exam General: alert & oriented x3 HEENT: mucus membranes moist Neck: supple neck Cardiac: regular rate and rhythm, no murmur Lungs: scattered rhonchi Neuro: grossly intact Abdomen: active bowel sounds Extremities: other: (Trace edema.) Skin: clear Musculoskeletal: normal range of motion - Labs Result Diagrams: 04/23/19 03:31 04/23/19 08:51 Troponin/CKMB CK-MB (CK-2) 16.5 ng/mL (0-6.6) H* 04/13/19 13:52 Troponin I 15.949 ng/mL (< 0.028) H* 04/13/19 13:52 - Telemetry Sinus rhythms and dysrhythmias: sinus rhythm - Assessment/Plan Assessment/Plan: 1. VT 2. Out of hospital arrest 3. Acute on chronic renal failure. 4. Hyperkalemia, resolved. 5. NSTEMI 6. CAD s/p single vessel CABG and residual ostial RCA and ostial LCx disease. 7. S/P PCI to LM into LCx with NATALY. Jailed LAD but protected with good quality LOVE. PLAN: - Hgb stable now. - Creatinine with minimal increase today. Continue to trend. - No angina. - Will restart statin. Will up titrate Coreg. - Continua Brilinta and aspirin. - Will need to start aggressive PT.
[2019-04-23] MEDS ORDERED: Carvedilol 6.25 MG TAB PO SCH (18:30)
--- NOTE | 2019-04-23 18:36 | PRG ---
DATE OF SERVICE: 04/23/2019 SUBJECTIVE: The patient had catheterization and had [address] Hay. He has been transferred to the [facility]. Some cough. No chest pain or maybe a less chest pain than before. No abdominal pain. No diarrhea. Indwelling Govea has been removed. He is voiding in the urinal and was negative 300 the day before yesterday and then slightly positive for the past 2 days. OBJECTIVE: GENERAL: He is awake, appears in no distress, oriented. NECK: No jugular vein distention. LUNGS: With a few inspiratory crackles at the bases. No wheezing. HEART: S1 and S2. Regular rate. ABDOMEN: Soft. Not distended. LABORATORY DATA: White cell count is up to 21,000, hemoglobin 9.3, platelets 227 with 88% neutrophils, 3% bands. Creatinine 3.13. Sodium 136. Two sets of blood cultures from the , no growth 5 days. Urine culture, no growth 48 hours. Chest x-ray with no infiltrates. ASSESSMENT AND DISCUSSION: Obesity hypoventilation syndrome, type 2 diabetes, recent single-vessel cardiac bypass surgery with then [id number] ventricular tachycardia and cardiac arrest with successful resuscitation, renal insufficiency requiring hemodialysis catheter placement, and neutrophilia, which is probably associated with his hemodynamic problem. Methylprednisolone was contributing at the beginning. At this point in time, I would probably consider de-escalation and discontinue cefepime. He is at risk of bacteremia/fungemia due to R groin catheter. Job ID: [id number] MTDD
[2019-04-23] MEDS: Rosuvastatin 20 MG TAB PO SCH (20:27)
[2019-04-23] MEDS: guaiFENesin ER 600 MG TAB PO SCH (20:27)
[2019-04-23] MEDS: Heparin 5,000 UNITS/ML VIAL SC SCH (20:28)
[2019-04-23] MEDS ORDERED: Lidocaine 2% Viscous Solution 10 ML, Aluminum & Magnesium Hydroxide 30 ML SSW SCH (22:15)
[2019-04-23] MEDS: Fentanyl 100 MCG/2 ML VIAL SLOW IVP PRN (22:54)
[2019-04-24] MEDS: ALPRAZolam 0.5 MG TAB PO SCH (00:19)
[2019-04-24] MEDS: Cefepime 1 GM in Sodium Chloride 0.9% 100 ML IVPB SCH ×2 (00:19→13:17)
[2019-04-24] MEDS: Fentanyl 100 MCG/2 ML VIAL SLOW IVP PRN ×2 (03:13→21:08)
[2019-04-24 03:28] LABS: #Basophils 0.1 thou/uL (0.0-0.2); #Eosinphils 0.2 thou/uL (0.0-0.7); #Lymphocytes 2.4 thou/uL (1.20-3.40); #Monocytes 1.5 thou/uL (0.11-0.59); #Neutrophils 17.5 thou/uL (1.40-6.50); %Basophils 0.4 % (0.0-1.0); %Neutrophils 80.6 % (42.0-75.0); Hemoglobin 9.2 g/dL (14.0-18.0); Mean Corpuscular HGB CONC 32.7 g/dL (32.0-36.0); Mean Corpuscular Hemoglobin 31.3 pg (27.0-31.0); Mean Corpuscular Volume 95.9 fL (78.0-98.0); Mean Platelet Volume 6.6 fL (7.4-10.4); Platelet Count 214 thou/uL (130-400); RBC Distribution Width 14.8 % (11.5-14.5); Red Blood Cell (RBC) Count 2.92 mill/uL (4.70-6.10); White Blood Cell (WBC) Count 21.7 thou/uL (4.8-10.8)
[2019-04-24 03:47] LABS: Albumin 3.1 g/dL (3.4-4.8); Anion Gap 14 mmol/L (10-20); BUN (Urea Nitrogen) 40 mg/dL (8.4-25.7); BUN/Creatinine Ratio 12.38; Calc. Creatinine Clearance 43 mL/min (70-130); Calcium 8.9 mg/dL (7.8-10.44); Carbon Dioxide 23 mmol/L (23-31); Chloride 105 mmol/L (98-107); Estimated GFR-MDRD 24; Glucose 174 mg/dL (80-115); Phosphorus 3.8 mg/dL (2.3-4.7); Potassium 4.4 mmol/L (3.5-5.1); Sodium 138 mmol/L (136-145)
[2019-04-24] MEDS: Lidocaine Patch Removal 1 EACH TOP SCH (05:46)
--- NOTE | 2019-04-24 07:52 | PRG ---
DATE OF SERVICE: 04/23/2019 SUBJECTIVE: Jeancarlos Schmidt wore his BiPAP last night. OBJECTIVE: VITAL SIGNS: Blood pressure 155/76, heart rate 76, afebrile, respiratory rates in the low 20s, oximetry is 100% on 2 L. LUNGS: Unchanged. HEART: Unchanged. ABDOMEN: Unchanged. He is actually starting to look more toward his baseline. His white count is 21.0, hemoglobin is 9.3, 3% bands on his peripheral smear, platelets 227. Creatinine is 3.13, up from 2.86, which I am sure is result of his contrast recently even though minimal amount was used. IMPRESSION: 1. Status post mechanical ventilation after cardiac arrest. 2. Cardiomyopathy. 3. Coronary artery disease with recent stenting. 4. [id number] kidney disease. 5. Deconditioning. 6. Obesity. 7. Sleep apnea. 8. Continue supportive care. 9. Rehab evaluation. Job ID: [id number]
[2019-04-24] MEDS: Saccharomyces boulardii 250 MG CAP PO SCH (08:53)
[2019-04-24] MEDS: guaiFENesin ER 600 MG TAB PO SCH ×2 (08:53→20:35)
[2019-04-24] MEDS: Allopurinol 100 MG TAB PO SCH (08:53)
[2019-04-24] MEDS: Famotidine 20 MG TAB PO SCH (08:53)
[2019-04-24] MEDS: Carvedilol 6.25 MG TAB PO SCH ×2 (08:53→16:21)
[2019-04-24] MEDS: Amiodarone 200 MG TAB PO SCH ×2 (08:53→20:35)
[2019-04-24] MEDS: Heparin 5,000 UNITS/ML VIAL SC SCH ×3 (08:53→20:42)
[2019-04-24] MEDS: Aspirin 81 mg Enteric Coated Tablet PO SCH (08:53)
[2019-04-24] MEDS: Ferrous Sulfate 325 MG TAB PO SCH (08:53)
[2019-04-24] MEDS: TICAGRELOR 90 MG TABLET PO SCH ×2 (09:00→20:35)
[2019-04-24] MEDS: Senokot 8.6 MG TAB PO SCH ×2 (09:00→20:36)
--- NOTE | 2019-04-24 10:14 | RAD ---
UPRIGHT PORTABLE CHEST 1 VIEW: HISTORY: Cough, pulmonary edema. COMPARISON: 04/21/2019. FINDINGS: Postop midline sternotomy. Left jugular venous catheter in place. Minimal increased markings in the infrahilar regions with mild right hemidiaphragm elevation, but stable from prior studies. IMPRESSION: Stable exam. No confluent pneumonia, overt edema, or pleural effusion. POS: H
[2019-04-24] MEDS: HumaLOG 300 UNITS/3 ML VIAL SC PRN ×2 (10:48→16:28)
[2019-04-24 14:03] VITALS: BMI 38.9
[2019-04-24] MEDS: Lidocaine 5% Patch TD SCH (16:21)
--- NOTE | 2019-04-24 16:42 | PRG ---
DATE OF SERVICE: 04/24/2019 SUBJECTIVE: The patient noted with the following vital signs. OBJECTIVE: VITAL SIGNS: Afebrile, temperature 98.5, pulse 74, and blood pressure 132/65. HEENT: Unremarkable. CARDIOVASCULAR SYSTEM: First and second heart sounds were heard. RESPIRATORY SYSTEM: Clear to auscultation. DIGESTIVE SYSTEM: Obese abdomen. EXTREMITIES: No peripheral edema. SKIN: No new gross rash. LYMPHATICS: No peripheral lymphadenopathy. LABORATORY INVESTIGATION: Creatinine of 3.22 and BUN of 40. The patient seemed to have plateaued around his creatinine of 3. IMPRESSION: 1. Acute on chronic kidney disease. He seems to have plateaued on that level, chronic kidney disease level 4 for sometime. 2. Mild hypervolemia. PLAN: 1. We will discontinue the femoral dialysis catheter. If the patient ever require dialysis, we will for a tunneled dialysis catheter for that, but for now, no indication for hemodialysis. 2. Further management to be dependent on the clinical course. Job ID: [id number]
--- NOTE | 2019-04-24 17:06 | PDOC.HOSPP ---
- Subjective Encounter Date: 04/24/19 Encounter Time: 14:00 Subjective: THe patient feels pretty much the same. Congestion has improved some. Cough is about the same. HE is still short of breath some. He is having his femoral dialysis catheter removed today - Objective Vital Signs & Weight: Vital Signs (12 hours) Temp Pulse Pulse Pulse Pulse Pulse Resp 04/24/19 16:21 04/24/19 15:58 98.5 F 04/24/19 15:38 78 25 H 04/24/19 15:30 63 75 72 75 04/24/19 11:17 99.1 F 04/24/19 11:05 77 21 H 04/24/19 08:53 04/24/19 08:00 04/24/19 07:39 84 28 H 04/24/19 07:11 98.4 F 04/24/19 06:00 BP BP BP BP BP Pulse Ox Pulse Ox 04/24/19 16:21 155/69 H 04/24/19 15:58 04/24/19 15:38 98 04/24/19 15:30 125/61 132/65 154/98 H 142/64 H 100 04/24/19 11:17 04/24/19 11:05 100 04/24/19 08:53 145/75 H 04/24/19 08:00 96 04/24/19 07:39 100 04/24/19 07:11 04/24/19 06:00 100 Pulse Ox Pulse Ox Pulse Ox 04/24/19 16:21 04/24/19 15:58 04/24/19 15:38 04/24/19 15:30 100 99 100 04/24/19 11:17 04/24/19 11:05 04/24/19 08:53 04/24/19 08:00 04/24/19 07:39 04/24/19 07:11 04/24/19 06:00 Weight Admit Weight 308 lb 10.354 oz Weight 279 lb 8 oz Most Recent Monitor Data Heart Rate from ECG 74 NIBP 133/65 NIBP BP-Mean 87 Respiration from ECG 30 SpO2 100 I&O: 04/23/19 04/24/19 04/25/19 06:59 06:59 06:59 Intake Total 2110 1450 Output Total 1950 1375 575 Balance 160 75 -575 Result Diagrams: 04/24/19 03:18 04/24/19 03:18 Additional Labs: Accuchecks 04/24/19 04/24/19 04/24/19 16:31 10:36 05:41 POC Glucose 163 H 256 H 180 H 04/23/19 19:49 POC Glucose 205 H Hospitalist ROS - Medication Medications: Active Medications Generic Name Dose Route Start Last Admin Trade Name Freq PRN Reason Stop Dose Admin Albuterol/Ipratropium 3 ml 04/15/19 14:30 04/24/19 15:38 Duoneb NEB 3 ml [id number] YOEL Administration Allopurinol 100 mg 04/12/19 09:00 04/24/19 08:53 Zyloprim PO 100 mg DAILY YOEL Administration Alprazolam 0.25 mg 04/15/19 12:44 04/15/19 13:26 Xanax PO 0.25 mg TIDPRN PRN Administration Anxiety Alprazolam 0.5 mg 04/20/19 23:59 04/24/19 00:19 Xanax PO 0.5 mg 2359 YOEL Administration Amiodarone HCl 400 mg 04/22/19 21:00 04/24/19 08:53 Cordarone PO 400 mg BID YOEL Administration Aspirin 81 mg 04/23/19 09:00 04/24/19 08:53 Ecotrin PO 81 mg DAILY YOEL Administration Carvedilol 12.5 mg 04/24/19 08:00 04/24/19 16:21 Coreg PO 12.5 mg BID-WM YOEL Administration Famotidine 20 mg 04/14/19 09:00 04/24/19 08:53 Pepcid PO 20 mg DAILY YOEL Administration Fentanyl 25 mcg 04/21/19 14:22 04/24/19 03:13 Sublimaze SLOW IVP 25 mcg Q4H PRN Administration Pain Ferrous Sulfate 325 mg 04/16/19 08:00 04/24/19 08:53 Feosol PO 325 mg QAM-WM YOEL Administration Guaifenesin 600 mg 04/23/19 21:00 04/24/19 08:53 Mucinex PO 600 mg Q12HR YOEL Administration Guaifenesin/Dextromethorphan 15 ml 04/14/19 15:29 04/22/19 21:02 Robitussin Dm PO 15 ml Q4H PRN Administration Cough Heparin Sodium (Porcine) 5,000 units 04/23/19 21:00 04/24/19 16:21 Heparin SC 5,000 units TID YOEL Administration Cefepime HCl 1 gm/ Sodium 100 mls @ 200 mls/hr 04/18/19 13:00 04/24/19 13:17 Chloride IVPB 100 mls 0100,1300 YOEL Administration Insulin Human Lispro 0 units 04/11/19 10:59 04/24/19 16:28 Humalog SC 3 unit .AGGRESSIVE SLIDING PRN Administration Aggressive Correctional Scale Insulin Human Lispro 0 units 04/11/19 10:59 04/20/19 20:42 Humalog SC 2 unit .BEDTIME SLIDING SC PRN Administration Bedtime Correctional Scale Labetalol HCl 10 mg 04/13/19 10:08 04/18/19 23:46 Normodyne SLOW IVP 10 mg Q4H PRN Administration SBP Greater Than 170 Lidocaine 1 patch 04/21/19 17:00 04/24/19 16:21 Lidoderm 5% Patch TD 1 patch 1700 YOEL Administration Lorazepam 1 mg 04/15/19 10:22 04/15/19 23:05 Ativan SLOW IVP 1 mg Q6H PRN Administration Anxiety/Agitation Miscellaneous Medication 1 each 04/22/19 05:00 04/24/19 05:46 Lidocaine Patch Removal TOP 1 each 0500 YOEL Administration Rosuvastatin Calcium 20 mg 04/23/19 21:00 04/23/19 20:27 Crestor PO 20 mg HS YOEL Administration Saccharomyces Boulardii 250 mg 04/19/19 09:00 04/24/19 08:53 Florastor PO 250 mg DAILY YOEL Administration Senna 1 tab 04/19/19 21:00 04/24/19 09:00 Senokot PO 1 tab BID YOEL Administration Sodium Chloride 10 ml 04/21/19 09:00 04/24/19 08:52 Flush - Normal Saline IVF 10 ml Q12HR YOEL Administration Sodium Chloride 10 ml 04/21/19 07:39 04/23/19 01:13 Flush - Normal Saline IVF 10 ml PRN PRN Administration Saline Flush Ticagrelor 90 mg 04/21/19 21:00 04/24/19 09:00 Brilinta PO 90 mg BID YOEL Administration Ziprasidone 10 mg 04/15/19 10:22 04/15/19 22:39 Geodon IM 10 mg Q4H PRN Administration Agitation - Exam General Appearance: NAD, awake alert Eye: PERRL, anicteric sclera ENT: normocephalic atraumatic, no oropharyngeal lesions Neck: no JVD Heart: RRR, no murmur, no gallops, no rubs Respiratory: CTAB, no wheezes, no rales, no ronchi Gastrointestinal: soft, non-tender, non-distended, normal bowel sounds Extremities: no cyanosis, no clubbing, no edema Hosp A/P - Plan Chest X ray 04/19: streaky opacity in the left base ECHO: EF 45-50, anterolateral hypokinesis, mild MR, mild TR, elevated RVSP Cardiac cath: 99% occlusion LAD but CABG patent, 90% occlusion circumflex s/p NATALY, 90% occlusion RCA CHest X ray: minimal pleural effusion, stable This is a 63 year old male with past medical history of type II diabetes, atrial fibrillation, hypertension, SHANTE who presented with s/p cardiac arrest with ROSC Cardiac arrest secondary to vfib/hyperkalemia and NSTEMI Acute hypoxic respiratory failure from cardiac arrest vs pneumonia vs pulmonary edema -s/p heart cath, with NATALY placed to left circumflex 04/21. Bypass patent in LAD , 90% occlusion in RCA also present. Continue aspirin 81 mg daily, brilinta - continue amiodarone 400 mg bid, continue beta-fidelia - on IV cefepime day 5, furosemide 40 mg x 1 given 04/23 for some pulmonary edema - chest xray today shows minmal pleural effusion - continue mucinex Leukocytosis -- patient's WBC has increased to 21.7 He was started on cefepime 04/18. Chest X ray showing possible opacity in left base.\ - will add azithromycin - stopped steroids - remove right femoral dialysis catheter Anemia - hemoglobin was 6 on 04/22. S/p 3 units PRBC with improvement in hemoglobin to 9 Acute Kidney Injury on CKD stage III-IV - slight worsening - creatinine up to 3.23, likely from contrast vs lasix - continue to monitor Disposition: removal of dialysis cath Code status: full code
--- NOTE | 2019-04-24 17:50 | PRG ---
DATE OF SERVICE: 04/24/2019 SUBJECTIVE: Elvin Schmidt is in no distress. I believe he still confabulating a little bit when asked questions. OBJECTIVE: VITAL SIGNS: Blood pressure is 155/69, heart rate is in the 70s, respiratory rates in the teens, and oximetry is 99% to 100%. LUNGS: Clear. HEART: Regular rhythm. ABDOMEN: Soft. LABORATORY DATA: White count 21.7, hemoglobin 9.2, and platelets 214. Electrolytes are normal. BUN 40, creatinine 3.23 up from 3.13 yesterday. IMPRESSION: 1. Status post sudden cardiac . 2. Status post cardiac catheterization with stenting. 3. Acute on chronic renal dysfunction with a fall in his creatinine after admission and then the rise now most likely related to a limited amount of contrast that was used. 4. Diabetes. 5. Deconditioning. 6. Sleep apnea. He is now being compliant with CPAP. We will continue with supportive care. There are no acute pulmonary issues at this time, but his intake and output must be watched closely as well as renal function. He denies having physical therapy for a few days, so we will have to check into that, but it may be that he does not remember having physical therapy. Job ID: [id number]
--- NOTE | 2019-04-24 18:21 | PDOC.CPN ---
- Subjective Date: 04/24/19 Time: 18:17 Interval history: Doing well. No angina, no SOB. - Review of Systems General: denies: fever/chills, weight/appetite/sleep changes, night sweats, fatigue Respiratory: denies: cough, congestion, shortness of breath, exercise intolerance Cardiovascular: denies: chest pain, palpitation, edema, paroxysmal nocturnal dyspnea, orthopnea Gastrointestinal: denies: nausea, vomiting, diarrhea, constipation, abd pain, GI bleeding Musculoskeletal: denies: pain, tenderness, stiffness, swelling, arthritis/ arthralgias Neurological: denies: numbness, syncope, seizure, weakness - Objective Allergies/Adverse Reactions: Allergies Allergy/AdvReac Type Severity Reaction Status Date / Time No Known Drug Allergies Allergy Verified 04/11/19 10:19 Visit Medications: Current Medications Albuterol/Ipratropium (Duoneb) 3 ml NEB [id number] [facility] Last Admin: 04/24/19 15:38 Dose: 3 ml Allopurinol (Zyloprim) 100 mg PO DAILY [facility] Last Admin: 04/24/19 08:53 Dose: 100 mg Alprazolam (Xanax) 0.25 mg PO TIDPRN PRN PRN Reason: Anxiety Last Admin: 04/15/19 13:26 Dose: 0.25 mg Alprazolam (Xanax) 0.5 mg PO 2359 [facility] Last Admin: 04/24/19 00:19 Dose: 0.5 mg Amiodarone HCl (Cordarone) 400 mg PO BID [facility] Last Admin: 04/24/19 08:53 Dose: 400 mg Aspirin (Ecotrin) 81 mg PO DAILY [facility] Last Admin: 04/24/19 08:53 Dose: 81 mg Carvedilol (Coreg) 12.5 mg PO BID-[facility] Last Admin: 04/24/19 16:21 Dose: 12.5 mg Dextrose/Water (Dextrose 50%) 25 gm SLOW IVP PRN PRN PRN Reason: Hypoglycemia Epoetin Tan-epbx (Retacrit) 10,000 unit SC TTHSA [facility] Famotidine (Pepcid) 20 mg PO DAILY [facility] Last Admin: 04/24/19 08:53 Dose: 20 mg Fentanyl (Sublimaze) 25 mcg SLOW IVP Q4H PRN PRN Reason: Pain Last Admin: 04/24/19 03:13 Dose: 25 mcg Ferrous Sulfate (Feosol) 325 mg PO QAM-WM [facility] Last Admin: 04/24/19 08:53 Dose: 325 mg Glucagon (Glucagon) 1 mg IM PRN PRN PRN Reason: Hypoglycemia Guaifenesin (Mucinex) 600 mg PO Q12HR [facility] Last Admin: 04/24/19 08:53 Dose: 600 mg Guaifenesin/Dextromethorphan (Robitussin Dm) 15 ml PO Q4H PRN PRN Reason: Cough Last Admin: 04/22/19 21:02 Dose: 15 ml Haloperidol Lactate (Haldol) 10 mg IM Q6H PRN PRN Reason: .AGITATION Heparin Sodium (Porcine) (Heparin) 5,000 units SC TID [facility] Last Admin: 04/24/19 16:21 Dose: 5,000 units Dextrose/Water (D5w) 1,000 mls @ 0 mls/hr IV .Q0M PRN PRN Reason: Hypoglycemia Cefepime HCl 1 gm/ Sodium (Chloride) 100 mls @ 200 mls/hr IVPB 0100,1300 [facility] Last Admin: 04/24/19 13:17 Dose: 100 mls Azithromycin 500 mg/ Sodium (Chloride) 250 mls @ 250 mls/hr IVPB Q24HR [facility] Insulin Human Lispro (Humalog) 0 units SC .AGGRESSIVE SLIDING PRN PRN Reason: Aggressive Correctional Scale Last Admin: 04/24/19 16:28 Dose: 3 unit Insulin Human Lispro (Humalog) 0 units SC .BEDTIME SLIDING SC PRN PRN Reason: Bedtime Correctional Scale Last Admin: 04/20/19 20:42 Dose: 2 unit Labetalol HCl (Normodyne) 10 mg SLOW IVP Q4H PRN PRN Reason: SBP Greater Than 170 Last Admin: 04/18/19 23:46 Dose: 10 mg Lidocaine (Lidoderm 5% Patch) 1 patch TD 1700 [facility] Last Admin: 04/24/19 16:21 Dose: 1 patch Lorazepam (Ativan) 1 mg SLOW IVP Q6H PRN PRN Reason: Anxiety/Agitation Last Admin: 04/15/19 23:05 Dose: 1 mg Miscellaneous Medication (Lidocaine Patch Removal) 1 each TOP 0500 [facility] Last Admin: 04/24/19 05:46 Dose: 1 each Nitroglycerin (Nitrostat) 0.4 mg SL Q5MIN PRN PRN Reason: Chest Pain Rosuvastatin Calcium (Crestor) 20 mg PO HS [facility] Last Admin: 04/23/19 20:27 Dose: 20 mg Saccharomyces Boulardii (Florastor) 250 mg PO DAILY [facility] Last Admin: 04/24/19 08:53 Dose: 250 mg Senna (Senokot) 1 tab PO BID [facility] Last Admin: 04/24/19 09:00 Dose: 1 tab Sodium Chloride (Flush - Normal Saline) 10 ml IVF Q12HR [facility] Last Admin: 04/24/19 08:52 Dose: 10 ml Sodium Chloride (Flush - Normal Saline) 10 ml IVF PRN PRN PRN Reason: Saline Flush Last Admin: 04/23/19 01:13 Dose: 10 ml Sterile Water (Water For Injection) 1.2 ml FS PRN PRN PRN Reason: RECONSTITUTION Ticagrelor (Brilinta) 90 mg PO BID [facility] Last Admin: 04/24/19 09:00 Dose: 90 mg Ziprasidone (Geodon) 10 mg IM Q4H PRN PRN Reason: Agitation Last Admin: 04/15/19 22:39 Dose: 10 mg Vital Signs & Weight: Vital Signs Temp Pulse Pulse Pulse Pulse Pulse Resp 04/24/19 16:21 04/24/19 15:58 98.5 F 04/24/19 15:38 78 25 H 04/24/19 15:30 63 75 72 75 04/24/19 11:17 99.1 F 04/24/19 11:05 77 21 H 04/24/19 08:53 04/24/19 08:00 04/24/19 07:39 84 28 H 04/24/19 07:11 98.4 F BP BP BP BP BP Pulse Ox Pulse Ox 04/24/19 16:21 155/69 H 04/24/19 15:58 04/24/19 15:38 98 04/24/19 15:30 125/61 132/65 154/98 H 142/64 H 100 04/24/19 11:17 04/24/19 11:05 100 04/24/19 08:53 145/75 H 04/24/19 08:00 96 04/24/19 07:39 100 04/24/19 07:11 Pulse Ox Pulse Ox Pulse Ox 04/24/19 16:21 04/24/19 15:58 04/24/19 15:38 04/24/19 15:30 100 99 100 04/24/19 11:17 04/24/19 11:05 04/24/19 08:53 04/24/19 08:00 04/24/19 07:39 04/24/19 07:11 Admit Weight 308 lb 10.354 oz Weight 279 lb 8 oz - Physical Exam General: alert & oriented x3 HEENT: mucus membranes moist Neck: supple neck Cardiac: regular rate and rhythm Lungs: clear to auscultation Neuro: grossly intact Abdomen: unremarkable Extremities: 1+ LE edema Skin: clear Musculoskeletal: no pain - Labs Result Diagrams: 04/24/19 03:18 04/24/19 03:18 Troponin/CKMB CK-MB (CK-2) 16.5 ng/mL (0-6.6) H* 04/13/19 13:52 Troponin I 15.949 ng/mL (< 0.028) H* 04/13/19 13:52 - Telemetry Sinus rhythms and dysrhythmias: sinus rhythm - Assessment/Plan Assessment/Plan: 1. VT 2. Out of hospital arrest 3. Acute on chronic renal failure. 4. Hyperkalemia, resolved. 5. NSTEMI 6. CAD s/p single vessel CABG and residual ostial RCA and ostial LCx disease. 7. S/P PCI to LM into LCx with NATALY. Jailed LAD but protected with good quality LOVE. PLAN: - Hgb stable now. - Creatinine with minimal increase today. Continue to trend. - Amiodarone load at 400 mg BID for 1 more day then switch to 200 mg PO daily. - Continua Brilinta and aspirin. - Continue PT.
[2019-04-24] MEDS: Rosuvastatin 20 MG TAB PO SCH (20:35)
[2019-04-24] MEDS: Azithromycin 500 MG in Sodium Chloride 0.9% 250 ML 250 ML IVPB SCH (20:35)
[2019-04-25] MEDS: Cefepime 1 GM in Sodium Chloride 0.9% 100 ML IVPB SCH ×2 (00:45→13:13)
[2019-04-25] MEDS: ALPRAZolam 0.5 MG TAB PO SCH (00:46)
[2019-04-25] MEDS: Lidocaine Patch Removal 1 EACH TOP SCH (05:21)
[2019-04-25 05:42] LABS: #Eosinphils 0.3 thou/uL (0.0-0.7); #Lymphocytes 2.1 thou/uL (1.20-3.40); #Monocytes 1.4 thou/uL (0.11-0.59); #Neutrophils 15.4 thou/uL (1.40-6.50); %Basophils 0.1 % (0.0-1.0); %Eosinophils 1.4 % (0.0-10.0); %Lymphocytes 11.1 % (21.0-51.0); %Monocytes 7.5 % (0.0-10.0); %Neutrophils 79.9 % (42.0-75.0); Hemoglobin 9.3 g/dL (14.0-18.0); Mean Corpuscular HGB CONC 31.4 g/dL (32.0-36.0); Mean Corpuscular Hemoglobin 30.2 pg (27.0-31.0); Mean Corpuscular Volume 96.3 fL (78.0-98.0); Mean Platelet Volume 6.9 fL (7.4-10.4); Platelet Count 218 thou/uL (130-400); RBC Distribution Width 14.3 % (11.5-14.5); Red Blood Cell (RBC) Count 3.08 mill/uL (4.70-6.10); White Blood Cell (WBC) Count 19.3 thou/uL (4.8-10.8)
[2019-04-25 05:57] LABS: Anion Gap 12 mmol/L (10-20); BUN (Urea Nitrogen) 34 mg/dL (8.4-25.7); BUN/Creatinine Ratio 10.43; Calc. Creatinine Clearance 42 mL/min (70-130); Calcium 9.1 mg/dL (7.8-10.44); Carbon Dioxide 23 mmol/L (23-31); Chloride 106 mmol/L (98-107); Estimated GFR-MDRD 23; Glucose 138 mg/dL (80-115); Phosphorus 3.6 mg/dL (2.3-4.7); Potassium 4.6 mmol/L (3.5-5.1); Sodium 136 mmol/L (136-145)
[2019-04-25] MEDS: Fentanyl 100 MCG/2 ML VIAL SLOW IVP PRN (06:40)
[2019-04-25 07:02] VITALS: TEMP 97.8
[2019-04-25] MEDS: Saccharomyces boulardii 250 MG CAP PO SCH (08:51)
[2019-04-25] MEDS: Allopurinol 100 MG TAB PO SCH (08:51)
[2019-04-25] MEDS: Carvedilol 6.25 MG TAB PO SCH ×2 (08:51→16:30)
[2019-04-25] MEDS: Amiodarone 200 MG TAB PO SCH (08:51)
[2019-04-25] MEDS: Aspirin 81 mg Enteric Coated Tablet PO SCH (08:51)
[2019-04-25] MEDS: guaiFENesin ER 600 MG TAB PO SCH ×2 (08:52→19:39)
[2019-04-25] MEDS: TICAGRELOR 90 MG TABLET PO SCH ×2 (08:52→19:39)
[2019-04-25] MEDS: Heparin 5,000 UNITS/ML VIAL SC SCH ×3 (08:52→19:40)
[2019-04-25] MEDS: Ferrous Sulfate 325 MG TAB PO SCH (08:52)
[2019-04-25] MEDS: Famotidine 20 MG TAB PO SCH (08:52)
[2019-04-25] MEDS: Senokot 8.6 MG TAB PO SCH ×2 (08:52→20:10)
[2019-04-25] MEDS: oxyCODONE/Acetaminophen 5 mg/325 mg Tablet PO PRN ×2 (11:17→19:38)
[2019-04-25] MEDS: HumaLOG 300 UNITS/3 ML VIAL SC PRN ×2 (11:31→16:31)
--- NOTE | 2019-04-25 13:57 | PDOC.CPN ---
- Subjective Date: 04/25/19 Time: 13:56 Interval history: He is doing well. No angina. - Review of Systems General: denies: fever/chills, weight/appetite/sleep changes, night sweats, fatigue Respiratory: reports: shortness of breath. denies: cough, congestion, exercise intolerance Cardiovascular: denies: chest pain, palpitation, edema, paroxysmal nocturnal dyspnea, orthopnea Gastrointestinal: denies: nausea, vomiting, diarrhea, constipation, abd pain, GI bleeding Musculoskeletal: denies: pain, tenderness, stiffness, swelling, arthritis/ arthralgias Neurological: denies: numbness, syncope, seizure, weakness - Objective Allergies/Adverse Reactions: Allergies Allergy/AdvReac Type Severity Reaction Status Date / Time No Known Drug Allergies Allergy Verified 04/11/19 10:19 Visit Medications: Current Medications Albuterol/Ipratropium (Duoneb) 3 ml NEB [id number] [facility] Last Admin: 04/25/19 13:50 Dose: 3 ml Allopurinol (Zyloprim) 100 mg PO DAILY [facility] Last Admin: 04/25/19 08:51 Dose: 100 mg Alprazolam (Xanax) 0.5 mg PO 2358 [facility] Last Admin: 04/25/19 00:46 Dose: 0.5 mg Amiodarone HCl (Cordarone) 200 mg PO DAILY [facility] Aspirin (Ecotrin) 81 mg PO DAILY [facility] Last Admin: 04/25/19 08:51 Dose: 81 mg Carvedilol (Coreg) 12.5 mg PO BID-[facility] Last Admin: 04/25/19 08:51 Dose: 12.5 mg Dextrose/Water (Dextrose 50%) 25 gm SLOW IVP PRN PRN PRN Reason: Hypoglycemia Epoetin Tan-epbx (Retacrit) 10,000 unit SC TTA [facility] Famotidine (Pepcid) 20 mg PO DAILY [facility] Last Admin: 04/25/19 08:52 Dose: 20 mg Ferrous Sulfate (Feosol) 325 mg PO QAM-[facility] Last Admin: 04/25/19 08:52 Dose: 325 mg Glucagon (Glucagon) 1 mg IM PRN PRN PRN Reason: Hypoglycemia Guaifenesin (Mucinex) 600 mg PO Q12HR [facility] Last Admin: 04/25/19 08:52 Dose: 600 mg Guaifenesin/Dextromethorphan (Robitussin Dm) 15 ml PO Q4H PRN PRN Reason: Cough Last Admin: 04/22/19 21:02 Dose: 15 ml Haloperidol Lactate (Haldol) 10 mg IM Q6H PRN PRN Reason: .AGITATION Heparin Sodium (Porcine) (Heparin) 5,000 units SC TID [facility] Last Admin: 04/25/19 08:52 Dose: 5,000 units Dextrose/Water (D5w) 1,000 mls @ 0 mls/hr IV .Q0M PRN PRN Reason: Hypoglycemia Cefepime HCl 1 gm/ Sodium (Chloride) 100 mls @ 200 mls/hr IVPB 0100,1300 [facility] Last Admin: 04/25/19 13:13 Dose: 100 mls Azithromycin 500 mg/ Sodium (Chloride) 250 mls @ 250 mls/hr IVPB 2100 [facility] Last Admin: 04/24/19 20:35 Dose: 250 mls Insulin Human Lispro (Humalog) 0 units SC .AGGRESSIVE SLIDING PRN PRN Reason: Aggressive Correctional Scale Last Admin: 04/25/19 11:31 Dose: 9 unit Insulin Human Lispro (Humalog) 0 units SC .BEDTIME SLIDING SC PRN PRN Reason: Bedtime Correctional Scale Last Admin: 04/20/19 20:42 Dose: 2 unit Labetalol HCl (Normodyne) 10 mg SLOW IVP Q4H PRN PRN Reason: SBP Greater Than 170 Last Admin: 04/18/19 23:46 Dose: 10 mg Lidocaine (Lidoderm 5% Patch) 1 patch TD 1700 [facility] Last Admin: 04/24/19 16:21 Dose: 1 patch Miscellaneous Medication (Lidocaine Patch Removal) 1 each TOP 0500 [facility] Last Admin: 04/25/19 05:21 Dose: 1 each Nitroglycerin (Nitrostat) 0.4 mg SL Q5MIN PRN PRN Reason: Chest Pain Oxycodone/Acetaminophen (Percocet 5/325) 1 tab PO Q4H PRN PRN Reason: Moderate Pain (4-6) Last Admin: 04/25/19 11:17 Dose: 1 tab Rosuvastatin Calcium (Crestor) 20 mg PO HS [facility] Last Admin: 04/24/19 20:35 Dose: 20 mg Saccharomyces Boulardii (Florastor) 250 mg PO DAILY [facility] Last Admin: 04/25/19 08:51 Dose: 250 mg Senna (Senokot) 1 tab PO BID [facility] Last Admin: 04/25/19 08:52 Dose: Not Given Sodium Chloride (Flush - Normal Saline) 10 ml IVF Q12HR [facility] Last Admin: 04/25/19 08:53 Dose: 10 ml Sodium Chloride (Flush - Normal Saline) 10 ml IVF PRN PRN PRN Reason: Saline Flush Last Admin: 04/23/19 01:13 Dose: 10 ml Sterile Water (Water For Injection) 1.2 ml FS PRN PRN PRN Reason: RECONSTITUTION Ticagrelor (Brilinta) 90 mg PO BID [facility] Last Admin: 04/25/19 08:52 Dose: 90 mg Ziprasidone (Geodon) 10 mg IM Q4H PRN PRN Reason: Agitation Last Admin: 04/15/19 22:39 Dose: 10 mg Vital Signs & Weight: Vital Signs Temp Pulse Resp BP Pulse Ox 04/25/19 13:50 72 26 H 100 04/25/19 10:26 76 20 100 04/25/19 08:51 121/64 04/25/19 07:02 97.8 F 04/25/19 06:56 88 21 H 0 L 04/25/19 04:00 98.1 F 04/25/19 02:26 85 16 100 Admit Weight 308 lb 10.354 oz Weight 275 lb 14.4 oz - Physical Exam General: alert & oriented x3 HEENT: mucus membranes moist Neck: supple neck Cardiac: regular rate and rhythm Lungs: scattered rhonchi Neuro: grossly intact Abdomen: active bowel sounds Extremities: 1+ LE edema Skin: clear Musculoskeletal: no pain - Labs Result Diagrams: 04/25/19 05:26 04/25/19 05:26 Troponin/CKMB CK-MB (CK-2) 16.5 ng/mL (0-6.6) H* 04/13/19 13:52 Troponin I 15.949 ng/mL (< 0.028) H* 04/13/19 13:52 - Telemetry Sinus rhythms and dysrhythmias: sinus rhythm - Assessment/Plan Assessment/Plan: 1. VT 2. Out of hospital arrest 3. Acute on chronic renal failure. 4. Hyperkalemia, resolved. 5. NSTEMI 6. CAD s/p single vessel CABG and residual ostial RCA and ostial LCx disease. 7. S/P PCI to LM into LCx with NATALY. Jailed LAD but protected with good quality LOVE. PLAN: - Hgb remains stable. - Creatinine stable. - Amiodarone load done, switch to 200 mg PO daily tomorrow. - Continua Brilinta and aspirin. - Continue PT. - Placement.
[2019-04-25 16:33] VITALS: BP 136/86
[2019-04-25] MEDS: Lidocaine 5% Patch TD SCH (16:42)
[2019-04-25] MEDS: Rosuvastatin 20 MG TAB PO SCH (19:39)
[2019-04-25] MEDS: Azithromycin 500 MG in Sodium Chloride 0.9% 250 ML 250 ML IVPB SCH (20:10)
--- NOTE | 2019-04-25 21:05 | PRG ---
DATE OF SERVICE: 04/25/2019 SUBJECTIVE: The patient is seen and examined today. Seems to be doing much better, noted with the following vital signs. OBJECTIVE: VITAL SIGNS: Afebrile, temperature 97.8, pulse 77, respiratory rate of 16, O2 saturation of 98% with blood pressure 136/86. HEENT: Unremarkable. CARDIOVASCULAR: First and second heart sounds were heard. RESPIRATORY: Clear to auscultation. DIGESTIVE: Revealed a benign abdomen. EXTREMITIES: No peripheral edema. LYMPHATICS: No peripheral lymphadenopathy. LABORATORY INVESTIGATION: Showed a creatinine of 3.26, BUN of 34. IMPRESSION: 1. Acute on chronic kidney disease likely stage 4. The patient's creatinine seems to have plateaued around 3. PLAN: 1. From the renal standpoint, the patient can be discharged to rehab. 2. If there is any concern regarding the renal function of this patient at rehab, we will recommend consultation with Dr. Dov Wilkins patient's local table lever operator, Dr. Moore. 3. Renally dose all medications and avoid potentially nephrotoxic agents. 4. Further management to be dependent on the clinical course. Job ID: [id number]
--- NOTE | 2019-04-25 21:22 | DIS ---
DATE OF ADMISSION: 04/11/2019 DATE OF DISCHARGE: 04/25/2019 DISCHARGE DIAGNOSES: 1. Cardiac arrest secondary to ventricular fibrillation and non-ST elevation myocardial infarction, acute hypoxic respiratory failure secondary to cardiac arrest, pneumonia and pulmonary edema. 2. Leukocytosis. 3. Anemia. 4. Acute kidney injury on chronic kidney disease stage 3. 5. Acute pulmonary edema secondary to acute systolic heart failure. CONSULTATIONS: Cardiology with Dr. Emil Lee, Nephrology with Dr. Eliot Moore, and Critical Care with Dr. Jesse Harper. BRIEF HISTORY OF PRESENT ILLNESS: This is a 63-year-old male with a past medical history of atrial fibrillation, diabetes, and hyperlipidemia, who was brought to the emergency room after his son found his father unresponsive in the bathroom. The patient's son had administered CPR and called 911. When EMS arrived, the patient had ROSC, however, had lost his pulse again before arrival to the ED. The patient was found to be in VFib and was shocked. The patient had received 2 rounds of epi. Upon arrival to the ER, the patient was intubated and had a blood pressure of 85/40, post intubation. He also had a blood sugar of 400. He was admitted to the intensive care unit for further management. Troponins increased to 0.228. Chest x-ray on admission showed no pneumothorax or pleural fluid. Abdominal x-ray was unremarkable. PROCEDURES: Cardiac cath on 04/11, femoral dialysis catheter placement on 04/11. HOSPITAL COURSE: The patient underwent a cardiac cath on 04/11. He was found to have 99% stenosis in his proximal LAD, 90% stenosis in the circumflex, and 90% stenosis on the RCA. He underwent a drug-eluting stent placement to the left circumflex on 04/21. The patient's cardiac cath procedure was delayed initially due to fear of the patient needing dialysis if he was to get the catheterization. However, eventually, the patient and family agreed to getting the catheterization. For the patient's VFib, the patient was initially on sotalol, but was switched to amiodarone. He was loaded with amiodarone 400 mg b.i.d. and on discharge was switched to 200 mg daily. On discharge, the patient continues to have some mild chest pain from his CPR and was prescribed a lidocaine patch. He was evaluated by rehab and will be set up for inpatient rehab as well as cardiac rehab. The patient was started on aspirin and Brilinta while in the hospital; however, given that the patient was on Eliquis, the patient was switched to aspirin 81 mg daily for 1 month and will continue his Eliquis. He will be switched to Plavix on discharge. He should follow up with his photoflash powder mixer at [facility] in a week. Acute hypoxic respiratory failure secondary to cardiac arrest versus pneumonia versus pulmonary edema: The patient did require up to 3 L of oxygen while in the hospital. He had serial chest x-rays, which on the showed an opacity in the left base. The patient did have increasing leukocytosis up to 32 on the . Infectious Disease was consulted and recommended removing his femoral catheter; however, this was kept in place until after his catheterization due to fear of needing dialysis. The patient was started on IV cefepime empirically with improvement in his white count. Due to persistent cough with chest congestion, he was also started on azithromycin on the with improvement in his white count to 19.3. The patient has completed 7 days of cefepime and will be discharged on azithromycin for an additional 4 days. The patient was also diuresed with Lasix on the after having some pulmonary edema from a blood transfusion. He will be discharged on Lasix 40 mg p.r.n. He did have an echocardiogram, which showed an EF of 45% to 50% with some anterolateral hypokinesis. He should take it as needed if he has any leg swelling or chest congestion. He was also discharged on Coreg. Anemia: The patient had a hemoglobin of 6 on 04/22: He received 3 units of blood transfusion with improvement in his hemoglobin to 9. He should have a CBC repeated as an outpatient and follow up with his PCP. Acute kidney injury on CKD stage 3: The patient's creatinine slowly increased over the past few days up to 3.26. This is possibly secondary to contrast received during the cardiac cath. The patient did get one dose of Lasix on the due to pulmonary edema from blood transfusion. Further Lasix was held. Per Dr. Altamirano, this creatinine is his baseline and the patient's creatinine fluctuates significantly at baseline. He has been noted to have a creatinine of 5 on January 2019. 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 DISCHARGE PHYSICAL EXAMINATION: VITAL SIGNS: Temperature 97.8, blood pressure 136/86, respiratory rate 16, and O2 saturation 98% on room air. GENERAL: The patient is alert, awake, and oriented x3. He is on room air. CVS: Regular rate and rhythm with no murmurs, rubs, or gallops. LUNGS: The patient has intermittent rales, which improved with coughing. ABDOMEN: Positive bowel sounds, soft, nontender, and nondistended. EXTREMITIES: Mild edema. PERTINENT LABORATORY DATA: CBC on 04/25: White count 19.3, hemoglobin 9.3, and hematocrit 29.6. BMP on 04/25: Shows a creatinine of 3.26. LFTs; AST 14, ALT 42, and alkaline phosphatase 50. Iron panel: Shows a ferritin of 5308, iron 57, TIBC 186, and iron sat 31. UA on 04/11: Shows leukocyte esterase of 500 and white count 50. Hepatitis B serology on 04/11: Nonreactive. PERTINENT IMAGING: Chest x-ray on 04/11: Unremarkable. Abdominal x-ray on 04/11: Unremarkable. Chest x-ray on 04/19: Streaky opacity in the left base. Chest x-ray on 04/24: No confluent pneumonia, edema, or pleural effusion. Echocardiogram: EF of 45% to 50%, anterolateral hypokinesis, mild MR, mild TR, elevated RVSP. Cardiac cath: 99% occlusion LAD, but CABG patent; 90% occlusion of the circumflex, status post NATALY; 90% occlusion of the RCA. DISCHARGE CONDITION: The patient will be stable for discharge to [facility]. DIET: Heart healthy diet. ACTIVITY: As tolerated. DISCHARGE MEDICATIONS: New prescriptions: 1. Aspirin 81 mg p.o. daily. 2. Azithromycin 250 mg p.o. daily for 4 days. 3. Coreg 12.5 mg p.o. b.i.d. 4. Plavix 75 mg p.o. daily. 5. Lidocaine patch 1 patch daily. 6. Amiodarone 200 mg p.o. daily. All other home medications were resumed. DISCHARGE INSTRUCTIONS: The patient should take aspirin 81 daily for 1 month. He should take Plavix 75 mg daily, amiodarone 200 mg daily, and Crestor. He should follow up with his photoflash powder mixer in a week and his PCP in a week. He should stop taking sotalol. He will be discharged to rehab for further care. Job ID: [id number]
[2019-04-26] MEDS ORDERED: Amiodarone 200 MG TAB PO SCH (09:00)
== END 2019-04-25 20:12 | DRG 246 ==
LOC: ERS 02:41 → CCU 02:47 → IMCU/EMU 04-22 19:03
PROVIDERS: ADMIT Internal Medicine; ATTEND Internal Medicine
PROC: 02HV33Z Insertion of Infusion Device into Superior Vena Cava, Percutaneous Approach (ICD-10-PCS; 2019-04-11)
PROC: 0BH17EZ Insertion of Endotracheal Airway into Trachea, Via Natural or Artificial Opening (ICD-10-PCS; 2019-04-11)
PROC: 5A1945Z Respiratory Ventilation, 24-96 Consecutive Hours (ICD-10-PCS; 2019-04-11)
PROC: 3E033XZ Introduction of Vasopressor into Peripheral Vein, Percutaneous Approach (ICD-10-PCS; 2019-04-11)
PROC: 06HY33Z Insertion of Infusion Device into Lower Vein, Percutaneous Approach (ICD-10-PCS; 2019-04-13)
PROC: 027034Z Dilation of Coronary Artery, One Artery with Drug-eluting Intraluminal Device, Percutaneous Approach (ICD-10-PCS; principal; 2019-04-21)
PROC: 4A023N7 Measurement of Cardiac Sampling and Pressure, Left Heart, Percutaneous Approach (ICD-10-PCS; 2019-04-21)
PROC: B2181ZZ Fluoroscopy of Left Internal Mammary Bypass Graft using Low Osmolar Contrast (ICD-10-PCS; 2019-04-21)
PROC: B2131ZZ Fluoroscopy of Multiple Coronary Artery Bypass Grafts using Low Osmolar Contrast (ICD-10-PCS; 2019-04-21)
PROC: B2111ZZ Fluoroscopy of Multiple Coronary Arteries using Low Osmolar Contrast (ICD-10-PCS; 2019-04-21)
PROC: B2151ZZ Fluoroscopy of Left Heart using Low Osmolar Contrast (ICD-10-PCS; 2019-04-21)
DX: I49.01 Ventricular fibrillation (principal); J96.01 Acute respiratory failure with hypoxia; J18.9 Pneumonia, unspecified organism; G92 Toxic encephalopathy; I50.23 Acute on chronic systolic (congestive) heart failure; I21.4 Non-ST elevation (NSTEMI) myocardial infarction; I13.0 Hypertensive heart and chronic kidney disease with heart failure and stage 1 through stage 4 chronic kidney disease, or unspecified chronic kidney disease; N18.4 Chronic kidney disease, stage 4 (severe); E87.2 Acidosis; E87.1 Hypo-osmolality and hyponatremia; N17.9 Acute kidney failure, unspecified; E66.2 Morbid (severe) obesity with alveolar hypoventilation; J44.0 Chronic obstructive pulmonary disease with (acute) lower respiratory infection; M10.9 Gout, unspecified; K21.9 Gastro-esophageal reflux disease without esophagitis; E78.5 Hyperlipidemia, unspecified; E78.00 Pure hypercholesterolemia, unspecified; E11.22 Type 2 diabetes mellitus with diabetic chronic kidney disease; D63.1 Anemia in chronic kidney disease; I25.10 Atherosclerotic heart disease of native coronary artery without angina pectoris; E11.65 Type 2 diabetes mellitus with hyperglycemia; E87.5 Hyperkalemia; I48.0 Paroxysmal atrial fibrillation; I25.5 Ischemic cardiomyopathy; F41.9 Anxiety disorder, unspecified; I46.2 Cardiac arrest due to underlying cardiac condition; Z79.4 Long term (current) use of insulin; Z98.84 Bariatric surgery status; Z95.1 Presence of aortocoronary bypass graft; Z87.891 Personal history of nicotine dependence; Z79.899 Other long term (current) drug therapy; Z79.01 Long term (current) use of anticoagulants; Z68.38 Body mass index [BMI] 38.0-38.9, adult
CPT/HCPCS: 36415; 36416; 36430; 36556; 51702; 71045; 74018; 80048; 80053; 80069; 81003; 81015; 82553; 82728; 82805; 83540; 83550; 83605; 83735; 83880; 84100; 84145; 84484; 85025; 85347; 85610; 85730; 86850; 86900; 86901; 87040; 87070; 87077; 87086; 87186; 87205; 87340; 90935; 92928; 92950; 93005; 93010; 93306; 93455; 93798; 94002; 94003; 94640; 94660; 96365; 96366; 96368; 96375; 99152; 99153; 99292; C1752; C1769; C1874; C9600; G0257; J0282; J0456; J0692; J0696; J1642; J1644; J1650; J1815; J1940; J2001; J2060; J2250; J2704; J2920; J3010; J3475; J3486; J3490; J7050; J7070; J7608; J7620; P9016; P9047; Q5105; Q9967; S0028

== ENCOUNTER 2020-01-27 08:21 | Emergency (ER) | payer BC ==
--- NOTE | 2020-01-27 09:01 | RAD ---
EXAM: Single view of the abdomen HISTORY: Constipation and rectal pain COMPARISON: 09/13/2019 FINDINGS: Single view of the abdomen shows a nonspecific, nonobstructive bowel gas pattern. A small a mount of stool is seen in the rectal vault. A stable calcification in the right pelvis likely represents a phlebolith. No suspicious calcifications are seen. Mild degenerative changes are seen in the spine. IMPRESSION: No significant abnormality.
[2020-01-27] MEDS ORDERED: Fleet Enema 133 ML BOT PR SCH (09:15)
[2020-01-27 09:53] LABS: Bacteria/HPF None Seen HPF (None Seen); Bilirubin Negative (Negative); Blood, Urine Negative (Negative); Clarity Clear (Clear); Glucose, Urine (Dipstick) Normal (Negative); Ketone, Urine Negative (Negative); Leukocyte Negative Leu/uL (Negative); Nitrite Negative (Negative); Protein, Urine (Dipstick) 30 mg/dL (Neg-Trace); RBC/HPF 0-3 HPF (0-3); Squamous Epithelial None Seen HPF (0-3); Urobilinogen Normal mg/dL (Less than 2); WBC/HPF 0-3 HPF (0-3); pH, Urine 7.5 (5.0-9.0)
== END 2020-01-27 10:22 | disposition home or self-care (01) ==
LOC: ERS 08:21
DX: K59.00 Constipation, unspecified (principal); I48.91 Unspecified atrial fibrillation; M10.9 Gout, unspecified; K21.9 Gastro-esophageal reflux disease without esophagitis; G47.30 Sleep apnea, unspecified; I49.9 Cardiac arrhythmia, unspecified; E78.5 Hyperlipidemia, unspecified; E78.00 Pure hypercholesterolemia, unspecified; E66.9 Obesity, unspecified; I12.9 Hypertensive chronic kidney disease with stage 1 through stage 4 chronic kidney disease, or unspecified chronic kidney disease; E11.22 Type 2 diabetes mellitus with diabetic chronic kidney disease; N18.4 Chronic kidney disease, stage 4 (severe); D64.9 Anemia, unspecified; F41.9 Anxiety disorder, unspecified; Z79.4 Long term (current) use of insulin; Z87.891 Personal history of nicotine dependence; Z79.899 Other long term (current) drug therapy; Z79.01 Long term (current) use of anticoagulants
CPT/HCPCS: 74018; 81003; 81015